=== PATIENT | female | born 1975 | race Caucasian/White ===

== ENCOUNTER 2020-06-11 03:20 | Emergency (ER) | payer SELFPAY ==
--- NOTE | ~2020-06-11 | CT_ITS ---
EXAMINATION: CT thoracic spine wo con DATE: 06/11/2020 04:27 INDICATION: Back pain TECHNIQUE: Computed tomography (CT) of the thoracic spine was performed without intravenous contrast. Automated exposure control and iterative reconstruction technique were employed. The dose-length pro duct was 897.46 mGy-cm. COMPARISON: Thoracic spine MR dated 10/09/2008 FINDINGS: Alignment is normal. Vertebral body heights are normal. No fracture. Mild disc height loss at T2-T3 t hrough T10-T11 with small endplate osteophytes at many of these levels. Multilevel mild bilateral tho racic facet osteoarthritis. There is a small soft tissue density at the T9-T10 left paracentral disc space extending to the neural foramen likely representing a disc extrusion which results in mild cent ral canal and left neural foraminal stenosis at this level. No other central canal or neural foramina l stenosis. Small pneumatocele in the left upper lobe. Mild pleural parenchymal scarring at the poste rior apices of the lungs. IMPRESSION: 1. Mild thoracic spondylosis with likely left paracentral/foraminal zone disc extrusion at T9-T10 res ult in mild central canal and neural foraminal stenosis. Dr. Mcnamara discussed these findings with Colby Seth at 8:15 AM. Reviewed, dictated and finalized at location A. IMPRESSION: 1. Mild thoracic spondylosis with likely left paracentral/foraminal zone disc e xtrusion at T9-T10 result in mild central canal and neural foraminal stenosis. Dr. Mcnamara discussed these findings with Dr. Seth at 8:15 AM.
[2020-06-11 03:39] VITALS: BP 113/72; PULSE 102; RESP 20; TEMP 36.8; O2SAT 98
--- NOTE | 2020-06-11 03:40 | ED.BACK ---
HPI - Back Pain/Injury General Chief Complaint: Back Pain/Injury Stated Complaint: Back Pain Time Seen by Provider: 06/11/20 03:40 Source: patient and RN notes reviewed Mode of arrival: ambulatory Limitations: no limitations History of Present Illness HPI Narrative: Patient states that she was lifting a 10-15 lb load. She picked up with both arms and then lifted it in front of her on top to a counter. This caused sudden acute pain in her midthoracic spine. She felt a tearing sensation. No radiation of the pain she is having a lot of spasms associated with this. No history of any prior back pain. MD elicited complaint: back injury Onset (ago): hour(s) (8) Timing: constant Severity: moderate Pain scale (0-10): 7 Similar Symptoms Previously: No Quality: sharp, stabbing and spasming Location: thoracic spine Radiation: none Exacerbating factors: movement, walking and lifting Relieving factors: none Context: while lifting and turning/twisting Associated symptoms: denies other symptoms Treatments prior to arrival: cold therapy Work related injury: No Related Data Allergies Allergy/AdvReac Type Severity Reaction Status Date / Time erythromycin base Allergy Intermediate Unknown Verified 06/11/20 03:52 Penicillins Allergy Intermediate Unknown Verified 06/11/20 03:52 ciprofloxacin [From Cipro] Allergy Hives Verified 06/11/20 03:52 clindamycin Allergy Unknown Verified 06/11/20 03:52 prednisone Allergy Fever Verified 06/11/20 03:52 vancomycin Allergy Unknown Verified 06/11/20 03:52 Exam Narrative: Exam Narrative: 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 Const: General: healthy appearing, no acute distress and alert Nutritional Appearance: well nourished Orientation/consciousness: patient oriented x3 HENMT: Head: normal to inspection Eyes: Conjunctivae: conjunctivae normal Pupils: Equal, round and reactive pupils present EOM: EOMs intact bilaterally Neck: Neck: normal visual inspection Resp: Effort & Inspection: normal respiratory effort Auscultation: clear to auscultation bilaterally Cardio: Rate: regular rate Rhythm: regular rhythm GI: Auscultation: normal bowel sounds Back/Spine/Pelvis: Cervical Spine: cervical ROM normal Thoracic/Lumbar Spine: straight leg raise negative bilaterally, pain with thoraco-lumbar ROM, No paraspinal muscle tenderness, thoraco-lumbar ROM limited with lateral flexion to the right, with lateral flexion to the left, with rotation to the right and with rotation to the left, thoraco-lumbar spasm bilaterally in the mid thoracic, thoracic spinal tenderness (Moderate to severe) at T5, at T6 and at T7 and No lumbar spinal tenderness Skin: General skin exam: normal color Rashes: no rashes Neuro: General: patient oriented x3, moves all extremities and no focal motor deficits Speech: normal speech Extrem: General: normal to inspection and no clubbing, cyanosis or edema Psych: Appearance: grossly normal and well kempt Mental Status: mental status grossly normal Affect: normal affect Attitude: cooperative Thought content: Yes Normal thought content present Course Vital Signs Vital signs: Vital Signs Temperature 36.8 C 06/11/20 03:39 Pulse Rate 102 H 06/11/20 03:39 Respiratory Rate 20 06/11/20 03:39 Blood Pressure 113/72 06/11/20 03:39 Pulse Oximetry 98 06/11/20 03:39 Temperature 36.7 C 06/11/20 05:22 Pulse Rate 82 06/11/20 05:22 Respiratory Rate 20 06/11/20 05:22 Blood Pressure 111/66 06/11/20 05:22 Pulse Oximetry 98 06/11/20 05:22 MDM - Back Pain/Injury Imaging Data Radiologist's impression: No acute findings per radiologist. Discharge Plan Discharge Clinical Impression: Strain of thoracic spine Patient Disposition: Home, Self-Care Condition: Stable Instructions: Thoracic Back Strain (ED) Additional Instructions: Follow-up with primary care physician. Consider physical therapy. Prescriptions: New nabumetone 750 mg tablet
[2020-06-11 03:41] VITALS: BP 113/72; PULSE 102; RESP 20; TEMP 36.8; O2SAT 98
[2020-06-11] MEDS: ORPHENADRINE CITRATE 30 MG/ML 2 ML VIAL 60 MG IM (04:10)
[2020-06-11] MEDS: KETOROLAC (*BKC) 60 MG/2 ML VIAL IM (04:10)
[2020-06-11 05:22] VITALS: BP 111/66; PULSE 82; RESP 20; TEMP 36.7; O2SAT 98
== END 2020-06-11 05:30 | disposition home or self-care (01) ==
PROVIDERS: Emergency Provider Emergency Medicine
DX: S29.012A Strain of muscle and tendon of back wall of thorax, initial encounter (principal); X50.9XXA Other and unspecified overexertion or strenuous movements or postures, initial encounter
CPT/HCPCS: 72128; 96372; 99283; 99284; J1885; J2360

== ENCOUNTER 2021-05-03 16:50 | Emergency (ER) | payer MEDICAID, SELFPAY ==
[2021-05-03 18:05] VITALS: BP 115/68; PULSE 78; RESP 18; TEMP 36.9; O2SAT 98
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
[2021-05-03] MEDS: cefTRIAXone 1 GM VIAL IM (18:38)
[2021-05-03 19:16] VITALS: BP 126/62; O2SAT 98
== END 2021-05-03 19:18 | disposition home or self-care (01) ==
PROVIDERS: Emergency Provider Emergency Medicine; PCP Nurse Practitioner Family
DX: T30.0 Burn of unspecified body region, unspecified degree (principal); X08.8XXA Exposure to other specified smoke, fire and flames, initial encounter
CPT/HCPCS: 96372; 99283; J0696

== ENCOUNTER 2021-08-15 17:01 | Observation (INO) | payer OTHER, SELFPAY ==
--- NOTE | ~2021-08-15 | XR_ITS ---
XR chest 1V portable DATE: 08/15/2021 17:42 INDICATION: Left chest pain for one hour TECHNIQUE: Portable upright AP views on 08/15/2021 at 1738 hours COMPARISON: None FINDINGS: Bilateral hyperinflation. No pulmonary infiltrate or consolidation, pleural effusion or pul monary vascular congestion or pneumothorax. Normal heart size. No hilar or mediastinal enlargement. IMPRESSION: Bilateral hyperinflation; no active cardiopulmonary disease Reviewed, dictated and finalized at location A.
[2021-08-15 17:05] VITALS: BP 122/75; PULSE 86; RESP 14; TEMP 37.1; O2SAT 99
--- NOTE | 2021-08-15 17:09 | ECG_ITS ---
Measurements Intervals [place] Rate: 87 P: 76 MD: 143 QRS: 72 QRSD: 88 T: 54 QT: 358 QTc: 432 Interpretive Statements SINUS RHYTHM BASELINE ARTIFACT- II, III, AVF NORMAL ECG Electronically Signed On 08-15-2021 17:24:54 CDT by Darren Simmons D.O.
--- NOTE | 2021-08-15 17:16 | ED.GENADULT ---
HPI - General Adult General Chief complaint: Chest Pain Stated complaint: chest pain Source: patient Mode of arrival: ambulatory Limitations: no limitations History of Present Illness HPI narrative: Zenaida is a 46F with a PMH of chronic pain and fatigue, asthma, tobacco abuse, GERD and a family history of early heart disease that presented to the ED with chest pain that started an hour ago. It started as palpitations and turned to pressure then numbness. Next the left side of her face and left arm went numb. She is nauseated, SOB and is lightheaded. It is worse with activity and better with rest. Related Data Home Medications Medication Instructions Recorded Confirmed No Home Medications 08/15/21 08/15/21 Allergies Allergy/AdvReac Type Severity Reaction Status Date / Time erythromycin base Allergy Intermediate Unknown Verified 06/11/20 03:52 Penicillins Allergy Intermediate Unknown Verified 06/11/20 03:52 ciprofloxacin [From Cipro] Allergy Hives Verified 06/11/20 03:52 clindamycin Allergy Unknown Verified 06/11/20 03:52 prednisone Allergy Fever Verified 06/11/20 03:52 shellfish derived Allergy Anaphylaxis Verified 08/15/21 20:32 vancomycin Allergy Unknown Verified 06/11/20 03:52 Review of Systems Constitutional: Constitutional: Reports no additional constitutional complaints Eyes: Eyes: Reports no additional eye complaints ENT: Reports system reviewed and no additional complaints, except as documented Cardiovascular: Cardiovascular: Reports as per HPI Respiratory: Respiratory: Reports as per HPI Gastrointestinal: Gastrointestinal: Reports as per HPI Genitourinary: Genitourinary: Reports no additional female genitourinary complaints Musculoskeletal: Musculoskeletal: Reports no additional musculoskeletal complaints Integumentary/Breasts: Skin/Breast: Reports system reviewed and no additional complaints, except as docu Neurologic: Reports system reviewed and no additional complaints, except as documented Psychiatric: Psychiatric: Reports no additional psychiatric complaints Endocrine: Endocrine: Reports no additional endocrine complaints Hematologic/Lymphatic: Hematologic/Lymphatic: Reports no additional hematologic/lymphatic complaints Allergic/Immunologic: Allergic/Immunologic: Reports no additional allergic/immunologic complaints [facility]LY [facility] Past Medical History Medical History Anxiety Social History Social History Alcohol intake: unknown Substance use: unknown Spiritual care concerns: No Exam Const: General: no acute distress and alert; No confusion Orientation/consciousness: patient oriented x3 Limitations: No altered mental status HENMT: Head: normal to inspection Other: atraumatic Eyes: Conjunctivae: conjunctivae normal Pupils: Equal, round and reactive pupils present Neck: Neck: normal visual inspection Chest: Chest palpation & inspection: normal inspection of the chest Resp: Effort & Inspection: normal respiratory effort, not labored and not tachypneic Auscultation: clear to auscultation bilaterally Cardio: Rate: regular rate Rhythm: regular rhythm GI: Inspection: non-distended GI Palp: Yes Soft to palpation, No Tenderness to palpation present (GI) and No Guarding due to palpation present (GI) : General: Yes no CVA tenderness Back/Spine/Pelvis: Back: no CVA tenderness Skin: General skin exam: normal color Rashes: no rashes Neuro: General: patient oriented x3 and moves all extremities Extrem: General: normal to inspection Psych: Mental Status: mental status grossly normal Course Course Emergency Course: She was given aspirin and nitro. Ordered labs, EKG and CXR. Her pain was helped a little with nitro. EKG showed NSR at a rate of 87, normal rhythm, normal axis, and no ST elevation/depression DATE: 08/15/2021 17:42 INDICATION: Left shanice
[2021-08-15] MEDS: ASPIRIN 81 MG CHEWABLE TABLET 324 MG PO (17:30)
[2021-08-15 17:31] LABS: Basophils Absolute Auto 0.02 K/mm3 (0.00-0.10); Basophils Percent Auto 0.3 % (0.0-1.0); Eosinophils Percent Auto 1.5 % (1.0-6.0); Hematocrit 40.7 % (35.0-49.0); Hemoglobin 14.3 g/dL (12.0-15.0); Immature Granulocyte Absolute 0.02 K/mm3 (0.00-0.00); Immature Granulocyte Percent A 0.3 % (0.0-0.0); Lymphocytes Absolute Auto 2.23 K/mm3 (1.10-4.50); Lymphocytes Percent Auto 34.1 % (18.0-42.0); Mean Corpuscular HGB Conc 35.1 g/dL (32.0-36.0); Mean Corpuscular Hemoglobin 32.9 pg (27.0-31.0); Mean Corpuscular Volume 93.8 fL (78.0-102.0); Mean Platelet Volume 9.9 fl (9.2-11.8); Monocytes Absolute Auto 0.26 K/mm3 (0.10-0.90); Neutrophils Absolute Auto 3.9 K/mm3 (1.7-7.2); Neutrophils Percent Auto 59.8 % (50.0-70.0); Platelet Count Result 312 K/mm3 (150-420); Red Blood Count 4.34 M/mm3 (4.20-5.40); Red Cell Distribution Width 11.5 % (11.6-14.4); White Blood Count 6.5 K/mm3 (4.8-10.8)
[2021-08-15] MEDS: NITROGLYCERIN SL 0.4 MG TABLET SUBLINGUAL (17:31)
--- NOTE | 2021-08-15 17:35 | PC.NURSE ---
Pt states she now has a headache and does not want another sl nitro. edp aware. pt states chest pressure is better.
[2021-08-15 17:43] LABS: Prothrombin Time 10.6 Seconds (9.50-12.10)
[2021-08-15 17:52] LABS: Alanine Aminotransferase 23 U/L (14-59); Alkaline Phosphatase 40 U/L (46-116); Anion Gap 11 mmol/L (8-16); Aspartate Amino Transferase 11 U/L (15-37); Bilirubin,Total 0.4 mg/dL (0.00-1.00); Blood Urea Nitrogen 7 mg/dL (7-18); Calcium 8.8 mg/dL (8.5-10.1); Carbon Dioxide 26 mmol/L (21-32); Chloride 103 mmol/L (98-108); Estimated CRCL calculation 84 ml/min; Estimated Glomerular Filt Rate > 60; Glucose 99 mg/dL (70-99); Lipase 87 U/L (73-393); NT Pro B Type Natriuretic Pept 137 pg/mL (0-125); Osmolality Calculated 288 mOsm/kg (285-295); Potassium 3.9 mmol/L (3.5-5.1); Sodium 140 mmol/L (136-145); Total Protein 6.7 g/dL (6.4-8.2)
[2021-08-15 17:53] LABS: Troponin I < 4.0 ng/L (0.00-60.4)
[2021-08-15 18:09] VITALS: PULSE 58; RESP 20; O2SAT 97
[2021-08-15] MEDS: MAG HYDROX/ALUMINUM HYD/SIMETH 30 ML, PHENobarb/HYOSCY/ATROPINE/SCOP 32.4 MG, LIDOCAINE... PO (18:18)
[2021-08-15 18:25] VITALS: BP 115/60; PULSE 74; RESP 16; O2SAT 98
[2021-08-15 20:00] VITALS: BP 110/70; PULSE 60; PULSE 61; RESP 20; TEMP 36.8; O2SAT 100
[2021-08-15 20:35] VITALS: BMI 28.6
[2021-08-15 22:23] VITALS: BMI 28.6
--- NOTE | 2021-08-15 22:28 | PC.NURSE ---
Zenaida brought to 2nd floor roon 204 via W/C transported via RN from ER Department. Placed on Tele, HR increases with any activity,walking noted at 110. tightness to chest no pain. SB assist one with ambulation and instructed to use call light when need of bathroom. review of questionnaire for admission complete. Void/urine was 1,000cc. Ambulation slow steady gait. Side rails up on upper bed. Call light placed in reach with understanding of use. She recently had several lower teeth pulled requiring her to need soft food.Heart healthy diet. 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 No other personal belongings. Advised on Visitation of anyone not allowed at this time. ADDED ON ALLERGY OF SHELLFISH/ causes anaphylactic symptoms. Will continue to monitor S/Sx ofd chest pressure/pain and note. Zenaida Voiced understanding and good comprehension without question at this time.
[2021-08-15 23:54] LABS: Troponin I < 4.0 ng/L (0.00-60.4)
[2021-08-16] VITALS: BP 99/49; PULSE 58; RESP 20; TEMP 36.7
[2021-08-16 04:00] VITALS: BP 100/50; PULSE 57; RESP 20; TEMP 36.1; O2SAT 98
[2021-08-16 05:41] LABS: Troponin I < 4.0 ng/L (0.00-60.4)
--- NOTE | 2021-08-16 07:21 | PC.NURSE ---
patient complains of feeling chest fluttering throughout night, no ectopy noted, patient sinus erika mid 50's. patient denies pain. am labs resulted.
--- NOTE | 2021-08-16 07:38 | PM.SD2 ---
Same Day Admit/Disch: HPI History of Present Illness Chief complaint: chest pain Narrative: Zenaida Cuevas is a 46 year old female who was admitted under Observation for chest pain. Patient states her pain started yesterday while doing laundry. Prior to that patient was sitting down watching television. Just at the end of doing laundry yesterday patient states she became lightheaded then broke out into cold sweats. She then began to have a pressure sensation in her chest noting the pain was beneath her left breast. A short while later the left side of her face was numb as well as the left shoulder and arm. Patient informs me that earlier in the week on Wednesday she had all of her teeth removed from the lower left jaw. And prior to doing laundry she was alternating heat and ice on the left jaw every 15 minutes. Patient has a history of anxiety and states that she was not and is not anxious related to the chest pain. FOR[facility]LY [facility] Past Medical History Medical History (Updated 08/16/21 @ 10:50 by SERAFIN Aragon) Anxiety Asthma Ovarian torsion Surgical History Surgical History (Updated 08/16/21 @ 10:50 by SERAFIN Aragon) H/O left knee surgery H/O tubal ligation S/P left rotator cuff repair Family History Family History Other Heart disease Social History Social History Smoking status: Current some day smoker Tobacco type: cigarettes Alcohol intake: unknown Substance use: unknown Spiritual care concerns: No Same Day Admit/Disch: Med Pre-admit Medications Home Medications Medication Instructions Recorded Confirmed Type No Home Medications 08/15/21 08/15/21 History Exam Chest: Chest palpation & inspection: normal palpation of entire chest wall Resp: Effort & Inspection: normal respiratory effort Auscultation: clear to auscultation bilaterally Cardio: Jugular venous distension: no JVD Rate: regular rate Heart sounds: S1 normal heart sound present and S2 normal heart sound present GI: GI Palp: Yes Soft to palpation and No Tenderness to palpation present (GI) Auscultation: normal bowel sounds Skin: General skin exam: normal color and dry skin Neuro: General: oriented to person, oriented to place and oriented to time Cranial nerves: Yes CN's II-XII intact bilaterally (grossly intact) Cognition (Neuro): normal cognition Speech: normal speech Extrem: General: full ROM and no pedal edema Psych: Appearance: grossly normal Mental Status: mental status grossly normal Speech and movement: Normal speech and movement present Affect: normal affect Attitude: cooperative Thought process: Normal thought process present DS: Data Data Completed and Pending Labs on day of discharge: Labs from last 24 hours 08/16/21 08/15/21 08/15/21 04:44 23:30 17:25 WBC RBC Hgb Hct MCV MCH MCHC RDW Plt Count MPV Immature Gran % (Auto) Neut % (Auto) Lymph % (Auto) Irion % (Auto) Eos % (Auto) Baso % (Auto) Lymph # (Auto) [place]ion # (Auto) Eos # (Auto) Baso # (Auto) Abs Immat Gran (auto) Absolute Neuts (auto) Absolute Nucleated RBC Nucleated RBC % PT INR Sodium 140 Potassium 3.9 Chloride 103 Carbon Dioxide 26 Anion Gap 11 BUN 7 Creatinine 0.84 Estim Creat Clear Calc 84 Estimated GFR > 60 Glucose 99 Calculated Osmolality 288 Calcium 8.8 Total Bilirubin 0.4 AST 11 L ALT 23 Alkaline Phosphatase 40 L Troponin I < 4.0 < 4.0 < 4.0 NT-Pro-B Natriuret Pep 137 H Total Protein 6.7 Albumin 4.0 Lipase 87 08/15/21 08/15/21 17:25 17:25 WBC 6.5 RBC 4.34 Hgb 14.3 Hct 40.7 MCV 93.8 MCH 32.9 H MCHC 35.1 RDW 11.5 L Plt Count 312 MPV 9.9 Immature Gran % (Auto) 0.3 H Neut % (Auto) 59.8 Lymph % (Auto) 34.1 Irion % (Au
[2021-08-16 08:00] VITALS: BP 104/72; PULSE 64; RESP 18; TEMP 37; O2SAT 97
[2021-08-16 12:00] VITALS: BP 105/70; PULSE 76; RESP 18; TEMP 36.9; O2SAT 97
--- NOTE | 2021-08-18 12:45 | PC.NURSE ---
Pt states she received and understood her discharge instructions. Pt also states everything was great .
== END 2021-08-16 12:20 | disposition home or self-care (01) ==
LOC: CHSED 17:14 → CHS2ND 18:26
PROVIDERS: Admitting Provider Family Medicine; Emergency Provider Family Medicine; PCP Nurse Practitioner Family; Visit Provider Family Medicine
DX: R07.9 Chest pain, unspecified (principal); R53.83 Other fatigue; J45.909 Unspecified asthma, uncomplicated; K21.9 Gastro-esophageal reflux disease without esophagitis; F41.9 Anxiety disorder, unspecified; F17.210 Nicotine dependence, cigarettes, uncomplicated
CPT/HCPCS: 36415; 71045; 80053; 83690; 83880; 84484; 85025; 85610; 93005; 99285; A9270; G0378; G0379

== ENCOUNTER 2021-11-10 11:00 | Outpatient (CLI) | payer OTHER, SELFPAY ==
--- NOTE | ~2021-11-10 | XR_ITS ---
EXAMINATION: XR knee RT min 4V DATE: 11/10/2021 11:34 INDICATION: Acute pain of right knee. TECHNIQUE: 4 views of right knee were obtained. COMPARISON: Right knee radiograph 05/24/2017 FINDINGS: Bone alignment is normal. No fracture. There is mild osteoarthritis of lateral and patellof emoral compartments characterized by tiny marginal osteophytes. No joint space narrowing. No knee agustin nt effusion. IMPRESSION: 1. Mild right knee osteoarthritis. Reviewed, dictated and finalized at location A. ER OFF
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
== END 2021-11-10 11:01 | disposition home or self-care (01) ==
LOC: CHSIMG 11:04
PROVIDERS: PCP Nurse Practitioner Family; Visit Provider Nurse Practitioner Family
DX: M25.512 Pain in left shoulder (principal); M25.561 Pain in right knee
CPT/HCPCS: 73030; 73564

== ENCOUNTER 2021-11-17 11:46 | Outpatient (CLI) | payer OTHER, SELFPAY ==
--- NOTE | 2021-11-17 11:53 | EST_ITS ---
Patient Info Name: Zenaida Cuevas Age: 46 years : 1975 Gender: Female Ht: 67 in Wt: 198 lbs BSA: 2.09 m2 Exam Date: 11/17/2021 1:06 PM Exam Location: [email or web address] [facility] Patient Status: Outpatient Admit Date: 11/17/2021 Staff Ordering Physician: Darren Simmons DO Attending Provider: Darren Simmons DO Exam Type: CA stress tee w NM Summary 1. 1. Negative lexiscan stress test for ischemic ST changes by ECG criteria. 2. 2. Stable hemodynamics throughout the test. 3. 3. Nuclear scan to follow and will be reported separately. Please correlate with it. 4. 4. Patient informed of the above results. Protocol: LEXISCAN Stress ECG Details Stage: REST Duration (min): 1 min : 49 sec HR (bpm): 90 SBP (mmHg): 96 DBP (mmHg): 67 Stage: REST Duration (min): 5 min : 24 sec HR (bpm): 87 SBP (mmHg): 96 DBP (mmHg): 67 Stage: STAGE 1 Duration (min): 0 min : 4 sec HR (bpm): 86 SBP (mmHg): 96 DBP (mmHg): 67 Stage: RECOVERY Duration (min): 0 min : 55 sec HR (bpm): 130 SBP (mmHg): 96 DBP (mmHg): 67 Stage: RECOVERY Duration (min): 1 min : 55 sec HR (bpm): 130 SBP (mmHg): 118 DBP (mmHg): 60 Stage: RECOVERY Duration (min): 2 min : 55 sec HR (bpm): 121 SBP (mmHg): 125 DBP (mmHg): 71 Stage: RECOVERY Duration (min): 3 min : 55 sec HR (bpm): 118 SBP (mmHg): 116 DBP (mmHg): 64 Stage: RECOVERY Duration (min): 4 min : 55 sec HR (bpm): 111 SBP (mmHg): 113 DBP (mmHg): 73 Stage: RECOVERY Duration (min): 5 min : 55 sec HR (bpm): 107 SBP (mmHg): 120 DBP (mmHg): 73 Stage: RECOVERY Duration (min): 6 min : 13 sec HR (bpm): 103 SBP (mmHg): 120 DBP (mmHg): 73 Rest HR: 87 bpm Peak HR: 132 bpm Rest Sys BP: 96 mmHg Peak Sys BP: 125 mmHg Max Pred HR: 174 bpm % Max Pred HR: 76 % Target HR: 148 bpm Max RPP: 16,500 bpm*mmHg Termination Reason: Completed protocol Cardiac Symptoms: Shortness of breath Total Time: 0 min : 4 sec Rest Leiva BP: 67 mmHg Peak Leiva BP: 71 mmHg Total Dose: 0.4 mg Resting ECG Sinus rhythm. Stress ECG No ST changes. Arrhythmias None. Report Signatures
--- NOTE | 2021-11-17 15:12 | WPDCARIOSTRE ---
Nuclear Stress Test INDICATIONS Indications: Chest pain PROCEDURE Procedure Performed: Myocardial Perf Spect-Multi Procedure: Patient underwent a lexiscan stress test and immediately was injected with 32.5 mCi of cardiolyte. Multiple tomographic images were obtained. These are of good quality. There is a large size, severe apical perfusion defect with stress imaging. A separate resting images were obtained after patient was injected with 10.2 mCi of cardiolyte. Multiple tomographic images were obtained. These are of good quality. There is a large size, severe apical perfusion defect with rest imaging. CONCLUSION Conclusion: 1. Myocardial perfusion imaging demonstrating fixed large apical perfusion defects suggestive of attenuation artifact. 2. No evidence of reversible ischemia. 3. Left ventriculogram demonstrates normal measured ejection fraction of 71%. No wall motion abnormalities. 4. TID 1.14 is normal.
== END 2021-11-17 11:47 | disposition home or self-care (01) ==
LOC: CHSCARD 11:47
PROVIDERS: PCP Nurse Practitioner Family; Visit Provider Internal Medicine Cardiovascular Disease
DX: R07.9 Chest pain, unspecified (principal)
CPT/HCPCS: 78452; 93017; A9502; J2785

== ENCOUNTER 2021-11-25 09:00 | Outpatient (RCR) | payer OTHER, SELFPAY ==
--- NOTE | 2021-11-25 10:11 | PTOPEVAL ---
Thank you for referring Zenaida Cuevas to [facility] The patient is scheduled to be seen for therapy? ____x/week for ___ weeks. Please review, sign, date and return this plan of care RENNY. I agree with and certify that the following plan of care is medically necessary. Referring Physician Date Admitting Provider: Attending Provider: KARYN GALICIA Referring Provider: *PT Outpatient Evaluation Start: 11/25/21 08:55 Freq: Status: Active Protocol: Document 11/25/21 08:56 ACR (Rec: 11/25/21 10:11 ACR [id number]) Therapy Assessment Status Assessment Status Assessment Status Evaluation Outpatient Past Medical History Neurological History Hx Neurological Disorders No Significant History Cardiovascular History Hx Angina Yes: started resently. Hx Chest Pain Yes Respiratory History Hx Respiratory Disorders No Significant History Gastrointestinal History Hx Gastrointestinal Disorders No Significant History Genitourinary History Hx Genitourinary Disorders No Significant History Musculoskeletal History Hx Arthritis Yes Hx Joint Replacement Yes Hx Orthopedic Surgery Yes: left shoulder Endocrine History Hx Endocrine Disorders No Significant History HEENT History Hx HEENT Disorders No Significant History Integumentary History Hx Skin Disorders No Significant History Reproductive History Hx Endometriosis Yes Hx Fibroids Yes Evaluation Information Problem Diagnosis L shoulder pain, R knee pain Onset 11/18/21 Subjective Information Patient states that she was Query Text:As Reported By Patient/ going down the stairs and her Family R knee gave out and she started to fall and she used her L arm to catch her on a concrete wall. She did not fall all the way to the floor but her L shoulder and R knee are really bothering her. She states that she cannot take NSAIDs because of allergies. She states that she has had a L shoulder rotator cuff repair and a R knee lateral release. She states that she is having difficulty getting dressing, gripping, opening items, occasionally has tingling down the L arm, and reaching out to the side. She states that
--- NOTE | 2021-12-22 15:07 | PTOPEVAL ---
Thank you for referring Zenaida Cuevas to [facility].? The patient is scheduled to be seen for therapy? ____x/week for ___ weeks. Please review, sign, date and return this plan of care RENNY. I agree with and certify that the following plan of care is medically necessary. Referring Physician Date Admitting Provider: Attending Provider: KARYN GALICIA Referring Provider: *PT Outpatient Evaluation Start: 11/25/21 08:55 Freq: Status: Active Protocol: Document 12/22/21 14:07 ACR (Rec: 12/22/21 15:05 ACR [id number]) Therapy Assessment Status Assessment Status Assessment Status Progress Outpatient Past Medical History Neurological History Hx Neurological Disorders No Significant History Cardiovascular History Hx Angina Yes: started resently. Hx Chest Pain Yes Respiratory History Hx Respiratory Disorders No Significant History Gastrointestinal History Hx Gastrointestinal Disorders No Significant History Genitourinary History Hx Genitourinary Disorders No Significant History Musculoskeletal History Hx Arthritis Yes Hx Joint Replacement Yes Hx Orthopedic Surgery Yes: left shoulder Endocrine History Hx Endocrine Disorders No Significant History HEENT History Hx HEENT Disorders No Significant History Integumentary History Hx Skin Disorders No Significant History Reproductive History Hx Endometriosis Yes Hx Fibroids Yes Evaluation Information Problem Diagnosis L shoulder pain, R knee pain Onset 11/18/21 Subjective Information The patient reports that her Query Text:As Reported By Patient/ shoulder feels better where Family she can move it more, but she can lift to a certain point until she feels tightness in the bicep region. Patient reports that her knee is really bothering her because it constantly feels like it is slipping. She feels therapy is helping her and would like to continue with strengthening of the knee and improving the tightness in the bicep. Pain Assessment Timing of Pain Assessment Timing of Pain Assessment Assessment Pain Scale Pain Scale Used Numeric (1 - 10) Self Report Pain Assessment Right Knee(s) Reported Pain Level 5 Greatest Pain Intensity 8 Left Shoulder(s) Reported Pain Level 5 Greatest Pain Intensity 6 Pain Score Pain S
--- NOTE | 2022-01-12 15:15 | PTOPEVAL ---
Thank you for referring Zenaida Cuevas to [facility].? The patient is scheduled to be seen for therapy? ____x/week for ___ weeks. Please review, sign, date and return this plan of care RENNY. I agree with and certify that the following plan of care is medically necessary. Referring Physician Date Admitting Provider: Attending Provider: KARYN GALICIA Referring Provider: *PT Outpatient Evaluation Start: 11/25/21 08:55 Freq: Status: Active Protocol: Document 01/12/22 14:04 ACR (Rec: 01/12/22 15:14 ACR [id number]) Therapy Assessment Status Assessment Status Assessment Status Progress Outpatient Past Medical History Neurological History Hx Neurological Disorders No Significant History Cardiovascular History Hx Angina Yes: started resently. Hx Chest Pain Yes Respiratory History Hx Respiratory Disorders No Significant History Gastrointestinal History Hx Gastrointestinal Disorders No Significant History Genitourinary History Hx Genitourinary Disorders No Significant History Musculoskeletal History Hx Arthritis Yes Hx Joint Replacement Yes Hx Orthopedic Surgery Yes: left shoulder Endocrine History Hx Endocrine Disorders No Significant History HEENT History Hx HEENT Disorders No Significant History Integumentary History Hx Skin Disorders No Significant History Reproductive History Hx Endometriosis Yes Hx Fibroids Yes Evaluation Information Problem Diagnosis R knee pain, L shoulder pain Onset 11/18/21 Subjective Information Patient reports that since Query Text:As Reported By Patient/ beginning therapy her shoulder Family is doing a lot better, but her knee is still bothering her and feels like it is slipping. She states that she has had a couple close calls of her almost falling because her knee will give out on her. She states that she is starting to get muscle spasms in the quadriceps when doing short arc quads. Pain Assessment Timing of Pain Assessment Timing of Pain Assessment Assessment Pain Scale Pain Scale Used Numeric (1 - 10) Self Report Pain Assessment Right Knee(s) Reported Pain Level 4 Greatest Pain Intensity 7 Left Shoulder(s) Reported Pain Level 0 Pain Score Pain Score 4,0: Self Report Interventions Used Interventions Used By Clinicians Activity or A
--- NOTE | 2022-02-02 10:54 | PTOPEVAL ---
Thank you for referring Zenaida Cuevas to [facility].? The patient is scheduled to be seen for therapy? ____x/week for ___ weeks. Please review, sign, date and return this plan of care RENNY. I agree with and certify that the following plan of care is medically necessary. Referring Physician Date Admitting Provider: Attending Provider: KARYN GALICIA Referring Provider: *PT Outpatient Evaluation Start: 11/25/21 08:55 Freq: Status: Active Protocol: Document 02/02/22 09:59 ACR (Rec: 02/02/22 10:53 ACR [id number]) Therapy Assessment Status Assessment Status Assessment Status Progress Outpatient Past Medical History Neurological History Hx Neurological Disorders No Significant History Cardiovascular History Hx Angina Yes: started resently. Hx Chest Pain Yes Respiratory History Hx Respiratory Disorders No Significant History Gastrointestinal History Hx Gastrointestinal Disorders No Significant History Genitourinary History Hx Genitourinary Disorders No Significant History Musculoskeletal History Hx Arthritis Yes Hx Joint Replacement Yes Hx Orthopedic Surgery Yes: left shoulder Endocrine History Hx Endocrine Disorders No Significant History HEENT History Hx HEENT Disorders No Significant History Integumentary History Hx Skin Disorders No Significant History Reproductive History Hx Endometriosis Yes Hx Fibroids Yes Evaluation Information Problem Diagnosis R knee pain Subjective Information Patient states that she Query Text:As Reported By Patient/ slipped and almost fell and Family now her knee is really slipping and starting to bruise more. Patient states that since beginning therapy she feels the knee is getting stronger, but is unsure why the knee is swelling and bruising. Pain Assessment Timing of Pain Assessment Timing of Pain Assessment Assessment Pain Scale Pain Scale Used Numeric (1 - 10) Self Report Pain Assessment Right Knee(s) Reported Pain Level 6 Greatest Pain Intensity 8 Pain Score Pain Score 6: Self Report Interventions Used Interventions Used By Clinicians Activity or ADL's,Electrical Stimulation,Exercise,Heat Palpation Assessment Palpation Palpation Patient is TTP to the medial and lateral joint line along with some brusing in the
--- NOTE | 2022-02-05 16:04 | PTOPEVAL ---
Thank you for referring Zenaida Cuevas to [facility].? The patient is scheduled to be seen for therapy? ____x/week for ___ weeks. Please review, sign, date and return this plan of care RENNY. I agree with and certify that the following plan of care is medically necessary. Referring Physician Date Admitting Provider: Attending Provider: KARYN GALICIA Referring Provider: *PT Outpatient Evaluation Start: 11/25/21 08:55 Freq: Status: Active Protocol: Document 02/05/22 16:01 ACR (Rec: 02/05/22 16:04 ACR [id number]) Therapy Assessment Status Assessment Status Assessment Status Discharge - Pt Not Present Outpatient Past Medical History Neurological History Hx Neurological Disorders No Significant History Cardiovascular History Hx Angina Yes: started resently. Hx Chest Pain Yes Respiratory History Hx Respiratory Disorders No Significant History Gastrointestinal History Hx Gastrointestinal Disorders No Significant History Genitourinary History Hx Genitourinary Disorders No Significant History Musculoskeletal History Hx Arthritis Yes Hx Joint Replacement Yes Hx Orthopedic Surgery Yes: left shoulder Endocrine History Hx Endocrine Disorders No Significant History HEENT History Hx HEENT Disorders No Significant History Integumentary History Hx Skin Disorders No Significant History Reproductive History Hx Endometriosis Yes Hx Fibroids Yes Pain Assessment Timing of Pain Assessment Timing of Pain Assessment Assessment Self Report Self Report Pain Level 0 Pain Score Pain Score 0: Self Report PT Clinical Summary Clinical Summary Protocol: PTEVCODE PT Clinical Summary Patient is a 46 year old female that participated in 17 visits for R knee pain/L shoulder pain. The patient returned to the doctor and the MD would like her to discontinue therapy at this time. Please refer to most recent progress not for discharge status. PT Services Indicated No Persons Assisting in Goal Achievement patient Patient/Caregiver Informed of Benefits/ Yes Risks of Rehabilitation Patient/Caregiver Participated in Plan Yes of Care Patient/Caregiver Agreed with Problem Yes List/POC/Goals Treatment Frequency and Duration Patient to be discharged Reflexes Reflexes
== END 2022-02-02 10:32 | disposition home or self-care (01) ==
LOC: CHSPT 09:00
PROVIDERS: PCP Nurse Practitioner Family
DX: M25.512 Pain in left shoulder (principal); M25.561 Pain in right knee
CPT/HCPCS: 97014; 97110; 97140; 97161; 97530; G0283

== ENCOUNTER 2021-12-30 10:18 | Outpatient (CLI) | payer OTHER, SELFPAY ==
--- NOTE | ~2021-12-30 | MM_ITS ---
EXAMINATION: MM screening demetrio BI w ata HISTORY: Screening TECHNIQUE: Craniocaudal and mediolateral oblique 3-D tomosynthesis images were obtained and synthetic 2-D images were generated. CAD analysis was submitted and interpreted. COMPARISON: No prior mammogram is available for comparison at this institution. BREAST PARENCHYMAL COMPOSITION: The breasts are heterogenously dense, which may obscure small masses FINDINGS: There are multiple scattered bilateral breast masses some which are partially obscured by f ibroglandular tissue. There are no suspicious calcifications or architectural distortion. IMPRESSION: 1. Scattered bilateral breast masses. 2. Bilateral whole breast ultrasound recommended. BI-RADS Category 0: Incomplete: Needs additional imaging evaluation. Reviewed, dictated and finalized at location A. H PUNCHER
== END 2021-12-30 10:19 | disposition home or self-care (01) ==
PROVIDERS: PCP Nurse Practitioner Family; Visit Provider Nurse Practitioner Family
DX: Z12.31 Encounter for screening mammogram for malignant neoplasm of breast (principal)
CPT/HCPCS: 77063; 77067

== ENCOUNTER 2022-01-07 09:35 | Outpatient (CLI) | payer OTHER, SELFPAY ==
--- NOTE | ~2022-01-07 | US_ITS ---
EXAMINATION: US breast BI complete HISTORY: Bilateral breast masses on baseline screening mammogram TECHNIQUE: Complete bilateral breast ultrasound is performed including all four quadrants and the sub areolar aspect of both breasts FINDINGS: There are multiple similar appearing complex cystic and solid masses throughout both breast s. The largest on the right is a 1.8 cm cyst at the 10:00 location. The largest on the left is a 5 cm cyst at the 1:00 location. There is an 11 mm x 5 mm oval, circumscribed, parallel, hypoechoic mass w ith no posterior features or internal vascularity at the 3:00 location 6 cm from the nipple. No defin ite mammographic correlate is identified. IMPRESSION: Six month follow-up targeted left breast ultrasound with possible mammogram are recommended for a pro bably benign mass at the 3:00 location 6 cm from the nipple. BI-RADS category 3, probably benign findings. Reviewed, dictated and finalized at location A. E TURNER IMPRESSION: Six month follow-up targeted left breast ultrasound with possible mammogram are recommended for a probably benign mass at the 3:00 location 6 cm from the nipp le. BI-RADS category 3, probably benign findings.
== END 2022-01-07 09:36 | disposition home or self-care (01) ==
LOC: CHSIMG 09:36
PROVIDERS: PCP Nurse Practitioner Family; Visit Provider Nurse Practitioner Family
DX: R92.8 Other abnormal and inconclusive findings on diagnostic imaging of breast (principal)
CPT/HCPCS: 76641

== ENCOUNTER 2022-02-03 10:27 | Outpatient (CLI) | payer OTHER, SELFPAY ==
[2022-02-03 11:10] LABS: Magnesium 1.8 mg/dL (1.8-2.4)
[2022-02-03 11:36] LABS: Rheumatoid Factor Screen Negative (Negative)
== END 2022-02-03 10:28 | disposition home or self-care (01) ==
LOC: CHSLAB 10:28
PROVIDERS: PCP Nurse Practitioner Family; Visit Provider Nurse Practitioner Adult Health
DX: G89.4 Chronic pain syndrome (principal)
CPT/HCPCS: 36415; 83735; 86038; 86430

== ENCOUNTER 2022-03-09 13:21 | Outpatient (CLI) | payer OTHER, SELFPAY ==
--- NOTE | ~2022-03-09 | US_ITS ---
EXAMINATION: US thyroid DATE: 03/09/2022 13:40 INDICATION: Enlarged thyroid. TECHNIQUE: Multiple ultrasound images of the thyroid were obtained. COMPARISON: None. FINDINGS: The right thyroid lobe measures 4.9 x 1.7 x 1.4 cm. The left thyroid lobe measures 4.6 x 1.4 x 1.3 c m. In the right thyroid lobe, there is a 9 mm solid, hypoechoic, [id number] nodule with lobulat ed margin and punctate echogenic foci (TI-RADS TR5). In the left thyroid lobe, there is a 4 mm nodule . IMPRESSION: 1. Small thyroid nodules. Thyroid ultrasound is recommended in one year. Reviewed, dictated and finalized at location A.
== END 2022-03-09 13:22 | disposition home or self-care (01) ==
LOC: CHSIMG 13:22
PROVIDERS: PCP Nurse Practitioner Family; Visit Provider Nurse Practitioner
DX: E04.9 Nontoxic goiter, unspecified (principal)
CPT/HCPCS: 76536

== ENCOUNTER 2022-06-10 11:42 | Outpatient (CLI) | payer OTHER, SELFPAY ==
--- NOTE | ~2022-06-10 | XR_ITS ---
XR lumbar spine 2-3V DATE: 06/10/2022 12:11 INDICATION: Back pain, chronic. No known injury. TECHNIQUE: AP, lateral, coned lateral lumbosacral views COMPARISON: None FINDINGS: Normal alignment of the lumbar spine. No fracture or bone destruction. Lumbar and lumbosacr al spaces appear well preserved. The lumbar pedicles are intact. The sacroiliac joints appear normal. IMPRESSION: No significant abnormality Reviewed, dictated and finalized at location A. IMPRESSION: No significant abnormality
--- NOTE | ~2022-06-10 | XR_ITS ---
XR sacroiliac joints min 3V DATE: 06/10/2022 12:11 INDICATION: Sacroiliitis TECHNIQUE: AP and bilateral oblique views COMPARISON: None FINDINGS: Normal alignment at the sacroiliac joints. No fracture or dislocation, erosive change or an kylosis. IMPRESSION: Negative Reviewed, dictated and finalized at Location A. Reviewed, dictated and finalized at location A. IMPRESSION: Negative
== END 2022-06-10 11:43 | disposition home or self-care (01) ==
LOC: CHSIMG 11:44
PROVIDERS: PCP Nurse Practitioner Family; Visit Provider Nurse Practitioner Adult Health
DX: M46.1 Sacroiliitis, not elsewhere classified (principal); M54.9 Dorsalgia, unspecified
CPT/HCPCS: 72100; 72202

== ENCOUNTER 2022-06-15 09:59 | Outpatient (RCR) | payer OTHER, SELFPAY ==
--- NOTE | 2022-06-15 10:50 | PTOPEVAL ---
Thank you for referring Zenaida Cuevas to [facility].? The patient is scheduled to be seen for therapy? ____x/week for ___ weeks. Please review, sign, date and return this plan of care RENNY. I agree with and certify that the following plan of care is medically necessary. Referring Physician Date Admitting Provider: Attending Provider: Nichole Tidwell, JAILER/TRAINING OFFICER Referring Provider: *PT Outpatient Evaluation Start: 06/15/22 10:10 Freq: Status: Active Protocol: Document 06/15/22 10:10 [facility] (Rec: 06/15/22 10:50 [facility] [id number]) Therapy Assessment Status Assessment Status Assessment Status Evaluation Outpatient Past Medical History Neurological History Hx Neurological Disorders No Significant History Cardiovascular History Hx Angina Yes: started resently. Hx Chest Pain Yes Respiratory History Hx Respiratory Disorders No Significant History Gastrointestinal History Hx Gastrointestinal Disorders No Significant History Genitourinary History Hx Genitourinary Disorders No Significant History Musculoskeletal History Hx Arthritis Yes Hx Joint Replacement Yes Hx Orthopedic Surgery Yes: left shoulder Endocrine History Hx Endocrine Disorders No Significant History HEENT History Hx HEENT Disorders No Significant History Integumentary History Hx Skin Disorders No Significant History Reproductive History Hx Endometriosis Yes Hx Fibroids Yes Evaluation Information Problem Diagnosis sacroilitis Onset 05/23/22 Additional Evaluation Detail LEFS = 62% functionally declined Subjective Information patient reports she has been Query Text:As Reported By Patient/ having pain in the lower Family buttock and across the butt and down the legs for a few weeks. she reports she has had a second incident at home when bending over to pull a weed out of the ground. she reports she is on increased meds for pain, but continues to have pain with standing, sitting, and walking. she reports she is most comfortable on all 4's with her butt in the air. she reports she bounces up to an 8 /10 pain with activity. she reports she has had several xrays, but no mri or CT. she
--- NOTE | 2022-08-05 10:59 | PTOPDC ---
Evaluation Information Assessment Status Evaluation Diagnosis sacroilitis Onset 05/23/22 Subjective Information patient reports she is doing better. she reports she has met her goal pain level several times over the past few weeks. she reports she still is flared up at times with bending over to weed her garden, and bending over to get things out of lower cabinets. Reported Pain Level Pain Score 5: Self Report Assessment PT Clinical Summary mrs mathias presents to skilled PT services for her 12th skilled PT visit. as of this date, she has met more than 50% of goals for skilled PT. she reports her pain is at a manageable level for her considering her fibormyalgia. she would do well to DC skilled PT and continue with HEP independent at home. focusing on continued core stability and lumbar/hip strengthening. Plan of Care Treatment Frequency and DC to independent HEP Duration
== END 2022-08-05 13:31 | disposition home or self-care (01) ==
LOC: CHSPT 09:59
PROVIDERS: Visit Provider Nurse Practitioner Adult Health
DX: M46.1 Sacroiliitis, not elsewhere classified (principal)
CPT/HCPCS: 97012; 97014; 97110; 97161; G0283

== ENCOUNTER 2022-07-13 11:00 | Outpatient (CLI) | payer OTHER, SELFPAY ==
--- NOTE | ~2022-07-13 | US_ITS ---
US breast LT limited DATE: 07/13/2022 11:39 INDICATION: Six-month follow-up of 3:00 left breast mass TECHNIQUE: Real-time and color flow imaging targeted to 3:00 6 cm from nipple COMPARISON: 12/30/2021 bilateral screening mammogram To bilateral complete ultrasound FINDINGS: 3:00 6 cm from nipple: Mildly irregular approximately 10.3 x 5.9 x 8.3 mm circumscribed hy poechoic solid mass is noted, with mild posterior shadowing. The mild irregularity and the posterior shadowing are of concern, despite lack of internal vascularity. Ultrasound-guided biopsy is recommend ed. IMPRESSION: BI-RADS Category 4: Suspicious abnormality; biopsy should be considered Dr. Pruitt telephoned the report and ultrasound guided biopsy recommendation on 07/13/2022 at 1211 hours to Arcadio MarshSurveillance Supervisor. Reviewed, dictated and finalized at Location A. Reviewed, dictated and finalized at location A. IMPRESSION: BI-RADS Category 4: Suspicious abnormality; biopsy should be consid ered Dr. Pruitt telephoned the report and ultrasound guided biopsy recommendation on at 1211 hours to Arcadio Marsh.
== END 2022-07-13 11:01 | disposition home or self-care (01) ==
PROVIDERS: PCP Nurse Practitioner Family
DX: N63.25 Unspecified lump in the left breast, overlapping quadrants (principal)
CPT/HCPCS: 76642

== ENCOUNTER 2022-08-11 10:10 | Outpatient (CLI) | payer OTHER, SELFPAY ==
--- NOTE | ~2022-08-11 | US_ITS ---
US breast LT limited DATE: 08/11/2022 10:47 INDICATION: 3:00 left breast mass TECHNIQUE: Real-time and color flow imaging targeted at 3:00 6 cm from nipple COMPARISON: 07/13/2022 Limited left breast ultrasound FINDINGS: The 3:00 left breast mass 6 cm from the nipple measures approximately 6 x 11 x 9 mm, not si gnificant change since 07/13/2022. IMPRESSION: BI-RADS Category 4: Suspicious abnormality; biopsy should be considered Reviewed, dictated and finalized at Location A. Reviewed, dictated and finalized at location A. IMPRESSION: BI-RADS Category 4: Suspicious abnormality; biopsy should be consid ered
== END 2022-08-11 10:11 | disposition home or self-care (01) ==
LOC: CHSIMG 10:11
PROVIDERS: PCP Nurse Practitioner; Visit Provider Nurse Practitioner
DX: N63.25 Unspecified lump in the left breast, overlapping quadrants (principal)
CPT/HCPCS: 76642

== ENCOUNTER 2022-08-20 08:47 | Outpatient (CLI) | payer OTHER, SELFPAY ==
--- NOTE | ~2022-08-20 | MMUS_ITS ---
EXAMINATION: US breast biopsy LT w image, MM post biopsy invasive LT DATE: 08/20/2022 10:05 INDICATION: Indeterminate mass at the 3:00 location of the left breast Ultrasound-guided core biopsy is requested to evaluate for malignancy. TECHNIQUE AND FINDINGS: The risks and potential benefits of the procedure were discussed with the patient including bleeding and infection. A time out was performed. The skin of the left breast was prepared and draped in usual sterile fashion. 1% lidocaine was used for superficial anesthesia. 1% lidocaine with epinephrine was used for deep anesthesia. A vacuum-assisted biopsy needle was advanced through to the outer edge of the region of interest from a lateral approach utilizing sonographic guidance. A total of three tissue core samples were obtaine d through the lesion. A tissue marker clip was then placed at the biopsy site. Hemostasis was achieve d. A sterile bandage was applied. The patient tolerated procedure well and there was no evidence of immediate complication. The patient was given verbal instructions to return to the Emergency Department in the event of severe breast pa in or rapid breast enlargement. A two view left breast mammogram was obtained to document tissue lisa er clip placement. IMPRESSION: 1. Successful ultrasound-guided vacuum-assisted biopsy of left breast mass with tissue marker placeme nt. Reviewed, dictated and finalized at location A. IMPRESSION: 1. Successful ultrasound-guided vacuum-assisted biopsy of left breast mass with tissue marker placement.
== END 2022-08-20 08:48 | disposition home or self-care (01) ==
PROVIDERS: PCP Nurse Practitioner; Visit Provider Nurse Practitioner
DX: N63.25 Unspecified lump in the left breast, overlapping quadrants (principal)
CPT/HCPCS: 19083; 88305; 88342; A4648

== ENCOUNTER 2022-12-28 07:53 | Outpatient (CLI) | payer OTHER, SELFPAY ==
--- NOTE | ~2022-12-28 | US_ITS ---
EXAMINATION: US pelvic complete w TV DATE: 12/28/2022 09:13 INDICATION: Pelvic and perineal pain TECHNIQUE: Multiple transabdominal and transvaginal sonographic images of the pelvis were obtained. COMPARISON: CT dated 07/07/2015 FINDINGS: The uterus measures 12.4 x 6.4 x 8.6 cm. The endometrial complex measures 13 mm in thickness. There are a couple uterine fibroids, one in the fundus measuring 5.0 cm and a second subserosal fibroid gurpreet suring 5.1 cm in maximal diameters. On the transvaginal imaging there are couple additional fibroids measuring 2.5 cm and 2.4 cm in the lower uterine segment and posterior body respectively There are fe w subcentimeter anechoic nabothian cysts at the cervix. The right ovary is not visualized. The left o vary measures 15.5 x 9.2 x 11.7 cm. There is a 11.6 x 10.1 x 9.9 cm left ovarian mass with large very hypoechoic region suggesting complex fluid and peripheral nodular echogenic regions and couple incom plete echogenic septations which which appears thickened but with relatively smooth margins. Vascular flow with arterial waveforms is seen within the left ovary on color Doppler. No evident color vascul ar flow definitively within the complex cystic lesion. There is no free fluid in the pelvis. IMPRESSION: 1. Fibroid uterus. 2. Indeterminate 11.6 cm O-RADS 4 complex cystic mass in the left ovary without definitive internal v ascular flow on color Doppler with differential including hemorrhagic cyst, endometrioma, cystadenoma or cystadenocarcinoma. Consider further evaluation with pre and postcontrast MRI. Reviewed, dictated and finalized at location A. RMODAL OWNER OPERATOR TRUCK DRIVER IMPRESSION: 1. Fibroid uterus. 2. Indeterminate 11.6 cm O-RADS 4 complex cystic mass in the left ovary without definitive internal vascular flow on color Doppler with differential including hemorrhagic cyst, endometrioma, cystadenoma or cystadenocarcinoma. Consider fu rther evaluation with pre and postcontrast MRI.
[2022-12-28 08:07] LABS: Hematocrit 39.6 % (35.0-49.0); Hemoglobin 13.2 g/dL (12.0-15.0); Mean Corpuscular HGB Conc 33.3 g/dL (32.0-36.0); Mean Corpuscular Hemoglobin 31.6 pg (27.0-31.0); Mean Corpuscular Volume 94.7 fL (78.0-102.0); Mean Platelet Volume 10.2 fl (9.2-11.8); Platelet Count Result 281 K/mm3 (150-420); Red Blood Count 4.18 M/mm3 (4.20-5.40); White Blood Count 7.5 K/mm3 (4.8-10.8)
[2022-12-28 08:34] LABS: Alanine Aminotransferase 14 U/L (14-59); Albumin Level 3.7 g/dL (3.4-5.0); Alkaline Phosphatase 55 U/L (46-116); Anion Gap 8 mmol/L (8-16); Aspartate Amino Transferase 16 U/L (15-37); Bilirubin,Total 0.2 mg/dL (0.00-1.00); Blood Urea Nitrogen 6 mg/dL (7-18); Calcium 8.6 mg/dL (8.5-10.1); Carbon Dioxide 31 mmol/L (21-32); Chloride 102 mmol/L (98-108); Cholesterol 219 mg/dL (0-200); Estimated Glomerular Filt Rate > 60; Glucose 97 mg/dL (70-99); HDL Direct 32 mg/dL (40-60); LDL Cholesterol Calculated 149 mg/dL (<130); Osmolality Calculated 289 mOsm/kg (285-295); Potassium 4.3 mmol/L (3.5-5.1); Sodium 141 mmol/L (136-145); Total Protein 6.5 g/dL (6.4-8.2); Triglycerides 189 mg/dL (0-150)
[2022-12-31 11:52] LABS: FSH 21.5 mIU/mL (***)
== END 2022-12-28 07:54 | disposition home or self-care (01) ==
LOC: CHSIMG 07:55
PROVIDERS: Internal Medicine Cardiovascular Disease; PCP Nurse Practitioner; Visit Provider Obstetrics & Gynecology
DX: N92.0 Excessive and frequent menstruation with regular cycle (principal); R10.2 Pelvic and perineal pain; E78.5 Hyperlipidemia, unspecified; D25.9 Leiomyoma of uterus, unspecified; N83.202 Unspecified ovarian cyst, left side
CPT/HCPCS: 36415; 76830; 76856; 80053; 80061; 83001; 85027

== ENCOUNTER 2022-12-29 11:46 | Outpatient (CLI) | payer OTHER, SELFPAY ==
[2023-01-01 04:23] LABS: CA-125 125 U/mL (<35)
[2023-01-02 04:45] LABS: FSH 18.2 mIU/mL (***)
== END 2022-12-29 11:47 | disposition home or self-care (01) ==
LOC: CHSLAB 11:55
PROVIDERS: PCP Obstetrics & Gynecology; Visit Provider Obstetrics & Gynecology
DX: N83.202 Unspecified ovarian cyst, left side (principal); N92.0 Excessive and frequent menstruation with regular cycle
CPT/HCPCS: 36415; 83001; 86304

== ENCOUNTER 2023-04-12 08:53 | Outpatient (CLI) | payer OTHER, SELFPAY ==
--- NOTE | ~2023-04-12 | US_ITS ---
US thyroid INDICATION: Follow-up thyroid nodule TECHNIQUE: Real-time sonographic images of the thyroid gland were obtained. COMPARISON: Ultrasound dated 03/09/2022 FINDINGS: The right thyroid lobe measures 5.1 x 1.5 x 2.2 cm. The left thyroid lobe measures 5 x 1.3 x 1.8 cm. There is normal echotexture and echogenicity throughout the thyroid gland. There is a righ t thyroid nodule which is stable with respect to size measuring 9 x 9 x 6 mm. This nodule is solid, h ypoechoic, wider than tall, smoothly marginated with punctate echogenic foci, TR 5. No discrete left thyroid masses are identified. Normal vascular flow is present. IMPRESSION: 1. Stable small right thyroid nodule measuring 9 mm. Recommend thyroid ultrasound in one year. Reviewed, dictated and finalized at location B. IMPRESSION: 1. Stable small right thyroid nodule measuring 9 mm. Recommend thyroid ultraso und in one year.
--- NOTE | ~2023-04-12 | MMUS_ITS ---
EXAMINATION: MM diagnostic demetrio BI w ata, US breast LT limited HISTORY: Palpable lump in the upper outer quadrant of the left breast TECHNIQUE: Craniocaudal, mediolateral, and mediolateral oblique 3-D tomosynthesis images of the woo ts were performed and synthetic 2-D images were generated. CAD analysis was submitted and interpreted . High resolution limited left breast ultrasound was performed. COMPARISON: 12/30/2021 BREAST PARENCHYMAL COMPOSITION: The breasts are heterogeneously dense, which may obscure small masses . FINDINGS: MAMMOGRAPHIC FINDINGS: Left breast: No mammographic correlate is identified for the reported palpable abnormality in the upp er outer quadrant of the left breast. There is a new 1.7 cm irregular mass with spiculated margins at the 6:00 location 9 cm from the nipple. There is skin thickening of the left breast. Right breast: No suspicious mass, calcification, or architectural distortion are identified to sugges t malignancy. There has been no suspicious interval change. ULTRASOUND: There is a 2.2 x 1.3 cm oval, irregular, parallel, hypoechoic mass with annular margins, posterior ac oustic shadowing, and no internal vascularity at the 6:00 location, 5 cm from the nipple correspondin g to the mammographic finding in question. There is a 9 mm x 6 mm oval, circumscribed, parallel, hypo echoic mass at the 12:00 location near the nipple with posterior acoustic enhancement and no internal vascularity. A 6 mm x 5 mm mass with similar sonographic features is also seen at the 12:00 location near the nipple. These have a similar sonographic appearance to the previously biopsied benign left breast mass. IMPRESSION: 1. Suspicious left breast mass at the 6:00 location, 5 cm from the nipple. Ultrasound-guided biopsy i s recommended. 2. Additional, probably benign smaller masses at the 12:00 location. Further workup can be determined by biopsy results and planning of the 6:00 mass. At a minimum, follow-up diagnostic mammogram and ul trasound in six months are recommended. BI-RADS category 5, highly suggestive of malignancy. Reviewed, dictated and finalized at location A. IMPRESSION: 1. Suspicious left breast mass at the 6:00 location, 5 cm from the nipple. Ultr asound-guided biopsy is recommended. 2. Additional, probably benign smaller masses at the 12:00 location. Further wo rkup can be determined by biopsy results and planning of the 6:00 mass. At a [facility], follow-up diagnostic mammogram and ultrasound in six months are recommen ded. BI-RADS category 5, highly suggestive of malignancy.
== END 2023-04-12 08:54 | disposition home or self-care (01) ==
LOC: CHSIMG 08:58
PROVIDERS: PCP Nurse Practitioner; Visit Provider Nurse Practitioner
DX: E04.2 Nontoxic multinodular goiter (principal); N63.25 Unspecified lump in the left breast, overlapping quadrants; R92.8 Other abnormal and inconclusive findings on diagnostic imaging of breast
CPT/HCPCS: 76536; 76642; 77062; 77066; G0279

== ENCOUNTER 2023-04-12 16:01 | Outpatient (RCR) | payer OTHER, SELFPAY ==
--- NOTE | 2023-04-12 16:35 | PTOPEVAL1 ---
Assessment and note entered by Derick Adams Evaluation Information Assessment Status Evaluation Diagnosis Sacrolitis Onset 10/29/22 Subjective Information Pt. reports that she developed mid to low back pain about 6 months ago. She reports that over the winter she underwent surgery for hysterectomy. She reports that she developed some complications going into the hysterectomy that made her recovery complicated. She was limited in regards to reaching, lifting and bending. She reports that she has been very sedintary over the past 6 months. She reports that she has tightness across the low back. She reports that her pain is constant. She reports that pain is worsened with standing for greater than 5-10 minutes and sitting in one positon for 10-15 minutes. She reports that before her problem she was able to garden and take care of her yard, as well as complete her vacuuming and mopping. She reports that she has been unable to do her regular household duties since developing pain. Her daughter is currently doing her housework. She reports that she has complication with getting off the toilet due to pain. She reports that her goal is to reduce her back pain and be able to stand to complete household activities. Reported Pain Level Pain Score 8: Self Report Assessment PT Clinical Summary Pt. is a 48 year old female who enters the clinic with low back pain. She presents with impaired gait, impaired trunk mobility, impaired proximal l .e. and abdominal strength, pain and impaired postural awareness. Continued skilled PT is indicated in order to improve these areas to allow the pt. to be able to complete all IADL's with improved comfort and efficiency. Plan of Care Interventions Electrical Stimulation,Hot Pack/Cold Pack,Manual Therapy,Neuro Re-education,Therapeutic Activities, Therapeutic Exercise PT Services Indicated Yes Treatment Frequency and 3x/week x 12 visits Duration These treatments will address the objective and functional deficits as defined above. The patient will be advanced safely and appropriately in order for the patient to progress towards his/her prior level of function. Additional exercises will be introduced and as well as a comprehensive home exercise program upon discharge, if needed, ?to ensure carryover of functional gains achieved in the clinic. This treatment plan has been reviewed and agreement upon by the patient.
--- NOTE | 2023-05-26 13:05 | PTOPREEVAL ---
Assessment and note entered by Sumi Hannah DPT Evaluation Information Assessment Status Re-evaluation Diagnosis Sacrolitis Onset 10/29/22 Subjective Information Patient reports she has been able to sit for 15 minutes now and can stand for 20 minutes before needing to rest. She reports pain continues to be high in the R side. She reports she has been diagnosed with breast cancer and has been very busy with appointments. She reports she is unsure of her treatment plan at this time. Reported Pain Level Pain Score 7: Self Report Assessment PT Clinical Summary Patient has been seen for a total of 12 visits of skilled PT. She reports decrease in overall pain and improved tolerance to sitting and standing for increased time up to 15-20 minutes. She does demonstrate improvement in LE strength but continues to be limited by lumbar ROM. She will be put on hold at this time awaiting treatment plan for breast cancer but would benefit from continued skilled PT. Plan of Care Interventions Electrical Stimulation,Hot Pack/Cold Pack,Manual Therapy,Neuro Re-education,Therapeutic Activities, Therapeutic Exercise PT Services Indicated Yes Treatment Frequency and hold PT until patient calls for follow up Duration These treatments will address the objective and functional deficits as defined above. The patient will be advanced safely and appropriately in order for the patient to progress towards his/her prior level of function. Additional exercises will be introduced and as well as a comprehensive home exercise program upon discharge, if needed, ?to ensure carryover of functional gains achieved in the clinic. This treatment plan has been reviewed and agreement upon by the patient.
== END 2023-05-26 20:00 | disposition home or self-care (01) ==
LOC: CHSPT 16:01
PROVIDERS: Visit Provider Nurse Practitioner Adult Health
DX: M46.1 Sacroiliitis, not elsewhere classified (principal)
CPT/HCPCS: 97014; 97110; 97140; 97150; 97161; G0283

== ENCOUNTER 2023-04-22 08:48 | Outpatient (CLI) | payer OTHER, SELFPAY ==
--- NOTE | ~2023-04-22 | MMUS_ITS ---
MM post biopsy diagnostic LT, US breast biopsy LT w image EXAMINATION: US GUIDED NEEDLE BIOPSY WITH VACUUM ASSISTANCE DATE: 04/22/2023 11:40 CDT INDICATION: Left breast mass seen on prior examination. Ultrasound-guided core biopsy is requested t o evaluate for malignancy. TECHNIQUE AND FINDINGS: The risks and potential benefits of the procedure were discussed with the patient, and written inform ed consent was obtained. After sterile preparation of the left breast, 1% lidocaine was utilized for local anesthesia. 1% lidocaine with epinephrine was used for deep anesthesia. A 10G vacuum-assisted biopsy gun needle was advanced through to the outer edge of the region of inter est from a lateral approach utilizing sonographic guidance. A total of 5 tissue core samples were ob tained through the lesion. An Inrad tissue marker clip was then placed at the biopsy site. Hemostasi s was achieved. The patient tolerated procedure well and there was no evidence of immediate complication. The patien t was given verbal instructions partly is from the department. Left breast mammograms to document ti ssue marker clip placement. The tissue samples were submitted to surgical pathology for histologic an alysis. IMPRESSION: 1. Successful ultrasound-guided vacuum-assisted biopsy of left breast mass with tissue marker placem ent. Please refer to pathology report for histologic analysis. Reviewed, dictated and finalized at location L. IMPRESSION: 1. Successful ultrasound-guided vacuum-assisted biopsy of left breast mass wit h tissue marker placement. Please refer to pathology report for histologic anal ysis.
== END 2023-04-22 08:49 | disposition home or self-care (01) ==
LOC: CHSIMG 08:50
PROVIDERS: PCP Nurse Practitioner; Visit Provider Nurse Practitioner
DX: C50.812 Malignant neoplasm of overlapping sites of left female breast (principal); Z17.1 Estrogen receptor negative status [ER-]
CPT/HCPCS: 19083; 77065; 88305; 88342; A4648

== ENCOUNTER 2023-05-11 11:45 | Emergency (ER) | payer OTHER, SELFPAY ==
--- NOTE | ~2023-05-11 | US_ITS ---
US breast LT complete DATE: 05/11/2023 12:42 INDICATION: Pain and redness after 04/22/2023 ultrasound-guided left breast biopsy; evaluate for absce ss TECHNIQUE: Real-time imaging of complete left breast including all 4 quadrants and subareolar area COMPARISON: 04/22/2023 left ultrasound-guided biopsy 04/12/2023 limited left breast ultrasound FINDINGS: The left breast 6:00 mass is again demonstrated, posterior shadowing. No abscess is identified anywhere in the left breast. IMPRESSION: No evidence of left breast abscess BI-RADS Category 6: Known breast cancer Reviewed, dictated and finalized at [facility]. Reviewed, dictated and finalized at location A.
[2023-05-11 11:51] VITALS: BP 142/77; PULSE 96; RESP 18; TEMP 37; O2SAT 96
--- NOTE | 2023-05-11 12:00 | ED.GENADULT ---
HPI - General Adult General Chief complaint: Unspecified Stated complaint: BREAST PAIN Time Seen by Provider: 05/11/23 11:59 Source: patient and RN notes reviewed Mode of arrival: ambulatory Limitations: no limitations History of Present Illness HPI narrative: patient states that a nodules found on her left breast and she had that biopsied 04/22/2023 which showed her to have evidence of breast cancer. Then she began having pain in her left breast she went to see her PCP and has since had 2 rounds of antibiotics and 2 shots of Rocephin in the clinic. She continues to have left breast pain was sent here by her PCP for an ultrasound of her left breast. She says she has some redness along the medial aspect of her areola. No nipple discharge. No fever no chills. She feels like the breast is tender going to crossed laterally and up into her axilla. Patient states that when she initially got the Rocephin injection that has seemed to help also swelling went down and the pain had gotten better however Bactrim orally did not help so she got a 2nd injection after scan having same symptoms again and was on the cefdinir that seemed to have helped but then the pain returned last evening with the same symptoms of an infection. MD complaint: left breast pain Onset (ago): week(s) (2) Location: chest Radiation: non-radiation Severity: moderate Quality: aching and dull Pain Consistency: intermittent Relieving factors: none Exacerbating factors: movement Associated symptoms: denies other symptoms Treatments prior to arrival: none Related Data Home Medications Medication Instructions Recorded Confirmed duloxetine 20 mg capsule,delayed 20 mg PO BID 02/16/22 05/11/23 release cholecalciferol (vitamin D3) 10 10 mcg PO DAILY 08/24/22 05/11/23 mcg (400 unit) capsule gabapentin 300 mg capsule 300 mg PO TID 08/24/22 05/11/23 trazodone 50 mg tablet 50 mg PO QHS 12/09/22 05/11/23 cefdinir 300 mg capsule 300 mg PO BID 05/11/23 05/11/23 methocarbamol 500 mg tablet 500 mg PO TID 05/11/23 05/11/23 Allergies Allergy/AdvReac Type Severity Reaction Status Date / Time erythromycin base Allergy Intermediate Unknown Verified 05/11/23 11:57 Penicillins Allergy Intermediate Unknown Verified 05/11/23 11:57 amitriptyline Allergy Mild Hallucinati Verified 05/11/23 11:57 ng fluoxetine [From Prozac] Allergy Mild Hallucinati Verified 05/11/23 11:57 ng NSAIDS (Non-Steroidal Allergy Mild Dizziness Verified 05/11/23 11:57 Anti-Inflamma pregabalin Allergy Mild Dizziness Verified 05/11/23 11:57 venom-honey bee Allergy Mild Anaphylaxis Verified 05/11/23 11:57 bee venom protein (honey bee) Allergy Unknown Unknown Verified 05/11/23 11:57 ciprofloxacin [From Cipro] Allergy Hives Verified 05/11/23 11:57 clindamycin Allergy Unknown Verified 05/11/23 11:57 prednisone Allergy Fever Verified 05/11/23 11:57 shellfish derived Allergy Anaphylaxis Verified 05/11/23 11:57 vancomycin Allergy Unknown Verified 05/11/23 11:57 Sleep Meds AdvReac Mild Unknown Uncoded 03/01/23 13:23 Review of Systems Review of Systems: All systems reviewed & are unremarkable except as noted in HPI and below PMFSH Past Medical History Medical History Allergies Anxiety Arthritis Asthma Fibromyalgia Ovarian torsion Surgical History Surgical History H/O breast biopsy H/O left knee surgery H/O tubal ligation S/P dilation and curettage S/P left rotator cuff repair Family History Family History Other Alcoholism Asthma Depression Diabetes mellitus Heart disease Hypertension Malignant neoplasm of prostate Ovarian cancer Thyroid disorder Social History Social History Smoking status: Current some day smoker Tobacco type: cigarettes Alcohol intake:
== END 2023-05-11 13:20 | disposition home or self-care (01) ==
PROVIDERS: Emergency Provider Emergency Medicine; PCP Nurse Practitioner
DX: N64.4 Mastodynia (principal); F17.210 Nicotine dependence, cigarettes, uncomplicated
CPT/HCPCS: 76641; 99284

== ENCOUNTER 2023-05-21 16:18 | Emergency (ER) | payer OTHER, SELFPAY ==
[2023-05-21 16:20] VITALS: BP 140/96; PULSE 107; RESP 20; TEMP 37.1; O2SAT 97
--- NOTE | 2023-05-21 16:21 | ED.ALLEREA ---
HPI - Allergic Reaction General Chief complaint: Allergic Reaction Stated complaint: allergic reaction Time Seen by Provider: 05/21/23 16:20 Source: patient and RN notes reviewed Mode of arrival: ambulatory Limitations: no limitations History of Present Illness HPI narrative: Patient had an injection of Rocephin this morning for a ongoing infection she has after breast biopsy. She says that normally it will swell in the area of injection and then go away in a couple hours. Today said that it has been swelling more in her right anterior thigh and it is very itchy she says she just wants to claw her tissue out. She denies any difficulty with breathing. She denies any other nausea vomiting shortness of breath. MD complaint: allergic reaction Onset (ago): hour(s) (6) Exposure: medication Symptoms: rash and itching Severity: moderate Treatment prior to arrival: benadryl Related Data Home Medications Medication Instructions Recorded Confirmed gabapentin 300 mg capsule 300 mg PO TID 08/24/22 05/21/23 trazodone 50 mg tablet 50 mg PO QHS 12/09/22 05/21/23 methocarbamol 500 mg tablet 500 mg PO TID 05/11/23 05/21/23 duloxetine 60 mg capsule,delayed 60 mg PO DAILY 05/21/23 05/21/23 release nicotine 14 mg/24 hr daily 1 patch topical DAILY 05/21/23 05/21/23 transdermal patch omeprazole 20 mg capsule,delayed 20 mg PO DAILY 05/21/23 05/21/23 release Allergies Allergy/AdvReac Type Severity Reaction Status Date / Time erythromycin base Allergy Intermediate Unknown Verified 05/21/23 16:31 Penicillins Allergy Intermediate Unknown Verified 05/21/23 16:31 amitriptyline Allergy Mild Hallucinati Verified 05/21/23 16:31 ng fluoxetine [From Prozac] Allergy Mild Hallucinati Verified 05/21/23 16:31 ng NSAIDS (Non-Steroidal Allergy Mild Dizziness Verified 05/21/23 16:31 Anti-Inflamma pregabalin Allergy Mild Dizziness Verified 05/21/23 16:31 venom-honey bee Allergy Mild Anaphylaxis Verified 05/21/23 16:31 bee venom protein (honey bee) Allergy Unknown Unknown Verified 05/21/23 16:31 ciprofloxacin [From Cipro] Allergy Hives Verified 05/21/23 16:31 clindamycin Allergy Unknown Verified 05/21/23 16:31 prednisone Allergy Fever Verified 05/21/23 16:31 shellfish derived Allergy Anaphylaxis Verified 05/21/23 16:31 vancomycin Allergy Unknown Verified 05/21/23 16:31 Sleep Meds AdvReac Mild Unknown Uncoded 05/21/23 16:31 Review of Systems Review of Systems: All systems reviewed & are unremarkable except as noted in HPI and below Respiratory: Respiratory: Denies dyspnea PMFSH Past Medical History Medical History Allergies Anxiety Arthritis Asthma Fibromyalgia Ovarian torsion Surgical History Surgical History H/O breast biopsy H/O left knee surgery H/O tubal ligation S/P dilation and curettage S/P left rotator cuff repair Family History Family History Other Alcoholism Asthma Depression Diabetes mellitus Heart disease Hypertension Malignant neoplasm of prostate Ovarian cancer Thyroid disorder Social History Social History Smoking status: Current some day smoker Tobacco type: cigarettes Alcohol intake: unknown Substance use: never Lack of Transportation: YES Lack of Food: Sometimes True Current Housing: I Have Housing Concerned About Future Housing: No Difficulty Paying Gas/Electric Bills: YES Difficulty Paying for Meds: YES Currently Unemployed: YES Education: Trade/Vocational Certificate Difficulty w/ Childcare or Family Care: No Spiritual care concerns: No Exam Const: General: healthy appearing, no acute distress and alert Nutritional Appearance: well nourished Orientation/consciousness: patient oriented x3 Limitations: no limitations Other:
--- NOTE | 2023-05-21 16:25 | PC.NURSE ---
assist dr with exam
[2023-05-21 16:49] VITALS: BP 138/88; PULSE 99; RESP 20; TEMP 36.8; O2SAT 98
== END 2023-05-21 16:51 | disposition home or self-care (01) ==
PROVIDERS: Emergency Provider Emergency Medicine
DX: M79.89 Other specified soft tissue disorders (principal); T36.1X5A Adverse effect of cephalosporins and other beta-lactam antibiotics, initial encounter; F17.210 Nicotine dependence, cigarettes, uncomplicated
CPT/HCPCS: 99283

== ENCOUNTER 2023-06-23 09:49 | Outpatient (CLI) | payer OTHER, SELFPAY ==
[2023-06-23 10:21] LABS: Hematocrit 39.1 % (35.0-49.0); Hemoglobin 13.2 g/dL (12.0-15.0); Mean Corpuscular HGB Conc 33.8 g/dL (32.0-36.0); Mean Corpuscular Hemoglobin 30.3 pg (27.0-31.0); Mean Corpuscular Volume 89.7 fL (78.0-102.0); Mean Platelet Volume 11.2 fl (9.2-11.8); Platelet Count Result 241 K/mm3 (150-420); Red Blood Count 4.36 M/mm3 (4.20-5.40); Red Cell Distribution Width 13.4 % (11.6-14.4); White Blood Count 7.6 K/mm3 (4.8-10.8)
[2023-06-23 10:37] LABS: Alanine Aminotransferase 42 U/L (14-59); Alkaline Phosphatase 100 U/L (46-116); Anion Gap 10 mmol/L (8-16); Aspartate Amino Transferase 26 U/L (15-37); Bilirubin,Total 0.4 mg/dL (0.00-1.00); Blood Urea Nitrogen 8 mg/dL (7-18); Calcium 9.3 mg/dL (8.5-10.1); Carbon Dioxide 29 mmol/L (21-32); Chloride 101 mmol/L (98-108); Estimated Glomerular Filt Rate > 60; Glucose 97 mg/dL (70-99); Osmolality Calculated 288 mOsm/kg (285-295); Sodium 140 mmol/L (136-145); Total Protein 7.2 g/dL (6.4-8.2)
[2023-06-23 11:21] LABS: Band Neutrophils Percent 0 % (0-6); Basophils Percent Manual 0 % (0-1); Eosinophils Absolute Manual 0.15 K/mm3 (0.02-0.5); Eosinophils Percent Manual 2 % (1-6); Lymphocytes Absolute Manual 1.36 K/mm3 (1.1-4.5); Lymphocytes Percent Manual 18 % (18-44); Metamyelocytes Percent 1 %; Monocytes Absolute Manual 0.38 K/mm3 (0.1-0.90); Monocytes Percent Manual 5 % (3-9); Myelocytes Percent 0 %; Neutrophils Absolute Manual 5.62 K/mm3 (1.7-7.2); Total Cells Counted 100
[2023-06-23 11:22] LABS: Platelet Estimate Adequate (Adequate)
[2023-06-23 11:24] LABS: Neutrophils Percent Manual 74 % (46-73)
== END 2023-06-23 09:50 | disposition home or self-care (01) ==
LOC: CHSLAB 09:54
DX: C50.112 Malignant neoplasm of central portion of left female breast (principal); Z17.1 Estrogen receptor negative status [ER-]
CPT/HCPCS: 36415; 80053; 85025

== ENCOUNTER 2023-06-23 13:13 | Emergency (ER) | payer OTHER, SELFPAY ==
[2023-06-23 13:15] VITALS: BP 140/91; PULSE 101; RESP 20; TEMP 37.1; O2SAT 97
--- NOTE | 2023-06-23 13:34 | ED.GENADULT ---
HPI - General Adult General Chief complaint: Extremity Problem,Nontraumatic Stated complaint: SORE ON ARM Time Seen by Provider: 06/23/23 13:23 Source: patient Mode of arrival: ambulatory Limitations: no limitations History of Present Illness HPI narrative: 48-year-old female, smoker with a history of anxiety, arthritis, fibromyalgia, dyslipidemia, recently diagnosed left breast cancer(Her-2 positive) who received chemo on 06/18/2023. The patient had axillary lymph node positive. The patient is due to receive 5 more treatments of chemo before proceeding to mastectomy. The patient noted -- a cord-like swelling over the left medial arm. The swelling came on over the past 1 day. the patient had left breast biopsy complicated by cellulitis which was treated with doxycycline and Keflex. She has had soreness over her left lateral breast extending to the left arm. No fever or chills. The patient had a white cell count which was unremarkable this morning. The patient was asked by her oncology nurse to present to the ER for evaluation of cord like swelling. Onset (ago): day(s) ( Noted 1 day ago) Location: left and upper extremity Radiation: non-radiation Related Data Home Medications Medication Instructions Recorded Confirmed gabapentin 300 mg capsule 300 mg PO TID 08/24/22 05/21/23 trazodone 50 mg tablet 50 mg PO QHS 12/09/22 05/21/23 methocarbamol 500 mg tablet 500 mg PO TID 05/11/23 05/21/23 duloxetine 60 mg capsule,delayed 60 mg PO DAILY 05/21/23 05/21/23 release nicotine 14 mg/24 hr daily 1 patch topical DAILY 05/21/23 05/21/23 transdermal patch omeprazole 20 mg capsule,delayed 20 mg PO DAILY 05/21/23 05/21/23 release Allergies Allergy/AdvReac Type Severity Reaction Status Date / Time erythromycin base Allergy Intermediate Unknown Verified 05/21/23 16:31 Penicillins Allergy Intermediate Unknown Verified 05/21/23 16:31 amitriptyline Allergy Mild Hallucinati Verified 05/21/23 16:31 ng fluoxetine [From Prozac] Allergy Mild Hallucinati Verified 05/21/23 16:31 ng NSAIDS (Non-Steroidal Allergy Mild Dizziness Verified 05/21/23 16:31 Anti-Inflamma pregabalin Allergy Mild Dizziness Verified 05/21/23 16:31 venom-honey bee Allergy Mild Anaphylaxis Verified 05/21/23 16:31 bee venom protein (honey bee) Allergy Unknown Unknown Verified 05/21/23 16:31 ciprofloxacin [From Cipro] Allergy Hives Verified 05/21/23 16:31 clindamycin Allergy Unknown Verified 05/21/23 16:31 prednisone Allergy Fever Verified 05/21/23 16:31 shellfish derived Allergy Anaphylaxis Verified 05/21/23 16:31 vancomycin Allergy Unknown Verified 05/21/23 16:31 Sleep Meds AdvReac Mild Unknown Uncoded 05/21/23 16:31 Review of Systems Review of Systems: All systems reviewed & are unremarkable except as noted in HPI and below Constitutional: Constitutional: Reports as per HPI and Reports no additional constitutional complaints Eyes: Eyes: Reports as per HPI and Reports no additional eye complaints ENT: Reports system reviewed and no additional complaints, except as documented and Reports as per HPI Cardiovascular: Cardiovascular: Reports as per HPI and Reports no additional cardiovascular complaints Respiratory: Respiratory: Reports as per HPI and Reports no additional respiratory complaints Gastrointestinal: Gastrointestinal: Reports as per HPI and Reports no additional gastrointestinal complaints Genitourinary: Genitourinary: Reports no additional female genitourinary complaints and Reports as per HPI Musculoskeletal: Musculoskeletal: Reports no additional musculoskeletal complaints and Reports as per HPI Comments: Tender cord leg swelling on the left medial arm Integumentary/Breasts: Skin/Breast: Reports system reviewed and no additional complaints, except as docu and Reports as per HPI Neurologic: Reports system reviewed and no additional complaints, except as documented and Reports as per HPI Psychiatric: Psychiatric: Re
== END 2023-06-23 14:13 | disposition home or self-care (01) ==
PROVIDERS: Emergency Provider Internal Medicine Critical Care Medicine
DX: M79.602 Pain in left arm (principal); C50.912 Malignant neoplasm of unspecified site of left female breast; E78.5 Hyperlipidemia, unspecified; F17.210 Nicotine dependence, cigarettes, uncomplicated; Z17.0 Estrogen receptor positive status [ER+]
CPT/HCPCS: 99281

== ENCOUNTER 2023-12-11 07:37 | Outpatient (CLI) | payer OTHER, SELFPAY | END 2023-12-11 07:38 | disposition home or self-care (01) | PROVIDERS: PCP Nurse Practitioner Family; Visit Provider Nurse Practitioner Family | DX: R20.0 Anesthesia of skin (principal) | CPT/HCPCS: 99199 ==

== ENCOUNTER 2023-12-18 08:31 | Outpatient (CLI) | payer OTHER, SELFPAY ==
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
== END 2023-12-18 08:32 | disposition home or self-care (01) ==
PROVIDERS: PCP Nurse Practitioner Family; Visit Provider Nurse Practitioner Family
DX: R20.0 Anesthesia of skin (principal)
CPT/HCPCS: 70551

== ENCOUNTER 2024-04-03 13:48 | Outpatient (CLI) | payer OTHER, SELFPAY ==
--- NOTE | ~2024-04-03 | US_ITS ---
EXAMINATION: US thyroid DATE: 04/03/2024 14:06 INDICATION: Thyroid nodule. TECHNIQUE: Multiple ultrasound images of the thyroid were obtained. COMPARISON: Ultrasound 04/12/2023 FINDINGS: The right thyroid lobe measures 4.9 x 1.6 x 2.1 cm. The left thyroid lobe measures 4.9 x 1.4 x 1.6 c m. In the right thyroid lobe, there is an 8 mm solid, hypoechoic, wider than tall nodule with lobula crissy margin and punctate echogenic foci (TI-RADS TR5), stable from 04/12/23. In the left thyroid lobe, there is a 6 mm solid, hypoechoic, wider than tall nodule with ill-defined margin without echogenic f oci (TR4). IMPRESSION: 1. Small thyroid nodules. Thyroid ultrasound is recommended in one year. Reviewed, dictated and finalized at location A.
== END 2024-04-03 13:49 | disposition home or self-care (01) ==
LOC: CHSIMG 13:49
PROVIDERS: PCP Nurse Practitioner Family; Visit Provider Nurse Practitioner Family
DX: E04.2 Nontoxic multinodular goiter (principal)
CPT/HCPCS: 76536

== ENCOUNTER 2024-08-07 01:13 | Day surgery (SDC) | payer OTHER, SELFPAY ==
[2024-07-17 14:33] VITALS: BMI 30.4
[2024-08-07 09:53] VITALS: BP 130/60; PULSE 77; RESP 20; TEMP 36.3; O2SAT 99; BMI 29.7
[2024-08-07] MEDS: LACTATED RINGERS 1,000 ML 150 ML IV CONT (09:56)
--- NOTE | 2024-08-07 10:51 | PM.HPGS ---
History of Present Illness History of Present Illness Consent: Risks, benefits, and alternatives have been discussed and questions answered. Patient agrees to proceed with procedure. Chief complaint: Neoplasm screening Narrative: Zenaida Cuevas is a 49 year old female here for first screening colonoscopy Review of Systems Review of Systems: All systems reviewed & are unremarkable except as noted in HPI and below PMFSH Past Medical History Medical History (Updated 08/07/24 @ 10:51 by Israel Lopez MD) Allergies Anxiety Arthritis Asthma Colon cancer screening Fibromyalgia Ovarian torsion Surgical History Surgical History H/O breast biopsy H/O left knee surgery H/O tubal ligation S/P dilation and curettage S/P left rotator cuff repair Family History Family History Other Alcoholism Asthma Depression Diabetes mellitus Heart disease Hypertension Malignant neoplasm of prostate Ovarian cancer Thyroid disorder Social History Social History Smoking packs per day: 1 Smoking cigarettes per day: 20.0 Years smoked: 30 Smoking pack-years: 30.00 Smoking status: Former smoker Tobacco type: cigarettes Alcohol intake: unknown Substance use: never Lack of Transportation: YES Lack of Food: Sometimes True Current Housing: I Have Housing Concerned About Future Housing: No Difficulty Paying Gas/Electric Bills: YES Difficulty Paying for Meds: YES Currently Unemployed: YES Education: Trade/Vocational Certificate Difficulty w/ Childcare or Family Care: No Spiritual care concerns: No Meds Home Medications and Allergies Home Medications Medication Instructions Recorded Confirmed Type gabapentin 300 mg capsule 300 mg PO TID 08/24/22 07/17/24 History trazodone 50 mg tablet 50 mg PO QHS 12/09/22 07/17/24 History nicotine 14 mg/24 hr daily 1 patch topical DAILY 05/21/23 07/17/24 History transdermal patch albuterol sulfate 90 mcg/actuation See Rx Instructions .Route 07/17/24 07/17/24 History aerosol inhaler .COMPLEX PRN asthma diphenoxylate-atropine 2.5 See Rx Instructions .Route 07/17/24 07/17/24 History mg-0.025 mg tablet .COMPLEX PRN Diarrhea famotidine 20 mg tablet (Pepcid) 20 mg PO DAILY reflux 07/17/24 07/17/24 History fludrocortisone 0.1 mg tablet 0.2 mg PO DAILY 07/17/24 07/17/24 History fluticasone propionate 230 2 puff inhalation BID 07/17/24 07/17/24 History mcg-salmeterol 21 mcg/actuation HFA inhaler (Advair HFA) metoprolol tartrate 50 mg tablet 50 mg PO DAILY 07/17/24 07/17/24 History midodrine 5 mg tablet 5 mg PO TID 07/17/24 07/17/24 History milnacipran 50 mg tablet (Savella) 50 mg PO BID 07/17/24 07/17/24 History ondansetron 4 mg disintegrating See Rx Instructions .Route 07/17/24 07/17/24 History tablet .COMPLEX PRN Nausea prochlorperazine maleate 10 mg See Rx Instructions .Route 07/17/24 07/17/24 History tablet .COMPLEX PRN Nausea sumatriptan succinate 25 mg tablet See Rx Instructions .Route 07/17/24 07/17/24 History .COMPLEX PRN Migraine Headache tizanidine 4 mg tablet 4 mg PO TID PRN Muscle Spasm 07/17/24 07/17/24 History topiramate 100 mg tablet 100 mg PO BID 07/17/24 07/17/24 History tramadol 50 mg tablet See Rx Instructions .Route 07/17/24 07/17/24 History .COMPLEX PRN Pain valacyclovir 500 mg tablet 500 mg PO HS 07/17/24 07/17/24 History Allergies Allergy/AdvReac Type Severity Reaction Status Date / Time erythromycin base Allergy Intermediate Unknown Verified 08/07/24 09:50 Penicillins Allergy Intermediate Unknown Verified 08/07/24 09:50 amitriptyline Allergy Mild Hallucinati Verified 08/07/24 09:50 ng fluoxetine [From Prozac] Allergy Mild Hallucinati Verified 08/07/24 09:50 ng NSAIDS (Non-Steroidal Allergy Mild Dizziness Verified
[2024-08-07 11:14] VITALS: BP 77/39; PULSE 77; RESP 11; O2SAT 98
[2024-08-07 11:24] VITALS: BP 82/47; PULSE 66; RESP 17; O2SAT 100
[2024-08-07 11:34] VITALS: BP 86/52; PULSE 66; RESP 12; O2SAT 99
--- NOTE | 2024-08-11 15:29 | WPDANESEPPF ---
Anes - Initial Pre Proc Eval Procedure: Operation Date: 08/07/24 11:00 Proposed Procedures p Screening Colonoscopy - Israel Lopez MD Date/Time: 08/11/24 15:29 Surgeon: Israel Lopez MD Pre Op Diagnosis: Neoplasm screening Patient Data Age: 49 Gender: F Height: 1.73 m Weight: 88.9 kg Last Vital Signs Temp 97.3 F L 08/07/24 09:53 Pulse 66 08/07/24 11:34 Resp 12 08/07/24 11:34 BP 86/52 L 08/07/24 11:34 Pulse Ox 99 08/07/24 11:34 O2 Del Method Room Air 08/07/24 11:34 Allergies Allergy/AdvReac Type Severity Reaction Status Date / Time erythromycin base Allergy Intermediate Unknown Verified 08/07/24 09:50 Penicillins Allergy Intermediate Unknown Verified 08/07/24 09:50 amitriptyline Allergy Mild Hallucinati Verified 08/07/24 09:50 ng fluoxetine [From Prozac] Allergy Mild Hallucinati Verified 08/07/24 09:50 ng NSAIDS (Non-Steroidal Allergy Mild Dizziness Verified 08/07/24 09:50 Anti-Inflamma pregabalin Allergy Mild Dizziness Verified 08/07/24 09:50 venom-honey bee Allergy Mild Anaphylaxis Verified 08/07/24 09:50 bee venom protein (honey bee) Allergy Unknown Unknown Verified 08/07/24 09:50 ciprofloxacin [From Cipro] Allergy Hives Verified 08/07/24 09:50 clindamycin Allergy Unknown Verified 08/07/24 09:50 iodine Allergy Hives Verified 08/07/24 09:50 prednisone Allergy Fever Verified 08/07/24 09:50 shellfish derived Allergy Anaphylaxis Verified 08/07/24 09:50 vancomycin Allergy Unknown Verified 08/07/24 09:50 Sleep Meds AdvReac Mild Unknown Uncoded 08/07/24 09:50 Home Medications Medication Instructions Recorded Confirmed Type gabapentin 300 mg capsule 300 mg PO TID 08/24/22 08/07/24 History trazodone 50 mg tablet 50 mg PO QHS 12/09/22 08/07/24 History nicotine 14 mg/24 hr daily 1 patch topical DAILY 05/21/23 08/07/24 History transdermal patch albuterol sulfate 90 mcg/actuation See Rx Instructions .Route 07/17/24 08/07/24 History aerosol inhaler .COMPLEX PRN asthma diphenoxylate-atropine 2.5 See Rx Instructions .Route 07/17/24 08/07/24 History mg-0.025 mg tablet .COMPLEX PRN Diarrhea famotidine 20 mg tablet (Pepcid) 20 mg PO DAILY reflux 07/17/24 08/07/24 History fludrocortisone 0.1 mg tablet 0.2 mg PO DAILY 07/17/24 08/07/24 History fluticasone propionate 230 2 puff inhalation BID 07/17/24 08/07/24 History mcg-salmeterol 21 mcg/actuation HFA inhaler (Advair HFA) metoprolol tartrate 50 mg tablet 50 mg PO DAILY 07/17/24 08/07/24 History midodrine 5 mg tablet 5 mg PO TID 07/17/24 08/07/24 History milnacipran 50 mg tablet (Savella) 50 mg PO BID 07/17/24 08/07/24 History ondansetron 4 mg disintegrating See Rx Instructions .Route 07/17/24 08/07/24 History tablet .COMPLEX PRN Nausea prochlorperazine maleate 10 mg See Rx Instructions .Route 07/17/24 08/07/24 History tablet .COMPLEX PRN Nausea sumatriptan succinate 25 mg tablet See Rx Instructions .Route 07/17/24 08/07/24 History .COMPLEX PRN Migraine Headache tizanidine 4 mg tablet 4 mg PO TID PRN Muscle Spasm 07/17/24 08/07/24 History topiramate 100 mg tablet 100 mg PO BID 07/17/24 08/07/24 History tramadol 50 mg tablet See Rx Instructions .Route 07/17/24 08/07/24 History .COMPLEX PRN Pain valacyclovir 500 mg tablet 500 mg PO HS 07/17/24 08/07/24 History Patient hx anesthesia problems: none Family hx anesthesia problems: none Results Review: All pre-operative results and documents have been reviewed as part of the pre-operative evaluation. [facility] Past Medical History Medical History (Updated 08/07/24 @ 10:51 by Israel Lopez MD) Allergies Anxiety Arthritis Asthma Colon cancer screening Fibromyalgia Ovarian torsion Surgical History Surgical History H/O breast biopsy H/O left knee surgery H/O tubal ligation S/P dilation and curettage S/P left rotator cuff repair Family History Family
== END 2024-08-07 11:46 | disposition home or self-care (01) ==
PROVIDERS: PCP Nurse Practitioner Family; Visit Provider Internal Medicine Gastroenterology
PROC: 0DJD8ZZ Inspection of Lower Intestinal Tract, Via Natural or Artificial Opening Endoscopic (ICD-10-PCS; CPT 45378; principal; 2024-08-07 11:00)
DX: Z12.11 Encounter for screening for malignant neoplasm of colon (principal); K63.5 Polyp of colon; K64.8 Other hemorrhoids; K57.30 Diverticulosis of large intestine without perforation or abscess without bleeding; F41.9 Anxiety disorder, unspecified; J45.909 Unspecified asthma, uncomplicated; Z79.51 Long term (current) use of inhaled steroids; Z79.891 Long term (current) use of opiate analgesic; Z98.890 Other specified postprocedural states; Z98.51 Tubal ligation status; Z87.891 Personal history of nicotine dependence; Z80.42 Family history of malignant neoplasm of prostate; Z80.41 Family history of malignant neoplasm of ovary
CPT/HCPCS: 45385; 88305; J2704; J7120

== ENCOUNTER 2025-04-01 16:57 | Emergency (ER) | payer OTHER, SELFPAY ==
--- OUTSIDE RECORDS SUMMARY | 2025-04-01 17:00 | XMS_ITS | Encounter Summary ---
Author Organization [facility] Healthcare Address [address] [place] [address] Care Team Providers Care Coal Pipeline Operator Name Role Phone Pasquale Hanna MD Unavailable [phone] Michael Bolivar MD Unavailable [phone] Amol Chapin MD PhD Unavailable Darren Simmons DO Unavailable [phone] Derick Suarez MD Unavailable Miscellaneous, Not In File Primary Care Provider Unavailable Nyla Self NP Primary Care Provider [phone] Reason for Visit * Reason Onset Date Comments Pre-Procedure Instructions 02/14/2025 Encounter Details Date Type Department Care Team (Late st Contact Info) Description 02/14/2025 Telephone [facility] [address] [facility] [address] [place], [place] [id number] Jeri Brenner NP [address] [place] [address] Pre-Procedure Instructions Social History Tobacco Use Types Packs/Day Years Used Date Smoking Tobacco: Some Days Cigarettes 0.1 32.3 Started: 1992 Smokeless Tobacco: Never Comments:Cigarettes 1-3 a da y AUDIT-C Answer Date Recorded Q1: How often do you have a drink containing alcohol? Never 01/16/2025 Q2: How many drinks containi ng alcohol do you have on a typical day when you are drinking? Patient does not drink Q3: How often do you have si x or more drinks on one occasion? Never 01/16/2025 Hunger Vital Sign Answer Date Recorded Within the past 12 months, y ou worried that your food would run out before you got the money to buy more. Sometimes true Within the past 12 months, t he food you bought just didn't last and you didn't have money to get more. Sometimes true Personal Safety Answer Date Recorded Have you ever been in or are you currently in a harmful physical or emotional relationship or is someone making you feel afraid or unsafe? 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 Author CCM Chronic Pain Care Plan Chronic Care Management Worsening( 12:48 PM CDT) No Blanca Johns, RN Note: Problem: Chronic Pain Goals: 1. Minimize further functional decline 2. Maximize quality of life 3. Control pain Strategies: - Activity/exercise program recommendation - Conservative stepwise pain medicine strategy with multi-disciplinary approach - Recommend healthy lifestyle strategies and compensatory methods as needed documented as of this encounter Visit Diagnoses Not on filedocumented in this encounter Care Teams Coal Pipeline Operator Relationship Specialty Start Date End Date Miscellaneous, Not In File PCP - General 02/13/25 03/19/25 Nyla Self NP [address] [facility] [address] [place] [address] PCP - General Family Medicine 03/20/25 Pasquale Hanna MD [address] [address] Referring Physician Obstetrics and Gynecology 01/12/23 Michael Bolivar MD [address] [facility] [address] [facility] [address] [place], [place] [id number] Referring Physician Surgical Oncology 05/28/23 Amol Chapin MD PhD [address] [facility], [facility] [address] [place] [address] Medical Oncologist/Steel Crane Operator Medical Oncology 05/28/23 Darren Simmons DO [address] [facility] [address] [facility] [address] [place] [address] Referring Physician Internal Medicine 06/10/23 Derick Suarez MD [address] [place] [id number] Consulting Physician General Surgery 12/26/23 documented as of this encounter
--- OUTSIDE RECORDS SUMMARY | 2025-04-01 17:00 | XMS_ITS ---
Author Organization Unknown Address [address] [place] [phone] Phone Care Team Providers Care Water Filterer Name Role Phone FRIDA BOSS Nahomi Attending Unavailable ZHANG GREEN APN Primary Unavailable Social History Type Status Start Date End Date Code Code Syst em Smoking History Unknown if ever smoked [id number] Sex Female Hospital Discharge Instructions Should you have any questions prior to discharge, please contact a member of your healthcare team. If you have left the hospital and have any questions, please contact your primary care physician. Reason For Referral No Data Found Plan of Treatment No Data Found Encounters Encounter Diagnosis Start Date Code Code Sys tem Bilateral primary osteoarthritis of knee 09/19/2024 SNOMED-CT Personal Care Team Section Performer Name Performer Role Active Date Inactive Da GERSON Andrade PCP - Primary care physician 2021-11-14 2022-07-30 LAYLA BARROSO PCP - Primary care physician [id number] NORMA HOLCOMB PCP - Primary care physician
--- OUTSIDE RECORDS SUMMARY | 2025-04-01 17:00 | XMS_ITS ---
Author Organization Unknown Address [address] [place] [phone] Phone Care Team Providers Care Skiver Box Toe Name Role Phone FRIDA BOSS Nahomi Attending Unavailable ZHANG GREEN PHYSICIAN PRACTICE ADMINISTRATOR Primary Unavailable Social History Type Status Start Date End Date Code Code Syst em Smoking History Unknown if ever smoked [id number] Sex Female Hospital Discharge Instructions Should you have any questions prior to discharge, please contact a member of your healthcare team. If you have left the hospital and have any questions, please contact your primary care physician. Reason For Referral No Data Found Procedures Procedure Name Date Status Code Code Syste m Arthrocentesis Aspir&/Inj Ma bella Jt/Bursa w/o US 09/26/2024 completed CPT Plan of Treatment No Data Found Encounters Encounter Diagnosis Start Date Code Code Sys tem Bilateral primary osteoarthritis of knee 09/26/2024 SNOMED-CT Personal Care Team Section Performer Name Performer Role Active Date Inactive GERSON Perdomo PCP - Primary care physician 2021-11-14 2022-07-30 LAYLA BARROSO PCP - Primary care physician [id number] NORMA HOLCOMB PCP - Primary care physician
--- OUTSIDE RECORDS SUMMARY | 2025-04-01 17:01 | XMS_ITS ---
Author Organization Unknown Address [address] [place] [phone] Phone Care Team Providers Care Stock Parts Inspector Name Role Phone FRIDA BOSS Nahomi Attending Unavailable ZHANG GREEN JANITOR CUSTODIAN Primary Unavailable Social History Type Status Start Date End Date Code Code Syst em Smoking History Unknown if ever smoked [id number] Sex Female Hospital Discharge Instructions Should you have any questions prior to discharge, please contact a member of your healthcare team. If you have left the hospital and have any questions, please contact your primary care physician. Reason For Referral No Data Found Procedures Procedure Name Date Status Code Code Syste m Arthrocentesis Aspir&/Inj Ma bella Jt/Bursa w/o US 10/03/2024 completed CPT Plan of Treatment No Data Found Encounters Encounter Diagnosis Start Date Code Code Sys tem Bilateral primary osteoarthritis of knee 10/03/2024 SNOMED-CT Personal Care Team Section Performer Name Performer Role Active Date Inactive GERSON Perdomo PCP - Primary care physician 2021-11-14 2022-07-30 LAYLA BARROSO PCP - Primary care physician [id number] NORMA HOLCOMB PCP - Primary care physician
--- OUTSIDE RECORDS SUMMARY | 2025-04-01 17:01 | XMS_ITS ---
Author Organization Unknown Address [address] [place] [phone] Phone Care Team Providers Care Marshmallow Machine Worker Name Role Phone FRIDA Comer Attending Unavailable JOCELYNE FLORES Primary Unavailable Results KNEE 4V LEFT - Completed: 09:17 LOINC: EXAM DESCRIPTION: ? ? KNEE 4V RIGHT; ? ? KNEE 4V LEFT REASON FOR STUDY: generalized knee pain and swelling right is worse NKI no previous sx or fx Duration: years worsening FINDINGS: Four views each knee submitted with comparison 11/18/2021. No acute fractures are identified. Alignment is normal. There is mild medial and patellofemoral bicompartmental bilateral knee osteoarthritis. Small knee effusions are present. IMPRESSION: ? ? Mild medial and patellofemoral bicompartmental bilateral knee osteoarthritis with small effusions. THIS IS AN ELECTRONICALLY VERIFIED FINAL REPORT 09/06/2024 5:02 PM - Electronically signed by Derick Rainey M.D. MF: [email or web address] Report ID: [id number] Reading Location: [id number] KNEE 4V RIGHT - Completed: 1 09:17 LOINC: EXAM DESCRIPTION: ? ? KNEE 4V RIGHT; ? ? KNEE 4V LEFT REASON FOR STUDY: generalized knee pain and swelling right is worse NKI no previous sx or fx Duration: years worsening FINDINGS: Four views each knee submitted with comparison 11/18/2021. No acute fractures are identified. Alignment is normal. There is mild medial and patellofemoral bicompartmental bilateral knee osteoarthritis. Small knee effusions are present. IMPRESSION: ? ? Mild medial and patellofemoral bicompartmental bilateral knee osteoarthritis with small effusions. THIS IS AN ELECTRONICALLY VERIFIED FINAL REPORT 09/06/2024 5:02 PM - Electronically signed by Derick Rainey M.D. MF: [email or web address] Report ID: [id number] Reading Location: [place] [address] Social History Type Status Start Date End Date Code Code Syst em Smoking History Unknown if ever smoked [id number] Sex Female Hospital Discharge Instructions [...] Sys tem Bilateral primary osteoarthritis of knee 09/05/2024 SNOMED-CT Personal Care Team Section Performer Name Performer Role Active Date Inactive Da te GERSON GOVEA PCP - Primary care physician 2021-11-14 2022-07-30 LAYLA BARROSO PCP - Primary care physician [id number] NORMA HOLCOMB PCP - Primary care physician Imaging Narrative Notes
--- OUTSIDE RECORDS SUMMARY | 2025-04-01 17:01 | XMS_ITS | Clinical Summary ---
Author Organization [facility] Address [address] [place] [id number] Care Team Providers Care Electronic Masking System Operator Name Role Phone Nyla Self NP Primary Care Provider [phone] Allergies Active Allergy Reactions Criticality Noted Date Comments Ciprofloxacin Anaphylaxis High 05/03/2021 Clindamycin Unknown 05/03/2021 GI distress Iodine Anaphylaxis High 05/03/2021 Erythromycin Hives 05/03/2021 Penicillins Anaphylaxis High 05/03/2021 Prednisone Other (see comment) 05/03/2021 Swelling in lymphondes Itraconazole Unknown 05/03/2021 Vancomycin Hives 05/03/2021 Medications No known medications Social History Tobacco Use Types Packs/Day Years Used Date Smoking Tobacco: Every Day Cigarettes Smokeless Tobacco: Never Alcohol Use Standard Drinks/Week Comments Not Currently 0 (1 standard drink = 0.6 oz pur e alcohol) Comments Yes Sex and Gender Information Value Date Recorded Sex Assigned at Not on file 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 Gender Identity Not on file Sexual Orientation Not on file Last Filed Vital Signs Vital Sign Reading Time Taken Comments Blood Pressure 104/60 05/03/2021 9:51 PM CDT Pulse 79 05/03/2021 9:51 PM CDT Temperature 36.2 C (97.1 F) 05/03/2021 8:56 PM CDT Respiratory Rate 18 05/03/2021 8:56 PM CDT Oxygen Saturation 99% 05/03/2021 8:56 PM CDT Inhaled Oxygen Concentration - - Weight 90.7 kg (200 lb) 05/03/2021 8:56 PM CDT Height 175.3 cm (5' 9 ) 05/03/2021 8:56 PM CDT Body Mass Index 29.53 05/03/2021 8:56 PM CDT Plan of Treatment Health Maintenance Due Date Last Done Comments Cervical Cancer Screening Pa p Smear (Age 30 to 64) Every 3 Years 1975 Colorectal Cancer Screening Colonoscopy (10 Years) 1975 Annual Physical 1978 Hepatitis C 1993 DTaP, Tdap and Td Vaccines ( 1 - Tdap) 1994 Hepatitis B Vaccines (1 of 3 - 19+ 3-dose series) 1994 Pneumococcal Vaccine: 50+ Ye ars (1 of 2 - PCV) 1994 Cervical Cancer Screening Pa p with HPV Testing (Age 30 to 64) Every 5 Years 2005 Cervical Cancer Screening with HPV 2005 Mammogram Screening 2015 COVID-19 Vaccine (1 - 2023-2 5 season) 2024 Zoster Vaccines (1 of 2) 2025 RSV Immunization or 60+ Years (1 - 1-dose 75+ series) 2050 Meningococcal B Vaccine Aged Out No l onger eligible based on patient's age to complete this topic Meningococcal Vaccine Aged Out No elly mitch eligible based on patient's age to complete this topic RSV Immunizations Under 20 Months Aged Out No longer eligible based on patient's age to complete this topic Insurance MEDICAID Care Teams Electronic Masking System Operator Relationship Specialty Start Date End Date Nyla Self NP [address] [phone] PCP - General Nurse Practitioner Family 05/03/21
--- OUTSIDE RECORDS SUMMARY | 2025-04-01 17:01 | XMS_ITS | Data Portability ---
Author Organization [facility], [address] [facility] ([place]) Address [address] [place] [address] Care Team Providers Care Lube Attendant Name Role Phone GERSON GOVEA Primary Care Provider Assessment Encounter Date Assessment Date Assessment LastModified by Organization Details LastModified Time 09/05/2024 09/05/2024 History: Zenaida kaur neel for follow-up of her bilateral knees. It has been some time since we saw her last. We did perform viscosupplementation injections in the past with success. She has not had any recent issues. She just completed chemotherapy and immunotherapy for breast cancer. She feels like her right knee grinds and slips. The left knee feels like it is more random pain that occurs with walking, including spasming. She is taking tramadol 50 mg twice a day. She has gone through 2 rounds of prednisone. She has not had any recent physical therapy. She does use a walking stick. Physical Examination: She has about 2 to 130 degrees range of motion of the bilateral knees. She walks with an antalgic gait. She has exquisite discomfort medially along the bilateral knees. No varus or valgus laxity bilaterally. X-rays of the bilateral knees were independently reviewed from [facility] and show mild bilateral knee medial compartment osteoarthritis. Assessment: 1. Mild bilateral knee medial compartment osteoarthritis. 2. Recent history of breast cancer status post chemo and immunotherapy. Plan: Clinical and radiographic findings were discussed with the patient. I recommended Euflexxa injections for the bilateral knees as well as a cane. She will follow up with us after approval for these injections. [email or web address] Not available 09/05/2024 14:27:50 Plan of Treatment Reminders Order Date Submit Date Provider Last Modified By Organization Details Last Modified Time Details Appointments None record ed. Lab None record ed. Referral None record ed. Procedures None record ed. Surgeries None record ed. Imaging None record ed. Medication Orders None record ed. Patient TargetsNo targets recorded. Patient InstructionsNo instructions recorded. Reason for Referral None Reported. Results Created Date Observation Date Name Description Value Unit Range Abnormal Flag Note LastModifiedBy Organization Detail LastModifiedTime 12/19/1909/05/2024 XR, knee, 4 or more view No observ ation record ed. [email or web address] [address] [place] [address], [id number], 12/19/2024 12:17:37 12/19/1909/05/2024 XR, knee, 4 or more view No observ ation record ed. [email or web address] [address] [place] [address], [id number], 12/19/2024 12:17:38 Result Notes None recorded. Problems Name Problem SNOMED Code Status Onset Date Resolution Date Notes Provider Name and Address Organization Details Recorded Time Pain of right knee joint 04146905563769 0 Active 2023 Swapnil Jefferson MD [address] [place] [address], [phone], [facility] 4 12:06:30 Pain of left knee joint 41164970948569 7 Active 2023 Swapnil Jefferson MD [address] [place] [address], [phone], [facility] 4 12:06:37 Pain of bilateral knee regions 40724192483901 2 Active 2023 Perlita Donohue [facility] 4 11:27:56 Primary gonarthros is, bilateral 612565000 Active 2023 Swapnil Jefferson MD [address] [place], [address], [facility] 4 10:53:40 Problem Notes None recorded. Procedures Surgical History Date Name Laterality Status Provider Name and Address Organization Details Recorded Time 10/03/20 24 [place] Procedure completed [facility] 10/03/2024 15:24:12 09/26/20 24 [place] Procedure [facility] 09/26/2024 14:49:02 09/19/20 24 [place] Knee injection completed Marlinaung Yeh [facility] 09/19/2024 10:03:38 Imaging Results Imaging Date Name Status LastModified by Organiz ation Details LastModified Time 09/05/2024 XR, knee, 4 or more view completed [email or web address] [address] [place] [address], [id number], 12/19/2024 12:17:37 09/05/2024 XR, knee, 4 or more view completed [email or web address] [address] [place] [address], [id number], 12/19/2024 12:17:38 Procedure Notes None recorded. Medical Equipment None Reported. Allergies Allergen ID Allergen Name Allergen Category Reaction Reaction Severity Criticality Documentation Date Start Date Code Code System Note Provider Name and Address Organization Details Recorded Time [id number] ciproflox acin medicatio n Not available Not available Not available 09/05/2024 2551 [facility] 4 10:48:50 5084068 iodine medicatio n Not available Not available Not available 09/05/2024 5933 [facility] 4 10:49:41 3333140 Non-stero idal anti-infl ammatory agent (product) medicatio n Not available Not available Not available 09/05/2024 93503 005 SN[facility]ED [facility] 4 10:49:55 3418910 erythromy nirmal medicatio n Not available Not available Not available 09/05/2024 4053 [facility] 4 10:50:07 1008335 vancomyci n medicatio n Not available Not available Not available 09/05/2024 68780 [facility] 4 10:50:17 7491123 clindamyc in Not available Not available Not available Not available 09/05/2024 2582 RxNorm Anne [facility] 4 10:50:26 4460336 Product containin g penicilli n (product) medicatio n Not available Not available Not available 09/05/2024 39642 8001 SNOMED Anne [facility] 4 10:50:44 2460079 diclofena c Not available Not available Not available Not available 09/05/2024 3355 RxNorm Anne [facility] 4 10:50:51 8035031 prednison e medicatio n Not available Not available Not available 09/05/2024 8640 RxNorm Anne [facility] 4 10:51:06 9645258 itraconaz ole medicatio n Not available Not available Not available 09/05/2024 98000 RxNorm Anne [facility] 4 10:51:12 0684107 honey bee venom medicatio n Not available Not available Not available 09/05/2024 18754 7 RxNorm Anne [facility] 4 10:51:28 Medications Name Sig Start Date Stop Date Status Note LastModified by Organization Details LastModified Time methocarbamo l 500 mg tablet TAKE 1 TABLET BY MOUTH 3 TIMES EVERY DAY NEEDED FOR MUSCLE SPASMS active Not Available Not Available No t Available gabapentin 600 mg tablet TAKE 1 TABLET BY MOUTH THREE TIMES A DAY active Not Available Not Available Not Available doxycycline hyclate 100 mg capsule active Not Available Not Available N ot Available trazodone 50 mg tablet TAKE 1 TABLET BY MOUTH EVERYDAY AT BEDTIME active Not Available Not Available No t Available tizanidine 4 mg tablet TAKE 1 TABLET BY MOUTH EVERY 8 HOURS NEEDED NO MORE THAN 3 DOSES IN 24 HOURS active Not Available Not Available No t Available metoprolol succinate ER 50 mg tablet,exten ded release 24 hr TAKE 1 TABLET BY MOUTH EVERY DAY active Not Available Not Available No t Available valacyclovir 1 gram tablet TAKE 2 TABLET BY ORAL ROUTE EVERY 12 HOURS FOR 5 DAYS active Not Available Not Available No t Available sumatriptan 25 mg tablet TAKE 1 TAB ORALLY AFTER MIGRAINE ONSET MAY REPEAT AFTER 2HRS IF HEADACHE RETURNS,MAX 200MG IN 24HRS active Not Available Not Available No t Available gabapentin 400 mg capsule TAKE 1 CAPSULE BY MOUTH 1-2 TIMES EVERY DAY active Not Available Not Available No t Available midodrine 5 mg tablet TAKE 1 TABLET BY ORAL ROUTE 3 TIMES DAILY active Not Available Not Available No t Available diphenoxylat e-atropine 2.5 mg-0.025 mg tablet TAKE 1 TABLET BY MOUTH 4 TIMES A DAY NEEDED FOR DIARRHEA. active Not Available Not Available No t Available valacyclovir 500 mg tablet TAKE 1 TABLET BY MOUTH EVERY DAY FOR OROLABIAL HSV active Not Available Not Available No t Available tramadol 50 mg tablet TAKE 1-2 TABLET BY ORAL ROUTE EVERY 12 HOURS NEEDED FOR PAIN active Not Available Not Available No t Available acetaminophe n 500 mg tablet active Not Available Not Available Not Available famotidine 20 mg tablet TAKE 1 TABLET BY MOUTH TWICE A DAY NEEDED active Not Available Not Available No t Available doxycycline monohydrate 100 mg capsule TAKE 1 CAPSULE BY MOUTH TWICE A DAY active Not Available Not Available No t Available dexamethason e 4 mg tablet TAKE 1 TABLET BY ORAL ROUTE EVERY DAY FOR 5 DAYS active Not Available Not Available N ot Available Advair Diskus 250 mcg-50 mcg/dose powder for inhalation INHALE 1 PUFF BY INHALATION ROUTE TWICE A DAY APPROXIMATE LY 12 HOURS APART AT THE SAME TIME EACH DAY active Not Available Not Available No t Available nicotine 21 mg/24 hr daily transdermal patch APPLY 1 PATCH EVERY DAY AND REMOVE AT BEDTIME active Not Available Not Available No t Available docusate sodium 100 mg capsule active Not Available Not Available N ot Available gabapentin 300 mg capsule TAKE 1 CAPSULE BY MOUTH TWICE A DAY active Not Available Not Available No t Available midodrine 2.5 mg tablet TAKE 1 TABLET BY MOUTH THREE TIMES A DAY active Not Available Not Available Not Available metoprolol succinate ER 25 mg tablet,exten ded release 24 hr TAKE 1 TABLET BY MOUTH EVERY DAY active Not Available Not Available No t Available albuterol sulfate HFA 90 mcg/actuatio n aerosol inhaler INHALE 2 PUFFS BY MOUTH EVERY 4 TO 6 HOURS NEEDED active Not Available Not Available No t Available ondansetron 4 mg disintegrati ng tablet PLACE 1 TABLET BY MOUTH ON TOP OF TONGUE THEN SWALLOW EVERY 8 HOURS NEEDED active Not Available Not Available No t Available topiramate 100 mg tablet TAKE 1 TABLET BY MOUTH TWICE A DAY active Not Available Not Available No t Available fludrocortis one 0.1 mg tablet TAKE 2 TABLETS BY MOUTH EVERY DAY active Not Available Not Available No t Available doxycycline hyclate 100 mg tablet TAKE 1 TABLET BY MOUTH TWICE A DAY FOR 10 DAYS active Not Available Not Available No t Available clindamycin 1 % lotion APPLY TOPICALLY 2 TIMES A DAY TO AFFECTED AREAS active Not Available Not Available No t Available metoprolol tartrate 25 mg tablet PLEASE SEE ATTACHED FOR DETAILED DIRECTIONS active Not Available Not Available N ot Available topiramate 50 mg tablet TAKE 1 TABLET BY MOUTH TWICE A DAY active Not Available Not Available No t Available duloxetine 30 mg capsule,srinivasan yed release TAKE 1 CAPSULE BY MOUTH EVERY DAY active Not Available Not Available No t Available duloxetine 60 mg capsule,srinivasan yed release TAKE 1 CAPSULE BY MOUTH EVERY DAY active Not Available Not Available No t Available Advair HFA 230 mcg-21 mcg/actuatio n aerosol inhaler TAKE 2 PUFFS BY MOUTH TWICE A DAY IN THE MORNING AND IN THE EVENING active Not Available Not Available No t Available dexamethason e 1.5 mg (21 tabs) tablets in a dose pack TAKE BY MOUTH DIRECTED PER PACKAGE INSTRUCTION S active Not Available Not Available No t Available Savella 25 mg tablet TAKE 1 TABLET (25MG) TWICE DAILY BY ORAL ROUTE UNTIL FOLLOW UP active Not Available Not Available No t Available Savella 50 mg tablet TAKE 1.5 TABLET BY MOUTH TWICE A DAY - 75MG TWICE DAILY active Not Available Not Available No t Available Vitals Date Recorded Body height Body mass index (BMI) Body weight Heart rate Oxygen saturation Oxygen saturation in Arterial blood by Pulse oximetry Systolic blood pressure Diastolic blood pressure Provider Name and Address Organization Details Last Updated DateTime 4 172.72 cm 30.4 kg/m2 93608.4 7 g 92 /min 97 % 97 % 109 mm[Hg] 69 mm[Hg] Anne [facility] 10:48:25 Date Recorded Body height Provider Name an d Address Organization Details Last Updated DateTime 09/26/2024 172.72 cm Thu Graf [facility] 09/26/2024 14:53:08 Social History None recorded. Functional Status None recorded. Mental Status None recorded. Family History Nothing Reported. Medical History No medical history recorded. Gynecological HistoryNo gynecological history recorded. Obstetrics History GPAL:G 0 P 0 0 0 0 Past Encounters Encounter ID Performer Location Encounter Start Date Encounter Closed Date Diagnosis/Indication Diagnosis SNOMED-CT Code Diagnosis ICD10 Code Diagnosis Note [id number] Swapnil Jefferson MD [facility] [place] [address] 09/05/2024 10:10:45 09/05/2024 10:54:32 Pain of right knee joint 2240381792 61814 M25.561 Additional diagnosis detail: Pain, joint, knee, right Pain of le ft knee joint 8243615045 26640 M25.562 Additional diagnosis detail: Pain, joint, knee, left Primary go narthrosis, bilateral 489219853 M17.0 Additional diagnosis detail: Primary osteoarthr itis of both knees [id number] MD FRANCA [facility] [place] [address] 09/19/2024 09:18:49 09/19/2024 09:32:25 Primary gonarthrosis, bilateral 809915608 M17.0 Additional diagnosis detail: Primary osteoarthr itis of both knees [id number] Swapnil Jefferson MD [facility] [place] [address] 09/26/2024 11:13:53 09/26/2024 11:48:43 Primary gonarthrosis, bilateral 865429823 M17.0 Additional diagnosis detail: Primary osteoarthr itis of both knees [id number] Swapnil Jefferson MD [facility] [place] [address] 10/03/2024 12:03:45 10/03/2024 12:08:02 Primary gonarthrosis, bilateral 737911886 M17.0 Additional diagnosis detail: Primary osteoarthr itis of both knees Health Concerns Section Related Observation LastModified by Organization Detai ls LastModified Time None Recorded Concern Status LastModified by Organization Details LastModified Time None Recorded Advance Directives Directive None Recorded Payers Encounter Date Sequence Insurance Name Policy Number Policy Gastelum Covered Member ID Gastelum Member ID Guarantor Name 09/05/2024 1 [facility] ON OR AFTER 05/29/21 (MEDICAID REPLACEMENT - HMO) Zneaida Cuevas [id number] Zenaida Cuevas 09/19/2024 1 [facility] ON OR AFTER 05/29/21 (MEDICAID REPLACEMENT - HMO) Zenaida Cuevas [id number] Zenaida Cuveas 09/26/2024 1 [facility] ON OR AFTER 05/29/21 (MEDICAID REPLACEMENT - HMO) Zenaida Cuevas [id number] Zenaida Cuevas 10/03/2024 1 [facility] ON OR AFTER 05/29/21 (MEDICAID REPLACEMENT - HMO) Zenaida Cuevas [id number] Zenaida Cuevas OBGyn Episode No OBEpisode recorded.
--- OUTSIDE RECORDS SUMMARY | 2025-04-01 17:01 | XMS_ITS | Referral Summary ---
Author Organization [facility] Address [address] [place] [address] Care Team Providers Care General Labor Name Role Phone Pasquale Hanna MD Unavailable Michael Bolivar MD Unavailable Nadeem Brunner MD PhD Unavailable Darren Simmons DO Unavailable [phone] Derick Suarez MD Unavailable [phone] Nyla Self NP Primary Care Provider [phone] Encounters Date Type Department Care Team Description 03/23/2025 8:00 AM CDT Lab [facility] at [facility] [address] [place] [address] Elevated CA-125; Malignant neoplasm of central portion of left breast in female, estrogen receptor negative (HCC); Arthralgia, unspecified joint 03/23/2025 8:30 AM CDT Office Visit [facility] [address] [facility] [address] [place] [address] Nadeem Brunner MD PhD Malignant neoplasm of central portion of left breast in female, estrogen receptor negative (HCC) (Primary Dx); Arthralgia, unspecified joint 03/05/2025 1:00 PM CDT Telemedicine [facility] [address] [place] [address] Advanced Medicine 14th Floor [address] [phone] Anayeli Claudio, PhD Trauma and stressor-related disorder (Primary Dx); Other chronic pain 02/28/2025 12:10 PM CDT - 02/28/2025 11:59 PM CDT Hospital Encounter [facility] at the [facility] [address] [place] [address] Advanced Medicine [address] [place] [address] Lotus Esposito MD PhD Other polyneuropathy (Primary Dx) Discharge Disposition: Discharge to home or self care 02/21/2025 Orders Only [facility] at the [facility] [address] [place] [address] Advanced Medicine [address] [place] [address] Lotus Esposito MD PhD Neuropathic pain (Primary Dx) 02/21/2025 Orders Only [facility] [address] [place] [address] Advanced Medicine [address] [place] [address] Lotus Esposito MD PhD 02/20/2025 7:41 AM CDT - 02/20/2025 11:59 PM CDT Hospital Encounter [facility] at the [facility] Medicine [address] [place] [address] Advanced Medicine [address] [place] [address] Jeri Brenner NP Other polyneuropathy (Primary Dx) Discharge Disposition: Discharge to home or self care 02/14/2025 Telephone [facility] [address] [place] [address] Advanced Medicine [address] [place] [address] Jeri Brenner NP Pre-Procedure Instructions 01/26/2025 2:30 PM REAL ESTATE INSPECTOR Telemedicine [facility] [address] [place] [address] Advanced Medicine 14th [address] [address] Anayeli Claudio, PhD Trauma and stressor-related disorder (Primary Dx); Other chronic pain 01/16/2025 Orders Only [facility] [address] [place] [address] Advanced Medicine [address] [place] [address] Lesia Coreas MD 01/16/2025 9:56 AM REAL ESTATE INSPECTOR - 01/16/2025 11:59 PM REAL ESTATE INSPECTOR Hospital Encounter [facility] [address] [facility] [address] [place] [address] Lesia Coreas MD Other polyneuropathy (Primary Dx) Discharge Disposition: Discharge to home or self care 01/15/2025 1:52 PM REAL ESTATE INSPECTOR - 01/15/2025 11:59 PM REAL ESTATE INSPECTOR Hospital Encounter [facility] Cardiac Testing [address] [place] [address] Malignant neoplasm of central portion of left breast in female, estrogen receptor negative (HCC); Encounter for monitoring cardiotoxic drug therapy; SOB (shortness of breath) on exertion Discharge Disposition: Discharge to home or self care from Last 3 Months Allergies Active Allergy Reactions Criticality Noted Date Comments Venom-Honey Bee Anaphylaxis High 03/02/2023 Ciprofloxacin Anaphylaxis High 05/03/2021 Clindamycin Unknown 05/03/2021 GI distress severe Able to tolerate IV clindamycin Diclofenac Other (See comments) Medium 11/01/2023 Heart attack symptoms Erythromycin Hives,Swelling Medium 05/03/2021 Haptens - Plastic And Glue Series Rash High 12/24/2023 Surgical glue Iodine Anaphylaxis High 05/03/2021 Itraconazole Other (See comments) Low 05/03/2021 Liver and Kidney problems. Nsaids (Non-Steroidal Anti-Inflammatory Drug) Swelling,Chest tightness Medium 02/22/2023 Penicillin Anaphylaxis High 06/19/2024 Prednisone Other (See comments),Fever Medium 05/03/2021 Swelling in lymphondes Shellfish Containing Products Anaphylaxis High 02/22/2023 Lobster. Other shellfish more mild reaction. Tissue Adhesive Rash Medium 08/28/2024 Surgical glue/dermabond Vancomycin Hives,Itching,Swelli ng Medium 05/03/2021 Medications cholecalciferol (VITAMIN D-3) 2000 unit tabletIndications :Prevention of Vitamin D Deficiency Take 1 tablet (2,000 Units total) by mouth every morning Active valACYclovir (VALTREX) 1 gram tabletIndications :Prophylaxis, Medical Take 1 tablet (1,000 mg total) by mouth as needed (cold sores) As needed 2 twice a day for 5 days 3 Active diphenhydramine HCl (BENADRYL ALLERGY ORAL)Indications: allegy and immunotherapy Take 1 capsule by mouth as needed (allergies) Active famotidine (PEPCID) 20 mg tabletIndications :Heartburn,stomac h trouble from recent antibiotics, and allergies Take 1 tablet (20 mg total) by mouth as needed for heartburn Twice a day Active turmeric root extract 500 mg capsuleIndication s:for supplement Take 1 tablet by mouth every morning Active albuterol HFA (PROVENTIL HFA,VENTOLIN HFA,PROAIR HFA) 90 mcg/actuation inhalerIndication s:Acute Asthma Attack Inhale 2 puffs as needed for wheezing or shortness of breath 3 Active Advair Diskus 250-50 mcg/dose diskus inhalerIndication s:Maintenance Therapy for Asthma Inhale 1 puff 2 (two) times a day 3 Active traZODone (DESYREL) 50 mg tabletIndications :insomnia associated with depression Take 25mg ( 1/2 tab) to 50mg ( 1 tab) po at HS 30 tablet 1 3 Active Additional Information Patient not taking.Informant: Self, Reported on 03/23/2025 SUMAtriptan (IMITREX) 25 mg tablet 4 Active naloxone (NARCAN) 4 mg/actuation spray,non-aerosol Administer 1 spray into affected nostril(s) as needed for opioid reversal or respiratory depression Call 911. Administer a single spray in one nostril. Repeat every 3 minutes as needed if no or minimal response. 1 each 4 Active ondansetron (ZOFRAN) 4 mg tablet Take 1 tablet (4 mg total) by mouth every 8 (eight) hours as needed for nausea or vomiting Active midodrine (PROAMATINE) 5 mg tablet Take 1 tablet (5 mg total) by mouth 3 (three) times a day 10 mornings 7.5 at noon 5 evenings 4 Active valACYclovir (VALTREX) 500 mg tablet Take 1 tablet (500 mg total) by mouth daily Active metoprolol XL (TOPROL-XL) 25 mg extended release tablet Take 1 tablet (25 mg total) by mouth daily 4 Active diphenoxylate-atr opine (LOMOTIL) 2.5-0.025 mg per tabletIndications :diarrhea Take 1 tablet by mouth 4 (four) times a day as needed for diarrhea 30 tablet 2 4 Active Additional Information Patient not taking.Reported on 03/23/2025 gabapentin (NEURONTIN) 300 mg capsule Take 1 capsule (300 mg total) 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 120 capsule 6 4 Active cyanocobalamin (Vitamin B-12) 100 mcg tabletIndications :Prevention of Vitamin B12 Deficiency Take 1 tablet (100 mcg total) by mouth daily Unsure of specific dose Active metoprolol XL (TOPROL-XL) 50 mg extended release tablet 5 Active gabapentin (NEURONTIN) 600 mg tablet Take 1 tablet (600 mg total) by mouth 3 (three) times a day 5 Active topiramate (TOPAMAX) 100 mg tablet Take 1 tablet (100 mg total) by mouth 2 (two) times a day 5 Active traZODone (DESYREL) 100 mg tablet TAKE 1 TABLET DAILY AT BEDTIME TO HELP SLEEP 5 Active naltrexone (LOW DOSE) 4.5 mg capsuleIndication s:Neuropathic pain Take 1 capsule (4.5 mg total) by mouth 2 (two) times a day 60 capsule 5 Active Active Problems Problem Noted Date Diagnosed Date History of mastectomy, bilateral 12/12/2024 Peripheral neuropathy 12/06/2024 Cholecystitis 12/24/2023 Breast cancer in female 11/23/2023 Dehydration 10/26/2023 Encounter for management of implanted device 08/2023 Encounter for person encountering health service s 06/07/2023 Elevated tumor markers 06/07/2023 Malignant neoplasm of left female breast 023 Cancer Staging:Clinical stage from 06/07/2023:Stage IIA(cT1c, cN1, cM0, G3, ER-, SC-, HER2+) - Signed by Nadeem Brunner MD PhD on 06/18/2023 Mass of left breast 05/27/2023 Pelvic mass 02/03/2023 Overview (02/03/2023): Added automatically from request for surgery [id number] Adnexal mass 02/03/2023 Overview (04/07/2023): Presented to IMPROVEMENT ADVISOR to progressive abdominal bloating and worsening pelvic pain/cramping. Was diagnosed with endometriosis at age 15 years on diagnostic laparoscopy. TVUS on 11/2022 showed uterus measuring 12.5 x 6 x 8 cm, 15.5 cm YSABEL with 11.6cm mass with complex fluid and echogenic septations and smooth margins, ORADS 4 Family history: notable for endometriosis on both maternal and paternal grandmothers, sister, 3 aunts. Maternal Grandmother diagnosed with breast cancer at early 30s, maternal aunts also had diagnosed breast/uterine/ovarian cancer. Reports sister had genetic testing and carries tested positive for breast cancer 02/03/23: presenting with progressive abdominal bloating and pelvic pain. Exam notable for enlarged mobile adnexal mass that extends just up to umbilicus. Pap smear collected. 03/02/23: TLH/BSO. Pathology benign (fibroids). 04/07/23: Doing well-postoperatively, cuff healing well. Advised additional 4 weeks of pelvic rest. Discussed Inivtae results (negative for BRCA mutation, VUS in APC). PLAN: - Additional 4 weeks of pelvic rest - Follow up with general gynecology Social History Tobacco Use Types Packs/Day Years Used Date Smoking Tobacco: Some Days Cigarettes 0.3 32.3 Started: 1992 Smokeless Tobacco: Never Tobacco Cessation:Ready to Q uit: No; Counseling Given: Yes Comments:Cigarettes 0-5 a day AUDIT-C Answer Date Recorded Q1: How often do you have a drink containing alcohol? Never 02/28/2025 Q2: How many drinks containi ng alcohol do you have on a typical day when you are drinking? Patient does not drink Q3: How often do you have si x or more drinks on one occasion? Never 02/28/2025 Hunger Vital Sign Answer Date Recorded Within [...] on file Legal Sex Female 7:40 AM REAL ESTATE INSPECTOR Gender Identity Not on file Sexual Orientation Not on file Last Filed Vital Signs Vital Sign Reading Time Taken Comments Blood Pressure 101/67 03/23/2025 8:01 AM CDT Pulse 87 03/23/2025 8:01 AM CDT Temperature 36.7 C (98.1 F) 03/23/2025 8:01 AM CDT Respiratory Rate 18 03/23/2025 8:01 AM CDT Oxygen Saturation 98% 03/23/2025 8:01 AM CDT Inhaled Oxygen Concentration - - Weight 96.6 kg (213 lb) 03/23/2025 8:01 AM CDT Height 170.2 cm (5' 7 ) 03/23/2025 8:01 AM CDT Body Mass Index 33.36 03/23/2025 8:01 AM CDT Plan of Treatment Not on file Goals Goal Patient Goal Type Associated Problems Recent Progress Patient-Stated? Author CCM Chronic Pain Care Plan Chronic Care Management Worsening( 12:48 PM CDT) Blanca Hogan, RN Note: Problem: Chronic Pain Goals: 1. Minimize further functional decline 2. Maximize quality of life 3. Control pain Strategies: - Activity/exercise program recommendation - Conservative stepwise pain medicine strategy with multi-disciplinary approach - Recommend healthy lifestyle strategies and compensatory methods as needed Medical Devices Implanted Type Area Transportation Planner Device Identifier Shelf Expiration Date Model / Serial / Lot Bard Peripheral Vascular Marker Breast Ring Shape Radiopaque Nitinol Ultracor Twirl [id number] - [id number] Implanted:Qty: 1 on 06/07/2023 at [facility] Left: Axilla Bard Peripheral Vascular [id number] / / [id number] Marker Breast Biopsy Magseed L12 Cm Od18 Ga [id number] - [id number] Implanted:Qty: 1 on 11/23/2023 by Sharon Garcia MD at [facility] Left: Breast Coaxis [id number] 06/28/2025 [id number] Explanted Type Area Transportation Planner Device Identifier Shelf Expiration Date Model / Serial / Lot Bard Peripheral Vascular Powerport Clearvue Airguard 8fr 1 Lumen Lightweight Intermediate Latex Free [id number] - [id number] Implanted:Qty: 1 on 06/04/2023 by Michael Bolivar MD at [facility] Explanted:Qty: 1 on 08/25/2024 by Michael Bolivar MD at [facility] Catheter Right: Chest Bard Peripheral Vascular 03/28/2024 [id number] / / [id number] Procedures Procedure Name Priority Date/Time Associated Diagnosis Comments EGFR Routine 03/23/2025 7:56 AM CDT Malignant neoplasm of central portion of left breast in female, estrogen receptor negative (HCC) DIFFERENTIAL AUTO Routine 03/23/2025 7:5 6 AM CDT Malignant neoplasm of central portion of left breast in female, estrogen receptor negative (HCC) COMPREHENSIVE METABOLIC PANEL Routine 03/23/2025 7:56 AM CDT Malignant neoplasm of central portion of left breast in female, estrogen receptor negative (HCC) CBC WITH AUTO DIFFERENTIAL Routine 03/23/2025 7:56 AM CDT Malignant neoplasm of central portion of left breast in female, estrogen receptor negative (HCC) CA 125 Routine 03/23/2025 7:56 AM CDT Elevated CA-125 CRP, HIGH SENSITIVITY Routine 03/23/2025 7:53 AM CDT Malignant neoplasm of central portion of left breast in female, estrogen receptor negative (HCC) Arthralgia, unspecified joint ERYTHROCYTE SEDIMENTATION RATE Routine 03/23/2025 7:53 AM CDT Malignant neoplasm of central portion of left breast in female, estrogen receptor negative (HCC) Arthralgia, unspecified joint TRANSTHORACIC ECHO (TTE) COMPLETE W DOPPLER/CF WO CONTRAST Routine 01/15/2025 2:24 PM REAL ESTATE INSPECTOR Malignant neoplasm of central portion of left breast in female, estrogen receptor negative (HCC) Encounter for monitoring cardiotoxic drug therapy SOB (shortness of breath) on exertion HEPATITIS PANEL, ACUTE STAT 4 3:39 PM REAL ESTATE INSPECTOR PAP AND HIGH RISK HPV, REFLEX TO GENOTYPING STAT 02/03/2023 3:24 PM REAL ESTATE INSPECTOR Adnexal mass from Last 3 Months or Most Recently Relevant to Health Maintenance Results * eGFR (03/23/2025 7:56 AM CDT) eGFR 90 >=60 mL/min/1. 73 m2 Comment: Interpretive Data Reference Interval Normal >/= 90 mL/min/1.73m2 Mildly decreased* 60 - 89 mL/min/1.73m2 Mildly to moderately decreased 45 - 59 mL/min/1.73m2 Moderately to severely decreased 30 - 44 mL/min/1.73m2 Severely decreased 15 - 29 mL/min/1.73m2 Kidney Failure < 15 mL/min/1.73m2 *Relative to young adult level Estimated glomerular filtration rate is determined by the 2020 CKD-EPI equation recommended by the National Kidney Foundation (A Unifying Approach to GFR Estimation: Recommendations of the NKF-ASK Task Force on Reassessing the Inclusion of Race in Diagnosing Kidney Disease, JASN 2020). The CKD-EPI equation should not be used for patients with unstable renal function and has not been validated in children and those over 70. Current interpretive data was last reviewed 2021. Testing performed by: [facility], [address] [place] [address], [place]., [address] Blood 03/23/2025 7:56 AM CDT 03/23/2025 7:57 AM CDT us Nadeem Brunner MD PhD LAB BLOOD ORDERABLES Final Resul t KAYODE [address] [facility] Department [place] [address] * (ABNORMAL) Differential, auto (03/23/2025 7:56 AM CDT) Neutrophil abs 2.77 1.50 - 6.50 K/cumm Comment:Testing performed by : [address] [address] Imm gran abs 0.01 0.00 - 0.10 K/cumm KAYODE Comment:Testing performed by : [address], [place]., [address] Lymphocyte abs 3.51(H) 0.80 - 3.30 K/cumm KAYODE Comment:Testing performed by : [address] [address] Monocyte abs 0.55 0.20 - 0.80 K/cumm KAYODE Comment:Testing performed by : [address] [address] Eosinophil abs 0.16 0.00 - 0.50 K/cumm KAYODE Comment:Testing performed by : [address] [address] Basophil abs 0.02 0.00 - 0.10 K/cumm KAYODE Comment:Testing performed by : [address] [address] Neutrophil pct 39.5 % KAYODE Comment: Interpretive Data Percent cell count reference ranges are not reported, since discordance with absolute values may lead to misinterpretation of CBC data. Current Interpretive Data was last revised on 2018. Testing performed by: [address] [address] Imm gran pct 0.1 % KAYODE Comment: Interpretive Data Percent cell count reference ranges are not reported, since discordance with absolute values may lead to misinterpretation of CBC data. Current Interpretive Data was last revised on 2018. Testing performed by: [address] [address] Lymphocyte pct 50.0 % KAYODE Comment: Interpretive Data Percent cell count reference ranges are not reported, since discordance with absolute values may lead to misinterpretation of CBC data. Current Interpretive Data was last revised on 2018. Testing performed by: [address] [address] Monocyte pct 7.8 % KAYODE Comment: Interpretive Data Percent cell count reference ranges are not reported, since discordance with absolute values may lead to misinterpretation of CBC data. Current Interpretive Data was last revised on 2018. Testing performed by: [address] [address] Eosinophil pct 2.3 % KAYODE Comment: Interpretive Data Percent cell count reference ranges are not reported, since discordance with absolute values may lead to misinterpretation of CBC data. Current Interpretive Data was last revised on 2018. Testing performed by: [address] [address] Basophil pct 0.3 % KAYODE Comment: Interpretive Data Percent cell count reference ranges are not reported, since discordance with absolute values may lead to misinterpretation of CBC data. Current Interpretive Data was last revised on 2018. Testing performed by: [address] [address] Blood 03/23/2025 7:56 AM CDT 03/23/2025 7:57 AM CDT us Nadeem Brunner MD PhD LAB BLOOD ORDERABLES Final Resul t KAYODE [address] [facility] Department [place] [address] * CBC with auto differential (03/23/2025 7:56 AM CDT) WBC 7.02 3.80 - 9.90 K/cumm Comment:Testing performed by : [address] [address] Hgb 13.5 11.9 - 15.5 g/dL KAYODE KATZ Comment:Testing performed by : [address] [address] Hct 38.7 35.6 - 45.5 % KAYODE Comment:Testing performed by : [address] [address] Plt 263 150 - 400 K/cumm KAYODE Comment:Testing performed by : [address] [address] MPV 10.1 9.1 - 12.3 fL KAYODE Comment:Testing performed by : [address] [address] RBC 4.16 3.90 - 5.20 M/cumm KAYODE Comment:Testing performed by : [address] [address] MCV 93.0 81.3 - 96.4 fL KAYODE Comment:Testing performed by : [address] [address] MCH 32.5 27.1 - 33.3 pg KAYODE Comment:Testing performed by : [address] [address] MCHC 34.9 32.3 - 35.7 g/dL KAYODE Comment:Testing performed by : [address], [address] RDW CV 12.5 11.1 - 14.9 % KAYODE Comment:Testing performed by : [address] [address] RDW SD 42.5 35.7 - 48.1 fL KAYODE Comment:Testing performed by : [address] [address] NRBC abs 0.00 0.00 - 0.01 K/cumm KAYODE Comment:Testing performed by : [address] [address] ANC Prelim 2.77 1.50 - 6.50 K/cumm KAYODE Comment: Interpretive Data The rapid ANC is a preliminary automated count and may vary from the final ANC (Neut Abs) reported in the WBC differential that follows. Current interpretive data was last revised 2025. Testing performed by: [address], [address] Blood 03/23/2025 7:56 AM CDT 03/23/2025 7:57 AM CDT us Nadeem Brunner MD PhD LAB BLOOD ORDERABLES Final Resul t Performing Organization Address [facility] de Phone Number KAYODE [address] [address] * CA 125 (03/23/2025 7:56 AM CDT) Pathologist [facility] CA 125 ag 11.4 0.0 - 38.1 units/mL Comment: Interpretive Data The [employer]ia CA 125 assay procedure was used. Results from different manufacturers or methods may not be comparable. Serial testing should be performed using the same method. Testing performed by: [address] [address] Blood 03/23/2025 7:56 AM CDT 03/23/2025 9:38 AM CDT us Nadeem Brunner MD PhD LAB BLOOD ORDERABLES Final Resul t Performing Organization Address [facility] Co de Phone Number [address] [address] * Comprehensive metabolic panel (03/23/2025 7:56 AM CDT) [facility] Sodium 144 135 - 145 mmol/L Comment:Testing performed by : [address] [address] Potassium, pl 4.2 3.3 - 4.9 mmol/L KAYODE Comment:Testing performed by : [address] [address] Chloride 106 97 - 110 mmol/L KAYODE Comment:Testing performed by : [address] [address] CO2 28 22 - 32 mmol/L KAYODE Comment:Testing performed by : [address] [address] Anion gap 10 2 - 15 mmol/L KAYODE Comment:Testing performed by : [address] [place] [address] BUN 8 6 - 25 mg/dL KAYODE Comment:Testing performed by : [address] [address] Creatinine 0.80 0.60 - 1.10 mg/dL KAYODE Comment:Testing performed by : [address] [address] Glucose 82 70 - 199 mg/dL KAYODE Comment: Interpretive Data Fasting glucose >/= 126 mg/dl is diagnostic for diabetes. Fasting is defined as no caloric intake for at least 8 hours. Fasting glucose between 100 mg/dl to 125 mg/dl is diagnostic of prediabetes. In a patient with classic symptoms of hyperglycemia or hyperglycemic crisis, a random glucose >/= 200 mg/dl is diagnostic for diabetes. In the absence of unequivocal hyperglycemia, results should be confirmed by repeat testing. The classification and Diagnosis of Diabetes Diabetes Care 2021; 46: S19-S40. Current interpretive data was last revised 2022. Testing performed by: [address] [address] Calcium 9.3 8.5 - 10.3 mg/dL KAYODE Comment:Testing performed by : [address] [address] Bilirubin, total <0.2 0.1 - 1.2 mg/dL KAYODE Comment:Testing performed by : [address] [address] Protein, pl 6.6 6.5 - 8.5 g/dL KAYODE Comment:Testing performed by : [address] [address] Albumin 4.4 3.5 - 5.0 g/dL KAYODE Comment:Testing performed by : [address] [address] Alk phos 61 40 - 130 Units/L KAYODE Comment:Testing performed by : [address] [address] ALT 12 7 - 45 Units/L KAYODE Comment:Testing performed by : [address] [address] AST 16 10 - 45 Units/L KAYODE Comment:Testing performed by : [address] [address] Blood 03/23/2025 7:56 AM CDT 03/23/2025 7:57 AM CDT Nadeem Brunner MD PhD LAB BLOOD ORDERABLES Final Resul t Performing Organization Address [facility] Co de Phone Number [address] [employer] [place] [address] * Erythrocyte sedimentation rate (03/23/2025 7:53 AM CDT) Erythrocyte sedimentation rate 8 1 - 30 mm/hr Comment:Testing performed by : [address] [address] Blood 03/23/2025 7:53 AM CDT 03/23/2025 11:35 AM CDT Nadeem Brunner MD PhD LAB BLOOD ORDERABLES Final Resul t Performing Organization Address [facility] de Phone Number [address] [address] * CRP (cardiac risk) (03/23/2025 7:53 AM CDT) hsCRP 0.80 mg/L Comment: Interpretive data Adult only - values greater than or equal to 10 mg/L are consistent with infection or inflammation. Individuals with evidence of active infection, systemic inflammatory processes, or trauma should not be tested until these conditions have abated. When using HS CRP to assess cardiovascular risk, two measurements should be taken, two weeks apart (averaging results). The CDC/AHA recommended the following HS CRP cut off points (tertiles) for CVD assessment. Adult low risk <1.0 mg/L Average risk 1.0 - 3.0 mg/L High Risk >3.0 mg/L Current interpretive data was last revised on 2018. Testing performed by: [address] [address] Blood 03/23/2025 7:53 AM CDT 03/23/2025 9:35 AM CDT us Nadeem Brunner MD PhD LAB BLOOD ORDERABLES Final Resul t KAYODE [address] [facility] Department [place] [address] * TRANSTHORACIC ECHO (TTE) COMPLETE W DOPPLER/CF WO CONTRAST (01/15/2025 2:24 PM REAL ESTATE INSPECTOR) Anatomical Region Laterality Modality Ultrasound 01/15/2025 1:54 PM REAL ESTATE INSPECTOR Narrative 01/15/2025 5:35 PM REAL ESTATE INSPECTOR Transthoracic Echocardiographic Report Patient Name: TIMUR CUEVAS C : 1975 (49y 11m) Gender: F Study Date: 01/15/2025 01:54:34 PM Ht(Inch): 67 Wt(Lb): 210 BSA: 2.12 Fire Engine Operator: CEASAR Singh,RVT Order Provider: NADEEM BRUNNER Heart Rate: 76 BMI: 32.89 BP: 98/58 Ref Provider: NADEEM BRUNNER PROCEDURES: Echocardiographic Report: ([id number]) Transthoracic complete echo, 2D, spectral and tissue Doppler, color flow Doppler, M-mode. 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 FINDINGS: Left Ventricle: Normal left ventricular cavity size. Mild concentric left ventricular hypertrophy. Normal left ventricular systolic function. The Ejection Fraction (Suh's) is measured at 56 %. The average global longitudinal strain rate is borderline. Diastolic Function E to A reversal Suggestive of abnormal relaxation during early diastole, E to E' ratio <8 suggesting normal pulmonary wedge pressure and no LV diastolic dysfunction and left ventricular diastolic parameters are consistent with Grade I diastolic dysfunction (normal LA pressure). Regional Wall Motion: There are no regional wall motion abnormalities. Right Ventricle: Right ventricular dilatation. Left Atrium: The left atrium is normal in size. Right Atrium: Mildly dilated right atrium. Atrial Septum: The interatrial septum is normal in appearance. Mitral Valve: Normal mitral valve leaflet structure. No mitral regurgitation seen. Aortic Valve: Trileaflet aortic valve. No aortic regurgitation seen. Tricuspid Valve: The tricuspid valve demonstrates normal leaflet structure. No tricuspid regurgitation seen. The estimated right ventricular systolic pressure is 7 mmHg. Pulmonic Valve: Pulmonic Valve not well visualized due to poor echo windows. Pericardium: No pericardial effusion. Aorta: Normal aortic root. IVC: The estimated RA pressure is 3 mmHg. CONCLUSIONS: 1. Normal left ventricular systolic function 2. Global longitudinal strain is -17.3. Borderline. 3. Dilated right ventricle and dilated right atrium. MEASUREMENTS: 2D/MM Value Range Doppler Value LVIDd 2D 2.62 cm [ 3.50 - 5.70 ] AV Peak Elijah 1.18 m/s LVIDs 2D 1.88 cm [ 3.10 - 4.60 ] AV Peak PG 5.57 mmHg IVSd 2D 0.88 cm [ 0.60 - 1.20 ] LVOT Peak Elijah 1.06 m/s LVPWd 2D 0.85 cm [ 0.60 - 1.10 ] LVOT Peak PG 4.49 mmHg LV Thickness Ratio 1.04 MV E Peak Elijah 0.50 m/s LV Mass 2D 54.70 g MV A Peak Elijah 0.55 m/s LV Mass Index 2D 25.80 g/m2 MV E/A 0.90 ratio RWT 0.65 MV Decel Time 174.00 msec EF Mod BP 56 % [ 54 - 74 ] Med E` Elijah 6.20 cm/sec LA Dimension 2D 2.60 cm [ 1.90 - 4.00 ] Lat E` Elijah 8.27 cm/sec LA Length 4C 3.48 cm Average E/E` 6.91 AoR Diam 2D 2.80 cm [ 2.00 - 3.70 ] TR Peak Elijah 1.02 m/s Ao Root Index 1.32 cm/m2 [ 1.00 - 2.00 ] TR Peak PG 4.2 mmHg RA Pressure 3.00 mmHg RVSP 7.20 mmHg PV Peak Elijah 0.82 m/s PV Peak PG 2.69 mmHg - ATTESTATION: I have reviewed and interpreted the pertinent images and measurements of this study. I attest to the conclusions in the final report that is provided above. DISCLAIMER: The study images and the final report will be retained in the patient chart by the [facility] Laboratory for the legally required time period. This chart constitutes the legal record of any testing performed. Electronically Signed By: Sultan Bismark CHEUNG 01/15/2025 5:34:24 PM REAL ESTATE INSPECTOR Procedure Note Sultan Aj Sofia MD - 01/15/2025 Transthoracic Echocardiographic Report Patient Name: TIMUR CUEVAS C : 1975 (49y 11m) Gender: F Study Date: 01/15/2025 01:54:34 PM Ht(Inch): 67 Wt(Lb): 210 BSA: 2.12 Fire Engine Operator: CEASAR Singh,RVT Order Provider: NADEEM BRUNNER Heart Rate: 76 BMI: 32.89 BP: 98/58 Ref Provider: NADEEM BRUNNER PROCEDURES: Echocardiographic Report: ([id number]) Transthoracic complete echo, 2D,spectral and tissue Doppler, color flow Doppler, M-mode. INDICATIONS: Chemotherapy, C50.112 Malignant neoplasm of central portion of left femalebreast, Z17.1 Estrogen receptor negative status (ER-), Z51.81 Encounter for therapeuticdrug level monitoring, Z79.899 Other correction (current) drug therapy, and R06.02Shortness of breath. FINDINGS: Left Ventricle: Normal left ventricular cavity size. Mild concentric leftventricular hypertrophy. Normal left ventricular systolic function. The EjectionFraction (Suh's) is measured at 56 %. The average global longitudinal strain rate isborderline. Diastolic Function E to A reversal Suggestive of abnormal relaxation during earlydiastole, E to E' ratio <8 suggesting normal pulmonary wedge pressure and no LV diastolicdysfunction and left ventricular diastolic parameters are consistent with Grade Idiastolic dysfunction (normal LA pressure). Regional Wall Motion: There are no regional wall motion abnormalities. Right Ventricle: Right ventricular dilatation. Left Atrium: The left atrium is normal in size. Right Atrium: Mildly dilated right atrium. Atrial Septum: The interatrial septum is normal in appearance. Mitral Valve: Normal mitral valve leaflet structure. No mitralregurgitation seen. Aortic Valve: Trileaflet aortic valve. No aortic regurgitation seen. Tricuspid Valve: The tricuspid valve demonstrates normal leafletstructure. No tricuspid regurgitation seen. The estimated right ventricular systolic pressure is 7mmHg. Pulmonic Valve: Pulmonic Valve not well visualized due to poor echowindows. Pericardium: No pericardial effusion. Aorta: Normal aortic root. IVC: The estimated RA pressure is 3 mmHg. CONCLUSIONS: 1. Normal left ventricular systolic function 2. Global longitudinal strain is -17.3. Borderline. 3. Dilated right ventricle and dilated right atrium. MEASUREMENTS: 2D/MM Value Range DopplerValue LVIDd 2D 2.62 cm [ 3.50 - 5.70 ] AV Peak Vel1.18 m/s LVIDs 2D 1.88 cm [ 3.10 - 4.60 ] AV Peak PG5.57 mmHg IVSd 2D 0.88 cm [ 0.60 - 1.20 ] LVOT Peak Vel1.06 m/s LVPWd 2D 0.85 cm [ 0.60 - 1.10 ] LVOT Peak PG4.49 mmHg LV Thickness Ratio 1.04 MV E Peak Vel0.50 m/s LV Mass 2D 54.70 g MV A Peak Vel0.55 m/s LV Mass Index 2D 25.80 g/m2 MV E/A0.90 ratio RWT 0.65 MV Decel Mdrb960.00 msec EF Mod BP 56 % [ 54 - 74 ] Med E` Vel6.20 cm/sec LA Dimension 2D 2.60 cm [ 1.90 - 4.00 ] Lat E` Vel8.27 cm/sec LA Length 4C 3.48 cm Average E/E`6.91 AoR Diam 2D 2.80 cm [ 2.00 - 3.70 ] TR Peak Vel1.02 m/s Ao Root Index 1.32 cm/m2 [ 1.00 - 2.00 ] TR Peak PG4.2 mmHg RA Pressure 3.00 mmHg RVSP 7.20 mmHg PV Peak Elijah 0.82 m/s PV Peak PG 2.69 mmHg - ATTESTATION: I have reviewed and interpreted the pertinent images and measurements ofthis study. I attest to the conclusions in the final report that is provided above. DISCLAIMER: The study images and the final report will be retained in the patientchart by the [facility] for the legally required time period. This chart constitutesthe legal record of any testing performed. Electronically Signed By: Sultan Bismark CHEUNG 01/15/2025 5:34:24 PM REAL ESTATE INSPECTOR Nadeem Brunner MD PhD CV ECHO PROCEDURES Final Result * Hepatitis panel, acute Blood (12/24/2023 3:39 PM REAL ESTATE INSPECTOR) Hep A IgM Nonreactive Nonreactive [facility] Comment: Interpretive Data: If Hep A IgM Ab is reported as Equivocal, a new sample should be drawn in two weeks for testing. Current interpretive data was last revised on 20. Hep B core IgM Nonreactive Nonreactive [facility] Comment: Interpretive Data If HepB Core IgM Ab is reported as Equivocal, a new sample should be drawn in two weeks for testing. Current interpretive data was last revised on 20. Hep C Ab Nonreactive Nonreactive [facility] Comment: Antibodies to HCV not detected. Does NOT exclude the possibility of recent exposure to HCV. Current interpretive data was last revised on 22 Interpretive Data Nonreactive: Antibodies to HCV not detected. Does NOT exclude the possibility of recent exposure to HCV. Equivocal: Equivocal for HCV antibodies. Supplemental molecular testing will be automatically performed to determine infection status in accordance with current CDC screening recommendations. Reactive: Positive for HCV antibodies. This may represent current or past HCV infection. Supplemental molecular testing will be automatically performed to determine current infection status in accordance with current CDC screening recommendations. Interpretive data was last revised on 2020. HepBsAg Nonreactive Nonreactive [facility] Blood 12/24/2023 3:39 PM REAL ESTATE INSPECTOR 12/24/2023 6:36 PM REAL ESTATE INSPECTOR us Javier Kebede DO LAB MICROBIOLOGY - GENERAL ORDERABLES Final Result [facility] [address] [facility] Department [place] [address] * Pap and High Risk HPV, reflex to Genotyping (02/03/2023 3:24 PM REAL ESTATE INSPECTOR) Thin prep (Pap test) 02/03/2023 3:24 PM REAL ESTATE INSPECTOR 02/03/2023 4:31 PM REAL ESTATE INSPECTOR Narrative PATHOLOGY [facility] - 02/12/2023 7:59 AM CDT EPIC results best viewed via link to PDF [facility] Brandi Ochoa [facility] [place] [address] Note to Patients: This report may contain a detailed description of human tissue sent by a health care provider to the laboratory for pathologic evaluation. The content of this report is essential for diagnosis and may provide important critical findings. This information may be unfamiliar to patients to review without a medical professional present. It is advised that the patient review this report in the presence of a health care provider who can answer questions and explain the details. CYTOPATHOLOGY REPORT FINAL Patient Name: TIMUR CUEVAS Gender: F : 1975 (Age: 47) Address: [address] [place] [address] Hospital #: [id number] Service: Gynecology Location: Patient Type: [facility] SPECIMEN Taken: 02/03/2023 Received: 02/03/2023 Accessioned: 02/03/2023 Reported: 02/12/2023 Physician(s): Khoa Rod M.D. FINAL INTERPRETATION SOURCE OF SPECIMEN Liquid based Thin Prep pap with HPV: STATEMENT OF ADEQUACY - Satisfactory for evaluation - Endocervical cells/transformation zone sample present GENERAL CATEGORIZATION: - Negative for squamous intraepithelial lesion or malignancy Comments HPV Result: NEGATIVE for high risk types of Human Papilloma Virus (HPV) RNA This probe detects the presence of HPV types: 16, 18, 31, 33, 35, 39, 45, 51, 52, 56, 58, 59, 66 and 68. This HPV test was performed at [facility] in [place], [place] utilizing the Gen-Probe Aptima assay. [facility]/02/12/2023 07:59 DESHAWN Martinez(ASCP) Report Electronically Reviewed and Signed Out By DESHAWN Martinez(ASCP) 02/12/2023 07:59:55 Cervicovaginal Cytology (Pap Test) Disclaimer: The Pap test is a screening test used to detect cervical cancer and its precursors; it is not a diagnostic procedure. False negative and false positive results do occur. Pap test results should be interpreted in the context of pertinent clinical information and biopsy results as indicated. CMS Clinical Laboratory Improvement Amendments (CLIA) mandate that cytologic and histologic results be correlated for laboratory chemistry quality control analyst & improvement standards. FOR ALL HIGH-GRADE CASES we request submission of follow-up histological material and/or reports that have not been previously provided so that we may fulfill said required standards. Gross Description A. Liquid based Thin Prep pap with HPV:Cervical/vaginal - Screening ThinPrep Clinical Diagnosis and History Last Menstrual Period: 01-29-2023 Menstrual History: Irregular Cycles The patient is a 47 year old female with screening. The HPV test was performed by [facility], [address] [place] [address]. Report Images and scanned documents, if included only viewable in PDF version The performance characteristics of some immunohistochemical stains, in-situ hybridization and fluorescence in-situ hybridization tests and immunophenotyping by flow cytometry cited in this report (if any) were determined by the Surgical Pathology Department at [facility] as part of an ongoing quality control lead program and in compliance with federally mandated regulations drawn from the Clinical Laboratory Improvement Act of 1988 (CLIA '88). Some of these tests rely on the use of analyte specific reagents and are subject to specific labeling requirements by the US Food and Drug Administration. Such diagnostic tests may only be performed in a facility that is certified by the Department of Health and Human Services as a high complexity laboratory under CLIA '88. The FDA has determined that such clearance or approval is not necessary. This test is used for clinical purposes. It should not be regarded as investigational or for research. Nevertheless, federal rules concerning the medical use of analyte specific reagents require that the following disclaimer be attached to the report: This test was developed and its performance characteristics determined by the Surgical Pathology Department of [facility]. It has not been cleared or approved by the U. S. Food and Drug Administration. Khoa Rod MD LAB CYTOLOGY ORDERABL ES Final Result PATHOLOGY [facility] 3rd Floor [place], [place] [phone] from Last 3 Months or Most Recently Relevant to Health Maintenance Insurance [facility] Advance Directives For more information, please contact: [phone] Documents on File Type Date Recorded Patient Claim Adjuster Expl anation ADVANCE DIRECTIVE 12/25/2023 1:15 PM Power of Cart Pusher-Medical * Full Code (Latest Code Status on File) Date Activated Date Inactivated Comments 12/24/2023 11:03 PM 12/26/2023 5:28 PM * Full Code Date Activated Date Inactivated Comments 11/23/2023 6:38 PM 11/24/2023 2:32 PM Care Teams General Labor Relationship Specialty Start Date End Date Nyla Self NP [address] [facility] [address] [place] [address] PCP - General Family Medicine 03/20/25 Pasquale Hanna MD [address] [address] Referring Physician Obstetrics and Gynecology 01/12/23 Michael Bolivar MD [address] [facility] [address] [facility] [address] [place] [address] Referring Physician Surgical Oncology 05/28/23 [place] PhD [address] [place] [address] MEDICAL ONCOLOGY, [facility] 7A, 7B, 7C [address] Medical Oncologist/Community Nurse Medical Oncology 05/28/23 Darren Simmons DO [address] [facility] [address] [facility] [address] [place] [address] Referring Physician Internal Medicine 06/10/23 Derick Suarez MD [address] [place] [id number] Consulting Physician General Surgery 12/26/23
--- OUTSIDE RECORDS SUMMARY | 2025-04-01 17:01 | XMS_ITS | Clinical Summary ---
Author Organization [facility] Address [address] [place] [address] Care Team Providers Care Wrapper Layer And Examiner Soft Work Name Role Phone Pasquale Hanna MD Unavailable Michael Bolivar MD Unavailable [phone] Nadeem Brunner MD PhD Unavailable Darren Simmons DO Unavailable [phone] Derick Suarez MD Unavailable [phone] Nyla Self NP Primary Care Provider [phone] Allergies Active Allergy Reactions Criticality Noted Date [...] 1 capsule (300 mg total) by mouth goal umpire before breakfast AND 1 capsule (300 mg [...] from 06/07/2023:Stage IIA(cT1c, cN1, cM0, G3, ER-, VT-, HER2+) - Signed by Nadeem Brunner MD PhD on 06/18/2023 Mass of left breast 05/27/2023 Pelvic mass 02/03/2023 Overview (02/03/2023): Added automatically from request for surgery [id number] Adnexal mass 02/03/2023 Overview (04/07/2023): Presented to EMERGENCY MANAGEMENT DIRECTOR to progressive abdominal bloating and worsening pelvic [...] rest - Follow up with general gynecology Encounters Date Type Department Care Team Description 03/23/2025 8:30 AM CDT Office Visit [facility] Oncology [address] [place] [address] [place] [phone] Nadeem Brunner MD PhD Malignant neoplasm of central portion of left breast in female, estrogen receptor negative (HCC) (Primary Dx); Arthralgia, unspecified joint 03/23/2025 8:00 AM CDT Lab [facility] Cancer Center at [address] [address] Elevated CA-125; Malignant neoplasm of central portion of left breast in female, estrogen receptor negative (HCC); Arthralgia, unspecified joint 03/05/2025 1:[address] [facility] Pain Management [address] [place] [address] 14th [place] [address] [place] [address] Anayeli Claudio, Trauma and stressor-related disorder (Primary Dx); Other chronic pain 02/28/2025 12:10 PM CDT - 02/28/2025 11:59 PM CDT Hospital Encounter [facility] Pain Center at the [facility] Advanced Medicine [address] [place] [address] [address] [place] [address] Lotus Esposito MD PhD Other polyneuropathy (Primary Dx) Discharge Disposition: Discharge to home or self care 02/21/[address] [facility] Pain Center at the [facility] Medicine [address] [place] [address] [address] [place] [address] Lotus Esposito MD PhD Neuropathic pain (Primary Dx) 02/21/[address] [facility] Pain Center at the [facility] Advanced Medicine [address] [place] [address] Advanced Medicine [address] [place] [address] Lotus Esposito MD PhD 02/20/2025 7:41 AM CDT - 02/20/2025 11:59 PM CDT Hospital Encounter [facility] Pain Center at the [facility] Medicine [address] [place] [address] Advanced [facility] [address] [place] [address] Jeri Brenner NP Other polyneuropathy (Primary Dx) Discharge Disposition: Discharge to home or self care 02/14/[address] [facility] Pain Center at the [facility] Advanced Medicine [address] [place] [address] [address] [place] [address] Jeri Brenner NP Pre-Procedure Instructions 01/26/2025 2:30 PM FIRE TECHNOLOGY INSTRUCTOR Telemedicine [facility] Pain Management [address] [facility] 14th [place] [address] [place] [address] Anayeli Claudio, PhD Trauma and stressor-related disorder (Primary Dx); Other chronic pain 01/16/2025 9:56 AM FIRE TECHNOLOGY INSTRUCTOR - 01/16/2025 11:59 PM FIRE TECHNOLOGY INSTRUCTOR Hospital Encounter [facility] Pain Center at the [facility] [address] [facility] [address] [place] [address] Lesia Coreas MD Other polyneuropathy (Primary Dx) Discharge Disposition: Discharge to home or self care 01/16/[address] [facility] Pain Center at the [facility] [address] [facility] [address] [place] [address] Lesia Coreas MD 01/15/2025 1:52 PM FIRE TECHNOLOGY INSTRUCTOR - 01/15/2025 11:59 PM FIRE TECHNOLOGY INSTRUCTOR Hospital Encounter [facility] Cardiac Testing [address] [place] [address] Malignant neoplasm of central portion of left breast in female, estrogen receptor negative (HCC); Encounter for monitoring cardiotoxic drug therapy; SOB (shortness of breath) on exertion Discharge Disposition: Discharge to home or self care from Last 3 Months Surgical History Surgery Date Site/Laterality Comments DIAGNOSTIC LAPAROSCOPY at age 15 years for pelvic pain, reports op findings notable for endometriosis TUBAL LIGATION 11/29/1996 - 11/28/1997 KNEE SURGERY 11/29/2007 - 11/28/2008 Right SHOULDER SURGERY 11/29/2006 - 11/28/2007 Left LAPAROSCOPIC HYSTERECTOMY 03/02/2023 MULTIPLE TOOTH EXTRACTIONS 11/29/2021 - 11/28/2022 over many years US GUIDED BIOPSY LYMPH NODE SUPERFICIAL LEFT 06/07/2023 N/A PORTACATH PLACEMENT 05/29/2023 - 06/28/2023 Right MASTECTOMY 10/29/2023 - 11/28/2023 Bilateral MASTECTOMY 12/09/2023 tubal removal from masteectomy surgery CATARACT EXTRACTION Left Medical History Medical History Date Comments Asthma Fibromyalgia Arthritis Endometriosis PONV (postoperative nausea and vomiting) Scopolamine patch successful Awareness under anesthesia emil byrd knee FHx: chemotherapy 10/01/2023 GERD (gastroesophageal reflux disease) Family History Medical History Relation Name Comments Anesthesia problems Maternal Grandmother awareness under anesthesia Breast cancer Maternal Grandmother Breast cancer Mother Endometriosis Mother Endometriosis Other 1 Aunts Breast cancer Other 2 parternal aunt Breast cancer Paternal Grandmother Ovarian cancer Paternal Grandmother Anesthesia problems Sister awarenes s under anesthesia Breast cancer Sister Malig Hyperthermia Neg Hx Pseudochol deficiency Neg Hx Relation Name Status Comments Father Alive Maternal Grandfather Maternal Grandmother Mother Alive Other 1 Aunts Alive Other 2 parternal aunt Paternal Grandmother Sister Social History Tobacco Use Types Packs/Day Years [...] on file Legal Sex Female 7:40 AM FIRE TECHNOLOGY INSTRUCTOR Gender Identity Not on file Sexual Orientation Not on file Obstetrics History Last Filed Vital Signs Vital Sign Reading [...] 03/23/2025 8:01 AM CDT Plan of Treatment Health Maintenance Due Date Last Done Comments Breast Cancer Screening-Mammogram 1975 Colon Cancer Screening-Colonoscopy 1975 Depression Screening 1975 DTaP/Tdap/Td Vaccine (1 - Tdap) 1986 Hepatitis B Screening 1993 Regular Well Visit/Exam 18-64 1993 Pneumococcal vaccine <65 (1 of 2 - PCV) 1994 Zoster Vaccine (1 of 2) 2025 Influenza Vaccine (Season Ended) 2025 Cervical Cancer Screening Discontinued 02/03/2023 Hepatitis C Screening Completed 12/24/2023 Goals Goal Patient Goal Type Associated Problems [...] as needed Medical Devices Implanted Type Area Dock Superintendent Device Identifier Shelf Expiration Date Model / Serial / Lot Bard Peripheral Vascular Marker Breast Ring Shape Radiopaque Nitinol Ultracor Twirl [id number] - [id number] Implanted:Qty: 1 on 06/07/2023 at [facility] Left: Axilla Bard Peripheral Vascular [id number] / / [employer] Marker Breast Biopsy Magseed L12 Cm Od18 Ga [id number] - [id number] Implanted:Qty: 1 on 11/23/2023 by Sharon Garcia MD at [facility] Left: Breast [employer] [id number] 06/28/2025 [id number] Explanted Type Area Dock Superintendent Device Identifier Shelf Expiration Date Model / Serial / Lot Bard Peripheral Vascular Powerport Clearvue Airguard 8fr 1 Lumen Lightweight Intermediate Latex Free [id number] - [id number] Implanted:Qty: 1 on 06/04/2023 by Michael Bolivar MD at [facility] Advanced Medicine Explanted:Qty: 1 on 08/25/2024 by Michael Bolivar MD at [facility] Medicine Catheter Right: Chest Bard Peripheral Vascular 03/28/2024 [id number] / / [id number] Procedures Procedure Name Priority Date/Time Associated Diagnosis [...] DOPPLER/CF WO CONTRAST Routine 01/15/2025 2:24 PM FIRE TECHNOLOGY INSTRUCTOR Malignant neoplasm of central portion of left breast in female, estrogen receptor negative (HCC) Encounter for monitoring cardiotoxic drug therapy SOB (shortness of breath) on exertion HEPATITIS PANEL, ACUTE STAT 3:39 PM FIRE TECHNOLOGY INSTRUCTOR PAP AND HIGH RISK HPV, REFLEX TO GENOTYPING STAT 02/03/2023 3:24 PM FIRE TECHNOLOGY INSTRUCTOR Adnexal mass from Last 3 Months or [...] of Race in Diagnosing Kidney Disease, JASN 202). The CKD-EPI equation should not be used for patients with unstable renal function and has not been validated in children and those over 70. Current interpretive data was last reviewed 2021. Testing performed by: [facility], [address] [place] [address]., [address] Blood 03/23/2025 7:56 AM CDT 03/23/2025 7:57 AM CDT us Nadeem Brunner MD PhD LAB BLOOD ORDERABLES Final Resul t [facility] [address] [facility] [place] [address] * (ABNORMAL) Differential, auto (03/23/2025 7:56 AM CDT) Neutrophil abs 2.77 1.50 - 6.50 K/cumm Comment:Testing performed by : [address] [address] Imm gran abs 0.01 0.00 - 0.10 K/cumm KAYODE Comment:Testing performed by : [address] [address] Lymphocyte abs 3.51(H) 0.80 - 3.30 K/cumm KAYODE Comment:Testing performed by : [address] [address] Monocyte abs 0.55 0.20 - 0.80 K/cumm [facility] Comment:Testing performed by : [address] [address] Eosinophil abs 0.16 0.00 - 0.50 K/cumm KAYODE Comment:Testing performed by : [address] [address] Basophil abs 0.02 0.00 - 0.10 K/cumm [facility] Comment:Testing performed by : [address] [address] Neutrophil pct 39.5 % [facility] Comment: Interpretive Data Percent cell count reference ranges are not reported, since discordance with absolute values may lead to misinterpretation of CBC data. Current Interpretive Data was last revised on 2018. Testing performed by: [address] [address] Imm gran pct 0.1 % [facility] Comment: Interpretive Data Percent cell count reference ranges are not reported, since discordance with absolute values may lead to misinterpretation of CBC data. Current Interpretive Data was last revised on 2018. Testing performed by: [address] [address] Lymphocyte pct 50.0 % [facility] Comment: Interpretive Data Percent cell count reference ranges are not reported, since discordance with absolute values may lead to misinterpretation of CBC data. Current Interpretive Data was last revised on 2018. Testing performed by: [address] [address] Monocyte pct 7.8 % KAYODE Comment: Interpretive Data Percent cell count reference ranges are not reported, since discordance with absolute values may lead to misinterpretation of CBC data. Current Interpretive Data was last revised on 2018. Testing performed by: [address] [address] Eosinophil pct 2.3 % KAYODE Comment: Interpretive Data Percent cell count reference ranges are not reported, since discordance with absolute values may lead to misinterpretation of CBC data. Current Interpretive Data was last revised on 2018. Testing performed by: [address] [address] Basophil pct 0.3 % KAYODE Comment: Interpretive Data Percent cell count reference ranges are not reported, since discordance with absolute values may lead to misinterpretation of CBC data. Current Interpretive Data was last revised on 2018. Testing performed by: [address] [address] Blood 03/23/2025 7:56 AM CDT 03/23/2025 7:57 AM CDT us Nadeem Brunner MD PhD LAB BLOOD ORDERABLES Final Resul t [facility] [address] [facility] Department of Laboratories [place], [place] [id number] * CBC with auto differential (03/23/2025 7:56 AM CDT) WBC 7.02 3.80 - 9.90 K/cumm Comment:Testing performed by : [address] [address] Hgb 13.5 11.9 - 15.5 g/dL KAYODE KATZ Comment:Testing performed by : [address] [address] Hct 38.7 35.6 - 45.5 % KAYODE KATZ Comment:Testing performed by : [address] [address] Plt 263 150 - 400 K/cumm KAYODE KATZ Comment:Testing performed by : [address] [address] MPV 10.1 9.1 - 12.3 fL KAYODE Comment:Testing performed by : [address] [address] RBC 4.16 3.90 - 5.20 M/cumm KAYODE Comment:Testing performed by : [address] [address] MCV 93.0 81.3 - 96.4 fL KAYODE Comment:Testing performed by : [address] [address] MCH 32.5 27.1 - 33.3 pg KAYODE Comment:Testing performed by : [address] [address] MCHC 34.9 32.3 - 35.7 g/dL KAYODE Comment:Testing performed by : [address], [address] RDW CV 12.5 11.1 - 14.9 % KAYODE Comment:Testing performed by : [address], [address] RDW SD 42.5 35.7 - 48.1 fL KAYODE Comment:Testing performed by : [address] [address] NRBC abs 0.00 0.00 - 0.01 K/cumm KAYODE Comment:Testing performed by : [address] [address] ANC Prelim 2.77 1.50 - 6.50 K/cumm KAYODE Comment: Interpretive Data The rapid ANC is a preliminary automated count and may vary from the final ANC (Neut Abs) reported in the WBC differential that follows. Current interpretive data was last revised 2025. Testing performed by: [address] [address] Blood 03/23/2025 7:56 AM CDT 03/23/2025 7:57 AM CDT us Nadeem Brunner MD PhD LAB BLOOD ORDERABLES Final Resul t Performing Organization Address [place]/[facility] de Phone Number KAYODE [address] [address] * CA 125 (03/23/2025 7:56 AM CDT) CA 125 ag 11.4 0.0 - 38.1 units/mL Comment: Interpretive Data The Genia CA 125 assay procedure was used. Results from different manufacturers or methods may not be comparable. Serial testing should be performed using the same method. Testing performed by: [address] [address] Blood 03/23/2025 7:56 AM CDT 03/23/2025 9:38 AM CDT Nadeem Brunner MD PhD LAB BLOOD ORDERABLES Final Resul t Performing Organization Address [place] de Phone Number SALVADOR[address] [place] [address] * Comprehensive metabolic panel (03/23/2025 7:56 AM CDT) Pathologist [facility] Sodium 144 135 - 145 mmol/L Comment:Testing performed by : [address] [address] Potassium, pl 4.2 3.3 - 4.9 mmol/L KAYODE Comment:Testing performed by : [address] [address] Chloride 106 97 - 110 mmol/L KAYODE Comment:Testing performed by : [address] [address] CO2 28 22 - 32 mmol/L KAYODE Comment:Testing performed by : [address] [address] Anion gap 10 2 - 15 mmol/L KAYODE Comment:Testing performed by : [address] [address] BUN 8 6 - 25 mg/dL KAYODE Comment:Testing performed by : [address] [address] Creatinine 0.80 0.60 - 1.10 mg/dL KAYODE Comment:Testing performed by : [address] [address] Glucose 82 70 - 199 mg/dL KAYODE [...] classification and Diagnosis of Diabetes Diabetes Care 202; 46: S19-S40. Current interpretive data was last revised 2022. Testing performed by: [address] [address] Calcium 9.3 8.5 - 10.3 mg/dL KAYODE Comment:Testing performed by : [address] [address] Bilirubin, total <0.2 0.1 - 1.2 mg/dL [facility] Comment:Testing performed by : [address] [address] Protein, pl 6.6 6.5 - 8.5 g/dL [facility] Comment:Testing performed by : [address] [address] Albumin 4.4 3.5 - 5.0 g/dL [facility] Comment:Testing performed by : [address] [address] Alk phos 61 40 - 130 Units/L KAYODE Comment:Testing performed by : [address] [address] ALT 12 7 - 45 Units/L KAYODE Comment:Testing performed by : [address] [address] AST 16 10 - 45 Units/L KAYODE Comment:Testing performed by : [address] [address] Blood 03/23/2025 7:56 AM CDT 03/23/2025 7:57 AM CDT us Nadeem Brunner MD PhD LAB BLOOD ORDERABLES Final Resul t Performing Organization Address [place]/[facility] Co de Phone Number SALVADOR[address] [place] [address] * Erythrocyte sedimentation rate (03/23/2025 7:53 AM CDT) Erythrocyte sedimentation rate 8 1 - 30 mm/hr Comment:Testing performed by : [address] [address] Blood 03/23/2025 7:53 AM CDT 03/23/2025 11:35 AM CDT us Nadeem Brunner MD PhD LAB BLOOD ORDERABLES Final Resul t Performing Organization Address [place]/[facility] Co de Phone Number SALVADOR[address] [place] [address] * CRP (cardiac risk) (03/23/2025 7:53 AM CDT) Pathologist [facility] hsCRP 0.80 mg/L Comment: Interpretive data Adult [...] last revised on 2018. Testing performed by: [address] [address] Blood 03/23/2025 7:53 AM CDT 03/23/2025 9:35 AM CDT us Nadeem Brunner MD PhD LAB BLOOD ORDERABLES Final Resul t K[facility]DE [address] [facility] [place] [address] * TRANSTHORACIC ECHO (TTE) COMPLETE W DOPPLER/CF WO CONTRAST (01/15/2025 2:24 PM FIRE TECHNOLOGY INSTRUCTOR) Anatomical Region Laterality Modality Ultrasound 01/15/2025 1:54 PM FIRE TECHNOLOGY INSTRUCTOR Narrative 01/15/2025 5:35 PM FIRE TECHNOLOGY INSTRUCTOR Transthoracic Echocardiographic Report Patient Name: TIMUR CUEVAS C : 1975 (49y 11m) Gender: F Study Date: 01/15/2025 01:54:34 PM Ht(Inch): 67 Wt(Lb): 210 BSA: 2.12 Chief Internal Auditor: CEASAR Singh,RVT Order Provider: NADEEM BRUNNER Heart Rate: 76 BMI: 32.89 BP: 98/58 Ref Provider: NADEEM BRUNNER PROCEDURES: Echocardiographic Report: ([id number]) Transthoracic complete echo, 2D, spectral and tissue Doppler, color flow Doppler, M-mode. INDICATIONS: Chemotherapy, C50.112 Malignant neoplasm of central portion of left female breast, Z17.1 Estrogen receptor negative status (ER-), Z51.81 Encounter for therapeutic drug level monitoring, Z79.899 Other terminal supervisor (current) drug therapy, and R06.02 Shortness of [...] By: Sultan Bismark CHEUNG 01/15/2025 5:34:24 PM FIRE TECHNOLOGY INSTRUCTOR Procedure Note Sultan Aj Sofia MD - 01/15/2025 Transthoracic Echocardiographic Report Patient Name: TIMUR CUEVAS C : 1975 (49y 11m) Gender: F Study Date: 01/15/2025 01:54:34 PM Ht(Inch): 67 Wt(Lb): 210 BSA: 2.12 Chief Internal Auditor: CEASAR Singh,RVT Order Provider: NADEEM BRUNNER Heart Rate: 76 BMI: 32.89 BP: 98/58 Ref Provider: NADEEM BRUNNER PROCEDURES: Echocardiographic Report: ([id number]) Transthoracic complete echo, 2D,spectral and tissue Doppler, color flow Doppler, M-mode. INDICATIONS: Chemotherapy, C50.112 Malignant neoplasm of central portion of left femalebreast, Z17.1 Estrogen receptor negative status (ER-), Z51.81 Encounter for therapeuticdrug level monitoring, Z79.899 Other terminal supervisor (current) drug therapy, and R06.02Shortness of breath. [...] MV E/A0.90 ratio RWT 0.65 MV Decel Lpxn184.00 msec EF Mod BP 56 % [ [...] By: Sultan Bismark CHEUNG 01/15/2025 5:34:24 PM FIRE TECHNOLOGY INSTRUCTOR Nadeem Brunner MD PhD CV ECHO PROCEDURES Final Result * Hepatitis panel, acute Blood (12/24/2023 3:39 PM FIRE TECHNOLOGY INSTRUCTOR) Hep A IgM Nonreactive Nonreactive KAYODE Comment: [...] on 20. Hep C Ab Nonreactive Nonreactive KAYODE Comment: Antibodies to HCV not detected. Does [...] last revised on 2020. HepBsAg Nonreactive Nonreactive KAYODE Blood 12/24/2023 3:39 PM FIRE TECHNOLOGY INSTRUCTOR 12/24/2023 6:36 PM FIRE TECHNOLOGY INSTRUCTOR Javier Kebede DO LAB MICROBIOLOGY - GENERAL ORDERABLES Final Result [facility] [address] [facility] [place] [address] * Pap and High Risk HPV, reflex to Genotyping (02/03/2023 3:24 PM FIRE TECHNOLOGY INSTRUCTOR) Thin prep (Pap test) 02/03/2023 3:24 PM FIRE TECHNOLOGY INSTRUCTOR 02/03/2023 4:31 PM FIRE TECHNOLOGY INSTRUCTOR Narrative PATHOLOGY [facility] - 02/12/2023 7:59 AM CDT EPIC results best viewed via link to PDF [facility] Brandi Ochoa [facility] [place] [address] Note to Patients: This report may contain [...] Gender: F : 1975 (Age: 47) Address: [address] [place] [address] [facility] #: [id number] Service: Gynecology Location: Patient Type: [facility] SPECIMEN Taken: 02/03/2023 Received: 02/03/2023 Accessioned: 02/03/2023 [...] 68. This HPV test was performed at [facility] in [place], [place] utilizing the Gen-Probe Aptima assay. [facility]/02/12/2023 07:59 DESHAWN Martinez(ASCP) Report Electronically Reviewed [...] clinical information and biopsy results as indicated. [facility] Clinical Laboratory Improvement Amendments (CLIA) mandate that cytologic and histologic results be correlated for laboratory quality control industrial engineer & improvement standards. FOR ALL HIGH-GRADE CASES [...] screening. The HPV test was performed by [facility], [address] [place] [address]. Report Images and scanned documents, if included only viewable in PDF version The performance characteristics of some immunohistochemical stains, in-situ hybridization and fluorescence in-situ hybridization tests and immunophenotyping by flow cytometry cited in this report (if any) were determined by the Surgical Pathology Department at [facility] as part of an ongoing water quality tester program and in compliance with federally mandated [...] determined by the Surgical Pathology Department of [facility]. It has not been cleared or approved by the U. S. Food and Drug Administration. Khoa Rod MD LAB CYTOLOGY ORDERABL ES Final Result PATHOLOGY [facility] [address] [place], [place] [phone] from Last 3 Months or Most Recently Relevant to Health Maintenance Insurance [facility] Advance Directives For more information, please contact: [phone] Documents on File Type Date Recorded Patient Studio Engineer Expl anation ADVANCE DIRECTIVE 12/25/2023 1:15 PM Power of Sizing Sponger-Medical * Full Code (Latest Code Status on File) Date Activated Date Inactivated Comments 12/24/2023 11:03 PM 12/26/2023 5:28 PM * Full Code Date Activated Date Inactivated Comments 11/23/2023 6:38 PM 11/24/2023 2:32 PM Care Teams Wrapper Layer And Examiner Soft Work Relationship Specialty Start Date End Date Nyla Self NP [address] [facility] [address] [place] [address] PCP - General Family Medicine 03/20/25 Pasquale Hanna MD [address] [address] Referring Physician Obstetrics and Gynecology 01/12/23 Michael Bolivar MD [address] [facility] [address] [place] [address] Referring Physician Surgical Oncology 05/28/23 Nadeem Brunner MD PhD [address] [facility] MEDICAL ONCOLOGY, [facility] [address] [place] [address] Medical Oncologist/Leasing Assistant Medical Oncology 05/28/23 Darren Simmons DO [address] [facility] [address] [place] [address] Referring Physician Internal Medicine 06/10/23 Derick Suarez MD [address] [place] [address] Consulting Physician General Surgery 12/26/23
--- OUTSIDE RECORDS SUMMARY | 2025-04-01 17:01 | XMS_ITS ---
Author Organization [facility] Address [address] [place] [address] Care Team Providers Care Grades 1 Thru 5 Teacher Name Role Phone Pasquale Hanna MD Unavailable Michael Bolivar MD Unavailable Amol Chapin MD PhD Unavailable Darren Simmons DO Unavailable Derick Suarez MD Unavailable Nyla Self NP Primary Care Provider [phone] Active Problems Problem Noted Date Diagnosed Date History of mastectomy, bilateral 12/12/2024 Peripheral neuropathy 12/06/2024 Cholecystitis 12/24/2023 Breast cancer in female 11/23/2023 Dehydration 10/26/2023 Encounter for management of implanted device 08/2023 Encounter for person encountering health service s 06/07/2023 Elevated tumor markers 06/07/2023 Malignant neoplasm of left female breast 023 Cancer Staging:Clinical stage from 06/07/2023:Stage IIA(cT1c, cN1, cM0, G3, ER-, AL-, HER2+) - Signed by Amol Chapin MD PhD on 06/18/2023 Mass of left breast 05/27/2023 Pelvic mass 02/03/2023 Overview (02/03/2023): Added automatically from request for surgery [id number] Adnexal mass 02/03/2023 Overview (04/07/2023): 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 Other Current Plans LIDOCAINE INFUSION* Plan Start Date:01/16/2025 Plan Provider:Cornelius Solomon MD Linked Problems Other polyneuropathy Treatment Medications No medications scheduled. Past Treatment and Therapy Plans Line Care Plan Name Start Date Discontinue Date Treatment Medications Discontinue Reason Plan Provider IV Maintenance Therapy Plan 07/09/2023 12/20/2024 No medications scheduled. No Evidence of Disease Amol Chapin MD PhD Oncology Chemotherapy Treatment Plan Name Start Date Discontinue Date Treatment Medications Discontinue Reason Plan Provider Cycles TCHP: (DOCEtaxel / CARBOplatin / Trastuzumab / Pertuzumab) 21 Day Cycles - Breast 3 12/20/2024 CARBOplatin (PARAPLATIN) IVPB in 250 mLDOCEtaxel (TAXOTERE) IVPB in 250 mL (vial 20mg/mL)pertuzuma b (PERJETA)pertuzum ab (PERJETA) IVPBtrastuzumab (HERCEPTIN)trastu zumab (HERCEPTIN) IVPBtrastuzumab-d kst (OGIVRI) IVPB Therapy Complete Amol Chapin MD PhD 17 of 17 cycles started Lifetime Dose Tracking * Chemical Lifetime Dose Automatic Entry Manual Entr y Fluoro Time 0.082 minutes 0.082 minutes 0 minutes Air kerma at the reference point (Ka,r) 0.4 mGy 0 .4 mGy 0 mGy
[2025-04-01 17:05] VITALS: BP 140/83; PULSE 104; RESP 18; TEMP 35.7; O2SAT 97
--- OUTSIDE RECORDS SUMMARY | 2025-04-01 17:07 | XMS_ITS ---
Author Organization Unknown Address [address] [place] [address] [phone] Phone Care Team Providers Care Director Of Business Development Name Role Phone FRIDA BOSS Nahomi Attending Unavailable ZHANG GREEN GOLD LAYER Primary Unavailable Social History Type Status Start Date End Date Code Code Syst em Smoking History Unknown if ever smoked [id number] Sex Female Hospital Discharge Instructions [...]
--- OUTSIDE RECORDS SUMMARY | 2025-04-01 17:07 | XMS_ITS ---
Author Organization Unknown Address [address] [place] [address] [phone] Phone Care Team Providers Care Signs And Displays Sales Representative Name Role Phone FRIDA BOSS Nahomi Attending Unavailable ZHANG GREEN APN Primary Unavailable Social History Type Status Start Date End Date Code Code Syst em Smoking History Unknown if ever smoked [id number] Sex Female Hospital Discharge Instructions [...]
--- OUTSIDE RECORDS SUMMARY | 2025-04-01 17:08 | XMS_ITS ---
Author Organization Unknown Address [address] [place] [address] [phone] Phone Care Team Providers Care Iron Guardrail Installer Name Role Phone FRIDA Comer Attending Unavailable [...] Derick Rainey M.D. MF: YEIMI Report ID: [id number] Reading Location: [id number] 4V RIGHT - Completed: 1 09:17 [...] Derick Rainey M.D. MF: YEIMI Report ID: [id number] Reading Location: [place] [address] Social History Type Status Start Date End Date Code Code Syst em Smoking History Unknown if ever smoked [id number] Sex Female Hospital Discharge Instructions [...]
--- OUTSIDE RECORDS SUMMARY | 2025-04-01 17:08 | XMS_ITS ---
Author Organization Unknown Address [address] [place] [address] [phone] Phone Care Team Providers Care End Polisher Name Role Phone FRIDA BOSS Nahomi Attending Unavailable ZHANG GREEN C D STRIPPER Primary Unavailable Social History Type Status Start Date End Date Code Code Syst em Smoking History Unknown if ever smoked [id number] Sex Female Hospital Discharge Instructions [...]
--- NOTE | 2025-04-01 17:13 | ED_ITS ---
HPI - Wound/Laceration General Chief Complaint: Wound/Laceration Stated Complaint: laceration finger Source: patient Mode of arrival: ambulatory Limitations: no limitations History of Present Illness HPI narrative: Patient is a 50-year-old female with a left pointer finger laceration while doing dishes. There was a knife in the sink and she cut the tip of her distal lateral tip of the finger. She was bleeding so she came to the emergency room for evaluation. Patient does not take tetanus shot due to allergy, patient does not take stitches due to allergy and she does not take adhesive glue due to allergy. Onset (ago): minute(s) ( Thirty) Location: other ( left distal tip lateral aspect pointer finger) Place: home Patient tetanus UTD: No ( patient will not take tetanus vaccine due to allergy) Context: accidental Associated symptoms: pain Treatments prior to arrival: bandage Related Data Home Medications ?Medication ?Instructions ?Recorded ?Confirmed ?Last Taken ?Type albuterol sulfate 90 mcg/actuation See Rx Instructions .Route 07/17/24 03/05/25 08/06/24 History aerosol inhaler .COMPLEX PRN asthma famotidine 20 mg tablet (Pepcid) 20 mg PO DAILY reflux 07/17/24 03/05/25 08/06/24 History fluticasone propionate 230 2 puff inhalation BID 07/17/24 03/05/25 08/06/24 History mcg-salmeterol 21 mcg/actuation HFA inhaler (Advair HFA) sumatriptan succinate 25 mg tablet See Rx Instructions .Route 07/17/24 03/05/25 08/06/24 History .COMPLEX PRN Migraine Headache topiramate 100 mg tablet 100 mg PO BID 07/17/24 03/05/25 08/06/24 History tramadol 50 mg tablet See Rx Instructions .Route 07/17/24 03/05/25 08/06/24 History .COMPLEX PRN Pain valacyclovir 500 mg tablet 500 mg PO HS 07/17/24 03/05/25 08/06/24 History gabapentin 600 mg tablet 600 mg PO 03/05/25 03/05/25 Unknown History metoprolol succinate 50 mg 50 mg PO 03/05/25 03/05/25 Unknown History tablet,extended release 24 hr naltrexone 4.5 mg capsule 4.5 mg PO 03/05/25 03/05/25 Unknown History Allergies Allergy/AdvReac Type Severity Reaction Status Date / Time erythromycin base Allergy Intermediate Unknown Verified 04/01/25 17:11 Penicillins Allergy Intermediate Unknown Verified 04/01/25 17:11 suture Allergy Intermediate Hives Verified 04/01/25 17:11 amitriptyline Allergy Mild Hallucinati Verified 04/01/25 17:11 ng fluoxetine (From Prozac) Allergy Mild Hallucinati Verified 04/01/25 17:11 ng NSAIDS (Non-Steroidal Allergy Mild Dizziness Verified 04/01/25 17:11 Anti-Inflamma pregabalin Allergy Mild Dizziness Verified 04/01/25 17:11 venom-honey bee Allergy Mild Anaphylaxis Verified 04/01/25 17:11 bee venom protein (honey bee) Allergy Unknown Unknown Verified 04/01/25 17:11 ciprofloxacin (From Cipro) Allergy Hives Verified 04/01/25 17:11 clindamycin Allergy Unknown Verified 04/01/25 17:11 iodine Allergy Hives Verified 04/01/25 17:11 prednisone Allergy Fever Verified 04/01/25 17:11 shellfish derived Allergy Anaphylaxis Verified 04/01/25 17:11 vancomycin Allergy Unknown Verified 04/01/25 17:11 alcohol (From Mastisol AdvReac Intermediate Blister Verified 04/01/25 17:11 Liquid Adhesive) gum mastic (From Mastisol AdvReac Intermediate Blister Verified 04/01/25 17:11 Liquid Adhesive) methyl salicylate (From AdvReac Intermediate Blister Verified 04/01/25 17:11 Mastisol Liquid Adhesive) storax (From Mastisol Liquid AdvReac Intermediate Blister Verified 04/01/25 17:11 Adhesive) Sleep Meds AdvReac Mild Unknown Uncoded 04/01/25 17:11 Review of Systems Review of Systems: All systems reviewed & are unremarkable except as noted in HPI and below Constitutional: Constitutional: Reports no additional constitutional complaints Eyes: Eyes: Reports no additional eye complaints ENT: Reports system reviewed and no additional complaints, except as documented Cardiovascular: Cardiovascular: Reports no additional cardiovascular complaints Respiratory: Respiratory: Reports no additional respiratory complaints Gastrointestinal: Gastrointestinal: Reports no additional gastrointestinal complaints Genitourinary: Genitourinary: Reports no additional female genitourinary complaints Musculoskeletal: Musculoskeletal: Reports no additional musculoskeletal complaints Integumentary/Breasts: Skin/Breast: Reports system reviewed and no additional complaints, except as docu Neurologic: Reports system reviewed and no additional complaints, except as documented Psychiatric: Psychiatric: Reports no additional psychiatric complaints Endocrine: Endocrine: Reports no additional endocrine complaints Hematologic/Lymphatic: Hematologic/Lymphatic: Reports no additional hematologic/lymphatic complaints Allergic/Immunologic: Allergic/Immunologic: Reports no additional allergic/immunologic complaints PMFSH Past Medical History Medical History Colon cancer screening Fibromyalgia Arthritis Allergies Asthma Ovarian torsion Anxiety Surgical History Surgical History H/O breast biopsy S/P dilation and curettage H/O tubal ligation H/O left knee surgery S/P left rotator cuff repair Family History Family History Other Alcoholism Asthma Depression Diabetes mellitus Heart disease Hypertension Malignant neoplasm of prostate Ovarian cancer Thyroid disorder Social History Social History Smoking packs per day: 1 Smoking cigarettes per day: 20.0 Years smoked: 30 Smoking pack-years: 30.00 Smoking status: Former smoker Tobacco type: cigarettes Alcohol intake: unknown Substance use: never Do You Feel Safe in your Home?: Yes Lack of Transportation: YES Lack of Food: Sometimes True Current Housing: I Have Housing Concerned About Future Housing: No Difficulty Paying Gas/Electric Bills: YES Difficulty Paying for Meds: YES Currently Unemployed: YES Education: Trade/Vocational Certificate Difficulty w/ Childcare or Family Care: No Spiritual care concerns: No Exam Const: General: healthy appearing Nutritional Appearance: well nourished Orientation/consciousness: patient oriented x3 HENMT: Head: normal to inspection Ears: external ears normal Face/Nose/Sinus: Normal external nose present Eyes: Conjunctivae: conjunctivae normal Pupils: Equal, round and reactive pupils present EOM: EOMs intact bilaterally Neck: Neck: normal visual inspection Chest: Chest palpation & inspection: normal inspection of the chest Resp: Effort & Inspection: normal respiratory effort and not labored Auscultation: clear to auscultation bilaterally and no crackles Cardio: Rate: regular rate Rhythm: regular rhythm Heart sounds: no murmurs GI: Inspection: non-distended GI Palp: Yes Soft to palpation and No Tenderness to palpation present (GI) Auscultation: normal bowel sounds Back/Spine/Pelvis: Back: no CVA tenderness Skin: General skin exam: normal color Rashes: no rashes Wounds: wound noted Other: left pointer finger distal tip lateral aspect has a knife related skin flap down to the subcutaneous tissue and the bleeding has stopped at this time Neuro: General: patient oriented x3 Cranial nerves: Yes Nystagmus not present Speech: normal speech Extrem: General: normal to inspection Psych: Mental Status: mental status grossly normal Affect: normal affect Attitude: cooperative Course Vital Signs Vital signs: Vital Signs Temperature 35.7 C L 04/01/25 17:05 Pulse Rate 104 H 04/01/25 17:05 Respiratory Rate 18 04/01/25 17:05 Blood Pressure 140/83 04/01/25 17:05 Pulse Oximetry 97 04/01/25 17:05 Oxygen Delivery Room Air 04/01/25 17:05 Temperature 35.7 C L 04/01/25 17:05 Pulse Rate 104 H 04/01/25 17:05 Respiratory Rate 18 04/01/25 17:05 Blood Pressure 140/83 04/01/25 17:05 Pulse Oximetry 97 04/01/25 17:05 Oxygen Delivery Room Air 04/01/25 17:05 Procedures Other Procedure Procedure 1: Other Procedure: Left finger pointer distal tip: Area was cleaned with chlorhexidine, Steri-Strips were placed and a bandage; patient tolerated well and no complications MDM - Wound/Laceration MDM Narrative Medical decision making narrative: patient is a 50-year-old female with a left pointer finger laceration using a knife accidentally while doing dishes. Patient has allergy to tetanus vaccine, adhesive glue and sutures. We will use Steri-Strips to close this area at this time. Discharge Plan Discharge Clinical Impression: Finger laceration Qualifiers: Encounter type: initial encounter Finger: index finger Damage to nail status: without damage Foreign body presence: without foreign body Laterality: left Qualified Code(s): S61.211A - Laceration without foreign body of left index finger without damage to nail, initial encounter Patient Disposition: Home Condition: Stable Instructions: Laceration (ED), Skin Adhesive Strips (ED) Patient Language: Russian Prescriptions: No Action naltrexone 4.5 mg capsule 4.5 mg PO metoprolol succinate 50 mg tablet extended release 24 hr 50 mg PO gabapentin 600 mg tablet 600 mg PO midodrine 5 mg tablet 5 mg PO TID Qty: 90 2RF topiramate 100 mg tablet 100 mg PO BID famotidine [Pepcid] 20 mg tablet 20 mg PO DAILY sumatriptan succinate 25 mg tablet See Rx Instructions .ROUTE .COMPLEX PRN (Reason: Migraine Headache) Rx Instructions: 25 mg orally valacyclovir 500 mg tablet 500 mg PO HS tramadol 50 mg tablet See Rx Instructions .ROUTE .COMPLEX PRN (Reason: Pain) Rx Instructions: 50 mg orally albuterol sulfate 90 mcg/actuation HFA aerosol inhaler See Rx Instructions .ROUTE .COMPLEX PRN (Reason: asthma) Rx Instructions: 2 puffs every 4-6 hrs as needed fluticasone propion-salmeterol [Advair HFA] 230-21 mcg/actuation HFA aerosol inhaler 2 puff INHALATION BID Follow-up/Referrals: Natasha,Carito Carvalho, [employer]LE [employer]CHOOL COMBINATION TEACHER [Primary Care Provider] - Time of Disposition: 17:33
== END 2025-04-01 17:39 | disposition home or self-care (01) ==
PROVIDERS: Emergency Provider Emergency Medicine; PCP Nurse Practitioner Family
DX: S61.211A Laceration without foreign body of left index finger without damage to nail, initial encounter (principal); Z87.891 Personal history of nicotine dependence; W26.0XXA Contact with knife, initial encounter
CPT/HCPCS: 99282

== ENCOUNTER 2025-04-12 18:21 | Emergency (ER) | payer OTHER, SELFPAY ==
[2025-04-12 18:23] VITALS: BP 131/77; PULSE 103; RESP 18; TEMP 35.9; O2SAT 96
--- OUTSIDE RECORDS SUMMARY | 2025-04-12 18:23 | XMS_ITS | Encounter Summary ---
Author Organization [facility] Address [address] [place] [address] Care Team Providers Care Senior Medical Technologist Name Role Phone Pasquale Hanna MD Unavailable [phone] Michael Bolivar MD Unavailable [phone] Amol Chapin MD PhD Unavailable Darren Simmons DO Unavailable [phone] Derick Suarez MD Unavailable [phone] Miscellaneous, Not In File Primary Care Provider Unavailable Nyla Self NP Primary Care Provider [phone]- [phone] Reason for Visit * Reason Onset Date Comments Pre-Procedure Instructions 02/14/2025 Encounter Details Date Type Department Care Team (Late st Contact Info) Description 02/14/2025 Telephone [facility] [address] [facility] [address] [place], [place] [id number] Jeri Brenner NP [address] [place] [address] Pre-Procedure Instructions Social History Tobacco Use Types Packs/Day Years Used Date Smoking Tobacco: Some Days Cigarettes 0.1 32.4 Started: 1992 Smokeless Tobacco: Never Comments:Cigarettes 1-3 [...] on file Legal Sex Female 7:40 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 Gender Identity Not on file Sexual Orientation [...] on filedocumented in this encounter Care Teams Senior Medical Technologist Relationship Specialty Start Date End Date Miscellaneous, Not In File PCP - General 02/13/25 03/19/25 Nyla Self NP [address] [facility] [address] [place] [address] PCP - General Family Medicine 03/20/25 Pasquale Hanna MD [address] [address] Referring Physician Obstetrics and Gynecology 01/12/23 Michael Bolivar MD [address] [facility] [address] [facility] [address] [place], [place] [id number] Referring Physician Surgical Oncology 05/28/23 Amol Chapin MD PhD [address] [facility], [facility] [address] [place] [address] Medical Oncologist/[place] Medical Oncology 05/28/23 Darren Simmons DO [address] [facility] [address] [facility] [address] [place] [address] Referring Physician Internal Medicine 06/10/23 Derick Suarez MD [address] [place] [address] [phone] Consulting Physician General Surgery 12/26/23 documented as of this encounter
--- OUTSIDE RECORDS SUMMARY | 2025-04-12 18:23 | XMS_ITS ---
Author Organization Unknown Address [address] [place] [address] [phone] Phone Care Team Providers Care Push Connector Assembler Name Role Phone FRIDA BOSS Nahomi Attending Unavailable ZHANG GREEN APN Primary Unavailable Social History Type Status Start Date End Date Code Code Syst em Smoking History Unknown if ever smoked [id number] Sex Female Hospital Discharge Instructions [...]
--- OUTSIDE RECORDS SUMMARY | 2025-04-12 18:23 | XMS_ITS ---
Author Organization Unknown Address [address] [place] [address] [phone] Phone Care Team Providers Care Corporate Communications Associate Name Role Phone FRIDA BOSS Nahomi Attending Unavailable ZHANG GREEN DIRECTOR OF DIETARY Primary Unavailable Social History Type Status Start Date End Date Code Code Syst em Smoking History Unknown if ever smoked [id number] Sex Female Hospital Discharge Instructions [...]
--- OUTSIDE RECORDS SUMMARY | 2025-04-12 18:23 | XMS_ITS | Referral Summary ---
Author Organization [facility] Address [address] [place] [address] Care Team Providers Care Divorce Lawyer Name Role Phone Pasquale Hanna MD Unavailable Michael Bolivar MD Unavailable [phone] Nadeem Brunner MD PhD Unavailable Darren Simmons DO Unavailable [phone] Derick Suarez MD Unavailable Nyla Self NP Primary Care Provider [phone] Encounters Date Type Department Care Team Description 04/10/[address] [facility] [place] [facility] [address] [place] [id number] Jeri Brenner NP PMC Preprocedure 03/23/2025 8:00 AM CDT Lab [facility] [address] [place] [address] Elevated CA-125; Malignant neoplasm of central portion of left breast in female, estrogen receptor negative (HCC); Arthralgia, unspecified joint 03/23/2025 8:30 AM CDT Office Visit [facility] [address] [place] [address] [place] [phone] Nadeem Brunner MD PhD Malignant neoplasm of central portion of left breast in female, estrogen receptor negative (HCC) (Primary Dx); Arthralgia, unspecified joint 03/05/2025 1:00 PM CDT Telemedicine [facility] 14th [place] [address] [place] [address] Anayeli Cluadio, PhD Trauma and stressor-related disorder (Primary Dx); Other chronic pain 02/28/2025 12:10 PM CDT - 02/28/2025 11:59 PM CDT Hospital Encounter [facility] [place] [facility] [address] [facility] [address] [place] [address] Lotus Esposito MD PhD Other polyneuropathy (Primary Dx) Discharge Disposition: Discharge to home or self care 02/21/2025 Orders Only [facility] [address] [place] [address] Advanced Medicine [address] [place] [address] Lotus Esposito MD PhD Neuropathic pain (Primary Dx) 02/21/2025 Orders Only [facility] [address] [place] [address] Advanced Medicine [address] [place] [address] Lotus Esposito MD PhD 02/20/2025 7:41 AM CDT - 02/20/2025 11:59 PM CDT Hospital Encounter [facility] [address] [place] [address] Advanced Medicine [address] [place] [address] Jeri Brenner NP Other polyneuropathy (Primary Dx) Discharge Disposition: Discharge to home or self care 02/14/[address] [facility] [place] [facility] [address] [place] [address] Jeri Brenner NP Pre-Procedure Instructions 01/26/2025 2:30 PM STITCHER HAND Telemedicine [facility] [address] [place] [address] 14th [place] [address] [place] [address] Anayeli Claudio, PhD Trauma and stressor-related disorder (Primary Dx); Other chronic pain 01/16/2025 Orders Only [facility] [address] [facility] [address] [place] [address] Lesia Coreas MD 01/16/2025 9:56 AM STITCHER HAND - 01/16/2025 11:59 PM STITCHER HAND Hospital Encounter [facility] [address] [facility] [address] [place] [address] Lesia Coreas MD Other polyneuropathy (Primary Dx) Discharge Disposition: Discharge to home or self care 01/15/2025 1:52 PM STITCHER HAND - 01/15/2025 11:59 PM STITCHER HAND Hospital Encounter [facility] [address] [place] [id number] Malignant neoplasm of central portion of left [...] 1 capsule (300 mg total) by mouth job tracer before breakfast AND 1 capsule (300 mg [...] from 06/07/2023:Stage IIA(cT1c, cN1, cM0, G3, ER-, NH-, HER2+) - Signed by Nadeem Brunner MD PhD on 06/18/2023 Mass of left breast 05/27/2023 Pelvic mass 02/03/2023 Overview (02/03/2023): Added automatically from request for surgery [id number] Adnexal mass 02/03/2023 Overview (04/07/2023): Presented to POWER DISTRIBUTOR to progressive abdominal bloating and worsening pelvic [...] Date Smoking Tobacco: Some Days Cigarettes 0.3 32.4 Started: 1992 Smokeless Tobacco: Never Tobacco Cessation:Ready [...] on file Legal Sex Female 7:40 AM STITCHER HAND Gender Identity Not on file Sexual Orientation [...] as needed Medical Devices Implanted Type Area Woodworker Helper Device Identifier Shelf Expiration Date Model / Serial / Lot Bard Peripheral Vascular Marker Breast Ring Shape Radiopaque Nitinol Ultracor Twirl [id number] - [id number] Implanted:Qty: 1 on 06/07/2023 at [facility] Left: Axilla Bard Peripheral Vascular [id number] / / [employer] Marker Breast Biopsy Magseed L12 Cm Od18 Ga [id number] - [id number] Implanted:Qty: 1 on 11/23/2023 by Sharon Garcia MD at [facility] Left: Breast [employer] [id number] 06/28/2025 [id number] / / [id number] Explanted Type Area Woodworker Helper Device Identifier Shelf Expiration Date Model / Serial / Lot Bard Peripheral Vascular Powerport Clearvue Airguard 8fr 1 Lumen Lightweight Intermediate Latex Free [id number] - [id number] Implanted:Qty: 1 on 06/04/2023 by Michael Bolivar MD at [facility] Explanted:Qty: 1 on 08/25/2024 by Michael Bolivar MD at [facility] Catheter Right: Chest Bard Peripheral Vascular 03/28/2024 [id number] / / [id number] Procedures Procedure Name Priority Date/Time Associated Diagnosis [...] DOPPLER/CF WO CONTRAST Routine 01/15/2025 2:24 PM STITCHER HAND Malignant neoplasm of central portion of left breast in female, estrogen receptor negative (HCC) Encounter for monitoring cardiotoxic drug therapy SOB (shortness of breath) on exertion HEPATITIS PANEL, ACUTE STAT 3:39 PM STITCHER HAND PAP AND HIGH RISK HPV, REFLEX TO GENOTYPING STAT 02/03/2023 3:24 PM STITCHER HAND Adnexal mass from Last 3 Months or [...] was last reviewed 2021. Testing performed by: [facility], [address] [place] [address], [place]., [address] Blood 03/23/2025 7:56 AM CDT 03/23/2025 7:57 AM CDT us Nadeem Brunner MD PhD LAB BLOOD ORDERABLES Final Resul t KAYODE [address] [facility] Department [place] [address] * (ABNORMAL) Differential, auto (03/23/2025 7:56 AM CDT) Neutrophil abs 2.77 1.50 - 6.50 K/cumm Comment:Testing performed by : [address] [address] Imm gran abs 0.01 0.00 - 0.10 K/cumm KAYODE Comment:Testing performed by : [address] [address] Lymphocyte abs 3.51(H) 0.80 - 3.30 K/cumm KAYODE Comment:Testing performed by : [address] [address] Monocyte abs 0.55 0.20 - 0.80 K/cumm KAYODE Comment:Testing performed by : [address] [address] Eosinophil abs 0.16 0.00 - 0.50 K/cumm KAYODE Comment:Testing performed by : [address] [address] Basophil abs 0.02 0.00 - 0.10 K/cumm KAYODE Comment:Testing performed by : [address] [address] Neutrophil pct 39.5 % KAYODE Comment: Interpretive Data Percent cell count reference ranges are not reported, since discordance with absolute values may lead to misinterpretation of CBC data. Current Interpretive Data was last revised on 2018. Testing performed by: [address] [address] Imm gran pct 0.1 % KAYODE Comment: Interpretive Data Percent cell count reference ranges are not reported, since discordance with absolute values may lead to misinterpretation of CBC data. Current Interpretive Data was last revised on 2018. Testing performed by: [address] [address] Lymphocyte pct 50.0 % [facility] Comment: Interpretive Data Percent cell count reference ranges are not reported, since discordance with absolute values may lead to misinterpretation of CBC data. Current Interpretive Data was last revised on 2018. Testing performed by: [address] [address] Monocyte pct 7.8 % [facility] Comment: Interpretive Data Percent cell count reference ranges are not reported, since discordance with absolute values may lead to misinterpretation of CBC data. Current Interpretive Data was last revised on 2018. Testing performed by: [address] [address] Eosinophil pct 2.3 % [facility] Comment: Interpretive Data Percent cell count reference ranges are not reported, since discordance with absolute values may lead to misinterpretation of CBC data. Current Interpretive Data was last revised on 2018. Testing performed by: [address] [address] Basophil pct 0.3 % [facility] Comment: Interpretive Data Percent cell count reference ranges are not reported, since discordance with absolute values may lead to misinterpretation of CBC data. Current Interpretive Data was last revised on 2018. Testing performed by: [address] [address] Blood 03/23/2025 7:56 AM CDT 03/23/2025 7:57 AM CDT us Nadeem Brunner MD PhD LAB BLOOD ORDERABLES Final Resul t KAYODE [address] [facility] Department [place] [address] * CBC with auto differential (03/23/2025 7:56 AM CDT) WBC 7.02 3.80 - 9.90 K/cumm Comment:Testing performed by : [address] [address] Hgb 13.5 11.9 - 15.5 g/dL KAYODE Comment:Testing performed by : [address], [address] Hct 38.7 35.6 - 45.5 % KAYODE Comment:Testing performed by : [address], [address] Plt 263 150 - 400 K/cumm KAYODE Comment:Testing performed by : [address], [address] MPV 10.1 9.1 - 12.3 fL KAYODE Comment:Testing performed by : [address], [address] RBC 4.16 3.90 - 5.20 M/cumm KAYODE Comment:Testing performed by : [address], [address] MCV 93.0 81.3 - 96.4 fL KAYODE Comment:Testing performed by : [address], [address] MCH 32.5 27.1 - 33.3 pg KAYODE Comment:Testing performed by : [address], [address] MCHC 34.9 32.3 - 35.7 g/dL KAYODE Comment:Testing performed by : [address], [address] RDW CV 12.5 11.1 - 14.9 % KAYODE Comment:Testing performed by : [address], [address] RDW SD 42.5 35.7 - 48.1 fL KAYODE Comment:Testing performed by : [address], [address] NRBC abs 0.00 0.00 - 0.01 K/cumm KAYODE Comment:Testing performed by : [address] [address] ANC Prelim 2.77 1.50 - 6.50 K/cumm KAYODE Comment: Interpretive Data The rapid ANC is a preliminary automated count and may vary from the final ANC (Neut Abs) reported in the WBC differential that follows. Current interpretive data was last revised 2025. Testing performed by: [address] [address] Blood 03/23/2025 7:56 AM CDT 03/23/2025 7:57 AM CDT Nadeem Brunner MD PhD LAB BLOOD ORDERABLES Final Resul t Performing Organization Address [facility] de Phone Number [address] [place] [address] * CA 125 (03/23/2025 7:56 AM CDT) Pathologist [facility] CA 125 ag 11.4 0.0 - 38.1 units/mL Comment: Interpretive Data The Genia CA 125 assay procedure was used. Results from different manufacturers or methods may not be comparable. Serial testing should be performed using the same method. Testing performed by: [address] [address] Blood 03/23/2025 7:56 AM CDT 03/23/2025 9:38 AM CDT Nadeem Brunner MD PhD LAB BLOOD ORDERABLES Final Resul t Performing Organization Address [facility] de Phone Number [address] [place] [address] * Comprehensive metabolic panel (03/23/2025 7:56 AM CDT) Pathologist [facility] Sodium 144 135 - 145 mmol/L Comment:Testing performed by : [address] [address] Potassium, pl 4.2 3.3 - 4.9 mmol/L KAYODE KATZ Comment:Testing performed by : [address] [address] Chloride 106 97 - 110 mmol/L KAYODE KATZ Comment:Testing performed by : [address] [address] CO2 28 22 - 32 mmol/L KAYODE Comment:Testing performed by : [address] [address] Anion gap 10 2 - 15 mmol/L KAYODE Comment:Testing performed by : [address] [address] BUN 8 6 - 25 mg/dL KAYODE Comment:Testing performed by : [address] [address] Creatinine 0.80 0.60 - 1.10 mg/dL KAYODE Comment:Testing performed by : [address] [address] Glucose 82 70 - 199 mg/dL KAYODE [...] was last revised 2022. Testing performed by: [address] [address] Calcium 9.3 8.5 - 10.3 mg/dL KAYODE Comment:Testing performed by : [address] [address] Bilirubin, total <0.2 0.1 - 1.2 mg/dL KAOYDE Comment:Testing performed by : [address] [address] Protein, pl 6.6 6.5 - 8.5 g/dL KAYODE Comment:Testing performed by : [address] [address] Albumin 4.4 3.5 - 5.0 g/dL KAYODE Comment:Testing performed by : [address] [address] Alk phos 61 40 - 130 Units/L KAYODE Comment:Testing performed by : [address] [address] ALT 12 7 - 45 Units/L KAYODE Comment:Testing performed by : [address] [address] AST 16 10 - 45 Units/L KAYODE Comment:Testing performed by : [address] [address] Blood 03/23/2025 7:56 AM CDT 03/23/2025 7:57 AM CDT us Nadeem Brunner MD PhD LAB BLOOD ORDERABLES Final Resul t Performing Organization Address [facility] de Phone Number [address] [place] [address] * Erythrocyte sedimentation rate (03/23/2025 7:53 AM CDT) Pathologist [facility] Erythrocyte sedimentation rate 8 1 - 30 mm/hr Comment:Testing performed by : [address] [address] Blood 03/23/2025 7:53 AM CDT 03/23/2025 11:35 AM CDT us Nadeem Brunner MD PhD LAB BLOOD ORDERABLES Final Resul t Performing Organization Address [facility] de Phone Number [address] [place] [address] * CRP (cardiac risk) (03/23/2025 7:53 AM [...] last revised on 2018. Testing performed by: [facility], [address] [place] [address], [place]., [address] Blood 03/23/2025 7:53 AM CDT 03/23/2025 9:35 AM CDT us Nadeem Brunner MD PhD LAB BLOOD ORDERABLES Final Resul t KAYODE [address] [facility] Department [place] [address] * TRANSTHORACIC ECHO (TTE) COMPLETE W DOPPLER/CF WO CONTRAST (01/15/2025 2:24 PM STITCHER HAND) Anatomical Region Laterality Modality Ultrasound 01/15/2025 1:54 PM STITCHER HAND Narrative 01/15/2025 5:35 PM STITCHER HAND Transthoracic Echocardiographic Report Patient Name: TIMUR CUEVAS C : 1975 (49y 11m) Gender: F Study Date: 01/15/2025 01:54:34 PM Ht(Inch): 67 Wt(Lb): 210 BSA: 2.12 Asl Interpreter: CEASAR Singh,RVT Order Provider: NADEEM BRUNNER Heart Rate: 76 BMI: 32.89 BP: 98/58 Ref Provider: NADEEM BRUNNER PROCEDURES: Echocardiographic Report: ([id number]) Transthoracic complete echo, 2D, spectral and tissue Doppler, color flow Doppler, M-mode. INDICATIONS: Chemotherapy, C50.112 Malignant neoplasm of central portion of left female breast, Z17.1 Estrogen receptor negative status (ER-), Z51.81 Encounter for therapeutic drug level monitoring, Z79.899 Other skilled nursing (current) drug therapy, and R06.02 Shortness of [...] leaflet structure. No mitral regurgitation seen. Aortic Valv [id number]|2025-04-12 20:02:00|2025-04-12 20:02:00|XMS_ITS|GIA WHITE|External Medical Summaries|[id number]|" Referral Summary Created on: April 12, 2025 Timur Cuevas : 1975 Sex: Female Author Organization [facility] Address [address] [place] [address] Care Team Providers Care Divorce Lawyer Name Role Phone Pasquale Hanna MD Unavailable [phone] Michael Bolivar MD Unavailable [phone] Nadeem Brunner MD PhD Unavailable Darren Simmons DO Unavailable [phone] Derick Suarez MD Unavailable Nyla Self NP Primary Care Provider [phone] Encounters Date Type Department Care Team Description 04/10/[address] [facility] [place] [facility] [address] [place] [address] Jeri Brenner NP PMC Preprocedure 03/23/2025 8:00 AM CDT Lab [facility] at [address] [address] Elevated CA-125; Malignant neoplasm of central portion of left breast in female, estrogen receptor negative (HCC); Arthralgia, unspecified joint 03/23/2025 8:30 AM CDT Office Visit [facility] [address] [place] [address] [address] [place] [phone] Nadeem Brunner MD PhD Malignant neoplasm of central portion of left breast in female, estrogen receptor negative (HCC) (Primary Dx); Arthralgia, unspecified joint 03/05/2025 1:00 PM CDT Telemedicine [facility] [address] [place] [address] Advanced Medicine 14th [place] [address] [place] [address] Anayeli Claudio, PhD Trauma and stressor-related disorder (Primary Dx); Other chronic pain 02/28/2025 12:10 PM CDT - 02/28/2025 11:59 PM CDT Hospital Encounter [facility] [place] [facility] [address] [place] [address] Lotus Esposito MD PhD Other polyneuropathy (Primary Dx) Discharge Disposition: Discharge to home or self care 02/21/2025 Orders Only [facility] [place] [facility] [address] [place] [address] Lotus Esposito MD PhD Neuropathic pain (Primary Dx) 02/21/2025 Orders Only [facility] [place] [facility] [address] [facility] [address] [place] [address] Lotus Esposito MD PhD 02/20/2025 7:41 AM CDT - 02/20/2025 11:59 PM CDT Hospital Encounter [facility] [address] [facility] [address] [place] [address] Jeri Brenner NP Other polyneuropathy (Primary Dx) Discharge Disposition: Discharge to home or self care 02/14/[address] [facility] [place] [facility] [address] [place] [address] Advanced Medicine [address] [place] [address] Jeri Brenner NP Pre-Procedure Instructions 01/26/2025 2:30 PM STITCHER HAND Telemedicine [facility] [address] [place] [address] [facility] 14th [place] [address] [place] [address] Anayeli Claudio, PhD Trauma and stressor-related disorder (Primary Dx); Other chronic pain 01/16/2025 Orders Only [facility] [address] [facility] [address] [place] [address] Lesia Coreas MD 01/16/2025 9:56 AM STITCHER HAND - 01/16/2025 11:59 PM STITCHER HAND Hospital En[facility] [place] [facility] [address] [place] [address] Advanced Medicine [address] [place] [address] Lesia Coreas MD Other polyneuropathy (Primary Dx) Discharge Disposition: Discharge to home or self care 01/15/2025 1:52 PM STITCHER HAND - 01/15/2025 11:59 PM STITCHER HAND Hospital Encounter [facility] [address] [place] [address] Malignant neoplasm of central portion of left [...] 1 capsule (300 mg total) by mouth job tracer before breakfast AND 1 capsule (300 mg [...] from 06/07/2023:Stage IIA(cT1c, cN1, cM0, G3, ER-, NH-, HER2+) - Signed by Nadeem Brunner MD PhD on 06/18/2023 Mass of left breast 05/27/2023 Pelvic mass 02/03/2023 Overview (02/03/2023): Added automatically from request for surgery [id number] Adnexal mass 02/03/2023 Overview (04/07/2023): Presented to POWER DISTRIBUTOR to progressive abdominal bloating and worsening pelvic [...] Date Smoking Tobacco: Some Days Cigarettes 0.3 32.4 Started: 1992 Smokeless Tobacco: Never Tobacco Cessation:Ready [...] on file Legal Sex Female 7:40 AM STITCHER HAND Gender Identity Not on file Sexual Orientation [...] Care Management Worsening( 12:48 PM CDT) Blanca Hogan RN Note: Problem: Chronic Pain Goals: 1. Minimize further functional decline 2. Maximize quality of life 3. Control pain Strategies: - Activity/exercise program recommendation - Conservative stepwise pain medicine strategy with multi-disciplinary approach - Recommend healthy lifestyle strategies and compensatory methods as needed Medical Devices Implanted Type Area Woodworker Helper Device Identifier Shelf Expiration Date Model / Serial / Lot Bard Peripheral Vascular Marker Breast Ring Shape Radiopaque Nitinol Ultracor Twirl [id number] - [id number] Implanted:Qty: 1 on 06/07/2023 at [facility] Left: Axilla Bard Peripheral Vascular [id number] / / [employer] Marker Breast Biopsy Magseed L12 Cm Od18 Ga [id number] - [id number] Implanted:Qty: 1 on 11/23/2023 by Sharon Garcia MD at [facility] Left: Breast [employer] [id number] 06/28/2025 [id number] / / [id number] Explanted Type Area Woodworker Helper Device Identifier Shelf Expiration Date Model / Serial / Lot Bard Peripheral Vascular Powerport Clearvue Airguard 8fr 1 Lumen Lightweight Intermediate Latex Free [id number] - [id number] Implanted:Qty: 1 on 06/04/2023 by Michael Bolivar MD at [facility] Explanted:Qty: 1 on 08/25/2024 by Michael Bolivar MD at [facility] Catheter Right: Chest Bard Peripheral Vascular 03/28/2024 [id number] / / [id number] Procedures Procedure Name Priority Date/Time Associated Diagnosis [...] DOPPLER/CF WO CONTRAST Routine 01/15/2025 2:24 PM STITCHER HAND Malignant neoplasm of central portion of left breast in female, estrogen receptor negative (HCC) Encounter for monitoring cardiotoxic drug therapy SOB (shortness of breath) on exertion HEPATITIS PANEL, ACUTE STAT 3:39 PM STITCHER HAND PAP AND HIGH RISK HPV, REFLEX TO GENOTYPING STAT 02/03/2023 3:24 PM STITCHER HAND Adnexal mass from Last 3 Months or [...] was last reviewed 2021. Testing performed by: [address] [address] Blood 03/23/2025 7:56 AM CDT 03/23/2025 7:57 AM CDT us Nadeem Brunner MD PhD LAB BLOOD ORDERABLES Final Resul t KAYODE [address] [facility] Department [place] [address] * (ABNORMAL) Differential, auto (03/23/2025 7:56 AM CDT) Pathologist [facility] Neutrophil abs 2.77 1.50 - 6.50 K/cumm Comment:Testing performed by : [address] [address] Imm gran abs 0.01 0.00 - 0.10 K/cumm KAYODE Comment:Testing performed by : [address] [address] Lymphocyte abs 3.51(H) 0.80 - 3.30 K/cumm KAYODE Comment:Testing performed by : [address] [address] Monocyte abs 0.55 0.20 - 0.80 K/cumm [facility] Comment:Testing performed by : [address] [address] Eosinophil abs 0.16 0.00 - 0.50 K/cumm [facility] Comment:Testing performed by : [address], [place]., [address] Basophil abs 0.02 0.00 - 0.10 K/cumm [facility] Comment:Testing performed by : [address] [address] Neutrophil pct 39.5 % [facility] Comment: Interpretive Data Percent cell count reference ranges are not reported, since discordance with absolute values may lead to misinterpretation of CBC data. Current Interpretive Data was last revised on 2018. Testing performed by: [address] [address] Imm gran pct 0.1 % [facility] Comment: Interpretive Data Percent cell count reference ranges are not reported, since discordance with absolute values may lead to misinterpretation of CBC data. Current Interpretive Data was last revised on 2018. Testing performed by: [address] [address] Lymphocyte pct 50.0 % [facility] Comment: Interpretive Data Percent cell count reference ranges are not reported, since discordance with absolute values may lead to misinterpretation of CBC data. Current Interpretive Data was last revised on 2018. Testing performed by: [address] [address] Monocyte pct 7.8 % [facility] Comment: Interpretive Data Percent cell count reference ranges are not reported, since discordance with absolute values may lead to misinterpretation of CBC data. Current Interpretive Data was last revised on 2018. Testing performed by: [address] [address] Eosinophil pct 2.3 % [facility] Comment: Interpretive Data Percent cell count reference ranges are not reported, since discordance with absolute values may lead to misinterpretation of CBC data. Current Interpretive Data was last revised on 2018. Testing performed by: [address] [address] Basophil pct 0.3 % [facility] Comment: Interpretive Data Percent cell count reference ranges are not reported, since discordance with absolute values may lead to misinterpretation of CBC data. Current Interpretive Data was last revised on 2018. Testing performed by: [address] [address] Blood 03/23/2025 7:56 AM CDT 03/23/2025 7:57 AM CDT us Nadeem Brunner MD PhD LAB BLOOD ORDERABLES Final Resul t [facility] [address] [facility] Department [place] [address] * CBC with auto differential (03/23/2025 7:56 AM CDT) WBC 7.02 3.80 - 9.90 K/cumm Comment:Testing performed by : [address] [address] Hgb 13.5 11.9 - 15.5 g/dL [facility] Comment:Testing performed by : [address] [address] Hct 38.7 35.6 - 45.5 % [facility] Comment:Testing performed by : [address] [address] Plt 263 150 - 400 K/cumm [facility] Comment:Testing performed by : [address] [address] MPV 10.1 9.1 - 12.3 fL [facility] Comment:Testing performed by : [address] [address] RBC 4.16 3.90 - 5.20 M/cumm [facility] Comment:Testing performed by : [address] [address] MCV 93.0 81.3 - 96.4 fL [facility] Comment:Testing performed by : [address] [address] MCH 32.5 27.1 - 33.3 pg [facility] Comment:Testing performed by : [address] [address] MCHC 34.9 32.3 - 35.7 g/dL [facility] Comment:Testing performed by : [address] [address] RDW CV 12.5 11.1 - 14.9 % [facility] Comment:Testing performed by : [address] [address] RDW SD 42.5 35.7 - 48.1 fL [facility] Comment:Testing performed by : [address], [place]., [address] NRBC abs 0.00 0.00 - 0.01 K/cumm [facility] Comment:Testing performed by : [address], [place]., [address] ANC Prelim 2.77 1.50 - 6.50 K/cumm [facility] Comment: Interpretive Data The rapid ANC is a preliminary automated count and may vary from the final ANC (Neut Abs) reported in the WBC differential that follows. Current interpretive data was last revised 2025. Testing performed by: [address] [address] Blood 03/23/2025 7:56 AM CDT 03/23/2025 7:57 AM CDT us Nadeem Brunner MD PhD LAB BLOOD ORDERABLES Final Resul t [facility] [address] [facility] Department of Laboratories [place], [place] [id number] * CA 125 (03/23/2025 7:56 AM CDT) CA 125 ag 11.4 0.0 - 38.1 units/mL Comment: Interpretive Data The [employer] CA 125 assay procedure was used. Results from different manufacturers or methods may not be comparable. Serial testing should be performed using the same method. Testing performed by: [address] [address] Blood 03/23/2025 7:56 AM CDT 03/23/2025 9:38 AM CDT us Nadeem Brunner MD PhD LAB BLOOD ORDERABLES Final Resul t [facility] [address] [facility] Department [place] [address] * Comprehensive metabolic panel (03/23/2025 7:56 AM CDT) Sodium 144 135 - 145 mmol/L Comment:Testing performed by : [address] [address] Potassium, pl 4.2 3.3 - 4.9 mmol/L [facility] Comment:Testing performed by : [address] [address] Chloride 106 97 - 110 mmol/L [facility] Comment:Testing performed by : [address] [address] CO2 28 22 - 32 mmol/L [facility] Comment:Testing performed by : [address] [address] Anion gap 10 2 - 15 mmol/L [facility] Comment:Testing performed by : [address] [address] BUN 8 6 - 25 mg/dL [facility] Comment:Testing performed by : [address] [address] Creatinine 0.80 0.60 - 1.10 mg/dL [facility] Comment:Testing performed by : [address] [address] Glucose 82 70 - 199 mg/dL [facility] [...] was last revised 2022. Testing performed by: [address] [address] Calcium 9.3 8.5 - 10.3 mg/dL [facility] Comment:Testing performed by : [address] [address] Bilirubin, total <0.2 0.1 - 1.2 mg/dL [facility] Comment:Testing performed by : [address], [place]., [address] Protein, pl 6.6 6.5 - 8.5 g/dL [facility] Comment:Testing performed by : [address] [address] Albumin 4.4 3.5 - 5.0 g/dL [facility] Comment:Testing performed by : [address] [address] Alk phos 61 40 - 130 Units/L [facility] Comment:Testing performed by : [address] [address] ALT 12 7 - 45 Units/L [facility] Comment:Testing performed by : [address] [address] AST 16 10 - 45 Units/L [facility] Comment:Testing performed by : [address] [address] Blood 03/23/2025 7:56 AM CDT 03/23/2025 7:57 AM CDT us Nadeem Brunner MD PhD LAB BLOOD ORDERABLES Final Resul t [facility] Department [place] [address] * Erythrocyte sedimentation rate (03/23/2025 7:53 AM CDT) Erythrocyte sedimentation rate 8 1 - 30 mm/hr Comment:Testing performed by : [address] [address] Blood 03/23/2025 7:53 AM CDT 03/23/2025 11:35 AM CDT us Nadeem Brunner MD PhD LAB BLOOD ORDERABLES Final Resul t Performing Organization Address [facility] de Phone Number [facility] [address] [address] * CRP (cardiac risk) (03/23/2025 7:53 AM [...] last revised on 2018. Testing performed by: [facility], [address] [place] [address]., [address] Blood 03/23/2025 7:53 AM CDT 03/23/2025 9:35 AM CDT us Nadeem Brunner MD PhD LAB BLOOD ORDERABLES Final Resul t Performing Organization Address [facility] de Phone Number [facility] [place] [address] * TRANSTHORACIC ECHO (TTE) COMPLETE W DOPPLER/CF WO CONTRAST (01/15/2025 2:24 PM [facility]) Anatomical Region Laterality Modality Ultrasound 01/15/2025 1:54 PM [facility] Narrative 01/15/2025 5:35 PM [facility] Transthoracic Echocardiographic Report Patient Name: FRANCINELANRE Pierre DING : 1975 (49y 11m) Gender: F Study Date: 01/15/2025 01:54:34 PM Ht(Inch): 67 Wt(Lb): 210 BSA: 2.12 Asl Interpreter: Adan Jaime [facility] Order Provider: NADEEM BRUNNER Heart Rate: 76 BMI: 32.89 BP: 98/58 Ref Provider: NADEEM BRUNNER PROCEDURES: Echocardiographic Report: ([id number]) Transthoracic complete echo, 2D, spectral and tissue Doppler, color flow Doppler, M-mode. 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 No mitral regurgitation seen. Aortic Valv
--- OUTSIDE RECORDS SUMMARY | 2025-04-12 18:23 | XMS_ITS | Clinical Summary ---
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 AND 1 capsule (300 mg [...] from 06/07/2023:Stage IIA(cT1c, cN1, cM0, G3, ER-, NE-, HER2+) - Signed by Amol Chapin MD PhD on 06/18/2023 Mass of left breast 05/27/2023 Pelvic mass 02/03/2023 Overview (02/03/2023): Added automatically from request for surgery [id number] Adnexal mass 02/03/2023 Overview (04/07/2023): Presented to LAWYERS to progressive abdominal bloating and worsening pelvic [...] Type Department Care Team Description 04/10/2025 Telephone [facility] Advanced Medicine [address] [facility] [address] [place] [address] Jeri Brenner NP PMC Preprocedure 03/23/2025 8:30 AM CDT Office Visit [facility] Physicians [facility] On[facility] [address] [place] [id number] Amol Chapin MD PhD Malignant neoplasm of central portion of left breast in female, estrogen receptor negative (HCC) (Primary Dx); Arthralgia, unspecified joint 03/23/2025 8:00 AM CDT Lab [facility] [address] [place] [address] Elevated CA-125; Malignant neoplasm of central portion of left breast in female, estrogen receptor negative (HCC); Arthralgia, unspecified joint 03/05/2025 1:00 PM CDT Telemedicine [facility] Management [address] [place] [address] Advanced Medicine 14th [place] [address] [place] [address] Anayeli Claudio PhD Trauma and stressor-related disorder (Primary Dx); Other chronic pain 02/28/2025 12:10 PM CDT - 02/28/2025 11:59 PM CDT Hospital Encounter [facility] [address] [place] [address] for Advanced Medicine [address] [place] [address] Lotus Esposito MD PhD Other polyneuropathy (Primary Dx) Discharge Disposition: Discharge to home or self care 02/21/2025 Orders Only [facility] [address] [place] [address] for Advanced Medicine [address] [place] [address] Lotus Esposito MD PhD Neuropathic pain (Primary Dx) 02/21/2025 Orders Only [facility] [address] [place] [address] Advanced Medicine [address] [place] [address] Lotus Esposito MD PhD 02/20/2025 7:41 AM CDT - 02/20/2025 11:59 PM CDT Hospital Encounter [facility] [address] [place] [address] Advanced Medicine [address] [place] [address] Jeri Brenner NP Other polyneuropathy (Primary Dx) Discharge Disposition: Discharge to home or self care 02/14/2025 Telephone [facility] Advanced Medicine [address] [facility] Advanced Medicine [address] [place] [address] Jeri Brenner NP Pre-Procedure Instructions 01/26/2025 2:30 PM CRAB BACKER Telemedicine [facility] [address] [facility] 14th [place] [address] [place] [address] Anayeli Claudio, PhD Trauma and stressor-related disorder (Primary Dx); Other chronic pain 01/16/2025 9:56 AM CRAB BACKER - 01/16/2025 11:59 PM CRAB BACKER Hospital Encounter [facility] Center at the [facility]1 [facility] Medicine [address] [place] [address] Lesia Coreas MD Other polyneuropathy (Primary Dx) Discharge Disposition: Discharge to home or self care 01/16/2025 Orders Only [facility] [address] [facility] Medicine [address] [place] [address] Lesia Coreas MD 01/15/2025 1:52 PM CRAB BACKER - 01/15/2025 11:59 PM CRAB BACKER Hospital Encounter [facility] Testing [address] [place] [address] Malignant neoplasm of central portion of [...] vomiting) Scopolamine patch successful Awareness under anesthesia abiel ashraf FHx: chemotherapy 10/01/2023 GERD (gastroesophageal reflux disease) [...] on file Legal Sex Female 7:40 AM CRAB BACKER Gender Identity Not on file Sexual Orientation [...] as needed Medical Devices Implanted Type Area Roll Capper Device Identifier Shelf Expiration Date Model / Serial / Lot Bard Peripheral Vascular Marker Breast Ring Shape Radiopaque Nitinol Ultracor Twirl [id number] - [id number] Implanted:Qty: 1 on 06/07/2023 at [facility] Left: Axilla Bard Peripheral Vascular [id number] / / [employer] Marker Breast Biopsy Magseed L12 Cm Od18 Ga [id number] - [id number] Implanted:Qty: 1 on 11/23/2023 by Sharon Garcia MD at [facility] Left: Breast [employer] [id number] 06/28/2025 [id number] Explanted Type Area Roll Capper Device Identifier Shelf Expiration Date Model / Serial / Lot Bard Peripheral Vascular Powerport Clearvue Airguard 8fr 1 Lumen Lightweight Intermediate Latex Free [id number] - [id number] Implanted:Qty: 1 on 06/04/2023 by Michael Bolivar MD at [facility] Explanted:Qty: 1 on 08/25/2024 by Michael Bolivar MD at [facility] Medicine Catheter Right: Chest Bard Peripheral Vascular 03/28/2024 [id number] / / [id number] Procedures Procedure Name Priority Date/Time Associated Diagnosis [...] DOPPLER/CF WO CONTRAST Routine 01/15/2025 2:24 PM CRAB BACKER Malignant neoplasm of central portion of left breast in female, estrogen receptor negative (HCC) Encounter for monitoring cardiotoxic drug therapy SOB (shortness of breath) on exertion HEPATITIS PANEL, ACUTE STAT 3:39 PM CRAB BACKER PAP AND HIGH RISK HPV, REFLEX TO GENOTYPING STAT 02/03/2023 3:24 PM CRAB BACKER Adnexal mass from Last 3 Months or [...] was last reviewed 2021. Testing performed by: [facility], [address] [place] [address], [place]., [address] Blood 03/23/2025 7:56 AM CDT 03/23/2025 7:57 AM CDT us Amol Chapin MD PhD LAB BLOOD ORDERABLES Final Resul t KAYODE [address] [facility] Department [place] [address] * (ABNORMAL) Differential, auto (03/23/2025 7:56 AM CDT) Neutrophil abs 2.77 1.50 - 6.50 K/cumm Comment:Testing performed by : [address] [address] Imm gran abs 0.01 0.00 - 0.10 K/cumm KAYODE Comment:Testing performed by : [address] [address] Lymphocyte abs 3.51(H) 0.80 - 3.30 K/cumm KAYODE Comment:Testing performed by : [address] [address] Monocyte abs 0.55 0.20 - 0.80 K/cumm KAYODE Comment:Testing performed by : [address] [address] Eosinophil abs 0.16 0.00 - 0.50 K/cumm KAYODE Comment:Testing performed by : [address] [address] Basophil abs 0.02 0.00 - 0.10 K/cumm KAYODE Comment:Testing performed by : [address] [address] Neutrophil pct 39.5 % KAYODE Comment: Interpretive Data Percent cell count reference ranges are not reported, since discordance with absolute values may lead to misinterpretation of CBC data. Current Interpretive Data was last revised on 2018. Testing performed by: [address] [address] Imm gran pct 0.1 % KAYODE Comment: Interpretive Data Percent cell count reference ranges are not reported, since discordance with absolute values may lead to misinterpretation of CBC data. Current Interpretive Data was last revised on 2018. Testing performed by: [address] [address] Lymphocyte pct 50.0 % KAYODE Comment: Interpretive Data Percent cell count reference ranges are not reported, since discordance with absolute values may lead to misinterpretation of CBC data. Current Interpretive Data was last revised on 2018. Testing performed by: [address] [address] Monocyte pct 7.8 % KAYODE Comment: Interpretive Data Percent cell count reference ranges are not reported, since discordance with absolute values may lead to misinterpretation of CBC data. Current Interpretive Data was last revised on 2018. Testing performed by: [address] [address] Eosinophil pct 2.3 % KAYODE Comment: Interpretive Data Percent cell count reference ranges are not reported, since discordance with absolute values may lead to misinterpretation of CBC data. Current Interpretive Data was last revised on 2018. Testing performed by: [address] [address] Basophil pct 0.3 % KAYODE Comment: Interpretive Data Percent cell count reference ranges are not reported, since discordance with absolute values may lead to misinterpretation of CBC data. Current Interpretive Data was last revised on 2018. Testing performed by: [address] [address] Blood 03/23/2025 7:56 AM CDT 03/23/2025 7:57 AM CDT us Amol Chapin MD PhD LAB BLOOD ORDERABLES Final Resul t [facility] [address] [facility] Department [place] [address] * CBC with auto differential (03/23/2025 7:56 AM CDT) WBC 7.02 3.80 - 9.90 K/cumm Comment:Testing performed by : [address] [address] Hgb 13.5 11.9 - 15.5 g/dL KAYODE Comment:Testing performed by : [address] [address] Hct 38.7 35.6 - 45.5 % KAYODE Comment:Testing performed by : [address] [address] Plt 263 150 - 400 K/cumm KAYODE Comment:Testing performed by : [address] [address] MPV 10.1 9.1 - 12.3 fL KAYODE Comment:Testing performed by : [address], [address] RBC 4.16 3.90 - 5.20 M/cumm KAYODE Comment:Testing performed by : [address], [address] MCV 93.0 81.3 - 96.4 fL KAYODE Comment:Testing performed by : [address] [address] MCH 32.5 27.1 - 33.3 pg KAYODE Comment:Testing performed by : [address] [address] MCHC 34.9 32.3 - 35.7 g/dL KAYODE Comment:Testing performed by : [address], [address] RDW CV 12.5 11.1 - 14.9 % KAYODE Comment:Testing performed by : [address] [address] RDW SD 42.5 35.7 - 48.1 fL KAYODE Comment:Testing performed by : [address] [address] NRBC abs 0.00 0.00 - 0.01 K/cumm KAYODE Comment:Testing performed by : [address] [address] ANC Prelim 2.77 1.50 - 6.50 K/cumm KAYODE Comment: Interpretive Data The rapid ANC is a preliminary automated count and may vary from the final ANC (Neut Abs) reported in the WBC differential that follows. Current interpretive data was last revised 2025. Testing performed by: [address] [address] Blood 03/23/2025 7:56 AM CDT 03/23/2025 7:57 AM CDT us Amol Chapin MD PhD LAB BLOOD ORDERABLES Final Resul t Performing Organization Address [facility] de Phone Number SALVADOR[address] [address] * CA 125 (03/23/2025 7:56 AM CDT) CA 125 ag 11.4 0.0 - 38.1 units/mL Comment: Interpretive Data The Genia CA 125 assay procedure was used. Results from different manufacturers or methods may not be comparable. Serial testing should be performed using the same method. Testing performed by: [address] [address] Blood 03/23/2025 7:56 AM CDT 03/23/2025 9:38 AM CDT us Amol Chapin MD PhD LAB BLOOD ORDERABLES Final Resul t Performing Organization Address [facility] de Phone Number [address] [address] * Comprehensive metabolic panel (03/23/2025 7:56 AM CDT) Sodium 144 135 - 145 mmol/L Comment:Testing performed by : [address] [address] Potassium, pl 4.2 3.3 - 4.9 mmol/L KAYODE Comment:Testing performed by : [address] [address] Chloride 106 97 - 110 mmol/L KAYODE Comment:Testing performed by : [address] [address] CO2 28 22 - 32 mmol/L KAYODE Comment:Testing performed by : [address] [address] Anion gap 10 2 - 15 mmol/L KAYODE Comment:Testing performed by : [address] [address] BUN 8 6 - 25 mg/dL KAYODE Comment:Testing performed by : [address] [address] Creatinine 0.80 0.60 - 1.10 mg/dL KAYODE Comment:Testing performed by : [address] [address] Glucose 82 70 - 199 mg/dL KAYODE [...] was last revised 2022. Testing performed by: [address] [address] Calcium 9.3 8.5 - 10.3 mg/dL KAYODE Comment:Testing performed by : [address] [address] Bilirubin, total <0.2 0.1 - 1.2 mg/dL KAYODE Comment:Testing performed by : [address] [address] Protein, pl 6.6 6.5 - 8.5 g/dL KAYODE Comment:Testing performed by : [address] [address] Albumin 4.4 3.5 - 5.0 g/dL KAYODE Comment:Testing performed by : [address] [address] Alk phos 61 40 - 130 Units/L KAYODE Comment:Testing performed by : [address] [address] ALT 12 7 - 45 Units/L KAYODE Comment:Testing performed by : [address] [address] AST 16 10 - 45 Units/L KAYODE Comment:Testing performed by : [facility], [address] [place] [address]., [address] Blood 03/23/2025 7:56 AM CDT 03/23/2025 7:57 AM CDT us Amol Chapin MD PhD LAB BLOOD ORDERABLES Final Resul t Performing Organization Address [facility] de Phone Number SALVADOR[address] [place] [address] * Erythrocyte sedimentation rate (03/23/2025 7:53 AM CDT) Erythrocyte sedimentation rate 8 1 - 30 mm/hr Comment:Testing performed by : [facility], [address] [place] [address]., [address] Blood 03/23/2025 7:53 AM CDT 03/23/2025 11:35 AM CDT us Amol Chapin MD PhD LAB BLOOD ORDERABLES Final Resul t Performing Organization Address [facility] de Phone Number SALVADOR[address] [place] [address] * CRP (ca [id number]|2025-04-12 20:02:00|2025-04-12 20:02:00|XMS_ITS|BKG DAEMON|External Medical Summaries|[id number]|" Clinical Summary Created on: April 12, 2025 Zenaida Cuevas : 1975 Sex: Female Author Organization [facility] Address [address] [place] [address] Care Team Providers Care Leather Stitcher Name Role Phone Pasquale Hanna MD Unavailable Michael Bolivar MD Unavailable [phone] Amol Chapin MD PhD Unavailable Troy Darren Essence DO Unavailable [phone] Derick Suarez MD Unavailable Nyla Self NP Primary Care Provider [phone] Allergies Active Allergy Reactions Criticality Noted Date [...] 1 capsule (300 mg total) by mouth 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 AND 1 capsule (300 mg [...] from 06/07/2023:Stage IIA(cT1c, cN1, cM0, G3, ER-, NE-, HER2+) - Signed by Amol Chapin MD PhD on 06/18/2023 Mass of left breast 05/27/2023 Pelvic mass 02/03/2023 Overview (02/03/2023): Added automatically from request for surgery [id number] Adnexal mass 02/03/2023 Overview (04/07/2023): Presented to LAWYERS to progressive abdominal bloating and worsening pelvic [...] Type Department Care Team Description 04/10/2025 Telephone [facility] [address] [facility] [address] [place] [address] Jeri Brenner NP PMC Preprocedure 03/23/2025 8:30 AM CDT Office Visit [facility] Oncology [address] [place] [address] [address] [place] [address] Amol Chapin MD PhD Malignant neoplasm of central portion of left breast in female, estrogen receptor negative (HCC) (Primary Dx); Arthralgia, unspecified joint 03/23/2025 8:00 AM CDT Lab [facility] at [address] [address] Elevated CA-125; Malignant neoplasm of central portion of left breast in female, estrogen receptor negative (HCC); Arthralgia, unspecified joint 03/05/2025 1:00 PM CDT Telemedicine [facility] [address] [place] [address] Advanced Medicine 14th [place] [address] [place] [address] Anayeli Claudio, PhD Trauma and stressor-related disorder (Primary Dx); Other chronic pain 02/28/2025 12:10 PM CDT - 02/28/2025 11:59 PM CDT Hospital Encounter [facility] [address] [place] [address] [facility] [address] [place] [address] Lotus Esposito MD PhD Other polyneuropathy (Primary Dx) Discharge Disposition: Discharge to home or self care 02/21/2025 Orders Only [facility] at [facility] Advanced Medicine [address] [place] [address] [facility] [address] [place] [address] Lotus Esposito MD PhD Neuropathic pain (Primary Dx) 02/21/2025 Orders Only [facility] [address] [place] [address] [facility] [address] [place] [address] Lotus Esposito MD PhD 02/20/2025 7:41 AM CDT - 02/20/2025 11:59 PM CDT Hospital Encounter [facility] at the [address] [facility] [address] [place] [address] Jeir Brenner NP Other polyneuropathy (Primary Dx) Discharge Disposition: Discharge to home or self care 02/14/2025 Telephone [facility] [address] [place] [address] [facility] [address] [place] [address] Jeri Brenner NP Pre-Procedure Instructions 01/26/2025 2:30 PM CRAB BACKER Telemedicine [facility] [address] [place] [address] [facility] 14th [place] [address] [place] [address] Anayeli Claudio, PhD Trauma and stressor-related disorder (Primary Dx); Other chronic pain 01/16/2025 9:56 AM CRAB BACKER - 01/16/2025 11:59 PM CRAB BACKER Hospital Encounter [facility] at the [facility] [address] [facility] [address] [place] [address] Lesia Coreas MD Other polyneuropathy (Primary Dx) Discharge Disposition: Discharge to home or self care 01/16/2025 Orders Only [facility] [address] [facility] [address] [place] [address] Lesia Coreas MD 01/15/2025 1:52 PM CRAB BACKER - 01/15/2025 11:59 PM CRAB BACKER Hospital Encounter [facility] Testing [address] [place] [address] Malignant neoplasm of central portion of left [...] vomiting) Scopolamine patch successful Awareness under anesthesia abiel ashraf FHx: chemotherapy 10/01/2023 GERD (gastroesophageal reflux disease) Family History Medical History Relation Name Comments Anesthesia problems Maternal Grandmother awareness under anesthesia Breast cancer Maternal Grandmother Breast cancer Mother Endometriosis Mother Endometriosis Other 1 Aunts Breast cancer Other 2 parternal aunt Breast cancer Paternal Grandmother Ovarian cancer Paternal Grandmother Anesthesia problems Sister awarenes s under anesthesia Breast cancer Sister Malelinor Hyperthermia Neg Hx Pseudochol deficiency Neg Hx [...] on file Legal Sex Female 7:40 AM CRAB BACKER Gender Identity Not on file Sexual Orientation [...] Management Worsening( 12:48 PM CDT) Blanca Hogan, VALE Note: Problem: Chronic Pain Goals: 1. Minimize further functional decline 2. Maximize quality of life 3. Control pain Strategies: - Activity/exercise program recommendation - Conservative stepwise pain medicine strategy with multi-disciplinary approach - Recommend healthy lifestyle strategies and compensatory methods as needed Medical Devices Implanted Type Area Roll Capper Device Identifier Shelf Expiration Date Model / Serial / Lot Bard Peripheral Vascular Marker Breast Ring Shape Radiopaque Nitinol Ultracor Twirl [id number] Uctw17 - [id number] Implanted:Qty: 1 on 06/07/2023 at [facility] Left: Axilla Bard Peripheral Vascular [id number] UCTW17 / / [employer] Marker Breast Biopsy Magseed L12 Cm Od18 Ga [id number] Implanted:Qty: 1 on 11/23/2023 by Sharon Garcia MD at [facility] Left: Breast [employer] [id number] 06/28/2025 [id number] / / [id number] Explanted Type Area Roll Capper Device Identifier Shelf Expiration Date Model / Serial / Lot Bard Peripheral Vascular Powerport Clearvue Airguard 8fr 1 Lumen Lightweight Intermediate Latex Free [id number] - [id number] Implanted:Qty: 1 on 06/04/2023 by Michael Bolivar MD at [facility] Explanted:Qty: 1 on 08/25/2024 by Michael Bolivar MD at [facility] Medicine Catheter Right: Chest Bard Peripheral Vascular 03/28/2024 [id number] / / [id number] Procedures Procedure Name Priority Date/Time Associated Diagnosis [...] DOPPLER/CF WO CONTRAST Routine 01/15/2025 2:24 PM CRAB BACKER Malignant neoplasm of central portion of left breast in female, estrogen receptor negative (HCC) Encounter for monitoring cardiotoxic drug therapy SOB (shortness of breath) on exertion HEPATITIS PANEL, ACUTE STAT 4 3:39 PM CRAB BACKER PAP AND HIGH RISK HPV, REFLEX TO GENOTYPING STAT 02/03/2023 3:24 PM CRAB BACKER Adnexal mass from Last 3 Months or [...] was last reviewed 2021. Testing performed by: [facility], [address] [place] [address]., [address] Blood 03/23/2025 7:56 AM CDT 03/23/2025 7:57 AM CDT us Amol Chapin MD PhD LAB BLOOD ORDERABLES Final Resul t [facility]F [address] [facility] Department [place] [address] * (ABNORMAL) Differential, auto (03/23/2025 7:56 AM CDT) Neutrophil abs 2.77 1.50 - 6.50 K/cumm Comment:Testing performed by : [address] [address] Imm gran abs 0.01 0.00 - 0.10 K/cumm KAYODE Comment:Testing performed by : [address], [place]., [address] Lymphocyte abs 3.51(H) 0.80 - 3.30 K/cumm KAYODE Comment:Testing performed by : [address], [place]., [address] Monocyte abs 0.55 0.20 - 0.80 K/cumm KAYODE Comment:Testing performed by : [address], [place]., [address] Eosinophil abs 0.16 0.00 - 0.50 K/cumm [facility] Comment:Testing performed by : [address] [address] Basophil abs 0.02 0.00 - 0.10 K/cumm [facility] Comment:Testing performed by : [address] [address] Neutrophil pct 39.5 % [facility] Comment: Interpretive Data Percent cell count reference ranges are not reported, since discordance with absolute values may lead to misinterpretation of CBC data. Current Interpretive Data was last revised on 2018. Testing performed by: [address] [address] Imm gran pct 0.1 % [facility] Comment: Interpretive Data Percent cell count reference ranges are not reported, since discordance with absolute values may lead to misinterpretation of CBC data. Current Interpretive Data was last revised on 2018. Testing performed by: [address] [address] Lymphocyte pct 50.0 % [facility] Comment: Interpretive Data Percent cell count reference ranges are not reported, since discordance with absolute values may lead to misinterpretation of CBC data. Current Interpretive Data was last revised on 2018. Testing performed by: [address] [address] Monocyte pct 7.8 % [facility] Comment: Interpretive Data Percent cell count reference ranges are not reported, since discordance with absolute values may lead to misinterpretation of CBC data. Current Interpretive Data was last revised on 2018. Testing performed by: [address] [address] Eosinophil pct 2.3 % KAYODE KATZ Comment: Interpretive Data Percent cell count reference ranges are not reported, since discordance with absolute values may lead to misinterpretation of CBC data. Current Interpretive Data was last revised on 2018. Testing performed by: [address] [address] Basophil pct 0.3 % KAYODE KATZ Comment: Interpretive Data Percent cell count reference ranges are not reported, since discordance with absolute values may lead to misinterpretation of CBC data. Current Interpretive Data was last revised on 2018. Testing performed by: [address] [address] Blood 03/23/2025 7:56 AM CDT 03/23/2025 7:57 AM CDT us Amol Chapin MD PhD LAB BLOOD ORDERABLES Final Resul t KAYODE [address] Department [place] [address] * CBC with auto differential (03/23/2025 7:56 AM CDT) WBC 7.02 3.80 - 9.90 K/cumm Comment:Testing performed by : [address] [address] Hgb 13.5 11.9 - 15.5 g/dL KAYODE KATZ Comment:Testing performed by : [address] [address] Hct 38.7 35.6 - 45.5 % KAYODE KATZ Comment:Testing performed by : [address] [address] Plt 263 150 - 400 K/cumm KAYODE KATZ Comment:Testing performed by : [address] [address] MPV 10.1 9.1 - 12.3 fL KAYODE KATZ Comment:Testing performed by : [address] [address] RBC 4.16 3.90 - 5.20 M/cumm KAYODE KATZ Comment:Testing performed by : [address] [address] MCV 93.0 81.3 - 96.4 fL KAYODE KATZ Comment:Testing performed by : [address] [address] MCH 32.5 27.1 - 33.3 pg KAYOED KATZ Comment:Testing performed by : [address] [address] MCHC 34.9 32.3 - 35.7 g/dL KAYODE KATZ Comment:Testing performed by : [address] [address] RDW CV 12.5 11.1 - 14.9 % KAYODE Comment:Testing performed by : [address] [address] RDW SD 42.5 35.7 - 48.1 fL KAYODE Comment:Testing performed by : [address] [address] NRBC abs 0.00 0.00 - 0.01 K/cumm KAYODE Comment:Testing performed by : [address] [address] ANC Prelim 2.77 1.50 - 6.50 K/cumm KAYODE Comment: Interpretive Data The rapid ANC is a preliminary automated count and may vary from the final ANC (Neut Abs) reported in the WBC differential that follows. Current interpretive data was last revised 2025. Testing performed by: [address] [address] Blood 03/23/2025 7:56 AM CDT 03/23/2025 7:57 AM CDT us Amol Chapin MD PhD LAB BLOOD ORDERABLES Final Resul t KAYODE KATZ [address] [facility] Department [place] [address] * CA 125 (03/23/2025 7:56 AM CDT) [facility] CA 125 ag 11.4 0.0 - 38.1 units/mL Comment: Interpretive Data The [employer] CA 125 assay procedure was used. Results from different manufacturers or methods may not be comparable. Serial testing should be performed using the same method. Testing performed by: [address] [address] Blood 03/23/2025 7:56 AM CDT 03/23/2025 9:38 AM CDT us Amol Chapin MD PhD LAB BLOOD ORDERABLES Final Resul t [facility] [address] [facility] Department [place] [address] * Comprehensive metabolic panel (03/23/2025 7:56 AM CDT) [facility] Sodium 144 135 - 145 mmol/L Comment:Testing performed by : [address] [address] Potassium, pl 4.2 3.3 - 4.9 mmol/L KAYODE Comment:Testing performed by : [address] [address] Chloride 106 97 - 110 mmol/L KAYODE Comment:Testing performed by : [address] [address] CO2 28 22 - 32 mmol/L KAYODE Comment:Testing performed by : [address] [address] Anion gap 10 2 - 15 mmol/L KAYODE Comment:Testing performed by : [address] [address] BUN 8 6 - 25 mg/dL KAYODE Comment:Testing performed by : [address] [address] Creatinine 0.80 0.60 - 1.10 mg/dL KAYODE Comment:Testing performed by : [address] [address] Glucose 82 70 - 199 mg/dL KAYODE [...] was last revised 2022. Testing performed by: [address] [address] Calcium 9.3 8.5 - 10.3 mg/dL KAYODE Comment:Testing performed by : [address] [address] Bilirubin, total <0.2 0.1 - 1.2 mg/dL KAYODE Comment:Testing performed by : [address] [address] Protein, pl 6.6 6.5 - 8.5 g/dL KAYODE Comment:Testing performed by : [address] [address] Albumin 4.4 3.5 - 5.0 g/dL KAYODE Comment:Testing performed by : [address] [address] Alk phos 61 40 - 130 Units/L KAYODE Comment:Testing performed by : [address] [address] ALT 12 7 - 45 Units/L KAYODE Comment:Testing performed by : [address] [address] AST 16 10 - 45 Units/L KAYODE Comment:Testing performed by : [address] [address] Blood 03/23/2025 7:56 AM CDT 03/23/2025 7:57 AM CDT us Amol Chapin MD PhD LAB BLOOD ORDERABLES Final Resul t KAYODE [address] [facility] Department [place] [address] * Erythrocyte sedimentation rate (03/23/2025 7:53 AM CDT) Erythrocyte sedimentation rate 8 1 - 30 mm/hr Comment:Testing performed by : [facility], [address] [place] [address]., [address] Blood 03/23/2025 7:53 AM CDT 03/23/2025 11:35 AM CDT us Amol Chapin MD PhD LAB BLOOD ORDERABLES Final Resul t SALVADORRBU [address] [facility] Department [place] [address] * CRP (ca
--- OUTSIDE RECORDS SUMMARY | 2025-04-12 18:23 | XMS_ITS | Clinical Summary ---
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
--- OUTSIDE RECORDS SUMMARY | 2025-04-12 18:23 | XMS_ITS | Data Portability ---
Author Organization [facility], [address] Neurology ([place]) Address [address] [place] [address] Care Team Providers Care Block Paver Name Role Phone GERSON GOVEA Primary Care Provider [phone] Assessment Encounter Date Assessment Date Assessment LastModified [...] the bilateral knees were independently reviewed from [facility] and show mild bilateral knee medial compartment [...] Sc Only - [facility] Radiology [address] [place] [address], [address], 12/19/2024 12:17:37 12/19/1909/05/2024 XR, knee, 4 or more view No observ ation record ed. [email or web address] Sc Only - [facility] Radiology [address] [place] [address], [address], 12/19/2024 12:17:38 Result Notes None recorded. Problems Name Problem SNOMED Code Status Onset Date Resolution Date Notes Provider Name and Address Organization Details Recorded Time Pain of right knee joint 36610332136428 0 Active 2023 Swapnil Jefferson MD [address] [place] [address], [address], [facility] 4 12:06:30 Pain of left knee joint 53991840097951 7 Active 2023 Swapnil Jefferson MD [address] [place] [address], [address], [facility] 4 12:06:37 Pain of bilateral knee regions 49953816596818 2 Active 2023 Perlita Donohue [facility] 4 11:27:56 Primary gonarthros is, bilateral 773939134 Active 2023 Swapnil Jefferson MD [address] [place], [address], [facility] 4 10:53:40 Problem Notes None recorded. Procedures Surgical History Date Name Laterality Status Provider Name and Address Organization Details Recorded Time 10/03/20 24 [place] Procedure completed Gin [facility] 10/03/2024 15:24:12 09/26/20 24 SC Procedure completed Gin Channels [facility] 09/26/2024 14:49:02 09/19/20 24 SC Knee injection completed Marlinaung Yeh [facility] 09/19/2024 10:03:38 Imaging Results Imaging Date Name Status LastModified by Organiz ation Details LastModified Time 09/05/2024 XR, knee, 4 or more view completed [email or web address] [facility] Only - [facility] Rad[facility] [address] [place] [address], [address], 12/19/2024 12:17:37 09/05/2024 XR, knee, 4 or more view completed [email or web address] Sc Only - [facility] Radiology [address] [place] [address], [address], 12/19/2024 12:17:38 Procedure Notes None recorded. Medical Equipment None Reported. Allergies Allergen ID Allergen Name Allergen Category Reaction Reaction Severity Criticality Documentation Date Start Date Code Code System Note Provider Name and Address Organization Details Recorded Time 1070723 ciproflox acin medicatio n Not available Not available Not available 09/05/2024 2551 [facility] 4 10:48:50 4802850 iodine medicatio n Not available Not available Not available 09/05/2024 5933 [facility] 4 10:49:41 7380502 Non-stero idal anti-infl ammatory agent (product) medicatio n Not available Not available Not available 09/05/2024 88493 005 SNOMED [facility] 4 10:49:55 2391619 erythromy nirmal medicatio n Not available Not available Not available 09/05/2024 4053 Rx[facility] 4 10:50:07 7202681 vancomyci n medicatio n Not available Not available Not available 09/05/2024 74473 Rx[facility] 4 10:50:17 1771525 clindamyc in Not available Not available Not available Not available 09/05/2024 2582 RxNorm Anne [facility] 4 10:50:26 7197796 Product containin g penicilli n (product) medicatio n Not available Not available Not available 09/05/2024 72516 8001 SNOMED Anne [facility] 4 10:50:44 2596674 diclofena c Not available Not available Not available Not available 09/05/2024 3355 RxNorm Anne [facility] 4 10:50:51 8410184 prednison e medicatio n Not available Not available Not available 09/05/2024 8640 RxNorm Anne [facility] 4 10:51:06 1415328 itraconaz ole medicatio n Not available Not available Not available 09/05/2024 37907 RxNorm Anne [facility] 4 10:51:12 1380392 honey bee venom medicatio n Not available Not available Not available 09/05/2024 81330 7 RxNorm Anne [facility] 4 10:51:28 Medications Name Sig Start [...] Updated DateTime 4 172.72 cm 30.4 kg/m2 95829.4 7 g 92 /min 97 % 97 % 109 mm[Hg] 69 mm[Hg] [facility] 10:48:25 Date Recorded Body height Provider Name an d Address Organization Details Last Updated DateTime 09/26/2024 172.72 cm Thu Graf [facility] 09/26/2024 14:53:08 Social History None recorded. Functional Status None recorded. Mental Status None recorded. Family History Nothing Reported. Medical History No medical history recorded. Gynecological HistoryNo gynecological history recorded. Obstetrics History GPAL:G 0 P 0 0 0 0 Past Encounters Encounter ID Performer Location Encounter Start Date Encounter Closed Date Diagnosis/Indication Diagnosis SNOMED-CT Code Diagnosis ICD10 Code Diagnosis Note [id number] Swapnil Jefferson MD [facility] [place] [address] 09/05/2024 10:10:45 09/05/2024 10:54:32 Pain of right knee joint 2743155825 07234 M25.561 Additional diagnosis detail: Pain, joint, knee, right Pain of le ft knee joint 8822373071 73433 M25.562 Additional diagnosis detail: Pain, joint, knee, left Primary go narthrosis, bilateral 452162911 M17.0 Additional diagnosis detail: Primary osteoarthr itis of both knees [id number] MD FRANCA Nova [facility] [place] [address] 09/19/2024 09:18:49 09/19/2024 09:32:25 Primary gonarthrosis, bilateral 057799391 M17.0 Additional diagnosis detail: Primary osteoarthr itis of both knees [id number] Swapnil Jefferson MD [facility] [place] [address] 09/26/2024 11:13:53 09/26/2024 11:48:43 Primary gonarthrosis, bilateral 100359726 M17.0 Additional diagnosis detail: Primary osteoarthr itis of both knees [id number] Swapnil Jefferson MD [facility] [place] [address] 10/03/2024 12:03:45 10/03/2024 12:08:02 Primary gonarthrosis, bilateral 773988695 M17.0 Additional diagnosis detail: Primary osteoarthr itis of both knees Health Concerns Section Related Observation LastModified by Organization Detai ls LastModified Time None Recorded Concern Status LastModified by Organization Details LastModified Time None Recorded Advance Directives Directive None Recorded Payers Insurance Date Sequence Insurance Name Policy Number Policy Gastelum Covered Member ID Gastelum Member ID Guarantor Name 10/12/2024 1 [facility] ON OR AFTER 05/29/21 (MEDICAID REPLACEMENT - HMO) Zenaida Cuevas [id number] Zenaida Cuevas OBGyn Episode No OBEpisode recorded.
--- OUTSIDE RECORDS SUMMARY | 2025-04-12 18:23 | XMS_ITS ---
Author Organization [facility] Address [address] [place] [address] Care Team Providers Care Leather Coater Name Role Phone Pasquale Hanna MD Unavailable Michael Bolivar MD Unavailable [phone] Amol Chapin MD PhD Unavailable Darren Simmons DO Unavailable [phone] Derick Suarez MD Unavailable [phone] Nyla Self NP Primary Care Provider [phone] Active Problems Problem Noted Date Diagnosed Date [...] G3, ER-, SC-, HER2+) - Signed by Amol Chapin MD PhD on 06/18/2023 Mass of left breast 05/27/2023 Pelvic mass 02/03/2023 Overview (02/03/2023): Added automatically from request for surgery [id number] Adnexal mass 02/03/2023 Overview (04/07/2023): Presented to DIRECTOR OF MARKET INTELLIGENCE to progressive abdominal bloating and worsening pelvic [...]
--- OUTSIDE RECORDS SUMMARY | 2025-04-12 18:23 | XMS_ITS ---
Author Organization Unknown Address [address] [place] [phone] Phone Care Team Providers Care Intellectual Property Legal Assistant Name Role Phone FRIDA BOSS Nahomi Attending Unavailable ZHANG GREEN AUTOMOBILE BODY REPAIR CHIEF Primary Unavailable Social History Type Status Start Date End Date Code Code Syst em Smoking History Unknown if ever smoked [address] Sex Female Hospital Discharge Instructions [...] PCP - Primary care physician [id number] NORMA HLOCOMB PCP - Primary care physician
--- OUTSIDE RECORDS SUMMARY | 2025-04-12 18:24 | XMS_ITS ---
Author Organization Unknown Address [address] [place] [phone] Phone Care Team Providers Care Classification And Treatment Director Name Role Phone FRIDA Comer Attending Unavailable [...] Derick Rainey M.D. MF: YEIMI Report ID: [id number] Reading Location: [id number] KNEE 4V RIGHT - Completed: 1 09:17 [...] Derick Rainey M.D. MF: YEIMI Report ID: [id number] Reading Location: [place] [address] Social History Type Status Start Date End Date Code Code Syst em Smoking History Unknown if ever smoked [address] Sex Female Hospital Discharge Instructions [...]
[2025-04-12] MEDS: DACRIOSE EYE IRRIGATION 118 ML BOTTLE 10 ML LEFT EYE (19:26)
[2025-04-12] MEDS: FLUORESCEIN SOD 1 MG/STRIP EACH EYE (19:26)
[2025-04-12] MEDS: TETRACAINE HCL 0.5% OPHTH SOLN 4 ML BTL 1 DROP LEFT EYE (19:27)
--- OUTSIDE RECORDS SUMMARY | 2025-04-12 20:02 | XMS_ITS ---
Author Organization Unknown Address [address] [place] [phone] Phone Care Team Providers Care Antenna Rigger Name Role Phone FRIDA BOSS Nahomi Attending Unavailable ZHANG GREEN SAFETY BELT INSTALLER Primary Unavailable Social History Type Status Start Date End Date Code Code Syst em Smoking History Unknown if ever smoked [address] Sex Female Hospital Discharge Instructions [...]
--- OUTSIDE RECORDS SUMMARY | 2025-04-12 20:02 | XMS_ITS ---
Author Organization [facility] Address [address] [place] [address] Care Team Providers Care Pizza Chef Name Role Phone Pasquale Hanna MD Unavailable Michael Bolivar MD Unavailable Amol Chapin MD PhD Unavailable Darren Simmons DO Unavailable [phone] Derick Suarez MD Unavailable Nyla Self NP Primary Care Provider [phone]- [phone] Active Problems Problem Noted Date Diagnosed Date History of mastectomy, bilateral 12/12/2024 Peripheral neuropathy 12/06/2024 Cholecystitis 12/24/2023 Breast cancer in female 11/23/2023 Dehydration 10/26/2023 Encounter for management of implanted device 08/2023 Encounter for person encountering health service s 06/07/2023 Elevated tumor markers 06/07/2023 Malignant neoplasm of left female breast 023 Cancer Staging:Clinical stage from 06/07/2023:Stage IIA(cT1c, cN1, cM0, G3, ER-, DC-, HER2+) - Signed by Amol Chapin MD PhD on 06/18/2023 Mass of left breast 05/27/2023 Pelvic mass 02/03/2023 Overview (02/03/2023): Added automatically from request for surgery [id number] Adnexal mass 02/03/2023 Overview (04/07/2023): 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
--- OUTSIDE RECORDS SUMMARY | 2025-04-12 20:02 | XMS_ITS | Clinical Summary ---
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
--- OUTSIDE RECORDS SUMMARY | 2025-04-12 20:02 | XMS_ITS ---
Author Organization Unknown Address [address] [place] [phone] Phone Care Team Providers Care Mri Supervisor Name Role Phone FRIDA BOSS Nahomi Attending Unavailable ZHANG GREEN APN Primary Unavailable Social History Type Status Start Date End Date Code Code Syst em Smoking History Unknown if ever smoked [address] Sex Female Hospital Discharge Instructions [...]
--- OUTSIDE RECORDS SUMMARY | 2025-04-12 20:02 | XMS_ITS | Encounter Summary ---
Author Organization [facility] Address [address] [place] [address] Care Team Providers Care Floor Specialist Name Role Phone Pasquale Hanna MD Unavailable [phone] Michael Bolivar MD Unavailable [phone] Amol Chapin MD PhD Unavailable Darren Simmons DO Unavailable [phone] Derick Suarez MD Unavailable Miscellaneous, Not In File Primary Care Provider Unavailable Nyla Self NP Primary Care Provider [phone] Reason for Visit * Reason Onset Date Comments Pre-Procedure Instructions 02/14/2025 Encounter Details Date Type Department Care Team (Late st Contact Info) Description 02/14/2025 Telephone [facility] [address] 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 [address] [place] [address] PCP - General Family Medicine 03/20/25 Pasquale Hanna MD [address] [address] Referring Physician Obstetrics and Gynecology 01/12/23 Michael Bolivar MD [address] [facility] [address] [facility] [address] [place], [place] [address] Referring Physician Surgical Oncology 05/28/23 Amol Chapin MD PhD [address] [facility], [facility] [address] [place] [address] Medical Oncologist/Jacquard Twine Polisher Operator Medical Oncology 05/28/23 Darren Simmons DO [address] [facility] [address] [facility] [address] [place] [address] Referring Physician Internal Medicine 06/10/23 Derick Suarez MD [address] [place] [address] Consulting Physician General Surgery 12/26/23 documented as of this encounter
--- OUTSIDE RECORDS SUMMARY | 2025-04-12 20:02 | XMS_ITS ---
Author Organization Unknown Address [address] [place] [phone] Phone Care Team Providers Care Flatwork Assembler Name Role Phone FRIDA BOSS Nahomi Attending Unavailable ZHANG GREEN STRING STUDIES DIRECTOR Primary Unavailable Social History Type Status Start Date End Date Code Code Syst em Smoking History Unknown if ever smoked [address] Sex Female Hospital Discharge Instructions [...]
--- OUTSIDE RECORDS SUMMARY | 2025-04-12 20:03 | XMS_ITS ---
Author Organization Unknown Address [address] [place] [phone] Phone Care Team Providers Care Strategic Client Executive Name Role Phone FRIDA Comer Attending Unavailable [...] Derick Rainey M.D. MF: YEIMI Report ID: [id number] Reading Location: [id number] KNEE 4V RIGHT - Completed: 1 09:17 [...] Derick Rainey M.D. MF: YEIMI Report ID: [id number] Reading Location: [place] [address] Social History Type Status Start Date End Date Code Code Syst em Smoking History Unknown if ever smoked [address] Sex Female Hospital Discharge Instructions [...]
--- NOTE | 2025-04-12 20:18 | ED_ITS ---
HPI - Eye Problem General Chief complaint: Eye Problems Stated complaint: eye irritation Time Seen by Provider: 04/12/25 19:19 Source: patient Mode of arrival: ambulatory Limitations: no limitations History of Present Illness HPI Narrative: this is a 50-year-old female with no significant past medical history presents with some eye pain and irritation with sensation of a foreign body in her left eye. There is minimal conjunctival injection with no fever chills no sinus congestion no headache. MD chief complaint: eye pain and foreign body Onset (ago): hour(s) Onset description: sudden Duration: constant Location: left eye Eye Symptoms: burning Related Data Home Medications Medication Instructions Recorded Confirmed Last Taken Type albuterol sulfate 90 mcg/actuation See Rx Instructions .Route 07/17/24 03/05/25 08/06/24 History aerosol inhaler .COMPLEX PRN asthma famotidine 20 mg tablet (Pepcid) 20 mg PO DAILY reflux 07/17/24 03/05/25 08/06/24 History fluticasone propionate 230 2 puff inhalation BID 07/17/24 03/05/25 08/06/24 History mcg-salmeterol 21 mcg/actuation HFA inhaler (Advair HFA) sumatriptan succinate 25 mg tablet See Rx Instructions .Route 07/17/24 03/05/25 08/06/24 History .COMPLEX PRN Migraine Headache topiramate 100 mg tablet 100 mg PO BID 07/17/24 03/05/25 08/06/24 History tramadol 50 mg tablet See Rx Instructions .Route 07/17/24 03/05/25 08/06/24 History .COMPLEX PRN Pain valacyclovir 500 mg tablet 500 mg PO HS 07/17/24 03/05/25 08/06/24 History gabapentin 600 mg tablet 600 mg PO 03/05/25 03/05/25 Unknown History metoprolol succinate 50 mg 50 mg PO 03/05/25 03/05/25 Unknown History tablet,extended release 24 hr naltrexone 4.5 mg capsule 4.5 mg PO 03/05/25 03/05/25 Unknown History Allergies Allergy/AdvReac Type Severity Reaction Status Date / Time erythromycin base Allergy Intermediate Unknown Verified 04/12/25 19:35 Penicillins Allergy Intermediate Unknown Verified 04/12/25 19:35 suture Allergy Intermediate Hives Verified 04/12/25 19:35 amitriptyline Allergy Mild Hallucinati Verified 04/12/25 19:35 ng fluoxetine (From Prozac) Allergy Mild Hallucinati Verified 04/12/25 19:35 ng NSAIDS (Non-Steroidal Allergy Mild Dizziness Verified 04/12/25 19:35 Anti-Inflamma pregabalin Allergy Mild Dizziness Verified 04/12/25 19:35 venom-honey bee Allergy Mild Anaphylaxis Verified 04/12/25 19:35 bee venom protein (honey bee) Allergy Unknown Unknown Verified 04/12/25 19:35 ciprofloxacin (From Cipro) Allergy Hives Verified 04/12/25 19:35 clindamycin Allergy Unknown Verified 04/12/25 19:35 iodine Allergy Hives Verified 04/12/25 19:35 prednisone Allergy Fever Verified 04/12/25 19:35 shellfish derived Allergy Anaphylaxis Verified 04/12/25 19:35 vancomycin Allergy Unknown Verified 04/12/25 19:35 alcohol (From Mastisol AdvReac Intermediate Blister Verified 04/12/25 19:35 Liquid Adhesive) gum mastic (From Mastisol AdvReac Intermediate Blister Verified 04/12/25 19:35 Liquid Adhesive) methyl salicylate (From AdvReac Intermediate Blister Verified 04/12/25 19:35 Mastisol Liquid Adhesive) storax (From Mastisol Liquid AdvReac Intermediate Blister Verified 04/12/25 19:35 Adhesive) Sleep Meds AdvReac Mild Unknown Uncoded 04/12/25 19:35 Review of Systems Review of Systems: All systems reviewed & are unremarkable except as noted in HPI and below PMFSH Past Medical History Medical History Colon cancer screening Fibromyalgia Arthritis Allergies Asthma Ovarian torsion Anxiety Surgical History Surgical History H/O breast biopsy S/P dilation and curettage H/O tubal ligation H/O left knee surgery S/P left rotator cuff repair Family History Family History Other Alcoholism Asthma Depression Diabetes mellitus Heart disease Hypertension Malignant neoplasm of prostate Ovarian cancer Thyroid disorder Social History Social History Smoking packs per day: 1 Smoking cigarettes per day: 20.0 Years smoked: 30 Smoking pack-years: 30.00 Smoking status: Former smoker Tobacco type: cigarettes Alcohol intake: unknown Substance use: never Do You Feel Safe in your Home?: Yes Lack of Transportation: YES Lack of Food: Sometimes True Current Housing: I Have Housing Concerned About Future Housing: No Difficulty Paying Gas/Electric Bills: YES Difficulty Paying for Meds: YES Currently Unemployed: YES Education: Trade/Vocational Certificate Difficulty w/ Childcare or Family Care: No Spiritual care concerns: No Exam Const: General: healthy appearing and no acute distress Nutritional Appearance: well nourished Orientation/consciousness: patient oriented x3 HENMT: Head: normal to inspection Eyes: Conjunctivae: conjunctival abnormality Pupils: Equal, round and reactive pupils present Neck: Neck: normal visual inspection Chest: Chest palpation & inspection: normal inspection of the chest Resp: Effort & Inspection: normal respiratory effort Auscultation: clear to auscultation bilaterally Cardio: Rate: regular rate Rhythm: regular rhythm Skin: General skin exam: normal color Rashes: no rashes Wounds: no wounds Course Course Emergency Course: I was numb with tetracaine and irrigated and used a cotton swab to sweep the eye and no foreign object was elicited or visualized lower seen stain was applied and with bladder light no corneal abrasions were visualized. Vital Signs Vital signs: Vital Signs Temperature 35.9 C L 04/12/25 18:23 Pulse Rate 103 H 04/12/25 18:23 Respiratory Rate 18 04/12/25 18:23 Blood Pressure 131/77 04/12/25 18:23 Pulse Oximetry 96 04/12/25 18:23 Oxygen Delivery Room Air 04/12/25 18:23 Temperature 35.9 C L 04/12/25 18:23 Pulse Rate 103 H 04/12/25 18:23 Respiratory Rate 18 04/12/25 18:23 Blood Pressure 131/77 04/12/25 18:23 Pulse Oximetry 96 04/12/25 18:23 Oxygen Delivery Room Air 04/12/25 18:23 Critical Care Time Critical Care Time Critical Care Time: No Discharge Plan Discharge Clinical Impression: Foreign body Patient Disposition: Home Condition: Stable Instructions: Antibiotic Form, Eye Foreign Body (ED) Additional Instructions: advised patient to use Tylenol or Motrin as needed can use Claritin [id number] and to follow with primary care physician/ accredited pharmacy technician further evaluation treatment. Patient Language: Citizen Of [place] Prescriptions: No Action naltrexone 4.5 mg capsule 4.5 mg PO metoprolol succinate 50 mg tablet extended release 24 hr 50 mg PO gabapentin 600 mg tablet 600 mg PO midodrine 5 mg tablet 5 mg PO TID Qty: 90 2RF topiramate 100 mg tablet 100 mg PO BID famotidine [Pepcid] 20 mg tablet 20 mg PO DAILY sumatriptan succinate 25 mg tablet See Rx Instructions .ROUTE .COMPLEX PRN (Reason: Migraine Headache) Rx Instructions: 25 mg orally valacyclovir 500 mg tablet 500 mg PO HS tramadol 50 mg tablet See Rx Instructions .ROUTE .COMPLEX PRN (Reason: Pain) Rx Instructions: 50 mg orally albuterol sulfate 90 mcg/actuation HFA aerosol inhaler See Rx Instructions .ROUTE .COMPLEX PRN (Reason: asthma) Rx Instructions: 2 puffs every 4-6 hrs as needed fluticasone propion-salmeterol [Advair HFA] 230-21 mcg/actuation HFA aerosol inhaler 2 puff INHALATION BID Follow-up/Referrals: Natasha,Carito Carvalho, CABLE TOWER OPERATOR [Primary Care Provider] - Time of Disposition: 20:21
[2025-04-12 20:30] VITALS: BP 128/76; PULSE 94; RESP 16; O2SAT 100
== END 2025-04-12 20:30 | disposition home or self-care (01) ==
PROVIDERS: Emergency Provider Emergency Medicine; PCP Nurse Practitioner Family
DX: T15.92XA Foreign body on external eye, part unspecified, left eye, initial encounter (principal); Z87.891 Personal history of nicotine dependence; W44.9XXA Unspecified foreign body entering into or through a natural orifice, initial encounter
CPT/HCPCS: 99283; A9270

== ENCOUNTER 2025-05-15 13:32 | Outpatient (CLI) | payer OTHER, SELFPAY ==
--- NOTE | ~2025-05-15 | US_ITS ---
EXAMINATION: US thyroid DATE: 05/15/2025 13:53 INDICATION: Follow-up TECHNIQUE: Multiple ultrasound images of the thyroid were obtained. COMPARISON: 04/03/2024 FINDINGS: The right thyroid lobe measures 4.7 x 1.5 x 2.2 cm. Within the right lobe of the thyroid gland is a 9.6 x 9.7 x 5.7 mm nodule: Composition - spongiform Echogenicity -hyperechoic and isoechoic (1) Shape - wider than tall Margin - smooth Echogenic foci - none. = TR 1, benign The left thyroid lobe measures 4.7 x 1.4 x 2.0 cm. The isthmus measures 0.3cm in anterior to posterior dimension. There is otherwise normal echotexture and echogenicity throughout the remainder of the thyroid gland. No additional discrete nodules identified. Normal vascular flow is present. IMPRESSION: Stable benign nodule within the right lobe of the thyroid gland detailed above. While follow-up is not recommended, it may be performed (in 2 years). Reviewed, dictated and finalized at location A.
--- OUTSIDE RECORDS SUMMARY | 2025-05-15 14:09 | XMS_ITS ---
Author Organization Unknown Address [address] [place] [phone] Phone Care Team Providers Care Tax Economist Name Role Phone FRIDA BOSS Nahomi Attending Unavailable [employer]IAL SCIENCE INSTRUCTOR Primary Unavailable Social History Type Status Start Date End Date Code Code Syst em Smoking History Unknown if ever smoked [id number] Sex Female Hospital Discharge Instructions [...]
--- OUTSIDE RECORDS SUMMARY | 2025-05-15 14:10 | XMS_ITS | Encounter Summary ---
Author Organization [facility] Healthcare Address [address] [place] [address] Care Team Providers Care Environmental Services Worker Name Role Phone Pasquale Hanna MD Unavailable [phone] Michael Bolivar MD Unavailable [phone] Amol Chapin MD PhD Unavailable Darren Simmons DO Unavailable [phone] Derick Suarez MD Unavailable Miscellaneous, Not In File Primary Care Provider Unavailable Nyla Self NP Primary Care Provider [phone] Reason for Visit * Reason Onset Date Comments Pre-Procedure Instructions 02/14/2025 Encounter Details Date Type Department Care Team (Late st Contact Info) Description 02/14/2025 Telephone [facility] [address] [facility] [address] [place], [place] [id number] Jeri Brenner NP [address] [place] [address] Pre-Procedure Instructions Social History Tobacco Use Types Packs/Day Years Used Date Smoking Tobacco: Some Days Cigarettes 0.1 32.5 Started: 1992 Smokeless Tobacco: Never Comments:Cigarettes 1-3 [...] on file Legal Sex Female 7:40 AM [employer] Gender Identity Not on file Sexual Orientation Not on file documented as of this encounter Plan of Treatment Not on file documented as of this encounter Goals Goal Patient Goal Type Associated Problems Recent Progress Patient-Stated? Author CCM Chronic Pain Care Plan Chronic Care Management No change(04/25 3:00 PM CDT) No Blanca Johns RN Note: Problem: Chronic Pain Goals: 1. Minimize further functional decline 2. Maximize quality of life 3. Control pain Strategies: - Activity/exercise program recommendation - Conservative stepwise pain medicine strategy with multi-disciplinary approach - Recommend healthy lifestyle strategies and compensatory methods as needed documented as of this encounter Visit Diagnoses Not on filedocumented in this encounter Care Teams Environmental Services Worker Relationship Specialty Start Date End Date Miscellaneous, Not In File PCP - General 02/13/25 03/19/25 Nyla Self NP [address] [address] PCP - General Family Medicine 03/20/25 Pasquale Hanna MD [address] [address] Referring Physician Obstetrics and Gynecology 01/12/23 Michael Bolivar MD [address] [facility] [address] [facility] [address] [place] [address] Referring Physician Surgical Oncology 05/28/23 Amol Chapin MD PhD [address] [facility], [facility] [address] [place] [address] Medical Oncologist/Recruiting Internship Medical Oncology 05/28/23 Darren Simmons DO [address] [facility] [address] [place] [address] Referring Physician Internal Medicine 06/10/23 Derick Suarez MD [address] [place] [id number] Consulting Physician General Surgery 12/26/23 documented as of this encounter
--- OUTSIDE RECORDS SUMMARY | 2025-05-15 14:10 | XMS_ITS | Referral Summary ---
Author Organization [facility] Address [address] [place] [address] Care Team Providers Care Drinking Water Technician Name Role Phone Pasquale Hanna MD Unavailable Michael Bolivar MD Unavailable Amol Chapin MD PhD Unavailable Darren Simmons DO Unavailable [phone] Derick Suarez MD Unavailable [phone] Nyla Self NP Primary Care Provider [phone] Encounters Date Type Department Care Team Description 05/08/2025 Telephone [facility] [place] [address] [facility] [address] [place] [address] Lotus Esposito MD PhD medication issue 04/25/2025 2:47 PM CDT - 04/25/2025 11:59 PM CDT Hospital Encounter [facility] [place] [address] [facility] [address] [place] [address] Lotus Esposito MD PhD Neuropathic pain (Primary Dx) Discharge Disposition: Discharge to home or self care 04/13/2025 11:42 AM CDT - 04/13/2025 11:59 PM CDT Hospital Encounter [facility] [address] [facility] [address] [place] [address] Jeri Brenner NP Other polyneuropathy (Primary Dx) Discharge Disposition: Discharge to home or self care 04/10/2025 Telephone [facility] [place] [facility] [address] [facility] [address] [place] [address] Jeri Brenner NP PMC Preprocedure 03/23/2025 8:00 AM CDT Lab [facility] at [facility] [address] [place] [address] Elevated CA-125; Malignant neoplasm of central portion of left breast in female, estrogen receptor negative (HCC); Arthralgia, unspecified joint 03/23/2025 8:30 AM CDT Office Visit [facility] [address] [place] [address] [address] [place] [id number] Amol Chapin MD PhD Malignant neoplasm of central portion of left breast in female, estrogen receptor negative (HCC) (Primary Dx); Arthralgia, unspecified joint 03/05/2025 1:00 PM CDT Telemedicine [facility] [address] [place] [address] 14th [place] [address] Anayeli Claudio, PhD Trauma and stressor-related disorder (Primary Dx); Other chronic pain 02/28/2025 12:10 PM CDT - 02/28/2025 11:59 PM CDT Hospital Encounter [facility] [place] [facility] [address] [place] [address] Lotus Esposito MD PhD Other polyneuropathy (Primary Dx) Discharge Disposition: Discharge to home or self care 02/21/2025 Orders Only [facility] [place] [facility] [address] [place] [address] Lotus Esposito MD PhD Neuropathic pain (Primary Dx) 02/21/2025 Orders Only [facility] at the [facility] [address] [place] [address] Lotus Esposito MD PhD 02/20/2025 7:41 AM CDT - 02/20/2025 11:59 PM CDT Hospital Encounter [facility] [place] [facility] [address] [facility] [address] [place] [address] Jeri Brenner, DIRECTOR [employer] SALES Other polyneuropathy (Primary Dx) Discharge Disposition: Discharge to home or self care 02/14/2025 Telephone [facility] [place] [facility] [address] [place] [address] Jeri Brenner, FINA Pre-Procedure Instructions from Last 3 Months Allergies Active Allergy [...] 05/03/2021 Medications cholecalciferol (VITAMIN D-3) 2000 unit tabletIndication s:Prevention of Vitamin D Deficiency Take 1 tablet (2,000 Units total) by mouth every morning Active valACYclovir (VALTREX) 1 gram tabletIndication s:Prophylaxis, Medical Take 1 tablet (1,000 mg total) by mouth as needed (cold sores) As needed 2 twice a day for 5 days 01/22/20 23 Active diphenhydramine HCl (BENADRYL ALLERGY ORAL)Indications :allegy and immunotherapy Take 1 capsule by mouth as needed (allergies) Active famotidine (PEPCID) 20 mg tabletIndication s:Heartburn,stom ach trouble from recent antibiotics, and allergies Take 1 tablet (20 mg total) by mouth as needed for heartburn Twice a day Active turmeric root extract 500 mg capsuleIndicatio ns:for supplement Take 1 tablet by mouth every morning Active albuterol HFA (PROVENTIL HFA,VENTOLIN HFA,PROAIR HFA) 90 mcg/actuation inhalerIndicatio ns:Acute Asthma Attack Inhale 2 puffs as needed for wheezing or shortness of breath 06/11/20 23 Active Advair Diskus 250-50 mcg/dose diskus inhalerIndicatio ns:Maintenance Therapy for Asthma Inhale 1 puff 2 (two) times a day 07/06/20 23 Active traZODone (DESYREL) 50 mg tabletIndication s:insomnia associated with depression Take 25mg ( 1/2 tab) to 50mg ( 1 tab) po at HS 30 tablet 1 08/20/20 23 Active SUMAtriptan (IMITREX) 25 mg tablet 12/01/19 24 Active naloxone (NARCAN) 4 mg/actuation spray,non-aeroso l Administer 1 spray into affected nostril(s) as needed for opioid reversal or respiratory depression Call 911. Administer a single spray in one nostril. Repeat every 3 minutes as needed if no or minimal response. 1 each 12/02/19 24 Active ondansetron (ZOFRAN) 4 mg tablet Take 1 tablet (4 mg total) by mouth every 8 (eight) hours as needed for nausea or vomiting Active midodrine (PROAMATINE) 5 mg tablet Take 1 tablet (5 mg total) by mouth 3 (three) times a day 10 mornings 7.5 at noon 5 evenings 01/19/20 24 Active valACYclovir (VALTREX) 500 mg tablet Take 1 tablet (500 mg total) by mouth daily Active metoprolol XL (TOPROL-XL) 25 mg extended release tablet Take 1 tablet (25 mg total) by mouth daily 06/08/20 24 Active diphenoxylate-at ropine (LOMOTIL) 2.5-0.025 mg per tabletIndication s:diarrhea Take 1 tablet by mouth 4 (four) times a day as needed for diarrhea 30 tablet 2 08/07/20 24 Active gabapentin (NEURONTIN) 300 mg capsule Take 1 capsule (300 mg total) by mouth historic sites supervisor before breakfast AND 1 capsule (300 mg total) daily with lunch AND 2 capsules (600 mg total) nightly. 120 capsule 6 08/24/20 24 Active cyanocobalamin (Vitamin B-12) 100 mcg tabletIndication s:Prevention of Vitamin B12 Deficiency Take 1 tablet (100 mcg total) by mouth daily Unsure of specific dose Active metoprolol XL (TOPROL-XL) 50 mg extended release tablet 02/14/20 25 Active gabapentin (NEURONTIN) 600 mg tablet Take 1 tablet (600 mg total) by mouth 3 (three) times a day 12/22/19 25 Active topiramate (TOPAMAX) 100 mg tablet Take 1 tablet (100 mg total) by mouth 2 (two) times a day 12/22/19 25 Active traZODone (DESYREL) 100 mg tablet 12/12/19 25 Active Advair HFA 230-21 mcg/actuation inhaler TAKE 2 PUFFS BY MOUTH TWICE A DAY IN THE MORNING AND IN THE EVENING 04/12/20 25 Active naltrexone (LOW DOSE) 2.5 mg capsuleIndicatio ns:Neuropathic pain Take 1 capsule (2.5 mg total) by mouth 2 (two) times a day 60 capsule 04/25/20 25 2024 Active zonisamide (ZONEGRAN) 25 mg capsuleIndicatio ns:Partial Epilepsy Treatment Adjunct Take 1 capsule (25 mg total) by mouth daily 90 capsule 04/25/20 25 2024 Active naltrexone (LOW DOSE) 4.5 mg capsuleIndicatio ns:Neuropathic pain Take 1 capsule (4.5 mg total) by mouth 2 (two) times a day 60 capsule 02/22/20 25 2024 Discontinued Active Problems Problem Noted Date Diagnosed Date History of mastectomy, bilateral 12/12/2024 Peripheral neuropathy 12/06/2024 Cholecystitis 12/24/2023 Breast cancer in female 11/23/2023 Dehydration 10/26/2023 Encounter for management of implanted device 08/2023 Encounter for person encountering health service s 06/07/2023 Elevated tumor markers 06/07/2023 Malignant neoplasm of left female breast 023 Cancer Staging:Clinical stage from 06/07/2023:Stage IIA(cT1c, cN1, cM0, G3, ER-, OK-, HER2+) - Signed by Amol Chapin MD PhD on 06/18/2023 Mass of left breast 05/27/2023 Pelvic mass 02/03/2023 Overview (02/03/2023): Added automatically from request for surgery [id number] Adnexal mass 02/03/2023 Overview (04/07/2023): Presented to DATA WAREHOUSE MANAGER to progressive abdominal bloating and worsening [...] Date Smoking Tobacco: Some Days Cigarettes 0.3 32.5 Started: 1992 Smokeless Tobacco: Never Tobacco Cessation:Ready to Q uit: Not Asked; Counseling Given: Not Answered Comments:Cigarettes 0-5 a day AUDIT-C Answer Date Recorded Q1: How often do you have a drink containing alcohol? Never 04/25/2025 Q2: How many drinks containi ng alcohol do you have on a typical day when you are drinking? Patient does not drink Q3: How often do you have si x or more drinks on one occasion? Never 04/25/2025 Hunger Vital Sign Answer Date Recorded Within [...] on file Legal Sex Female 7:40 AM CELL PLASTERER Gender Identity Not on file Sexual Orientation Not on file Last Filed Vital Signs Vital Sign Reading Time Taken Comments Blood Pressure 134/61 04/25/2025 2:57 PM CDT Pulse 94 04/25/2025 2:57 PM CDT Temperature 36.4 C (97.5 F) 04/25/2025 2:57 PM CDT Respiratory Rate 14 04/25/2025 2:57 PM CDT Oxygen Saturation 98% 04/25/2025 2:57 PM CDT Inhaled Oxygen Concentration - - Weight 95.3 kg (210 lb) 04/25/2025 2:57 PM CDT Height 172.7 cm (5' 8) 04/25/2025 2:57 PM CDT Body Mass Index 31.93 04/25/2025 2:57 PM CDT Plan of Treatment Not on file [...] as needed Medical Devices Implanted Type Area Unit Secretary Device Identifier Shelf Expiration Date Model / Serial / Lot Bard Peripheral Vascular Marker Breast Ring Shape Radiopaque Nitinol Ultracor Twirl [id number] - [id number] Implanted:Qty: 1 on 06/07/2023 at [facility] Left: Axilla Bard Peripheral Vascular [id number] / / [employer] Marker Breast Biopsy Magseed L12 Cm Od18 Ga [id number] - [id number] Implanted:Qty: 1 on 11/23/2023 by Sharon Garcia MD at [facility] Left: Breast [employer] [id number] 06/28/2025 [id number] Explanted Type Area Unit Secretary Device Identifier Shelf Expiration Date Model / Serial / Lot Bard Peripheral Vascular Powerport Clearvue Airguard 8fr 1 Lumen Lightweight Intermediate Latex Free [id number] - [id number] Implanted:Qty: 1 on 06/04/2023 by Michael Bolivar MD at [facility] Explanted:Qty: 1 on 08/25/2024 by Michael Bolivar MD at [facility] Catheter Right: Chest Bard Peripheral Vascular 03/28/2024 [id number] / / [id number] Procedures Procedure Name Priority Date/Time Associated Diagnosis [...] estrogen receptor negative (HCC) Arthralgia, unspecified joint HEPATITIS PANEL, ACUTE STAT 3:39 PM CELL PLASTERER PAP AND HIGH RISK HPV, REFLEX TO GENOTYPING STAT 02/03/2023 3:24 PM CELL PLASTERER Adnexal mass from Last 3 Months or [...] was last reviewed 2021. Testing performed by: [facility], [address] [place] [address], [place]., [address] Blood 03/23/2025 7:56 AM CDT 03/23/2025 7:57 AM CDT us Amol Chapin MD PhD LAB BLOOD ORDERABLES Final Resul t KAYODE [address] [facility] Department of Laboratories [place], [place] [id number] * (ABNORMAL) Differential, auto (03/23/2025 7:56 AM CDT) Neutrophil abs 2.77 1.50 - 6.50 K/cumm Comment:Testing performed by : [address] [address] Imm gran abs 0.01 0.00 - 0.10 K/cumm KAYODE Comment:Testing performed by : [address] [address] Lymphocyte abs 3.51(H) 0.80 - 3.30 K/cumm KAYODE Comment:Testing performed by : [address] [address] Monocyte abs 0.55 0.20 - 0.80 K/cumm KAYODE Comment:Testing performed by : [address] [address] Eosinophil abs 0.16 0.00 - 0.50 K/cumm KAYODE Comment:Testing performed by : [address] [address] Basophil abs 0.02 0.00 - 0.10 K/cumm KAYODE Comment:Testing performed by : [address] [address] Neutrophil pct 39.5 % KAYODE Comment: Interpretive Data Percent cell count reference ranges are not reported, since discordance with absolute values may lead to misinterpretation of CBC data. Current Interpretive Data was last revised on 2018. Testing performed by: [address] [address] Imm gran pct 0.1 % KAYODE Comment: Interpretive Data Percent cell count reference ranges are not reported, since discordance with absolute values may lead to misinterpretation of CBC data. Current Interpretive Data was last revised on 2018. Testing performed by: [address] [address] Lymphocyte pct 50.0 % KAYODE Comment: Interpretive Data Percent cell count reference ranges are not reported, since discordance with absolute values may lead to misinterpretation of CBC data. Current Interpretive Data was last revised on 2018. Testing performed by: [address] [address] Monocyte pct 7.8 % KAYODE Comment: Interpretive Data Percent cell count reference ranges are not reported, since discordance with absolute values may lead to misinterpretation of CBC data. Current Interpretive Data was last revised on 2018. Testing performed by: [address] [address] Eosinophil pct 2.3 % KAYODE Comment: Interpretive Data Percent cell count reference ranges are not reported, since discordance with absolute values may lead to misinterpretation of CBC data. Current Interpretive Data was last revised on 2018. Testing performed by: [address] [address] Basophil pct 0.3 % KAYODE Comment: Interpretive Data Percent cell count reference ranges are not reported, since discordance with absolute values may lead to misinterpretation of CBC data. Current Interpretive Data was last revised on 2018. Testing performed by: [address] [address] Blood 03/23/2025 7:56 AM CDT 03/23/2025 7:57 AM CDT us Amol Chapin MD PhD LAB BLOOD ORDERABLES Final Resul t KAYODE [address] [facility] Department of Laboratories [place], [place] [id number] * CBC with auto differential (03/23/2025 7:56 AM CDT) WBC 7.02 3.80 - 9.90 K/cumm Comment:Testing performed by : [address] [address] Hgb 13.5 11.9 - 15.5 g/dL KAYODE KATZ Comment:Testing performed by : [address] [address] Hct 38.7 35.6 - 45.5 % KAYODE Comment:Testing performed by : [address] [address] Plt 263 150 - 400 K/cumm KAYODE Comment:Testing performed by : [address] [address] MPV 10.1 9.1 - 12.3 fL KAYODE Comment:Testing performed by : [address] [address] RBC 4.16 3.90 - 5.20 M/cumm KAYODE Comment:Testing performed by : [address], [address] MCV 93.0 81.3 - 96.4 fL KAYODE Comment:Testing performed by : [address] [address] MCH 32.5 27.1 - 33.3 pg KAYODE Comment:Testing performed by : [address] [address] MCHC 34.9 32.3 - 35.7 g/dL KAYODE Comment:Testing performed by : [address], [address] RDW CV 12.5 11.1 - 14.9 % KAYODE Comment:Testing performed by : [address] [address] RDW SD 42.5 35.7 - 48.1 fL KAYODE Comment:Testing performed by : [address] [address] NRBC abs 0.00 0.00 - 0.01 K/cumm KAYODE Comment:Testing performed by : [address] [address] ANC Prelim 2.77 1.50 - 6.50 K/cumm KAYODE Comment: Interpretive Data The rapid ANC is a preliminary automated count and may vary from the final ANC (Neut Abs) reported in the WBC differential that follows. Current interpretive data was last revised 2025. Testing performed by: [address] [address] Blood 03/23/2025 7:56 AM CDT 03/23/2025 7:57 AM CDT us Amol Chapin MD PhD LAB BLOOD ORDERABLES Final Resul t Performing Organization Address [facility] de Phone Number KAYODE [address] [address] * [place] 125 (03/23/2025 7:56 AM CDT) Pathologist [facility] CA 125 ag 11.4 0.0 - 38.1 units/mL Comment: Interpretive Data The [employer] CA 125 assay procedure was used. Results from different manufacturers or methods may not be comparable. Serial testing should be performed using the same method. Testing performed by: [address] [address] Blood 03/23/2025 7:56 AM CDT 03/23/2025 9:38 AM CDT us Amol Chapin MD PhD LAB BLOOD ORDERABLES Final Resul t Performing Organization Address [facility] de Phone Number [address] [address] * Comprehensive metabolic panel (03/23/2025 7:56 AM CDT) Pathologist [facility] Sodium 144 135 - 145 mmol/L Comment:Testing performed by : [address] [address] Potassium, pl 4.2 3.3 - 4.9 mmol/L KAYODE Comment:Testing performed by : [address] [address] Chloride 106 97 - 110 mmol/L KAYODE Comment:Testing performed by : [address] [address] CO2 28 22 - 32 mmol/L KAYODE Comment:Testing performed by : [address] [address] Anion gap 10 2 - 15 mmol/L KAYODE Comment:Testing performed by : [address] [address] BUN 8 6 - 25 mg/dL KAYODE Comment:Testing performed by : [address] [address] Creatinine 0.80 0.60 - 1.10 mg/dL KAYDOE Comment:Testing performed by : [address] [address] Glucose 82 70 - 199 mg/dL KAYODE [...] was last revised 2022. Testing performed by: [address] [address] Calcium 9.3 8.5 - 10.3 mg/dL KAYODE Comment:Testing performed by : [address] [address] Bilirubin, total <0.2 0.1 - 1.2 mg/dL KAYODE Comment:Testing performed by : [address] [address] Protein, pl 6.6 6.5 - 8.5 g/dL KAYODE Comment:Testing performed by : [address] [address] Albumin 4.4 3.5 - 5.0 g/dL KAYODE Comment:Testing performed by : [address] [address] Alk phos 61 40 - 130 Units/L KAYODE Comment:Testing performed by : [address] [address] ALT 12 7 - 45 Units/L KAYODE Comment:Testing performed by : [address] [address] AST 16 10 - 45 Units/L KAYODE Comment:Testing performed by : [address] [address] Blood 03/23/2025 7:56 AM CDT 03/23/2025 7:57 AM CDT Amol Chapin MD PhD LAB BLOOD ORDERABLES Final Resul t Performing Organization Address [facility] de Phone Number [address] [place] [address] * Erythrocyte sedimentation rate (03/23/2025 7:53 AM CDT) Pathologist [facility] Erythrocyte sedimentation rate 8 1 - 30 mm/hr Comment:Testing performed by : [address] [address] Blood 03/23/2025 7:53 AM CDT 03/23/2025 11:35 AM CDT Amol Chapin MD PhD LAB BLOOD ORDERABLES Final Resul t Performing Organization Address [facility] de Phone Number [address] [place] [address] * CRP (cardiac risk) (03/23/2025 7:53 AM CDT) Pathologist [facility] hsCRP 0.80 mg/L Comment: Interpretive data Adult [...] revised on 2018. Testing performed by: [address], [place]., [address] Blood 03/23/2025 7:53 AM CDT 03/23/2025 9:35 AM CDT us Amol Chapin MD PhD LAB BLOOD ORDERABLES Final Resul t KAYODE [address] [facility] [place] [address] * Hepatitis panel, acute Blood (12/24/2023 3:39 PM CELL PLASTERER) Hep A IgM Nonreactive Nonreactive [facility] Comment: Interpretive Data: If Hep A IgM Ab is reported as Equivocal, a new sample should be drawn in two weeks for testing. Current interpretive data was last revised on 20. Hep B core IgM Nonreactive Nonreactive [facility] Comment: Interpretive Data If HepB Core IgM Ab is reported as Equivocal, a new sample should be drawn in two weeks for testing. Current interpretive data was last revised on 20. Hep C Ab Nonreactive Nonreactive [facility] Comment: Antibodies to HCV not detected. [...] last revised on 2020. HepBsAg Nonreactive Nonreactive [facility] Blood 12/24/2023 3:39 PM CELL PLASTERER 12/24/2023 6:36 PM CELL PLASTERER us Javier Kebede DO LAB MICROBIOLOGY - GENERAL ORDERABLES Final Result KAYODE [address] [facility] [place] [address] * Pap and High Risk HPV, reflex to Genotyping (02/03/2023 3:24 PM CELL PLASTERER) Thin prep (Pap test) 02/03/2023 3:24 PM CELL PLASTERER 02/03/2023 4:31 PM CELL PLASTERER Narrative PATHOLOGY [facility] - 02/12/2023 7:59 AM CDT EPIC results best viewed via link to PDF [facility] Brandi Ochoa [facility] [place] [address] Note to Patients: This report may contain [...] Gender: F : 1975 (Age: 47) Address: [address] [place] [address] Hospital #: [id number] Service: Gynecology Location: Patient Type: [facility] SPECIMEN Taken: 02/03/2023 Received: 02/03/2023 Accessioned: [...] 68. This HPV test was performed at [facility] in [place], [place] utilizing the Gen-Probe Aptima assay. [facility]/02/12/2023 07:59 DESHAWN Martinez(ASCP) Report Electronically Reviewed [...] information and biopsy results as indicated. [facility] Clinical Laboratory Improvement Amendments (CLIA) mandate that cytologic and histologic results be correlated for laboratory software quality analyst & improvement standards. FOR ALL HIGH-GRADE [...] screening. The HPV test was performed by [facility], [address] [place] [address]. Report Images and scanned documents, if included only viewable in PDF version The performance characteristics of some immunohistochemical stains, in-situ hybridization and fluorescence in-situ hybridization tests and immunophenotyping by flow cytometry cited in this report (if any) were determined by the Surgical Pathology Department at [facility] as part of an ongoing water quality manager program and in compliance with federally mandated [...] the Surgical Pathology Department of [facility]. It has not been cleared or approved by the U. S. Food and Drug Administration. Khoa Rod MD LAB CYTOLOGY ORDERABL ES Final Result PATHOLOGY [facility] 3rd Floor [place], [place] [phone] from Last 3 Months or Most Recently Relevant to Health Maintenance Insurance [facility] Advance Directives For more information, please contact: [phone] Documents on File Type Date Recorded Patient Medical Fee Clerk Expl anation ADVANCE DIRECTIVE 12/25/2023 1:15 PM Power of Sleeve Wheel Maker-Medical * Full Code (Latest Code Status on File) Date Activated Date Inactivated Comments 12/24/2023 11:03 PM 12/26/2023 5:28 PM * Full Code Date Activated Date Inactivated Comments 11/23/2023 6:38 PM 11/24/2023 2:32 PM Care Teams Drinking Water Technician Relationship Specialty Start Date End Date Nyla Self NP [address] [facility] 3 [place] [address] PCP - General Family Medicine 03/20/25 Pasquale Hanna MD [address] [facility] [address] [facility] [address] [place] [address] Referring Physician Obstetrics and Gynecology 01/12/23 Michael Bolivar MD [address] [facility] [address] [facility] [address] [place] [address] Referring Physician Surgical Oncology 05/28/23 [place] PhD [address] [place] [address] MEDICAL ONCOLOGY, [facility] [address], [address] [place] [address] Medical Oncologist/[facility] [employer] Medical Oncology 05/28/23 Darren Simmons DO [address] [facility] 162 [facility] 202 [place] [address] Referring Physician Internal Medicine 06/10/23 Derick Suarez MD [facility] [address] [address] Consulting Physician General Surgery 12/26/23
--- OUTSIDE RECORDS SUMMARY | 2025-05-15 14:10 | XMS_ITS ---
Author Organization [facility] Address [address] [place] [address] Care Team Providers Care Manager Implementation Name Role Phone Pasquale Hanna MD Unavailable Michael Bolivar MD Unavailable [phone] Amol Chapin MD PhD Unavailable Darren Simmons DO Unavailable Derick Suarez MD Unavailable Nyla Self NP Primary Care Provider [phone] Active Problems Problem Noted Date Diagnosed Date History of mastectomy, bilateral 12/12/2024 Peripheral neuropathy 12/06/2024 Cholecystitis 12/24/2023 Breast cancer in female 11/23/2023 Dehydration 10/26/2023 Encounter for management of implanted device 08/2023 Encounter for person encountering health service s 06/07/2023 Elevated tumor markers 06/07/2023 Malignant neoplasm of left female breast 023 Cancer Staging:Clinical stage from 06/07/2023:Stage IIA(cT1c, cN1, cM0, G3, ER-, CO-, HER2+) - Signed by Amol Chapin MD PhD on 06/18/2023 Mass of left breast 05/27/2023 Pelvic mass 02/03/2023 Overview (02/03/2023): Added automatically from request for surgery [id number] Adnexal mass 02/03/2023 Overview (04/07/2023): Presented to BOWLING ALLEY ATTENDANT to progressive abdominal bloating and worsening pelvic [...]
--- OUTSIDE RECORDS SUMMARY | 2025-05-15 14:10 | XMS_ITS ---
Author Organization Unknown Address [address] [place] [phone] Phone Care Team Providers Care Net Programmer Analyst Name Role Phone FRIDA BOSS Nahomi Attending Unavailable ZHANG GREEN FOAM RUBBER MIXER Primary Unavailable Social History Type Status Start Date End Date Code Code Syst em Smoking History Unknown if ever smoked [id number] Sex Female Hospital Discharge Instructions [...]
--- OUTSIDE RECORDS SUMMARY | 2025-05-15 14:10 | XMS_ITS | Clinical Summary ---
Author Organization [facility] Address [address] [place] [address] Care Team Providers Care Adjunct Professor Name Role Phone Nyla Self NP Primary Care Provider [phone] Allergies Active Allergy Reactions Criticality Noted Date [...] on file Legal Sex Female 5:43 PM IMAGE CONSULTANT Gender Identity Not on file Sexual Orientation [...] 8:56 PM CDT Height 175.3 cm (5' 9) 05/03/2021 8:56 PM CDT Body Mass Index [...] complete this topic Insurance MEDICAID Care Teams Adjunct Professor Relationship Specialty Start Date End Date Nyla Self NP [address] [phone] PCP - General Nurse Practitioner Family 05/03/21
--- OUTSIDE RECORDS SUMMARY | 2025-05-15 14:10 | XMS_ITS | Clinical Summary ---
Author Organization [facility] Address [address] [place] [address] Care Team Providers Care Lead Housekeeper Name Role Phone Pasquale Hanna MD Unavailable Michael Bolivar MD Unavailable Amol Chapin MD PhD Unavailable Darren Simmons DO Unavailable [phone] Derick Suarez MD Unavailable Nyla Self NP Primary Care Provider [phone] Allergies Active Allergy Reactions Criticality Noted Date [...] 1 capsule (300 mg total) by mouth restaurant host before breakfast AND 1 capsule (300 mg [...] from 06/07/2023:Stage IIA(cT1c, cN1, cM0, G3, ER-, HI-, HER2+) - Signed by Amol Chapin MD PhD on 06/18/2023 Mass of left breast 05/27/2023 Pelvic mass 02/03/2023 Overview (02/03/2023): Added automatically from request for surgery [id number] Adnexal mass 02/03/2023 Overview (04/07/2023): Presented to DRESS SHOE INSPECTOR to progressive abdominal bloating and worsening pelvic [...] smear collected. 03/02/23: TLH/BSO. Pathology benign (fibroids). 5/10/23: Doing well-postoperatively, cuff healing well. Advised additional 4 weeks of pelvic rest. Discussed Inivtae results (negative for BRCA mutation, VUS in APC). PLAN: - Additional 4 weeks of pelvic rest - Follow up with general gynecology Encounters Date Type Department Care Team Description 05/08/2025 Telephone [facility] Pain Center at the [facility] Advanced Medicine [address] [place] [address] Advanced Medicine [address] [place] [address] Lotus Esposito MD PhD medication issue 04/25/2025 2:47 PM CDT - 04/25/2025 11:59 PM CDT Hospital Encounter [facility] Pain Center at the [address] Advanced [facility] [address] [place] [address] Lotus Esposito MD PhD Neuropathic pain (Primary Dx) Discharge Disposition: Discharge to home or self care 04/13/2025 11:42 AM CDT - 04/13/2025 11:59 PM CDT Hospital Encounter [facility] Pain Center at the [facility] Advanced Medicine [address] [place] [address] Advanced Medicine [address] [place] [address] Jeri Brenner NP Other polyneuropathy (Primary Dx) Discharge Disposition: Discharge to home or self care 04/10/2025 Telephone [facility] at the [facility] Advanced Medicine [address] [place] [address] [address] [place] [address] Jeri Brenner NP PMC Preprocedure 03/23/2025 8:30 AM CDT Office Visit [facility] Physicians [facility] Oncology [address] [place] [address] [place] [phone] Amol Chapin MD PhD Malignant neoplasm of central portion of left breast in female, estrogen receptor negative (HCC) (Primary Dx); Arthralgia, unspecified joint 03/23/2025 8:00 AM CDT Lab [facility] Cancer Center at [address] [address] Elevated CA-125; Malignant neoplasm of central portion of left breast in female, estrogen receptor negative (HCC); Arthralgia, unspecified joint 03/05/2025 1:00 PM CDT Telemedicine [facility] Pain Management [address] [place] [address] 14th [place] [address] [place] [address] Anayeli Claudio, PhD Trauma and stressor-related disorder (Primary Dx); Other chronic pain 02/28/2025 12:10 PM CDT - 02/28/2025 11:59 PM CDT Hospital Encounter [facility] at the [facility] Advanced Medicine [address] [place] [address] Advanced Medicine [address] [place] [address] Lotus Esposito MD PhD Other polyneuropathy (Primary Dx) Discharge Disposition: Discharge to home or self care 02/21/2025 Orders Only [facility] Pain Center at the [address] Medicine [address] [place] [address] Lotus Esposito MD PhD Neuropathic pain (Primary Dx) 02/21/2025 Orders Only [facility] at the [facility] Advanced Medicine [address] [place] [address] Advanced Medicine [address] [place] [address] Lotus Esposito MD PhD 02/20/2025 7:41 AM CDT - 02/20/2025 11:59 PM CDT Hospital Encounter [facility] Pain Center at the [facility] Medicine [address] [place] [address] Advanced Medicine [address] [place] [address] Jeri Brenner NP Other polyneuropathy (Primary Dx) Discharge Disposition: Discharge to home or self care 02/14/2025 Telephone [facility] Center at the [facility] Advanced Medicine [address] [place] [address] Medicine [address] [place] [address] Jeri Brenner NP Pre-Procedure Instructions from Last 3 Months Surgical History Surgery [...] tubal removal from masteectomy surgery CATARACT EXTRACTION 2024 Left CHOLECYSTECTOMY 2023 BREAST SURGERY 2023 HYSTERECTOMY 2022 Medical History Medical History Date Comments Asthma 1975 Fibromyalgia Arthritis 2007 Endometriosis PONV (postoperative nausea and vomiting) Scopolamine patch successful Awareness under anesthesia shoul rochelle, knee FHx: chemotherapy 10/01/2023 GERD (gastroesophageal reflux disease) 04/20 Migraines 2022 Thyroid disease 2020 Cancer (HCC) 04/20 Anxiety 1988 Depression 1988 Cataract 2023 Rheumatic fever 1979 Brain concussion Multiple Menstrual problem 1985 Family History Medical History Relation Name Comments Allergy (severe) Daughter Maria Esther Asthma Daughter Maria Esther Alcohol abuse Father Nilesh Arthritis Father Nilesh Early Maternal Grandfather Babe Heart attack Maternal Grandfather Babe Heart disease Maternal Grandfather Babe Hypertension Maternal Grandfather Babe Obesity Maternal Grandfather Babe Anesthesia problems Maternal Grandmother Deysi awareness under anesthesia Arthritis Maternal Grandmother Deysi Breast cancer Maternal Grandmother Deysi Cancer Maternal Grandmother Deysi Hyperlipidemia Maternal Grandmother Deysi Allergy (severe) Mother Su Arthritis Mother Su Asthma Mother Su Breast cancer Mother Su Depression Mother Su Diabetes Mother Su Endometriosis Mother Su Heart disease Mother Su Hyperlipidemia Mother Su Hypertension Mother Su Kidney disease Mother Su Miscarriages / Stillbirths Mother Su Obesity Mother Su Stroke Mother Su Cancer Other 1 Aunts Endometriosis Other 1 Aunts Breast cancer Other 2 parternal aunt Diabetes Other 3 Maternal grandpa Breast cancer Paternal Grandmother Ovarian cancer Paternal Grandmother Anemia Sister Reji Anesthesia problems Sister Reji awarenes s under anesthesia Arthritis Sister Reji Breast cancer Sister Reji Hyperlipidemia Sister Reji Hypertension Sister Reji Malig Hyperthermia Neg Hx Pseudochol deficiency Neg Hx Relation Name Status Comments Daughter Maria Esther Alive Father Nilesh Alive Maternal Grandfather Babe Maternal Grandmother Deysi Mother Su Other 1 Aunts Alive Other 2 parternal aunt Other 3 Maternal grandpa Paternal Grandmother Sister Reji Social History Tobacco Use Types Packs/Day Years [...] on file Legal Sex Female 7:40 AM SPECIMEN COLLECTOR Gender Identity Not on file Sexual Orientation [...] 04/25/2025 2:57 PM CDT Plan of Treatment Health Maintenance [...] as needed Medical Devices Implanted Type Area Machine Feeder Raw Stock Device Identifier Shelf Expiration Date Model / Serial / Lot Bard Peripheral Vascular Marker Breast Ring Shape Radiopaque Nitinol Ultracor Twirl [id number] - [id number] Implanted:Qty: 1 on 06/07/2023 at [facility] Left: Axilla Bard Peripheral Vascular [id number] / / [employer] Marker Breast Biopsy Magseed L12 Cm Od18 Ga [id number] - [id number] Implanted:Qty: 1 on 11/23/2023 by Sharon Garcia MD at [facility] Left: Breast [employer] [id number] 06/28/2025 [id number] Explanted Type Area Machine Feeder Raw Stock Device Identifier Shelf Expiration Date Model / Serial / Lot Bard Peripheral Vascular Powerport Clearvue Airguard 8fr 1 Lumen Lightweight Intermediate Latex Free [id number] - [id number] Implanted:Qty: 1 on 06/04/2023 by Michael Bolivar MD at [facility] Explanted:Qty: 1 on 08/25/2024 by Michael Bolivar MD at [facility] Catheter Right: Chest Bard Peripheral Vascular 03/28/2024 [id number] / / [id number] Procedures Procedure Name Priority Date/Time Associated Diagnosis [...] Arthralgia, unspecified joint HEPATITIS PANEL, ACUTE STAT 4 3:39 PM SPECIMEN COLLECTOR PAP AND HIGH RISK HPV, REFLEX TO GENOTYPING STAT 02/03/2023 3:24 PM SPECIMEN COLLECTOR Adnexal mass from Last 3 Months or [...] was last reviewed 2021. Testing performed by: [address] [address] Blood 03/23/2025 7:56 AM CDT 03/23/2025 7:57 AM CDT us Amol Chapin MD PhD LAB BLOOD ORDERABLES Final Resul t [facility] [address] [facility] [place] [address] * (ABNORMAL) Differential, auto (03/23/2025 7:56 AM CDT) Neutrophil abs 2.77 1.50 - 6.50 K/cumm Comment:Testing performed by : [address] [address] Imm gran abs 0.01 0.00 - 0.10 K/cumm KAYODE Comment:Testing performed by : [address] [address] Lymphocyte abs 3.51(H) 0.80 - 3.30 K/cumm KAYODE Comment:Testing performed by : [address] [address] Monocyte abs 0.55 0.20 - 0.80 K/cumm KAYODE Comment:Testing performed by : [address] [address] Eosinophil abs 0.16 0.00 - 0.50 K/cumm KAYODE Comment:Testing performed by : [address] [address] Basophil abs 0.02 0.00 - 0.10 K/cumm KAYODE Comment:Testing performed by : [address] [address] Neutrophil pct 39.5 % [facility] Comment: Interpretive Data Percent cell count reference ranges are not reported, since discordance with absolute values may lead to misinterpretation of CBC data. Current Interpretive Data was last revised on 2018. Testing performed by: [address] [address] Imm gran pct 0.1 % [facility] Comment: Interpretive Data Percent cell count reference ranges are not reported, since discordance with absolute values may lead to misinterpretation of CBC data. Current Interpretive Data was last revised on 2018. Testing performed by: [address] [address] Lymphocyte pct 50.0 % [facility] Comment: Interpretive Data Percent cell count reference ranges are not reported, since discordance with absolute values may lead to misinterpretation of CBC data. Current Interpretive Data was last revised on 2018. Testing performed by: [address] [address] Monocyte pct 7.8 % [facility] Comment: Interpretive Data Percent cell count reference ranges are not reported, since discordance with absolute values may lead to misinterpretation of CBC data. Current Interpretive Data was last revised on 2018. Testing performed by: [address] [address] Eosinophil pct 2.3 % [facility] Comment: Interpretive Data Percent cell count reference ranges are not reported, since discordance with absolute values may lead to misinterpretation of CBC data. Current Interpretive Data was last revised on 2018. Testing performed by: [address] [address] Basophil pct 0.3 % [facility] Comment: Interpretive Data Percent cell count reference ranges are not reported, since discordance with absolute values may lead to misinterpretation of CBC data. Current Interpretive Data was last revised on 2018. Testing performed by: [address] [address] Blood 03/23/2025 7:56 AM CDT 03/23/2025 7:57 AM CDT us Amol Chapin MD PhD LAB BLOOD ORDERABLES Final Resul t KAYODE [address] [facility] [place] [address] * CBC with auto differential (03/23/2025 7:56 AM CDT) WBC 7.02 3.80 - 9.90 K/cumm Comment:Testing performed by : [address] [address] Hgb 13.5 11.9 - 15.5 g/dL KAYODE Comment:Testing performed by : [address] [address] Hct 38.7 35.6 - 45.5 % KAYODE Comment:Testing performed by : [address] [address] Plt 263 150 - 400 K/cumm KAYODE Comment:Testing performed by : [address] [address] MPV 10.1 9.1 - 12.3 fL KAYODE Comment:Testing performed by : [address] [address] RBC 4.16 3.90 - 5.20 M/cumm KAYODE Comment:Testing performed by : [address] [address] MCV 93.0 81.3 - 96.4 fL KAYODE Comment:Testing performed by : [address] [address] MCH 32.5 27.1 - 33.3 pg KAYODE KATZ Comment:Testing performed by : [address] [address] MCHC 34.9 32.3 - 35.7 g/dL KAYODE Comment:Testing performed by : [address] [address] RDW CV 12.5 11.1 - 14.9 % KAYODE Comment:Testing performed by : [address] [address] RDW SD 42.5 35.7 - 48.1 fL KAYODE Comment:Testing performed by : [address] [address] NRBC abs 0.00 0.00 - 0.01 K/cumm KAYODE Comment:Testing performed by : [address] [address] ANC Prelim 2.77 1.50 - 6.50 K/cumm KAYODE Comment: Interpretive Data The rapid ANC is a preliminary automated count and may vary from the final ANC (Neut Abs) reported in the WBC differential that follows. Current interpretive data was last revised 2025. Testing performed by: [address] [address] Blood 03/23/2025 7:56 AM CDT 03/23/2025 7:57 AM CDT us Amol Chapin MD PhD LAB BLOOD ORDERABLES Final Resul t Performing Organization Address [facility] de Phone Number [facility] [address] [place] [address] [employer] [place], [place] [id number] * CA 125 (03/23/2025 7:56 AM CDT) CA 125 ag 11.4 0.0 - 38.1 units/mL Comment: Interpretive Data The Genia CA 125 assay procedure was used. Results from different manufacturers or methods may not be comparable. Serial testing should be performed using the same method. Testing performed by: [address] [address] Blood 03/23/2025 7:56 AM CDT 03/23/2025 9:38 AM CDT us Amol Chapin MD PhD LAB BLOOD ORDERABLES Final Resul t Performing Organization Address [facility] de Phone Number [facility] [address] [facility] [place] [address] * Comprehensive metabolic panel (03/23/2025 7:56 AM CDT) Sodium 144 135 - 145 mmol/L Comment:Testing performed by : [address] [address] Potassium, pl 4.2 3.3 - 4.9 mmol/L KAYODE Comment:Testing performed by : [address] [address] Chloride 106 97 - 110 mmol/L KAYODE Comment:Testing performed by : [address], [place]., [address] CO2 28 22 - 32 mmol/L KAYODE Comment:Testing performed by : [address] [address] Anion gap 10 2 - 15 mmol/L KAYODE Comment:Testing performed by : [address] [address] BUN 8 6 - 25 mg/dL KAYODE Comment:Testing performed by : [address] [address] Creatinine 0.80 0.60 - 1.10 mg/dL KAOYDE Comment:Testing performed by : [address] [address] Glucose 82 70 - 199 mg/dL KAYODE [...] was last revised 2022. Testing performed by: [address] [address] Calcium 9.3 8.5 - 10.3 mg/dL KAYODE Comment:Testing performed by : [address] [address] Bilirubin, total <0.2 0.1 - 1.2 mg/dL KAYODE Comment:Testing performed by : [address] [address] Protein, pl 6.6 6.5 - 8.5 g/dL KAYODE Comment:Testing performed by : [address] [address] Albumin 4.4 3.5 - 5.0 g/dL KAYODE Comment:Testing performed by : [address] [address] Alk phos 61 40 - 130 Units/L KAYODE Comment:Testing performed by : [address] [address] ALT 12 7 - 45 Units/L KAYODE Comment:Testing performed by : [address], [address] AST 16 10 - 45 Units/L KAYODE Comment:Testing performed by : [address], [address] Blood 03/23/2025 7:56 AM CDT 03/23/2025 7:57 AM CDT us Amol Chapin MD PhD LAB BLOOD ORDERABLES Final Resul t Performing Organization Address [facility] Co de Phone Number [address] [place] [address] * Erythrocyte sedimentation rate (03/23/2025 7:53 AM CDT) Erythrocyte sedimentation rate 8 1 - 30 mm/hr Comment:Testing performed by : [address] [address] Blood 03/23/2025 7:53 AM CDT 03/23/2025 11:35 AM CDT us Amol Chapin MD PhD LAB BLOOD ORDERABLES Final Resul t [address] [place] [address] * CRP (cardiac risk) (03/23/2025 7:53 AM CDT) Pathologist [facility] hsCRP 0.80 mg/L Comment: Interpretive data Adult [...] last revised on 2018. Testing performed by: [facility], [address] [place] [address]., [address] Blood 03/23/2025 7:53 AM CDT 03/23/2025 9:35 AM CDT us Amol Chapin MD PhD LAB BLOOD ORDERABLES Final Resul t KAYODE [address] [facility] [place] [address] * Hepatitis panel, acute Blood (12/24/2023 3:39 PM SPECIMEN COLLECTOR) [facility] Hep A IgM Nonreactive Nonreactive [facility] Comment: Interpretive Data: If Hep A IgM Ab is reported as Equivocal, a new sample should be drawn in two weeks for testing. Current interpretive data was last revised on 20. Hep B core IgM Nonreactive Nonreactive [facility] Comment: Interpretive Data If HepB Core [...] Nonreactive Nonreactive KAYODE Blood 12/24/2023 3:39 PM SPECIMEN COLLECTOR 12/24/2023 6:36 PM SPECIMEN COLLECTOR us Javier Kebede DO LAB MICROBIOLOGY - GENERAL ORDERABLES Final Result KAYODE [address] [facility] [place] [address] * Pap and High Risk HPV, reflex to Genotyping (02/03/2023 3:24 PM SPECIMEN COLLECTOR) Thin prep (Pap test) 02/03/2023 3:24 PM SPECIMEN COLLECTOR 02/03/2023 4:31 PM SPECIMEN COLLECTOR Narrative PATHOLOGY [facility] - 02/12/2023 7:59 AM CDT EPIC results best viewed via link to PDF [facility]i [facility]cho[facility] [place] [address] Note to Patients: This report may contain [...] Gender: F : 1975 (Age: 47) Address: [address] [place] [address] Hospital #: [id number] Service: Gynecology Location: Patient Type: [facility] SPECIMEN Taken: 02/03/2023 Received: 02/03/2023 Accessioned: [...] 68. This HPV test was performed at in [place], [place] utilizing the Gen-Probe Aptima assay. [facility]/02/12/2023 07:59 DESHAWN Martinez(ASCP) Report Electronically Reviewed [...] clinical information and biopsy results as indicated. [facility] Clinical Laboratory Improvement Amendments (CLIA) mandate that cytologic and histologic results be correlated for laboratory quality control chemist & improvement standards. FOR ALL HIGH-GRADE CASES [...] screening. The HPV test was performed by , [address] [place] [address]. Report Images and scanned documents, if included only viewable in PDF version The performance characteristics of some immunohistochemical stains, in-situ hybridization and fluorescence in-situ hybridization tests and immunophenotyping by flow cytometry cited in this report (if any) were determined by the Surgical Pathology Department at [facility] as part of an ongoing quality control chemist program and in compliance with federally mandated regulations drawn from the Clinical Laboratory Improvement Act of 1988 (CLIA '). Some of these tests rely on the [...] determined by the Surgical Pathology Department of [facility]. It has not been cleared or approved by the U. S. Food and Drug Administration. Khoa Rod MD LAB CYTOLOGY ORDERABL ES Final Result PATHOLOGY [address] [phone] from Last 3 Months or Most Recently Relevant to Health Maintenance Insurance [facility] Advance Directives For more information, please contact: [phone] Documents on File Type Date Recorded Patient Lubrication Equipment Servicer Expl anation ADVANCE DIRECTIVE 12/25/2023 1:15 PM Power of Can [employer] * Full Code (Latest Code Status on File) Date Activated Date Inactivated Comments 12/24/2023 11:03 PM 12/26/2023 5:28 PM * Full Code Date Activated Date Inactivated Comments 11/23/2023 6:38 PM 11/24/2023 2:32 PM Care Teams Lead Housekeeper Relationship Specialty Start Date End Date Nyla Self NP [address] [address] PCP - General Family Medicine 03/20/25 Pasquale Hanna MD [address] [address] Referring Physician Obstetrics and Gynecology 01/12/23 Michael Bolivar MD [address] [place] [address] Referring Physician Surgical Oncology 05/28/23 Amol Chapin MD PhD [address] [facility], [facility] [address] [place] [address] Medical Oncologist/Decal Maker Medical Oncology 05/28/23 Darren Simmons DO [address] [facility] [address] [place] [address] Referring Physician Internal Medicine 06/10/23 Derick Suarez MD [address] [place] [address] Consulting Physician General Surgery 12/26/23
--- OUTSIDE RECORDS SUMMARY | 2025-05-15 14:10 | XMS_ITS | Data Portability ---
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 [...] the bilateral knees were independently reviewed from [facility] and show mild bilateral knee medial [...] injections. anc [email or web address] Not available 09/05/2024 14:27:50 05/08/2025 05/08/2025 History: Patient returns for bilateral knee pain. She had a series of Gelsyn injections in bilateral knees that finished October 03, 2024. She states that they significantly helped her bilateral knee pain. They are starting to wear off this past month. She is wanting another series and insurance needed documentation that she had had good success with the previous injections prior to them authorizing them again. She states that while she was using the injections within a few days of the third shot the grinding locking spasms the kneecap slipping.. 50% of her knee pain got better with the injections. She has fibromyalgia so she is never 100% pain-free. She states her range of motion was better when her injections were working more. She was able to bend both of her knees so her heels touch her bottom. She states since the last month her right knee has stiffened up quite a bit and then grinding and locking feels worse again. She is doing home exercises. She cannot have nonsteroidal anti-inflammatories related to cardiac issues. She takes Tylenol but it does not help. She is on gabapentin daily and pain management has been trying to find something that will work for her. Physical Examination: Head is atraumatic, normocephalic. Extraocular movements are intact. Pleasant mood and affect, answers questions appropriately. Patient is alert and oriented to person, place and time. No use of chest accessory muscles for breathing. Patient walks with an antalgic gait with a cane. She is able to climb on the exam table without assistance. She has no pain with internal/external rotation of bilateral hips. She has 0 to 90 degrees range of motion of the right knee with significant guarding of the right knee. She has 0 to 130 degrees range of motion of the left knee. She has pain with forced flexion bilaterally. Tenderness over the lateral joint line of the right knee and the medial and lateral joint line of the left knee. Negative Iglesia's maneuver. Negative anterior posterior drawer negative Kourtney's maneuver. No laxity with varus or valgus. EHL strength is 5/5 bilaterally. No joint effusions or deformities or abrasions. Assessment: 1. Bilateral knee osteoarthritis. 2. Bilateral knee pain and stiffness significantly relieved with Gelsyn injections. Plan: Clinical and radiographic findings were discussed with the patient. I recommended a repeat series of Gelsyn injections in bilateral knees since she does not well with them. We will see her back for those once they have been preauthorized with her insurance patient is aware of and agrees with the plan, verbalizes understanding. [email or web address] Not available 05/08/2025 10:54:06 Plan of Treatment Reminders Order Date Submit [...] ation record ed. [email or web address] Only - Or Radiology [address] [place] [address], [id number], 12/19/2024 12:17:37 12/19/1909/05/2024 XR, knee, 4 or more view No observ ation record ed. [email or web address] Sc Only - Sc Radiology [address] [place] [address], [id number], 12/19/2024 12:17:38 Result Notes None recorded. Problems Name Problem SNOMED Code Status Onset Date Resolution Date Notes Provider Name and Address Organization Details Recorded Time Pain of right knee joint 72685603229206 0 Active 2023 Swapnil Jefferson MD [address] [place] [address], [phone], [facility] 4 12:06:30 Pain of left knee joint 75489734473609 7 Active 2023 Swapnil Jefferson MD [address] [place], [address], [facility] 4 12:06:37 Pain of bilateral knee regions 00961314977985 2 Active 2023 Perlita Donohue [facility] 4 11:27:56 Primary gonarthros is, bilateral 850799649 Active 2023 Swapnil Jefferson MD [address] [facility] [place], [address], [facility] 4 10:53:40 Problem Notes None recorded. Procedures Surgical History Date Name Laterality Status Provider Name and Address Organization Details Recorded Time 10/03/20 24 SC Procedure completed Gin Channels [facility] 10/03/2024 15:24:12 09/26/20 24 SC Procedure completed Gin Channels [facility] 09/26/2024 14:49:02 09/19/20 24 SC Knee injection completed Marlin Yeh [facility] 09/19/2024 10:03:38 Imaging Results None recorded. Procedure Notes None recorded. Medical Equipment None Reported. Allergies Allergen ID Allergen Name Allergen Category Reaction Reaction Severity Criticality Documentation Date Start Date Code Code System Note Provider Name and Address Organization Details Recorded Time 6857879 ciproflox acin medicatio n Not available Not available Not available 09/05/2024 2551 RxNorm Anne Zonia [facility] 4 10:48:50 6169116 iodine medicatio n Not available Not available Not available 09/05/2024 5933 RxNorm Anne Zonia [facility] 4 10:49:41 4446987 Non-stero idal anti-infl ammatory agent (product) medicatio n Not available Not available Not available 09/05/2024 55829 005 [facility] 4 10:49:55 9428522 erythromy nirmal medicatio n Not available Not available Not available 09/05/2024 4053 RxNorm Anne [place] [facility] 4 10:50:07 5659992 vancomyci n medicatio n Not available Not available Not available 09/05/2024 91778 RxNorm Anne [place] [facility] 4 10:50:17 5767307 clindamyc in Not available Not available Not available Not available 09/05/2024 2582 RxNorm Anne Brar [facility] 4 10:50:26 3901473 Product containin g penicilli n (product) medicatio n Not available Not available Not available 09/05/2024 37076 8001 SNOMED Anne [facility] 4 10:50:44 7303175 diclofena c Not available Not available Not available Not available 09/05/2024 3355 [facility] 4 10:50:51 6997121 prednison e medicatio n Not available Not available Not available 09/05/2024 8640 [facility] 4 10:51:06 5768267 itraconaz ole medicatio n Not available Not available Not available 09/05/2024 62194 [facility] 4 10:51:12 9223045 honey bee venom medicatio n Not available Not available Not available 09/05/2024 30716 7 [facility] 4 10:51:28 Medications Name Sig Start Date Stop Date Status Note LastModified by Organization Details LastModified Time methocarbam ol 500 mg tablet TAKE 1 TABLET BY MOUTH 3 TIMES EVERY DAY NEEDED FOR MUSCLE SPASMS active Not Available Not Available No t Available gabapentin 600 mg tablet TAKE 1 TABLET BY MOUTH THREE TIMES A DAY active Not Available Not Available No t Available doxycycline hyclate 100 mg capsule active [...] t Available metoprolol succinate ER 50 mg tablet,exte nded release 24 hr TAKE 1 TABLET BY MOUTH EVERY DAY active Not Available Not Available No t Available valacyclovi r 1 gram tablet TAKE 2 TABLET BY ORAL ROUTE EVERY 12 HOURS FOR 5 DAYS active Not Available Not Available No t Available sumatriptan 25 mg tablet TAKE 1 TAB ORALLY AFTER MIGRAINE ONSET MAY REPEAT AFTER 2HRS IF HEADACHE RETURNS,M AX 200MG IN 24HRS active Not Available Not Available No t Available gabapentin 400 mg capsule TAKE 1 CAPSULE BY MOUTH 1-2 TIMES EVERY DAY active Not Available Not Available No t Available midodrine 5 mg tablet TAKE 1 TABLET BY MOUTH THREE TIMES A DAY active Not Available Not Available No t Available diphenoxyla te-atropine 2.5 mg-0.025 mg tablet TAKE 1 TABLET BY MOUTH 4 TIMES A DAY NEEDED FOR DIARRHEA. active Not Available Not Available No t Available valacyclovi r 500 mg tablet TAKE 1 TABLET BY MOUTH DAILY FOR OROLABIAL HSV active Not Available Not Available No t Available tramadol 50 mg tablet TAKE 1-2 TABLET BY ORAL ROUTE EVERY 12 HOURS NEEDED FOR PAIN active Not Available Not Available No t Available acetaminoph en 500 mg tablet active Not Available Not Available Not Available famotidine 20 mg tablet TAKE 1 TABLET BY MOUTH TWICE A DAY NEEDED active Not Available Not Available No t Available prednisolon e acetate 1 % eye drops,suspe nsion INSTILL ONE DROP INTO LEFT EYE THREE TIMES A DAY AFTER SURGERY active Not Available Not Available No t Available trazodone 100 mg tablet TAKE 1 TABLET DAILY AT BEDTIME TO HELP SLEEP active Not Available Not Available No t Available doxycycline monohydrate 100 mg capsule TAKE 1 CAPSULE BY MOUTH TWICE A DAY active Not Available Not Available No t Available dexamethaso ne 4 mg tablet TAKE 1 TABLET BY ORAL ROUTE EVERY DAY FOR 5 DAYS active Not Available Not Available No t Available polymyxin B sulfate 10,000 unit-trimet hoprim 1 mg/mL eye drops INSTILL ONE DROP INTO LEFT EYE THREE TIMES A DAY TWO DAYS PRIOR TO SURGERY, THEN DIRECTED 05/05 completed Not Available Not Available Not Available Advair Diskus 250 mcg-50 mcg/dose powder for inhalation INHALE 1 PUFF BY INHALATIO N ROUTE TWICE A DAY APPROXIMA TELY 12 HOURS APART AT THE SAME TIME EACH DAY active Not Available Not Available No t Available nicotine 21 mg/24 hr daily transdermal patch APPLY 1 PATCH EVERY DAY AND REMOVE AT BEDTIME active Not Available Not Available No t Available docusate sodium 100 mg capsule active Not Available Not Available N ot Available gabapentin 300 mg capsule TAKE 1 CAP BY MOUTH POWER TECHNICIAN BEFORE BREAKFAST AND 1 CAP DAILY WITH LUNCH AND 2 CAPS NIGHTLY. active Not Available Not Available No t Available midodrine 2.5 mg tablet TAKE 1 TABLET BY MOUTH THREE TIMES A DAY active Not Available Not Available No t Available metoprolol succinate ER 25 mg tablet,exte nded release 24 hr TAKE 1 TABLET BY MOUTH EVERY DAY active Not Available Not Available No t Available albuterol sulfate HFA 90 mcg/actuati on aerosol inhaler INHALE 2 PUFFS BY MOUTH EVERY 4 TO 6 HOURS NEEDED active Not Available Not Available No t Available ondansetron 4 mg disintegrat ing tablet PLACE 1 TABLET BY MOUTH ON TOP OF TONGUE THEN SWALLOW EVERY 8 HOURS NEEDED active Not Available Not Available No t Available topiramate 100 mg tablet TAKE 1 TABLET BY MOUTH TWICE A DAY active Not Available Not Available No t Available fludrocorti sone 0.1 mg tablet TAKE 2 TABLETS BY MOUTH EVERY DAY active Not Available Not Available No t Available doxycycline hyclate 100 mg tablet TAKE 1 TABLET BY MOUTH TWICE A DAY FOR 10 DAYS active Not Available Not Available No t Available clindamycin 1 % lotion APPLY TOPICALLY 2 TIMES A DAY TO AFFECTED AREAS active Not Available Not Available No t Available cyclobenzap rine 5 mg tablet TAKE 1 TABLET BY EVERY 12 HOURS NEEDED active Not Available Not Available No t Available metoprolol tartrate 25 mg tablet PLEASE SEE ATTACHED FOR DETAILED DIRECTION S active Not Available Not Available No t Available topiramate 50 mg tablet TAKE 1 TABLET BY MOUTH TWICE A DAY active Not Available Not Available No t Available duloxetine 30 mg capsule,del ayed release TAKE 1 CAPSULE BY MOUTH EVERY DAY active Not Available Not Available No t Available duloxetine 60 mg capsule,del ayed release TAKE 1 CAPSULE BY MOUTH EVERY DAY active Not Available Not Available No t Available Advair HFA 230 mcg-21 mcg/actuati on aerosol inhaler TAKE 2 PUFFS BY MOUTH TWICE A DAY IN THE MORNING AND IN THE EVENING active Not Available Not Available No t Available dexamethaso ne 1.5 mg (21 tabs) tablets in a dose pack TAKE BY MOUTH DIRECTED PER PACKAGE INSTRUCTI ONS active Not Available Not Available No t [...] and Address Organization Details Last Updated DateTime 5 172.72 cm 31.8 kg/m2 65496.8 1 g 88 /min 99 % 99 % 127 mm[Hg] 71 mm[Hg] [facility] 5 10:22:57 Date Recorded Body height Body mass index (BMI) Body weight Heart rate Oxygen saturation Oxygen saturation in Arterial blood by Pulse oximetry Systolic blood pressure Diastolic blood pressure Provider Name and Address Organization Details Last Updated DateTime 4 172.72 cm 30.4 kg/m2 30360.4 7 g 92 /min 97 % 97 % 109 mm[Hg] 69 mm[Hg] [facility] 4 10:48:25 Date Recorded Body height Provider Name [...] SNOMED-CT Code Diagnosis ICD10 Code Diagnosis Note [id number] MD [facility] ([place] [place] [address] 09/05/2024 10:10:45 09/05/2024 10:54:32 Pain of right knee joint 1877516445 06222 M25.561 Additional diagnosis detail: Pain, joint, knee, right Pain of le ft knee joint 6181041122 52912 M25.562 Additional diagnosis detail: Pain, joint, knee, left Primary go narthrosis, bilateral 231386757 M17.0 Additional diagnosis detail: Primary osteoarthr itis of both knees [id number] MD [facility] ([place] [place] [address] 09/19/2024 09:18:49 09/19/2024 09:32:25 Primary gonarthrosis, bilateral 507868354 M17.0 Additional diagnosis detail: Primary osteoarthr itis of both knees [id number] Swapnil Jefferson MD [facility] [place] [facility] [address] [place] [address] 09/26/2024 11:13:53 09/26/2024 11:48:43 Primary gonarthrosis, bilateral 356676532 M17.0 Additional diagnosis detail: Primary osteoarthr itis of both knees [id number] Swapnil Jefferson MD [facility] [place] [facility] [address] [facility] [place] [address] 10/03/2024 12:03:45 10/03/2024 12:08:02 Primary gonarthrosis, bilateral 680399611 M17.0 Additional diagnosis detail: Primary osteoarthr itis of both knees [id number] Krystyna Payan, OFFICE SECRETARY, SPONSORSHIP COORDINATOR [facility] [place] [facility] [address] [facility] [place] [address] 05/08/2025 10:17:47 05/08/2025 10:54:41 Follow-up orthopedic assessment 595977264 Z47.89 Health Concerns Section Related Observation LastModified by Organization Detai ls LastModified Time None Recorded Concern Status LastModified by Organization Details LastModified Time None Recorded Advance Directives Directive None Recorded Payers Insurance Date Sequence Insurance Name Policy Number Policy Gastelum Covered Member ID Gastelum Member ID Guarantor Name 05/03/2025 1 [facility] - DOS ON OR AFTER 21 (MEDICAID REPLACEMENT - HMO) Zenaida Cuevas [id number] Zenaida Cuevas OBGyn Episode No OBEpisode recorded.
--- OUTSIDE RECORDS SUMMARY | 2025-05-15 14:10 | XMS_ITS ---
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
--- OUTSIDE RECORDS SUMMARY | 2025-05-15 14:10 | XMS_ITS ---
Author Organization Unknown Address [address] [place] [phone] Phone Care Team Providers Care Fashion Design Professor Name Role Phone FRIDA Comer Attending Unavailable [...] Derick Rainey M.D. MF: [email or web address] Report ID: [id number] Reading Location: [id number] KNEE 4V RIGHT - Completed: 1 09:17 [...] Derick Rainey M.D. MF: [email or web address] Report ID: [id number] Reading Location: [place] [address] Social History Type Status Start Date End Date Code Code Syst em Smoking History Unknown if ever smoked [id number] Sex Female Hospital Discharge Instructions [...]
== END 2025-05-15 13:33 | disposition home or self-care (01) ==
PROVIDERS: PCP Nurse Practitioner Family; Visit Provider Nurse Practitioner Family
DX: E04.2 Nontoxic multinodular goiter (principal)
CPT/HCPCS: 76536

== ENCOUNTER 2025-06-05 11:35 | Emergency (ER) | payer OTHER, SELFPAY ==
--- NOTE | ~2025-06-05 | CT_ITS ---
Non-contrast CT scan of the Abdomen and Pelvis Clinical indication: Suprapubic pain, dysuria Technique: 2.5 mm axial scans were obtained through the abdomen and pelvis without intravenous or or al contrast. Dose reduction technique was used on this scan by utilizing automated exposure control a nd iterative reconstruction technique. The dose-length product (DLP) was 537.49 mGy-cm. Findings: Images through the lung bases reveal no abnormalities. There is no evidence of renal or ureteral calculi. The kidneys and the ureters are nondilated. The liver, spleen, pancreas, and adrenals appear normal. Status post cholecystectomy. There is no aor tic aneurysm. There is no evidence of bowel obstruction. Images through the pelvis were performed. There is no evidence of ascites or lymphadenopathy. Urinary bladder unremarkable. No pelvic mass seen. Impression: No significant abnormality seen. Reviewed, dictated and finalized at [facility]. Impression: No significant abnormality seen.
[2025-06-05 11:35] VITALS: BP 107/63; PULSE 83; RESP 18; TEMP 36.6; O2SAT 98
--- NOTE | 2025-06-05 11:50 | ED.GENADULT ---
HPI - General Adult General Chief complaint: Urogenital-Female Stated complaint: uti symptoms Source: patient Mode of arrival: ambulatory Limitations: no limitations History of Present Illness HPI narrative: 50-year-old white female with history of chronic pain syndrome fibromyalgia complains of suprapubic pain low back pain bilaterally nausea pressure sensation with voiding dizziness. complains of dysuria since last night. Denies any fever cough sore throat runny nose chest discomfort rash or itching bleeding or bruising or any other complaints. Related Data Home Medications ?Medication ?Instructions ?Recorded ?Confirmed ?Last Taken ?Type albuterol sulfate 90 mcg/actuation See Rx Instructions .Route 07/17/24 03/05/25 08/06/24 History aerosol inhaler .COMPLEX PRN asthma famotidine 20 mg tablet (Pepcid) 20 mg PO DAILY reflux 07/17/24 03/05/25 08/06/24 History fluticasone propionate 230 2 puff inhalation BID 07/17/24 03/05/25 08/06/24 History mcg-salmeterol 21 mcg/actuation HFA inhaler (Advair HFA) sumatriptan succinate 25 mg tablet See Rx Instructions .Route 07/17/24 03/05/25 08/06/24 History .COMPLEX PRN Migraine Headache topiramate 100 mg tablet 100 mg PO BID 07/17/24 03/05/25 08/06/24 History tramadol 50 mg tablet See Rx Instructions .Route 07/17/24 03/05/25 08/06/24 History .COMPLEX PRN Pain valacyclovir 500 mg tablet 500 mg PO HS 07/17/24 03/05/25 08/06/24 History gabapentin 600 mg tablet 600 mg PO 03/05/25 03/05/25 Unknown History metoprolol succinate 50 mg 50 mg PO 03/05/25 03/05/25 Unknown History tablet,extended release 24 hr naltrexone 4.5 mg capsule 4.5 mg PO 03/05/25 03/05/25 Unknown History Allergies Allergy/AdvReac Type Severity Reaction Status Date / Time erythromycin base Allergy Intermediate Unknown Verified 06/05/25 12:08 Penicillins Allergy Intermediate Unknown Verified 06/05/25 12:08 suture Allergy Intermediate Hives Verified 06/05/25 12:08 amitriptyline Allergy Mild Hallucinati Verified 06/05/25 12:08 ng fluoxetine (From Prozac) Allergy Mild Hallucinati Verified 06/05/25 12:08 ng NSAIDS (Non-Steroidal Allergy Mild Dizziness Verified 06/05/25 12:08 Anti-Inflamma pregabalin Allergy Mild Dizziness Verified 06/05/25 12:08 venom-honey bee Allergy Mild Anaphylaxis Verified 06/05/25 12:08 bee venom protein (honey bee) Allergy Unknown Unknown Verified 06/05/25 12:08 ciprofloxacin (From Cipro) Allergy Hives Verified 06/05/25 12:08 clindamycin Allergy Unknown Verified 06/05/25 12:08 iodine Allergy Hives Verified 06/05/25 12:08 prednisone Allergy Fever Verified 06/05/25 12:08 shellfish derived Allergy Anaphylaxis Verified 06/05/25 12:08 vancomycin Allergy Unknown Verified 06/05/25 12:08 alcohol (From Mastisol AdvReac Intermediate Blister Verified 06/05/25 12:08 Liquid Adhesive) gum mastic (From Mastisol AdvReac Intermediate Blister Verified 06/05/25 12:08 Liquid Adhesive) methyl salicylate (From AdvReac Intermediate Blister Verified 06/05/25 12:08 Mastisol Liquid Adhesive) storax (From Mastisol Liquid AdvReac Intermediate Blister Verified 06/05/25 12:08 Adhesive) Review of Systems Review of Systems: All systems reviewed & are unremarkable except as noted in HPI and below PMFSH Past Medical History Medical History Colon cancer screening Fibromyalgia Arthritis Allergies Asthma Ovarian torsion Anxiety Surgical History Surgical History H/O breast biopsy S/P dilation and curettage H/O tubal ligation H/O left knee surgery S/P left rotator cuff repair Family History Family History Other Alcoholism Asthma Depression Diabetes mellitus Heart disease Hypertension Malignant neoplasm of prostate Ovarian cancer Thyroid disorder Social History Social History Smoking packs per day: 1 Smoking cigarettes per day: 20.0 Years smoked: 30 Smoking pack-years: 30.00 Smoking status: Former smoker Tobacco type: cigarettes Alcohol intake: unknown Substance use: never Do You Feel Safe in your Home?: Yes Lack of Transportation: YES Lack of Food: Sometimes True Current Housing: I Have Housing Concerned About Future Housing: No Difficulty Paying Gas/Electric Bills: YES Difficulty Paying for Meds: YES Currently Unemployed: YES Education: Trade/Vocational Certificate Difficulty w/ Childcare or Family Care: No Spiritual care concerns: No Exam Narrative: White female patient with no apparent distress.? Head normocephalic, atraumatic.? Eyes conjunctiva pink sclera nonicteric.? Extraocular movements are intact.? Ears externally normal.? TMs are normal. ?Oropharynx is clear with moist mucous membranes without exudates.? Neck is supple nontender no lymphadenopathy.? Back is nontender.? Lungs are clear.? Heart is regular rate and rhythm without murmurs gallops or rubs.? Chest wall nontender. Abdomen is soft and nontender no hepatosplenomegaly or masses no CVA tenderness no abdominal bruits.? Extremities no cyanosis clubbing or edema.? Skin is warm and dry without rashes or lesions.? Neurological patient is alert and oriented x4.? Motor and sensory grossly intact.? Gait is normal. Course Vital Signs Vital signs: Vital Signs Temperature 36.6 C 06/05/25 11:35 Pulse Rate 83 06/05/25 11:35 Respiratory Rate 18 06/05/25 11:35 Blood Pressure 107/63 06/05/25 11:35 Pulse Oximetry 98 06/05/25 11:35 Oxygen Delivery Room Air 06/05/25 11:35 Temperature 36.6 C 06/05/25 11:35 Pulse Rate 65 06/05/25 13:40 Respiratory Rate 16 06/05/25 13:40 Blood Pressure 110/74 06/05/25 13:40 Pulse Oximetry 98 06/05/25 13:40 Oxygen Delivery Room Air 06/05/25 13:40 Medical Decision Making [facility] Narrative Medical decision making narrative: Patient was placed in Room #2 History and physical was performed. urine showed trace of blood otherwise was unremarkable WBCs 3.2 H&H was normal glucose was 53 Osmo 279 calcium 8.3 the rest of her chemistries were normal lipase was normal. Patient was given food for low blood sugar CTA abdomen and pelvis without contrast: no active disease per radiologist Independent Historian: significant other External Source Review: Differential Dx includes but not limited to: UTI renal calculi diverticulitis Medications were Reviewed: Independently Interpreted by me: CT noncontrast shows diverticular disease left colon as independently interpreted by me. Meds, treatment, ED course: Social Situation Impacting Patients Care: pain syndrome fibromyalgia Shared decision Making: evaluation was discussed all questions were asked and answered patient agreed with the plan. She take Bactrim DS twice a day for 7 day for possible early UTI Discussed with Dr. MARKS DIAGNOSIS: abdominal pain acute urinary tract infection DISPOSITION: discharge home CONDITION AT DISCHARGE: stable Vital Signs Vital Signs: Vital Signs Temperature 36.6 C 06/05/25 11:35 Pulse Rate 83 06/05/25 11:35 Respiratory Rate 18 06/05/25 11:35 Blood Pressure 107/63 06/05/25 11:35 Pulse Oximetry 98 06/05/25 11:35 Oxygen Delivery Room Air 06/05/25 11:35 Temperature 36.6 C 06/05/25 11:35 Pulse Rate 65 06/05/25 13:40 Respiratory Rate 16 06/05/25 13:40 Blood Pressure 110/74 06/05/25 13:40 Pulse Oximetry 98 06/05/25 13:40 Oxygen Delivery Room Air 06/05/25 13:40 Lab Data 06/05/25 12:42 06/05/25 12:42 Labs: Lab Results 06/05/25 06/05/25 06/05/25 Range/Units 11:55 12:42 13:34 WBC 3.2 L (4.8-10.8) K/mm3 RBC 4.14 L (4.20-5.40) M/mm3 Hgb 13.3 (12.0-15.0) g/dL Hct 39.3 (35.0-49.0) % MCV 94.9 (78.0-102.0) fL MCH 32.1 H (27.0-31.0) pg MCHC 33.8 (32-36) g/dL RDW 12.1 (11.6-14.4) % Plt Count 177 (150-420) K/mm3 MPV 10.2 (9.2-11.8) fl Sodium 137 (137-145) mmol/L Potassium 3.5 (3.4-5.0) mmol/L Chloride 102 (98-107) mmol/L Carbon Dioxide 30 (22-30) mmol/L Anion Gap 5 (4-12) mmol/L BUN 8 (7-17) mg/dL Creatinine 0.83 (0.7-1.0) mg/dL Estim Creat Clear Calc 86 ml/min Estimated GFR > 60 (59 - ) Glucose 53 L* (65-110) mg/dL POC Capillary Glucose 97 (65-105) mg/dl Calculated Osmolality 279 L (285-295) mOsm/kg Lactic Acid 1.7 (0.4-2.0) mmol/L Calcium 8.3 L (8.4-10.2) mg/dL Total Bilirubin 0.3 (0.2-1.3) mg/dL AST 26 (14-36) U/L ALT 18 (6-35) U/L Alkaline Phosphatase 52 (38-126) U/L Total Protein 6.6 (6.3-8.2) g/dL Albumin 4.1 (3.5-5.1) g/dL Lipase 91 (23-300) U/L Urine Color Yellow (Yellow) Urine Appearance Clear (Clear) Urine pH 6.0 (5.0-8.0) Ur Specific Holly 1.010 (1.010-1.020) Urine Protein Negative (Negative) Urine Glucose (UA) Negative (Negative) Urine Ketones Negative (Negative) Ur Blood (Man) Trace-intact H (Negative) Urine Nitrate Negative (Negative) Urine Bilirubin Negative (Negative) Urine Urobilinogen 0.2 (0.2-1.0) mg/dL Leukocyte Esterase Rfl Negative (Negative) TRISTIN/UL Discharge Plan Discharge Clinical Impression: Acute UTI Abdominal pain Qualifiers: Abdominal location: left lower quadrant Qualified Code(s): R10.32 - Left lower quadrant pain Patient Disposition: Home Condition: Stable Instructions: Antibiotic Form, Urinary Tract Infection in Women (DC), Abdominal Pain (ED) Additional Instructions: Bactrim DS twice a day for 7 days. Follow-up with your primary care provider. Return if you get worse or develops any new symptoms. Continue medication as prescribed Patient Language: Polish Prescriptions: No Action naltrexone 4.5 mg capsule 4.5 mg PO metoprolol succinate 50 mg tablet extended release 24 hr 50 mg PO gabapentin 600 mg tablet 600 mg PO topiramate 100 mg tablet 100 mg PO BID famotidine [Pepcid] 20 mg tablet 20 mg PO DAILY sumatriptan succinate 25 mg tablet See Rx Instructions .ROUTE .COMPLEX PRN (Reason: Migraine Headache) Rx Instructions: 25 mg orally valacyclovir 500 mg tablet 500 mg PO HS tramadol 50 mg tablet See Rx Instructions .ROUTE .COMPLEX PRN (Reason: Pain) Rx Instructions: 50 mg orally albuterol sulfate 90 mcg/actuation HFA aerosol inhaler See Rx Instructions .ROUTE .COMPLEX PRN (Reason: asthma) Rx Instructions: 2 puffs every 4-6 hrs as needed fluticasone propion-salmeterol [Advair HFA] 230-21 mcg/actuation HFA aerosol inhaler 2 puff INHALATION BID midodrine 5 mg tablet See Rx Instructions .ROUTE .COMPLEX Qty: 90 2RF Dose Instruction: TAKE 1 TABLET BY MOUTH THREE TIMES A DAY Rx Instructions: TAKE 1 TABLET BY MOUTH THREE TIMES A DAY Follow-up/Referrals: Natasha,Carito Carvalho, TIMBER INSPECTOR [Primary Care Provider] - Time of Disposition: 14:14
--- OUTSIDE RECORDS SUMMARY | 2025-06-05 11:51 | XMS_ITS | Encounter Summary ---
Author Organization [facility] Healthcare Address [address] [place] [address] Care Team Providers Care Sap Bw Consultant Name Role Phone Pasquale Hanna MD Unavailable [phone] Michael Bolivar MD Unavailable [phone] mAol Chapin MD PhD Unavailable Darren Simmons DO Unavailable [phone] Derick Suarez MD Unavailable [phone] Nyla Self NP Primary Care Provider [phone] Reason for Visit * Reason Onset Date Comments spyvetet w/nurse 05/25/2025 Encounter Details Date Type Department Care Team (Late st Contact Info) Description 05/25/2025 Telephone [facility] [address] [facility] [address] [place] [address] Lotus Esposito MD PhD [address] [place], [place] [id number] spk w/nurse Social History Tobacco Use Types Packs/Day Years Used Date Smoking Tobacco: Some Days Cigarettes 0.3 32.5 Started: 1992 Smokeless Tobacco: Never Comments:Cigarettes 0-5 a da y AUDIT-C Answer Date Recorded [...] on file 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 The LDN does not help very much at all but does keep her pain from increasing but does not decrease it. She asked her PCP for pain meds and they aid we would have to write them. I told her we do not do that but I would sent this message to you to advise. The pain is in her legs and upper back and it feels like muscle pain, tightness and spasms. I asked her about a muscle relaxer and she said you took her off them because they were not work. She has tried, ice, heat, elevations and everything else she said. documented in this encounter Plan of Treatment Not on [...] on filedocumented in this encounter Care Teams Sap Bw Consultant Relationship Specialty Start Date End Date Nyla Self NP [address] [facility] [address] [place] [address] PCP - General Family Medicine 03/20/25 Pasquale Hanna MD [address] [facility] [address] [facility] [address] [place] [address] Referring Physician Obstetrics and Gynecology 01/12/23 Michael Bolivar MD [address] [facility] [address] [facility] [address] [place] [address] Referring Physician Surgical Oncology 05/28/23 [place] Chap[place] PhD [address] [place] [address] MEDICAL ONCOLOGY, [facility] [address] [place] [address] Medical Oncologist/Bindery Helper Medical Oncology 05/28/23 Darren Simmons DO [address] [facility] [address] [facility] [address] [place] [address] Referring Physician Internal Medicine 06/10/23 Derick Suarez MD [employer] [address] Consulting Physician General Surgery 12/26/23 documented as of this encounter
--- OUTSIDE RECORDS SUMMARY | 2025-06-05 11:51 | XMS_ITS ---
Author Organization Unknown Address [address] [place] [phone] Phone Care Team Providers Care Adventure Challenge Instructor Name Role Phone FRIDA Comer Attending Unavailable [...] Derick Rainey M.D. MF: [email or web address] Report ID: [id number] Reading Location: [id number] 4V RIGHT - Completed: 1 09:17 [...] Derick Rainey M.D. MF: [email or web address] Report ID: [id number] Reading Location: [place] [address] Social History Type Status Start Date End Date Code Code Syst em Smoking History Unknown if ever smoked [id number] Sex Female Hospital Discharge Instructions [...]
--- OUTSIDE RECORDS SUMMARY | 2025-06-05 11:51 | XMS_ITS ---
Author Organization Unknown Address [address] [place] [phone] Phone Care Team Providers Care Soccer Referee Name Role Phone FRIDA BOSS Nahomi Attending Unavailable ZHANG GREEN APN Primary Unavailable Social History Type Status Start Date End Date Code Code Syst em Smoking History Unknown if ever smoked [id number] Sex Female Hospital Discharge Instructions Should you have any questions prior to discharge, please contact a member of your healthcare team. If you have left the hospital and have any questions, please contact your primary care physician. Reason For Referral No Data Found Plan of Treatment No Data Found Personal Care Team Section Performer Name Performer Role Active Date Inactive Da te GERSON GOVEA PCP - Primary care physician 2021-11-14 2022-07-30 LAYLA BARROSO PCP - Primary care physician [id number] NORMA HOLCOMB PCP - Primary care physician
--- OUTSIDE RECORDS SUMMARY | 2025-06-05 11:51 | XMS_ITS | Clinical Summary ---
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
--- OUTSIDE RECORDS SUMMARY | 2025-06-05 11:51 | XMS_ITS ---
Author Organization [facility] Address [address] [place] [address] Care Team Providers Care Form Tamping Machine Operator Name Role Phone Pasquale Hanna MD Unavailable [phone] Michael Bolivar MD Unavailable Amol Chapin MD PhD Unavailable Darren Simmons DO Unavailable Derick Suarez MD Unavailable [phone] Nyla Self NP Primary Care Provider [phone] Active Problems Problem Noted Date Diagnosed Date History of mastectomy, bilateral 12/12/2024 Peripheral neuropathy 12/06/2024 Cholecystitis 12/24/2023 Breast cancer in female 11/23/2023 Dehydration 10/26/2023 Encounter for management of implanted device 08/2023 Encounter for person encountering health service s 06/07/2023 Elevated tumor markers 06/07/2023 Malignant neoplasm of left female breast 023 Cancer Staging:Clinical stage from 06/07/2023:Stage IIA(cT1c, cN1, cM0, G3, ER-, GA-, HER2+) - Signed by Amol Chapin MD PhD on 06/18/2023 Mass of left breast 05/27/2023 Pelvic mass 02/03/2023 Overview (02/03/2023): Added automatically from request for surgery [id number] Adnexal mass 02/03/2023 Overview (04/07/2023): Presented to RESEARCH SUBJECT to progressive abdominal bloating and worsening pelvic [...] medications scheduled. No Evidence of Disease Amol hCapin MD PhD Oncology Chemotherapy Treatment Plan Name [...]
--- OUTSIDE RECORDS SUMMARY | 2025-06-05 11:51 | XMS_ITS | Encounter Summary ---
Author Organization [facility] Healthcare Address [address] [place] [address] Care Team Providers Care Cafe Assistant Name Role Phone Pasquale Hanna MD Unavailable [phone] Michael Bolivar MD Unavailable [phone] Amol Chapin MD PhD Unavailable Darren Simmons DO Unavailable [phone] Derick Suarez MD Unavailable Miscellaneous, Not In File Primary Care Provider Unavailable Nyla Self NP Primary Care Provider [phone] Reason for Visit * Reason Onset Date Comments Pre-Procedure Instructions 02/14/2025 Encounter Details Date Type Department Care Team (Late st Contact Info) Description 02/14/2025 Telephone [facility] [place] [facility] [address] [facility] [address] [place], [place] [phone] Jeri Brenner NP [address] [place] [address] Pre-Procedure Instructions Social History Tobacco Use Types [...] on file 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 Gender Identity Not on file Sexual Orientation [...] on filedocumented in this encounter Care Teams Cafe Assistant Relationship Specialty Start Date End Date Miscellaneous, Not In File PCP - General 02/13/25 03/19/25 Nyla Self NP [address] [address] PCP - General Family Medicine 03/20/25 Pasquale Hanna MD [address] [address] Referring Physician Obstetrics and Gynecology 01/12/23 Michael Bolivar MD [address] [facility] [address] [facility] [address] [place] [address] Referring Physician Surgical Oncology 05/28/23 Amol Chapin MD PhD [address] [facility] MEDICAL ONCOLOGY, [facility] [address] [place] [address] Medical Oncologist/X Ray Service Technician Medical Oncology 05/28/23 Darren Simmons DO [address] [facility] [address] [place] [address] Referring Physician Internal Medicine 06/10/23 Derick Suarez MD [address] [place] [address] Consulting Physician General Surgery 12/26/23 documented as of this encounter
--- OUTSIDE RECORDS SUMMARY | 2025-06-05 11:51 | XMS_ITS ---
Author Organization Unknown Address [address] [place] [phone] Phone Care Team Providers Care Molecular Biology Director Name Role Phone FRIDA BOSS Nahomi Attending Unavailable ZHANG GREEN APN Primary Unavailable Social History Type Status Start Date End Date Code Code Syst em Smoking History Unknown if ever smoked [id number] Sex Female Hospital Discharge Instructions [...]
--- OUTSIDE RECORDS SUMMARY | 2025-06-05 11:51 | XMS_ITS ---
Author Organization Unknown Address [address] [place] [phone] Phone Care Team Providers Care Route Supervisor Name Role Phone FRIDA BOSS Nahomi Attending Unavailable ZHANG GREEN MOTO MIX OPERATOR Primary Unavailable Social History Type Status Start Date End Date Code Code Syst em Smoking History Unknown if ever smoked [id number] Sex Female Hospital Discharge Instructions [...]
--- OUTSIDE RECORDS SUMMARY | 2025-06-05 11:51 | XMS_ITS ---
Author Organization Unknown Address [address] [place] [phone] Phone Care Team Providers Care Filter Press Tender Head Name Role Phone FRIDA BOSS Nahomi Attending Unavailable ZHANG GREEN CRYSTALIZER Primary Unavailable Social History Type Status Start Date End Date Code Code Syst em Smoking History Unknown if ever smoked [id number] Sex Female Hospital Discharge Instructions [...]
--- OUTSIDE RECORDS SUMMARY | 2025-06-05 11:51 | XMS_ITS | Clinical Summary ---
Author Organization [facility] Address [address] [place] [address] Care Team Providers Care Payment Specialist Name Role Phone Pasquale Hanna MD Unavailable [phone] Michael Bolivar MD Unavailable [phone] Amol Chapin MD PhD Unavailable Darren Simmons DO Unavailable Derick Suarez MD Unavailable Nyla Self NP Primary Care Provider [phone] Allergies Active Allergy Reactions Criticality Noted Date [...] diarrhea 30 tablet 2 08/07/20 24 Active cyanocobalamin (Vitamin B-12) 100 mcg [...] times a day 60 capsule 04/25/20 25 Active zonisamide (ZONEGRAN) 25 mg capsuleIndicatio ns:Partial Epilepsy Treatment Adjunct Take 1 capsule (25 mg total) by mouth daily 90 capsule 04/25/20 25 2024 Active gabapentin (NEURONTIN) 300 mg capsule Take 1 capsule (300 mg total) by mouth special education superintendent before breakfast AND 1 capsule (300 mg total) daily with lunch AND 2 capsules (600 mg total) nightly. 120 capsule 6 05/25/20 25 2025 Active gabapentin (NEURONTIN) 300 mg capsule Take 1 capsule (300 mg total) by mouth special education superintendent before breakfast AND 1 capsule (300 mg total) daily with lunch AND 2 capsules (600 mg total) nightly. 120 capsule 6 08/24/20 24 2024 Discontinued Active Problems Problem Noted Date Diagnosed Date History of mastectomy, bilateral 12/12/2024 Peripheral neuropathy 12/06/2024 Cholecystitis 12/24/2023 Breast cancer in female 11/23/2023 Dehydration 10/26/2023 Encounter for management of implanted device 08/2023 Encounter for person encountering health service s 06/07/2023 Elevated tumor markers 06/07/2023 Malignant neoplasm of left female breast 023 Cancer Staging:Clinical stage from 06/07/2023:Stage IIA(cT1c, cN1, cM0, G3, ER-, CA-, HER2+) - Signed by Amol Chapin MD PhD on 06/18/2023 Mass of left breast 05/27/2023 Pelvic mass 02/03/2023 Overview (02/03/2023): Added automatically from request for surgery [id number] Adnexal mass 02/03/2023 Overview (04/07/2023): Presented to [facility] to progressive abdominal bloating and worsening pelvic [...] Encounters Date Type Department Care Team Description 05/25/2025 Telephone [facility] at the [facility] Advanced [facility] [address] [place] [address] Advanced Medicine [address] [place] [address] Lotus Esposito MD PhD spk w/nurse 05/08/2025 Telephone [facility] at the [address] [facility] [address] [place] [address] Lotus Esposito MD PhD medication issue 04/25/2025 2:47 PM CDT - 04/25/2025 11:59 PM CDT Hospital Encounter [facility] at the [address] [facility] Medicine [address] [place] [address] Lotus Esposito MD PhD Neuropathic pain (Primary Dx) Discharge Disposition: Discharge to home or self care 04/13/2025 11:42 AM CDT - 04/13/2025 11:59 PM CDT Hospital Encounter [facility] at the [facility] [address] [place] [address] Advanced Medicine [address] [place] [id number] Jeri Brenner NP Other polyneuropathy (Primary Dx) Discharge Disposition: Discharge to home or self care 04/10/2025 Telephone [facility] at the [facility] [address] [place] [address] Advanced Medicine [address] [place] [address] Jeri Brenner NP PMC Preprocedure 03/23/2025 8:30 AM CDT Office Visit [facility] Oncology [address] [place] [address] [place] [phone] Amol Chapin MD PhD Malignant neoplasm of central portion of left breast in female, estrogen receptor negative (HCC) (Primary Dx); Arthralgia, unspecified joint 03/23/2025 8:00 AM CDT Lab [facility] at [address] [address] Elevated CA-125; Malignant neoplasm of central portion of left breast in female, estrogen receptor negative (HCC); Arthralgia, unspecified joint from Last 3 Months Surgical History Surgery [...] Scopolamine patch successful Awareness under anesthesia emil rochelle, knee FHx: chemotherapy 10/01/2023 GERD (gastroesophageal reflux disease) 04/20 Migraines 2022 Thyroid disease 2020 Cancer (HCC) 04/20 Anxiety 1989 Depression 1988 Cataract 2023 Rheumatic fever 1980 Brain concussion Multiple Menstrual problem 1985 Family [...] Anemia Sister Reji Anesthesia problems Sister Reji napier s under anesthesia Arthritis Sister Reji Breast cancer Sister Reji Hyperlipidemia Sister Reji Hypertension Sister Reji Nash Hyperthermia Neg Hx Pseudochol deficiency Neg Hx [...] on file 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 Author CCM Chronic Pain Care Plan Chronic Care Management No change(04/25 3:00 PM CDT) No Blanca Johns, RN Note: Problem: Chronic Pain Goals: 1. Minimize further functional decline 2. Maximize quality of life 3. Control pain Strategies: - Activity/exercise program recommendation - Conservative stepwise pain medicine strategy with multi-disciplinary approach - Recommend healthy lifestyle strategies and compensatory methods as needed Medical Devices Implanted Type Area Imaging Account Manager Device Identifier Shelf Expiration Date Model / Serial / Lot Bard Peripheral Vascular Marker Breast Ring Shape Radiopaque Nitinol Ultracor Twirl [id number] - [id number] Implanted:Qty: 1 on 06/07/2023 at [facility] Left: Axilla Bard Peripheral Vascular [id number] [facility]17 / / [employer] Marker Breast Biopsy Magseed L12 Cm Od18 Ga [id number] - [id number] Implanted:Qty: 1 on 11/23/2023 by Sharon Garcia MD at [facility] Left: Breast [employer] [id number] 06/28/2025 [id number] Explanted Type Area Imaging Account Manager Device Identifier Shelf Expiration Date Model / Serial / Lot Bard Peripheral Vascular Powerport Clearvue Airguard 8fr 1 Lumen Lightweight Intermediate Latex Free [id number] - [id number] Implanted:Qty: 1 on 06/04/2023 by Michael Bolivar MD at [facility] Explanted:Qty: 1 on 08/25/2024 by Michael Bolivar MD at [facility] Catheter Right: Chest Bard Peripheral Vascular 03/28/2024 [id number] / / [id number] Procedures Procedure Name Priority Date/Time Associated Diagnosis [...] joint HEPATITIS PANEL, ACUTE STAT 3:39 PM FLOOR FINISHER PAP AND HIGH RISK HPV, REFLEX TO GENOTYPING STAT 02/03/2023 3:24 PM FLOOR FINISHER Adnexal mass from Last 3 Months or [...] was last reviewed 2021. Testing performed by: [address] [address] Blood 03/23/2025 7:56 AM CDT 03/23/2025 7:57 AM CDT us Amol Chapin MD PhD LAB BLOOD ORDERABLES Final Resul t KAYODE KATZ [address] [facility] [place] [address] * (ABNORMAL) Differential, auto (03/23/2025 7:56 AM CDT) Neutrophil abs 2.77 1.50 - 6.50 K/cumm Comment:Testing performed by : [address] [address] Imm gran abs 0.01 0.00 - 0.10 K/cumm KAYODE KATZ Comment:Testing performed by : [address], [place]., [address] Lymphocyte abs 3.51(H) 0.80 - 3.30 K/cumm KAYODE Comment:Testing performed by : [address], [place]., [address] Monocyte abs 0.55 0.20 - 0.80 K/cumm KAYODE Comment:Testing performed by : [address], [place]., [address] Eosinophil abs 0.16 0.00 - 0.50 K/cumm KAYODE Comment:Testing performed by : [address], [place]., [address] Basophil abs 0.02 0.00 - 0.10 K/cumm KAYODE Comment:Testing performed by : [address] [address] Neutrophil pct 39.5 % [facility] Comment: Interpretive Data Percent cell count reference ranges are not reported, since discordance with absolute values may lead to misinterpretation of CBC data. Current Interpretive Data was last revised on 2018. Testing performed by: [address] [address] Imm gran pct 0.1 % [facility] Comment: Interpretive Data Percent cell count reference ranges are not reported, since discordance with absolute values may lead to misinterpretation of CBC data. Current Interpretive Data was last revised on 2018. Testing performed by: [address] [address] Lymphocyte pct 50.0 % [facility] Comment: Interpretive Data Percent cell count reference ranges are not reported, since discordance with absolute values may lead to misinterpretation of CBC data. Current Interpretive Data was last revised on 2018. Testing performed by: [address] [address] Monocyte pct 7.8 % [facility] Comment: Interpretive Data Percent cell count reference ranges are not reported, since discordance with absolute values may lead to misinterpretation of CBC data. Current Interpretive Data was last revised on 2018. Testing performed by: [address] [address] Eosinophil pct 2.3 % KAYODE KATZ Comment: Interpretive Data Percent cell count reference ranges are not reported, since discordance with absolute values may lead to misinterpretation of CBC data. Current Interpretive Data was last revised on 2018. Testing performed by: [address] [address] Basophil pct 0.3 % KAYODE KATZ Comment: Interpretive Data Percent cell count reference ranges are not reported, since discordance with absolute values may lead to misinterpretation of CBC data. Current Interpretive Data was last revised on 2018. Testing performed by: [address] [address] Blood 03/23/2025 7:56 AM CDT 03/23/2025 7:57 AM CDT us Amol Chapin MD PhD LAB BLOOD ORDERABLES Final Resul t [facility] Department [place] [address] * CBC with auto differential (03/23/2025 7:56 AM CDT) WBC 7.02 3.80 - 9.90 K/cumm Comment:Testing performed by : [address] [address] Hgb 13.5 11.9 - 15.5 g/dL KAYODE KATZ Comment:Testing performed by : [address] [address] Hct 38.7 35.6 - 45.5 % KAYODE KATZ Comment:Testing performed by : [address] [address] Plt 263 150 - 400 K/cumm KAYODE KATZ Comment:Testing performed by : [address] [address] MPV 10.1 9.1 - 12.3 fL KAYODE KATZ Comment:Testing performed by : [address] [address] RBC 4.16 3.90 - 5.20 M/cumm KAYODE KATZ Comment:Testing performed by : [address] [address] MCV 93.0 81.3 - 96.4 fL KAYODE Comment:Testing performed by : [address] [address] MCH 32.5 27.1 - 33.3 pg KAYODE KATZ Comment:Testing performed by : [address] [address] MCHC 34.9 32.3 - 35.7 g/dL KAYODE Comment:Testing performed by : [address] [address] RDW CV 12.5 11.1 - 14.9 % KAYODE Comment:Testing performed by : [address] [address] RDW SD 42.5 35.7 - 48.1 fL KAYODE Comment:Testing performed by : [address] [address] NRBC abs 0.00 0.00 - 0.01 K/cumm KAYODE Comment:Testing performed by : [address] [address] ANC Prelim 2.77 1.50 - 6.50 K/cumm KAYODE Comment: Interpretive Data The rapid ANC is a preliminary automated count and may vary from the final ANC (Neut Abs) reported in the WBC differential that follows. Current interpretive data was last revised 2025. Testing performed by: [address] [address] Blood 03/23/2025 7:56 AM CDT 03/23/2025 7:57 AM CDT us Amol Chapin MD PhD LAB BLOOD ORDERABLES Final Resul t SAL[facility]OR[facility]MANI [address] [facility] Department [place] [address] * CA 125 (03/23/2025 7:56 AM CDT) CA 125 ag 11.4 0.0 - 38.1 units/mL Comment: Interpretive Data The Genia CA 125 assay procedure was used. Results from different manufacturers or methods may not be comparable. Serial testing should be performed using the same method. Testing performed by: [address] [address] Blood 03/23/2025 7:56 AM CDT 03/23/2025 9:38 AM CDT us Amol Chapin MD PhD LAB BLOOD ORDERABLES Final Resul t [facility] [address] [facility] Department of Laboratories [place], [place] [id number] * Comprehensive metabolic panel (03/23/2025 7:56 AM CDT) Pathologist [facility] Sodium 144 135 - 145 mmol/L Comment:Testing performed by : [address] [address] Potassium, pl 4.2 3.3 - 4.9 mmol/L KAYODE Comment:Testing performed by : [address] [address] Chloride 106 97 - 110 mmol/L KAYODE Comment:Testing performed by : [address] [address] CO2 28 22 - 32 mmol/L KAYODE Comment:Testing performed by : [address] [address] Anion gap 10 2 - 15 mmol/L KAYODE Comment:Testing performed by : [address] [address] BUN 8 6 - 25 mg/dL KAYODE Comment:Testing performed by : [address] [address] Creatinine 0.80 0.60 - 1.10 mg/dL KAYODE Comment:Testing performed by : [address] [address] Glucose 82 70 - 199 mg/dL KAYODE [...] was last revised 2022. Testing performed by: [address] [address] Calcium 9.3 8.5 - 10.3 mg/dL KAYODE Comment:Testing performed by : [address] [address] Bilirubin, total <0.2 0.1 - 1.2 mg/dL KAYODE Comment:Testing performed by : [address] [address] Protein, pl 6.6 6.5 - 8.5 g/dL KAYODE Comment:Testing performed by : [address] [address] Albumin 4.4 3.5 - 5.0 g/dL KAYODE Comment:Testing performed by : [address] [address] Alk phos 61 40 - 130 Units/L KAYODE Comment:Testing performed by : [address] [address] ALT 12 7 - 45 Units/L KAYODE Comment:Testing performed by : [address] [address] AST 16 10 - 45 Units/L KAYODE Comment:Testing performed by : [address] [address] Blood 03/23/2025 7:56 AM CDT 03/23/2025 7:57 AM CDT us Amol Chapin MD PhD LAB BLOOD ORDERABLES Final Resul t KAYODE [address] [facility] Department [place] [address] * Erythrocyte sedimentation rate (03/23/2025 7:53 AM CDT) [facility] Erythrocyte sedimentation rate 8 1 - 30 mm/hr Comment:Testing performed by : [address] [address] Blood 03/23/2025 7:53 AM CDT 03/23/2025 11:35 AM CDT us Amol Chapin MD PhD LAB BLOOD ORDERABLES Final Resul t Performing Organization Address [facility] Co de Phone Number [place] [address] [facility] [place] [place] [address] * CRP (cardiac risk) (03/23/2025 7:53 AM CDT) [facility] hsCRP 0.80 mg/L Comment: Interpretive data Adult [...] last revised on 2018. Testing performed by: [address] [address] Blood 03/23/2025 7:53 AM CDT 03/23/2025 9:35 AM CDT us Amol Chapin MD PhD LAB BLOOD ORDERABLES Final Resul t Performing Organization Address City/[facility] Co de Phone Number SALVADOR[address] [place] [address] * Hepatitis panel, acute Blood (12/24/2023 3:39 PM FLOOR FINISHER) [facility] Hep A IgM Nonreactive Nonreactive [facility] Comment: Interpretive Data: If Hep A IgM Ab is reported as Equivocal, a new sample should be drawn in two weeks for testing. Current interpretive data was last revised on 20. Hep B core IgM Nonreactive Nonreactive [facility] Comment: Interpretive Data If HepB Core IgM Ab is reported as Equivocal, a new sample should be drawn in two weeks for testing. Current interpretive data was last revised on 20. Hep C Ab Nonreactive Nonreactive [facility] Comment: Antibodies to HCV not detected. [...] revised on 2020. HepBsAg Nonreactive Nonreactive [facility] Blood 12/24/2023 3:39 PM FLOOR FINISHER 12/24/2023 6:36 PM FLOOR FINISHER Javier Kebede DO LAB MICROBIOLOGY - GENERAL ORDERABLES Final Result [facility] [address] [facility] Department [place] [address] * Pap and High Risk HPV, reflex to Genotyping (02/03/2023 3:24 PM FLOOR FINISHER) Thin prep (Pap test) 02/03/2023 3:24 PM FLOOR FINISHER 02/03/2023 4:31 PM FLOOR FINISHER Narrative PATHOLOGY [facility] - 02/12/2023 7:59 AM CDT EPIC results best viewed via link to PDF [facility] [place] [address] Note to Patients: This report may contain [...] REPORT FINAL Patient Name: TIMUR CUEVAS Gender: Edwige : 1975 (Age: 47) Address: [address] [place] [address] Hospital #: [id number] Service: Gynecology Location: Patient Type: [facility] SPECIMEN Taken: 02/03/2023 Received: 02/03/2023 Accessioned: 02/03/2023 [...] 68. This HPV test was performed at [facility] in [place], [place] utilizing the Gen-Probe Aptima assay. [facility]/02/12/2023 07:59 DESHAWN Martinez(ASCP) Report Electronically Reviewed and [...] clinical information and biopsy results as indicated. [facility] Clinical Laboratory Improvement Amendments (CLIA) mandate that [...] screening. The HPV test was performed by [facility], [address] [place] [address]. Report Images and scanned documents, if included only viewable in PDF version The performance characteristics of some immunohistochemical stains, in-situ hybridization and fluorescence in-situ hybridization tests and immunophenotyping by flow cytometry cited in this report (if any) were determined by the Surgical Pathology Department at [facility] as part of an ongoing vice president quality improvement program and in compliance with federally mandated [...] determined by the Surgical Pathology Department of [facility]. It has not been cleared or approved by the U. S. Food and Drug Administration. 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-Medical * Full Code (Latest Code Status on File) Date Activated Date Inactivated Comments 12/24/2023 11:03 PM 12/26/2023 5:28 PM * Full Code Date Activated Date Inactivated Comments 11/23/2023 6:38 PM 11/24/2023 2:32 PM Care Teams Payment Specialist Relationship Specialty Start Date End Date Nyla Self NP [address] [facility] [address] [place] [address] PCP - General Family Medicine 03/20/25 Pasquale Hanna MD [address] [facility] [address] [facility] [[email or web address] [address] [place] [address] Referring Physician Obstetrics and Gynecology 01/12/23 Michael Bolivar MD [address] [facility] [address] [facility] [[email or web address]] [address] [place] [address] Referring Physician Surgical Oncology 05/28/23 Amol Chapin MD PhD [address] [facility] MEDICAL ONCOLOGY, [facility] [[email or web address]] [address] [place] [address] Medical Oncologist/Furs Salesperson Medical Oncology 05/28/23 Darren Simmons DO [address] [facility] [address] [facility] [[email or web address]] [address] [place] [address] Referring Physician Internal Medicine 06/10/23 Derick Suarez MD [address] [place] [address] Consulting Physician General Surgery 12/26/23
--- OUTSIDE RECORDS SUMMARY | 2025-06-05 11:51 | XMS_ITS | Referral Summary ---
Author Organization [facility] Address [address] [place] [address] Care Team Providers Care Preschool Assistant Name Role Phone Pasquale Hanna MD Unavailable [phone] Michael Bolivar MD Unavailable [phone] Amol Chapin MD PhD Unavailable Darren Simmons DO Unavailable [phone] Derick Suarez MD Unavailable [phone] Nyla Self NP Primary Care Provider [phone] Encounters Date Type Department Care Team Description 05/25/2025 Telephone [facility] [address] [facility] [address] [place] [address] Lotus Esposito MD PhD spk w/nurse 05/08/2025 Telephone [facility] [address] [facility] [address] [place] [address] Lotus Esposito MD PhD medication issue 04/25/2025 2:47 PM CDT - 04/25/2025 11:59 PM CDT Hospital Encounter [facility] [facility] [address] [place] [address] Lotus Esposito MD PhD Neuropathic pain (Primary Dx) Discharge Disposition: Discharge to home or self care 04/13/2025 11:42 AM CDT - 04/13/2025 11:59 PM CDT Hospital Encounter [facility] [address] [facility] [address] [place] [address] Jeri Brenner NP Other polyneuropathy (Primary Dx) Discharge Disposition: Discharge to home or self care 04/10/2025 Telephone [facility] [address] [facility] [address] [place] [address] Jeri Brenner NP PMC Preprocedure 03/23/2025 8:00 AM CDT Lab [facility] at [address] [address] Elevated CA-125; Malignant neoplasm of central portion of left breast in female, estrogen receptor negative (HCC); Arthralgia, unspecified joint 03/23/2025 8:30 AM CDT Office Visit [facility] Physicians 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 Pap smear collected. 4/4/23: TLH/BSO. Pathology benign (fibroids). 04/07/23: Doing well-postoperatively, [...] on file Legal Sex Female 7:40 AM TENTER FEEDER Gender Identity Not on file Sexual Orientation [...] as needed Medical Devices Implanted Type Area Mortgage Loan Specialist Device Identifier Shelf Expiration Date Model / Serial / Lot Bard Peripheral Vascular Marker Breast Ring Shape Radiopaque Nitinol Ultracor Twirl [id number] - [id number] Implanted:Qty: 1 on 06/07/2023 at [facility] Left: Axilla Bard Peripheral Vascular [id number] / / [employer] Marker Breast Biopsy Magseed L12 Cm Od18 Ga [id number] - [id number] Implanted:Qty: 1 on 11/23/2023 by Sharon Garcia MD at [facility] Left: Breast [employer] [id number] 06/28/2025 [id number] / / [id number] Explanted Type Area Mortgage Loan Specialist Device Identifier Shelf Expiration Date Model / Serial / Lot Bard Peripheral Vascular Powerport Clearvue Airguard 8fr 1 Lumen Lightweight Intermediate Latex Free [id number] - [id number] Implanted:Qty: 1 on 06/04/2023 by Michael Bolivar MD at [facility] Explanted:Qty: 1 on 08/25/2024 by Michael Bolivar MD at [facility] Catheter Right: Chest Bard Peripheral Vascular 03/28/2024 [id number] / / [id number] Procedures Procedure Name Priority Date/Time Associated Diagnosis [...] joint HEPATITIS PANEL, ACUTE STAT 3:39 PM TENTER FEEDER PAP AND HIGH RISK HPV, REFLEX TO GENOTYPING STAT 02/03/2023 3:24 PM TENTER FEEDER Adnexal mass from Last 3 Months or [...] was last reviewed 2021. Testing performed by: [address] [address] Blood 03/23/2025 7:56 AM CDT 03/23/2025 7:57 AM CDT us Amol Chapin MD PhD LAB BLOOD ORDERABLES Final Resul t KAYODE [address] [facility] Department [place] [address] * (ABNORMAL) Differential, auto (03/23/2025 7:56 AM CDT) Neutrophil abs 2.77 1.50 - 6.50 K/cumm Comment:Testing performed by : [address] [address] Imm gran abs 0.01 0.00 - 0.10 K/cumm KAYODE Comment:Testing performed by : [address] [address] Lymphocyte abs 3.51(H) 0.80 - 3.30 K/cumm KAYODE Comment:Testing performed by : [address] [address] Monocyte abs 0.55 0.20 - 0.80 K/cumm KAYODE Comment:Testing performed by : [address] [address] Eosinophil abs 0.16 0.00 - 0.50 K/cumm KAYODE Comment:Testing performed by : [address] [address] Basophil abs 0.02 0.00 - 0.10 K/cumm KAYODE Comment:Testing performed by : [address] [place] [address] Neutrophil pct 39.5 % [facility] Comment: Interpretive Data Percent cell count reference ranges are not reported, since discordance with absolute values may lead to misinterpretation of CBC data. Current Interpretive Data was last revised on 2018. Testing performed by: [address] [address] Imm gran pct 0.1 % [facility] Comment: Interpretive Data Percent cell count reference ranges are not reported, since discordance with absolute values may lead to misinterpretation of CBC data. Current Interpretive Data was last revised on 2018. Testing performed by: [address] [address] Lymphocyte pct 50.0 % [facility] Comment: Interpretive Data Percent cell count reference ranges are not reported, since discordance with absolute values may lead to misinterpretation of CBC data. Current Interpretive Data was last revised on 2018. Testing performed by: [address] [address] Monocyte pct 7.8 % [facility] Comment: Interpretive Data Percent cell count reference ranges are not reported, since discordance with absolute values may lead to misinterpretation of CBC data. Current Interpretive Data was last revised on 2018. Testing performed by: [address] [address] Eosinophil pct 2.3 % [facility] Comment: Interpretive Data Percent cell count reference ranges are not reported, since discordance with absolute values may lead to misinterpretation of CBC data. Current Interpretive Data was last revised on 2018. Testing performed by: [address] [address] Basophil pct 0.3 % [facility] Comment: Interpretive Data Percent cell count reference ranges are not reported, since discordance with absolute values may lead to misinterpretation of CBC data. Current Interpretive Data was last revised on 2018. Testing performed by: [address] [address] Blood 03/23/2025 7:56 AM CDT 03/23/2025 7:57 AM CDT us Amol Chapin MD PhD LAB BLOOD ORDERABLES Final Resul t [facility]ANNER[facility] [address] [facility] Department [place] [address] * CBC with auto differential (03/23/2025 7:56 AM CDT) WBC 7.02 3.80 - 9.90 K/cumm Comment:Testing performed by : [address] [address] Hgb 13.5 11.9 - 15.5 g/dL KAYODE Comment:Testing performed by : [address] [address] Hct 38.7 35.6 - 45.5 % KAYODE Comment:Testing performed by : [address] [address] Plt 263 150 - 400 K/cumm KAYODE Comment:Testing performed by : [address] [address] MPV 10.1 9.1 - 12.3 fL KAYODE Comment:Testing performed by : [address] [address] RBC 4.16 3.90 - 5.20 M/cumm KAYODE Comment:Testing performed by : [address] [address] MCV 93.0 81.3 - 96.4 fL KAYODE Comment:Testing performed by : [address] [address] MCH 32.5 27.1 - 33.3 pg KAYODE Comment:Testing performed by : [address] [address] MCHC 34.9 32.3 - 35.7 g/dL KAYODE Comment:Testing performed by : [address] [address] RDW CV 12.5 11.1 - 14.9 % KAYODE Comment:Testing performed by : [address], [address] RDW SD 42.5 35.7 - 48.1 fL KAYODE Comment:Testing performed by : [address] [address] NRBC abs 0.00 0.00 - 0.01 K/cumm KAYODE Comment:Testing performed by : [address] [address] ANC Prelim 2.77 1.50 - 6.50 K/cumm KAYODE Comment: Interpretive Data The rapid ANC is a preliminary automated count and may vary from the final ANC (Neut Abs) reported in the WBC differential that follows. Current interpretive data was last revised 2025. Testing performed by: [address] [address] Blood 03/23/2025 7:56 AM CDT 03/23/2025 7:57 AM CDT us Amol Chapin MD PhD LAB BLOOD ORDERABLES Final Resul t Performing Organization Address [facility] Co de Phone Number [address] [place] [address] * CA 125 (03/23/2025 7:56 AM CDT) [facility] CA 125 ag 11.4 0.0 - 38.1 units/mL Comment: Interpretive Data The Genia CA 125 assay procedure was used. Results from different manufacturers or methods may not be comparable. Serial testing should be performed using the same method. Testing performed by: [address] [address] Blood 03/23/2025 7:56 AM CDT 03/23/2025 9:38 AM CDT us Amol Chapin MD PhD LAB BLOOD ORDERABLES Final Resul t Performing Organization Address City/[facility] Co de Phone Number [address] [place] [address] * Comprehensive metabolic panel (03/23/2025 7:56 AM CDT) Sodium 144 135 - 145 mmol/L Comment:Testing performed by : [address], [place]., [address] Potassium, pl 4.2 3.3 - 4.9 mmol/L KAYODE Comment:Testing performed by : [address], [place]., [address] Chloride 106 97 - 110 mmol/L KAYODE Comment:Testing performed by : [address], [place]., [address] CO2 28 22 - 32 mmol/L KAYODE Comment:Testing performed by : [address], [place]., [address] Anion gap 10 2 - 15 mmol/L KAYODE Comment:Testing performed by : [address], [place]., [address] BUN 8 6 - 25 mg/dL KAYODE Comment:Testing performed by : [address], [place]., [address] Creatinine 0.80 0.60 - 1.10 mg/dL KAYODE Comment:Testing performed by : [address], [place]., [address] Glucose 82 70 - 199 mg/dL [facility] Comment: Interpretive Data Fasting glucose >/= 126 [...] was last revised 2022. Testing performed by: [address] [address] Calcium 9.3 8.5 - 10.3 mg/dL KAYODE Comment:Testing performed by : [address], [place]., [address] Bilirubin, total <0.2 0.1 - 1.2 mg/dL KAYODE Comment:Testing performed by : [address] [address] Protein, pl 6.6 6.5 - 8.5 g/dL KAYODE Comment:Testing performed by : [address] [address] Albumin 4.4 3.5 - 5.0 g/dL KAYODE KATZ Comment:Testing performed by : [address] [address] Alk phos 61 40 - 130 Units/L KAYODE Comment:Testing performed by : [address] [address] ALT 12 7 - 45 Units/L KAYODE Comment:Testing performed by : [address] [address] AST 16 10 - 45 Units/L KAYODE Comment:Testing performed by : [address] [address] Blood 03/23/2025 7:56 AM CDT 03/23/2025 7:57 AM CDT us Amol Chapin MD PhD LAB BLOOD ORDERABLES Final Resul t Performing Organization Address City/[facility] Co de Phone Number [address] [place] [address] * Erythrocyte sedimentation rate (03/23/2025 7:53 AM CDT) Pathologist [facility] Erythrocyte sedimentation rate 8 1 - 30 mm/hr Comment:Testing performed by : [address] [address] Blood 03/23/2025 7:53 AM CDT 03/23/2025 11:35 AM CDT us Amol Chapin MD PhD LAB BLOOD ORDERABLES Final Resul t [address] [address] * CRP (cardiac risk) (03/23/2025 7:53 AM [...] last revised on 2018. Testing performed by: [facility], [address] [place] [address], [place]., [address] Blood 03/23/2025 7:53 AM CDT 03/23/2025 9:35 AM CDT us Amol Chapin MD PhD LAB BLOOD ORDERABLES Final Resul t [facility] [address] [facility] Department of Laboratories [place], [place] [id number] * Hepatitis panel, acute Blood (12/24/2023 3:39 PM TENTER FEEDER) [facility] Hep A IgM Nonreactive Nonreactive [facility] Comment: Interpretive Data: If Hep A IgM Ab is reported as Equivocal, a new sample should be drawn in two weeks for testing. Current interpretive data was last revised on 20. Hep B core IgM Nonreactive Nonreactive [facility] Comment: Interpretive Data If HepB Core IgM Ab is reported as Equivocal, a new sample should be drawn in two weeks for testing. Current interpretive data was last revised on 20. Hep C Ab Nonreactive Nonreactive [facility] Comment: Antibodies to HCV not detected. [...] Nonreactive Nonreactive KAYODE Blood 12/24/2023 3:39 PM TENTER FEEDER 12/24/2023 6:36 PM TENTER FEEDER Javier Kebede DO LAB MICROBIOLOGY - GENERAL ORDERABLES Final Result KAYODE [address] [facility] Department [place] [address] * Pap and High Risk HPV, reflex to Genotyping (02/03/2023 3:24 PM TENTER FEEDER) Thin prep (Pap test) 02/03/2023 3:24 PM TENTER FEEDER 02/03/2023 4:31 PM TENTER FEEDER Narrative PATHOLOGY [facility] - 02/12/2023 7:59 AM CDT EPIC results best viewed via link to PDF [facility] Brandi Ochoa Laboratory of Surgical Pathology [place], [place] [id number] Note to Patients: This report may contain [...] Gender: Edwige : 1975 (Age: 47) Address: [address] [place] [address] Hospital #: [id number] Service: Gynecology Location: Patient Type: [facility] SPECIMEN Taken: 02/03/2023 Received: 02/03/2023 Accessioned: 02/03/2023 [...] 68. This HPV test was performed at [facility] in [place], [place] utilizing the Gen-Probe Aptima assay. [facility]/02/12/2023 07:59 DESHAWN Martinez(ASCP) Report [...] clinical information and biopsy results as indicated. [facility] Clinical Laboratory Improvement Amendments (CLIA) mandate that cytologic and histologic results be correlated for laboratory water quality analyst & improvement standards. FOR ALL [...] screening. The HPV test was performed by [facility], [address] [place] [address]. Report Images and scanned documents, if included only viewable in PDF version The performance characteristics of some immunohistochemical stains, in-situ hybridization and fluorescence in-situ hybridization tests and immunophenotyping by flow cytometry cited in this report (if any) were determined by the Surgical Pathology Department at [facility] as part of an ongoing quality assurance technician program and in compliance with federally mandated [...] determined by the Surgical Pathology Department of [facility]. It has not been cleared or approved by the U. S. Food and Drug Administration. Khoa Rod MD LAB CYTOLOGY ORDERABL ES Final Result PATHOLOGY [facility] [address] [place], [place] [phone] from Last 3 Months or Most Recently Relevant to Health Maintenance Insurance [facility] Advance Directives For more information, please contact: [phone] Documents on File Type Date Recorded Patient Measurement Specialist Expl anation ADVANCE DIRECTIVE 12/25/2023 1:15 PM Power of Security Consultant-Medical * Full Code (Latest Code Status on File) Date Activated Date Inactivated Comments 12/24/2023 11:03 PM 12/26/2023 5:28 PM * Full Code Date Activated Date Inactivated Comments 11/23/2023 6:38 PM 11/24/2023 2:32 PM Care Teams Preschool Assistant Relationship Specialty Start Date End Date Nyla Self NP [address] [address] PCP - General Family Medicine 03/20/25 Pasquale Hanna MD [address] [facility] [address] [place] [address] Referring Physician Obstetrics and Gynecology 01/12/23 Michael Bolivar MD [address] [address] Referring Physician Surgical Oncology 05/28/23 Amol Chapin MD PhD [address] [facility], [address] [place] [address] Medical Oncologist/Security Services Manager Medical Oncology 05/28/23 Darren Simmons DO [address] [facility] [address] [facility] [address] [place], [place] [phone] Referring Physician Internal Medicine 06/10/23 Derick Suarez MD [address] [place] [address] Consulting Physician General Surgery 12/26/23
--- OUTSIDE RECORDS SUMMARY | 2025-06-05 11:52 | XMS_ITS | Data Portability ---
Author Organization [facility], [address] [facility] [place] ([place]) Address [address] [place] [address] Care Team Providers Care Magisterial District Judge Name Role Phone GERSON GOVEA Primary Care Provider Assessment Encounter Date Assessment Date Assessment LastModified by Organization Details LastModified Time 05/08/2025 05/08/2025 History: Patient returns for bilateral [...] doing home exercises. She cannot have nonsteroidal anti-inflammator ies related to cardiac issues. She takes Tylenol [...] without assistance. She has no pain with internal/externa l rotation of bilateral hips. She has 0 [...] Organization Details Last Modified Time Details Appointments PSA Establish ed 10.EST 2024 10:30A M Dr. Swapnil Jefferson Not available Not available Not available PSA Establish ed 10.EST 2024 10:30A M Dr. Swapnil Jefferson Not available Not available Not available PSA Establish ed 10.EST 2024 10:30A M Dr. Swapnil Jefferson Not available Not available Not available Lab None recorded. Referral None recorded. Procedures None recorded. Surgeries None recorded. Imaging None recorded. Medication Orders None recorded. Patient TargetsNo targets recorded. Patient InstructionsNo instructions recorded. Reason for Referral None Reported. Results Created Date Observation Date Name Description Value Unit Range Abnormal Flag Note LastModifiedBy Organization Detail LastModifiedTime 12/19/1909/05/2024 XR, knee, 4 or more view No observ ation record ed. [email or web address] Or Only - Or Radiology [address] [facility], [place], [address], 12/19/2024 12:17:37 12/19/19 25 09/05/2024 XR, knee, 4 or more view No observ ation record ed. [email or web address] Sc Only - Sc Radiology [address] [place] [address], [address], 12/19/2024 12:17:38 Result Notes None recorded. Problems Name Problem SNOMED Code Status Onset Date Resolution Date Notes Provider Name and Address Organization Details Recorded Time Pain of right knee joint 39358405555802 0 Active 2023 Swapnil Jefferson MD [address] [facility], [place], [address], [facility] 4 12:06:30 Pain of left knee joint 40344163249932 7 Active 2023 Swapnil Jefferson MD [address] [place] [address], [address], [facility] 4 12:06:37 Pain of bilateral knee regions 02493193931088 2 Active 2023 Perlita Donohue null, [facility] 4 11:27:56 Primary gonarthros is, bilateral 819664734 Active 2023 Swapnil Jefferson MD [address] [place] [address], [address], [facility] 4 10:53:40 Problem Notes None recorded. Procedures Surgical History Date Name Laterality Status Provider Name and Address Organization Details Recorded Time 2024 SC Viscosupplementation I completed Swapnil Jefferson MD [address] [place] [address], [address], [facility] 5 21:37:33 2023 SC Procedure completed Gin Channels [facility] 4 15:24:12 2023 SC Procedure completed Gin Channels [facility] 4 14:49:02 2023 SC Knee injection completed [facility]lin Yeh [facility] 4 10:03:38 Imaging Results None recorded. Procedure Notes None recorded. Medical Equipment None Reported. Allergies Allergen ID Allergen Name Allergen Category Reaction Reaction Severity Criticality Documentation Date Start Date Code Code System Note Provider Name and Address Organization Details Recorded Time 3486490 ciproflox acin medicatio n Not available Not available Not available 09/05/2024 2551 RxNorm Anne Zonia [facility] 4 10:48:50 3200066 iodine medicatio n Not available Not available Not available 09/05/2024 5933 [facility] 4 10:49:41 0867127 Non-stero idal anti-infl ammatory agent (product) medicatio n Not available Not available Not available 09/05/2024 33022 005 SNOMED Anne [facility] 4 10:49:55 1859246 erythromy nirmal medicatio n Not available Not available Not available 09/05/2024 4053 [facility] 4 10:50:07 8429900 vancomyci n medicatio n Not available Not available Not available 09/05/2024 50043 [facility] 4 10:50:17 3580563 clindamyc in Not available Not available Not available Not available 09/05/2024 2582 [facility] 4 10:50:26 9569453 Product containin g penicilli n (product) medicatio n Not available Not available Not available 09/05/2024 98097 8001 [facility]ED [facility] 4 10:50:44 3363542 diclofena c Not available Not available Not available Not available 09/05/2024 3355 [facility] 4 10:50:51 1881403 prednison e medicatio n Not available Not available Not available 09/05/2024 8640 RxNorm Anne Brar [facility] 4 10:51:06 9758210 itraconyessy crawley medicatio n Not available Not available Not available 09/05/2024 36708 RxNorm Anne Brar [facility] 4 10:51:12 9432022 honey bee venom medicatio n Not available Not available Not available 09/05/2024 52361 7 RxNorm Anne Brar [facility] 4 10:51:28 Medications Name Sig Start [...] N ot Available gabapentin 300 mg capsule PLEASE SEE ATTACHED FOR DETAILED DIRECTION S [...] in Arterial blood by Pulse oximetry Systolic And Diastolic Provider Name and Address Organization Details Last Updated DateTime 172.72 cm 31.8 kg/m2 91570.8 1 g 88 /min 99 % 99 % 127/71 mm[Hg] Anne Zonia [facility] 10:22:57 Date Recorded Body height Provider Name an d Address Organization Details Last Updated DateTime 09/26/2024 172.72 cm Tuh Graf [facility] 09/26/2024 14:53:08 Social History None recorded. Functional Status None recorded. Mental Status None recorded. Family History Nothing Reported. Medical History No medical history recorded. Gynecological HistoryNo gynecological history recorded. Obstetrics History GPAL:G 0 P 0 0 0 0 Past Encounters Encounter ID Performer Location Encounter Start Date Encounter Closed Date Diagnosis/Indication Diagnosis SNOMED-CT Code Diagnosis ICD10 Code Diagnosis Note [id number] Swapnil Jefferson MD [facility] [place] [address] 09/05/2024 10:10:45 09/05/2024 10:54:32 Pain of right knee joint 7085623875 17552 M25.561 Additional diagnosis detail: Pain, joint, knee, right Pain of le ft knee joint 1821195081 00729 M25.562 Additional diagnosis detail: Pain, joint, knee, left Primary go narthrosis, bilateral 777442614 M17.0 Additional diagnosis detail: Primary osteoarthr itis of both knees [id number] Swapnil Jefferson MD [facility] [place] [address] 09/19/2024 09:18:49 09/19/2024 09:32:25 Primary gonarthrosis, bilateral 414595413 M17.0 Additional diagnosis detail: Primary osteoarthr itis of both knees [id number] Swapnil Jefferson MD [facility] [place] [address] 09/26/2024 11:13:53 09/26/2024 11:48:43 Primary gonarthrosis, bilateral 696472719 M17.0 Additional diagnosis detail: Primary osteoarthr itis of both knees [id number] Swapnil Jefferson MD [facility] [place] [address] 10/03/2024 12:03:45 10/03/2024 12:08:02 Primary gonarthrosis, bilateral 992558977 M17.0 Additional diagnosis detail: Primary osteoarthr itis of both knees [id number] Krystyna Payan, SUPERVISOR OF RESEARCH, INFRASTRUCTURE ANALYST [facility] [place] [address] 05/08/2025 10:17:47 05/08/2025 10:54:41 Follow-up orthopedic assessment 333886082 Z47.89 [id number] MD FRANCA [facility] [place] [address] [facility] [place] [address] 06/05/2025 11:42:02 06/05/2025 11:54:14 Primary gonarthrosis, bilateral 833797738 M17.0 Additional diagnosis detail: Primary osteoarthr itis of both knees Health Concerns Section Related Observation LastModified by Organization Detai ls LastModified Time None Recorded Concern Status LastModified by Organization Details LastModified Time None Recorded Advance Directives Directive None Recorded Payers Insurance Date Sequence Insurance Name Policy Number Policy Gastelum Covered Member ID Gastelum Member ID Guarantor Name 06/01/2025 1 [facility] ON OR AFTER 05/29/21 (MEDICAID REPLACEMENT - HMO) Zenaida Cuevas [id number] Zenaida Cuevas OBGyn Episode No OBEpisode recorded.
--- OUTSIDE RECORDS SUMMARY | 2025-06-05 11:52 | XMS_ITS | Continuity of Care Document ---
Author Organization [facility], [facility] [place] Address [address] [place] [address] Care Team Providers Care Validation Consultant Name Role Phone GOVEAGERSON HARPER Primary Care Provider [phone] Assessment No assessment recorded. Plan of Treatment Reminders Order Date Submit [...] instructions recorded. Reason for Referral None Reported. Problems Name Problem SNOMED Code Status Onset Date Resolution Date Notes Provider Name and Address Organization Details Recorded Time Pain of right knee joint 21930694902366 0 Active 2023 Swapnil Jefferson MD [address] [place] [address], [address], [facility] 4 12:06:30 Pain of left knee joint 03808388789828 7 Active 2023 Swapnil Jefferson MD [address] [place], [address], [facility] 4 12:06:37 Pain of bilateral knee regions 17249849204209 2 Active 2023 Perlita Donohue [facility] 4 11:27:56 Primary gonarthros is, bilateral 909662510 Active 2023 Swapnil Jefferson MD [address] [place] [address], [address], [facility] 4 10:53:40 Problem Notes None recorded. Procedures Surgical History Date Name Laterality Status Provider Name and Address Organization Details Recorded Time 2024 SC Viscosupplementation I completed Swapnil Jefferson MD [address] [place], [address], [facility] 5 21:37:33 2023 SC Procedure completed Gin Channels [facility] 4 15:24:12 2023 SC Procedure completed Gin Channels [facility] 4 14:49:02 2023 SC Knee injection completed Marlin Yeh [facility] 4 10:03:38 Imaging Results None recorded. Procedure Notes None recorded. Medical Equipment None Reported. Allergies Allergen ID Allergen Name Allergen Category Reaction Reaction Severity Criticality Documentation Date Start Date Code Code System Note Provider Name and Address Organization Details Recorded Time 3049266 ciproflox acin medicatio n Not available Not available Not available 09/05/2024 2551 [facility] 10:48:50 9493637 iodine medicatio n Not available Not available Not available 09/05/2024 5933 [facility] 4 10:49:41 1012250 Non-stero idal anti-infl ammatory agent (product) medicatio n Not available Not available Not available 09/05/2024 78481 005 SN[facility]ED [facility] 4 10:49:55 0570199 erythromy nirmal medicatio n Not available Not available Not available 09/05/2024 4053 RxNorm Annekarl Brar [facility] 4 10:50:07 3979646 vancomyci n medicatio n Not available Not available Not available 09/05/2024 41784 [facility] 4 10:50:17 7733817 clindamyc in Not available Not available Not available Not available 09/05/2024 2582 RxNorm Anne [facility] 4 10:50:26 4512590 Product containin g penicilli n (product) medicatio n Not available Not available Not available 09/05/2024 06063 8001 SNOMED Anne [facility] 4 10:50:44 2024140 diclofena c Not available Not available Not available Not available 09/05/2024 3355 RxNorm Anne [facility] 4 10:50:51 4600091 prednison e medicatio n Not available Not available Not available 09/05/2024 8640 RxNorm Anne [facility] 4 10:51:06 1912177 itraconaz ole medicatio n Not available Not available Not available 09/05/2024 42700 RxNorm Anne [facility] 4 10:51:12 7770991 honey bee venom medicatio n Not available Not available Not available 09/05/2024 03182 7 RxNorm Anne [facility] 4 10:51:28 Medications Name Sig Start Date [...] Available Not Available No t Available Vitals None Recorded Social History None recorded. Functional Status None recorded. Mental Status None recorded. Family History Nothing Reported. Medical History No medical history recorded. Gynecological HistoryNo gynecological history recorded. Obstetrics History GPAL:G 0 P 0 0 0 0 Past Encounters Encounter ID Performer Location Encounter Start Date Encounter Closed Date Diagnosis/Indication Diagnosis SNOMED-CT Code Diagnosis ICD10 Code Diagnosis Note [id number] Krystyna Payan APRN, POWER DISTRIBUTION ENGINEER [facility] [address] [place] [address] 05/08/2025 10:17:47 05/08/2025 10:54:41 Follow-up orthopedic assessment 289573529 Z47.89 [id number] Swapnil Jefferson MD [facility] ([place]) [address] [place] [address] 06/05/2025 11:42:02 06/05/2025 11:54:14 Primary gonarthrosis, bilateral 512175681 M17.0 Additional diagnosis detail: Primary osteoarthr itis of both knees Health Concerns Section Related Observation LastModified by Organization Detai ls LastModified Time None Recorded Concern Status LastModified by Organization Details LastModified Time None Recorded Payers Encounter Date Sequence Insurance Name Policy Number Policy Gastelum Covered Member ID Gastelum Member ID Guarantor Name 06/05/2025 1 [facility] - DOS ON OR AFTER 21 (MEDICAID REPLACEMENT - HMO) Zenaida Cuevas [id number] Zenaida Cuevas OBGyn Episode No OBEpisode recorded.
[2025-06-05 12:10] LABS: Add Urine Microscopic? NO; Appearance Urine Clear (Clear); Glucose Urine UA Negative (Negative); Leukocyte Esterase Ur Negative LEU/UL (Negative); Nitrate Urine Negative (Negative); Specific Grav Ur 1.010 (1.010-1.020)
--- OUTSIDE RECORDS SUMMARY | 2025-06-05 12:15 | XMS_ITS ---
Author Organization Unknown Address [address] [place] [phone] Phone Care Team Providers Care Time Study Technician Name Role Phone FRIDA BOSS Nahomi Attending Unavailable ZHANG GREEN MECHANIC GENERAL OPERATIONAL TEST Primary Unavailable Social History Type Status Start Date End Date Code Code Syst em Smoking History Unknown if ever smoked [address] Sex Female Hospital Discharge Instructions [...]
--- OUTSIDE RECORDS SUMMARY | 2025-06-05 12:16 | XMS_ITS | Encounter Summary ---
Author Organization [facility] Address [address] [place] [address] Care Team Providers Care Cafeteria Manager Name Role Phone Pasquale Hanna MD Unavailable [phone] Michael Bolivar MD Unavailable [phone] Amol Chapin MD PhD Unavailable Darren Simmons DO Unavailable [phone] Derick Suarez MD Unavailable Miscellaneous, Not In File Primary Care Provider Unavailable Nyla Self NP Primary Care Provider [phone] Reason for Visit * Reason Onset Date Comments Pre-Procedure Instructions 02/14/2025 Encounter Details Date Type Department Care Team (Late st Contact Info) Description 02/14/2025 Telephone [facility] [address] [facility] [address] [place], [place] [id number] eJri Brenner NP [address] [place] [address] Pre-Procedure Instructions Social History Tobacco Use Types [...] on file Legal 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 Gender Identity Not on file Sexual Orientation [...] on filedocumented in this encounter Care Teams Cafeteria Manager Relationship Specialty Start Date End Date Miscellaneous, Not In File PCP - General 02/13/25 03/19/25 Nyla Self NP [address] [address] PCP - General Family Medicine 03/20/25 Pasquale Hanna MD [address] [address] Referring Physician Obstetrics and Gynecology 01/12/23 Michael Bolivar MD [address] [facility] [address] [facility] [address] [place] [address] Referring Physician Surgical Oncology 05/28/23 Amol Chapin MD PhD [address] [facility], [facility] [address] [place] [address] Medical Oncologist/Staffing Assistant Medical Oncology 05/28/23 Darren Simmons DO [address] [facility] [address] [place] [address] Referring Physician Internal Medicine 06/10/23 Derick Suarez MD [address] [place] [address] Consulting Physician General Surgery 12/26/23 documented as of this encounter
--- OUTSIDE RECORDS SUMMARY | 2025-06-05 12:16 | XMS_ITS ---
Author Organization [facility] Address [address] [place] [address] Care Team Providers Care Upper Trimmer Name Role Phone Pasquale Hanna MD Unavailable Michael Bolivar MD Unavailable Amol Chapin MD PhD Unavailable Darren Simmons DO Unavailable Derick Suarez MD Unavailable Nyla Self NP Primary Care Provider [phone] Active Problems Problem Noted Date Diagnosed Date [...] (02/03/2023): Added automatically from request for surgery [id number] Adnexal mass 02/03/2023 Overview (04/07/2023): Presented to STRATEGIC DEBRIEFING SPECIALIST to progressive abdominal bloating and worsening pelvic [...]
--- OUTSIDE RECORDS SUMMARY | 2025-06-05 12:16 | XMS_ITS ---
Author Organization Unknown Address [address] [place] [phone] Phone Care Team Providers Care Marketing Project Lead Name Role Phone FRIDA BOSS Nahomi Attending Unavailable ZHANG GREEN APN Primary Unavailable Social History Type Status Start Date End Date Code Code Syst em Smoking History Unknown if ever smoked [address] Sex Female Hospital Discharge Instructions [...]
--- OUTSIDE RECORDS SUMMARY | 2025-06-05 12:16 | XMS_ITS | Referral Summary ---
Author Organization [facility] Address [address] [place] [address] Care Team Providers Care Geek Squad Agent Name Role Phone Pasquale Hanna MD Unavailable [phone] Michael Bolivar MD Unavailable [phone] Amol Chapin MD PhD Unavailable Darren Simmons DO Unavailable [phone] Derick Suarez MD Unavailable Nyla Self NP Primary Care Provider [phone] Encounters Date Type Department Care Team Description 05/25/2025 Telephone [facility] [address] [facility] [address] [place] [address] Lotus Esposito MD PhD spk w/nurse 05/08/2025 Telephone [facility] [address] [facility] [address] [place] [address] Lotus Esposito MD PhD medication issue 04/25/2025 2:47 PM CDT - 04/25/2025 11:59 PM CDT Hospital Encounter [facility] [facility] [address] [place] [address] Lotus Esposito MD PhD Neuropathic pain (Primary Dx) Discharge Disposition: Discharge to home or self care 04/13/2025 11:42 AM CDT - 04/13/2025 11:59 PM CDT Hospital Encounter [facility] [address] [facility] [address] [place] [address] Jeri Brenner NP Other polyneuropathy (Primary Dx) Discharge Disposition: Discharge to home or self care 04/10/2025 Telephone [facility] [address] [facility] [address] [place] [address] Jeri Brenner NP PMC Preprocedure 03/23/2025 8:00 AM CDT Lab [facility] at [address] [address] Elevated CA-125; Malignant neoplasm of central portion of left breast in female, estrogen receptor negative (HCC); Arthralgia, unspecified joint 03/23/2025 8:30 AM CDT Office Visit [facility] Physicians [facility] On[facility] [facility] [address] [place] [phone] Amol Chapin MD PhD Malignant neoplasm of [...] 1 capsule (300 mg total) by mouth bank sales and service manager before breakfast AND 1 capsule (300 mg total) daily with lunch AND 2 capsules (600 mg total) nightly. 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 Gender Identity Not on file Sexual Orientation [...] as needed Medical Devices Implanted Type Area Robotics Technologist Device Identifier Shelf Expiration Date Model / Serial / Lot Bard Peripheral Vascular Marker Breast Ring Shape Radiopaque Nitinol Ultracor Twirl [id number] - [id number] Implanted:Qty: 1 on 06/07/2023 at [facility] Left: Axilla Bard Peripheral Vascular [id number] / / [employer] Marker Breast Biopsy Magseed L12 Cm Od18 Ga [id number] - [id number] Implanted:Qty: 1 on 11/23/2023 by Sharon Garcia MD at [facility] Left: Breast [employer] [id number] 06/28/2025 [id number] / / [id number] Explanted Type Area Robotics Technologist Device Identifier Shelf Expiration Date Model / Serial / Lot Bard Peripheral Vascular Powerport Clearvue Airguard 8fr 1 Lumen Lightweight Intermediate Latex Free [id number] - [id number] Implanted:Qty: 1 on 06/04/2023 by Michael Bolivar MD at [facility] Explanted:Qty: 1 on 08/25/2024 by Michael Bolivar MD at [facility] Catheter Right: Chest Bard Peripheral Vascular 03/28/2024 [id number] / / [id number] Procedures Procedure Name Priority Date/Time Associated Diagnosis [...] joint HEPATITIS PANEL, ACUTE STAT 3:39 PM ELECTRICIAN TELEPHONE PAP AND HIGH RISK HPV, REFLEX TO GENOTYPING STAT 02/03/2023 3:24 PM ELECTRICIAN TELEPHONE Adnexal mass from Last 3 Months or [...] was last reviewed 2021. Testing performed by: [address] [address] Blood 03/23/2025 7:56 AM CDT 03/23/2025 7:57 AM CDT us Amol Chapin MD PhD LAB BLOOD ORDERABLES Final Resul t KAYODE [address] [facility] Department [place] [address] * (ABNORMAL) Differential, auto (03/23/2025 7:56 AM CDT) Neutrophil abs 2.77 1.50 - 6.50 K/cumm Comment:Testing performed by : [address] [address] Imm gran abs 0.01 0.00 - 0.10 K/cumm KAYODE Comment:Testing performed by : [address] [address] Lymphocyte abs 3.51(H) 0.80 - 3.30 K/cumm KAYODE Comment:Testing performed by : [address] [address] Monocyte abs 0.55 0.20 - 0.80 K/cumm KAYODE Comment:Testing performed by : [address] [address] Eosinophil abs 0.16 0.00 - 0.50 K/cumm KAYODE Comment:Testing performed by : [address] [address] Basophil abs 0.02 0.00 - 0.10 K/cumm KAYODE Comment:Testing performed by : [address] [place] [address] Neutrophil pct 39.5 % [facility] Comment: Interpretive Data Percent cell count reference ranges are not reported, since discordance with absolute values may lead to misinterpretation of CBC data. Current Interpretive Data was last revised on 2018. Testing performed by: [address] [address] Imm gran pct 0.1 % [facility] Comment: Interpretive Data Percent cell count reference ranges are not reported, since discordance with absolute values may lead to misinterpretation of CBC data. Current Interpretive Data was last revised on 2018. Testing performed by: [address] [address] Lymphocyte pct 50.0 % [facility] Comment: Interpretive Data Percent cell count reference ranges are not reported, since discordance with absolute values may lead to misinterpretation of CBC data. Current Interpretive Data was last revised on 2018. Testing performed by: [address] [address] Monocyte pct 7.8 % [facility] Comment: Interpretive Data Percent cell count reference ranges are not reported, since discordance with absolute values may lead to misinterpretation of CBC data. Current Interpretive Data was last revised on 2018. Testing performed by: [address] [address] Eosinophil pct 2.3 % [facility] Comment: Interpretive Data Percent cell count reference ranges are not reported, since discordance with absolute values may lead to misinterpretation of CBC data. Current Interpretive Data was last revised on 2018. Testing performed by: [address] [address] Basophil pct 0.3 % [facility] Comment: Interpretive Data Percent cell count reference ranges are not reported, since discordance with absolute values may lead to misinterpretation of CBC data. Current Interpretive Data was last revised on 2018. Testing performed by: [address] [address] Blood 03/23/2025 7:56 AM CDT 03/23/2025 7:57 AM CDT us Amol Chapin MD PhD LAB BLOOD ORDERABLES Final Resul t [facility] [address] [facility] Department [place] [address] * CBC with auto differential (03/23/2025 7:56 AM CDT) WBC 7.02 3.80 - 9.90 K/cumm Comment:Testing performed by : [address] [address] Hgb 13.5 11.9 - 15.5 g/dL KAYODE Comment:Testing performed by : [address] [address] Hct 38.7 35.6 - 45.5 % KAYODE Comment:Testing performed by : [address] [address] Plt 263 150 - 400 K/cumm KAYODE Comment:Testing performed by : [address] [address] MPV 10.1 9.1 - 12.3 fL KAYODE Comment:Testing performed by : [address] [address] RBC 4.16 3.90 - 5.20 M/cumm KAYODE Comment:Testing performed by : [address] [address] MCV 93.0 81.3 - 96.4 fL KAYODE Comment:Testing performed by : [address] [address] MCH 32.5 27.1 - 33.3 pg KAYODE Comment:Testing performed by : [address] [address] MCHC 34.9 32.3 - 35.7 g/dL KAYODE Comment:Testing performed by : [address] [address] RDW CV 12.5 11.1 - 14.9 % KAYODE Comment:Testing performed by : [address], [address] RDW SD 42.5 35.7 - 48.1 fL KAYODE Comment:Testing performed by : [address] [address] NRBC abs 0.00 0.00 - 0.01 K/cumm KAYODE Comment:Testing performed by : [address] [address] ANC Prelim 2.77 1.50 - 6.50 K/cumm KAYODE Comment: Interpretive Data The rapid ANC is a preliminary automated count and may vary from the final ANC (Neut Abs) reported in the WBC differential that follows. Current interpretive data was last revised 2025. Testing performed by: [address] [address] Blood 03/23/2025 7:56 AM CDT 03/23/2025 7:57 AM CDT us Amol Chapin MD PhD LAB BLOOD ORDERABLES Final Resul t Performing Organization Address [facility] Co de Phone Number [address] [place] [employer] [place] [address] * CA 125 (03/23/2025 7:56 AM CDT) [facility] CA 125 ag 11.4 0.0 - 38.1 units/mL Comment: Interpretive Data The [employer]ia CA 125 assay procedure was used. Results from different manufacturers or methods may not be comparable. Serial testing should be performed using the same method. Testing performed by: [address] [address] Blood 03/23/2025 7:56 AM CDT 03/23/2025 9:38 AM CDT us Amol Chapin MD PhD LAB BLOOD ORDERABLES Final Resul t Performing Organization Address City/[facility] Co de Phone Number [address] [place] [employer] [place] [address] * Comprehensive metabolic panel (03/23/2025 7:56 AM CDT) Sodium 144 135 - 145 mmol/L Comment:Testing performed by : [address], [place]., [address] Potassium, pl 4.2 3.3 - 4.9 mmol/L KAYODE Comment:Testing performed by : [address], [place]., [address] Chloride 106 97 - 110 mmol/L KAYODE Comment:Testing performed by : [address], [place]., [address] CO2 28 22 - 32 mmol/L KAYODE Comment:Testing performed by : [address], [place]., [address] Anion gap 10 2 - 15 mmol/L KAYODE Comment:Testing performed by : [address], [place]., [address] BUN 8 6 - 25 mg/dL KAYODE Comment:Testing performed by : [address], [place]., [address] Creatinine 0.80 0.60 - 1.10 mg/dL KAYODE Comment:Testing performed by : [address], [place]., [address] Glucose 82 70 - 199 mg/dL [facility] Comment: Interpretive Data Fasting glucose >/= [...] was last revised 2022. Testing performed by: [address] [address] Calcium 9.3 8.5 - 10.3 mg/dL KAYODE Comment:Testing performed by : [address], [place]., [address] Bilirubin, total <0.2 0.1 - 1.2 mg/dL KAYODE Comment:Testing performed by : [address] [address] Protein, pl 6.6 6.5 - 8.5 g/dL KAYODE Comment:Testing performed by : [address] [address] Albumin 4.4 3.5 - 5.0 g/dL KAYODE KATZ Comment:Testing performed by : [address] [address] Alk phos 61 40 - 130 Units/L KAYODE Comment:Testing performed by : [address] [address] ALT 12 7 - 45 Units/L KAYODE Comment:Testing performed by : [address] [address] AST 16 10 - 45 Units/L KAYODE Comment:Testing performed by : [address] [address] Blood 03/23/2025 7:56 AM CDT 03/23/2025 7:57 AM CDT us Amol Chapin MD PhD LAB BLOOD ORDERABLES Final Resul t Performing Organization Address City/[facility] Co de Phone Number [address] [place] [employer] [place] [address] * Erythrocyte sedimentation rate (03/23/2025 7:53 AM CDT) Pathologist [facility] Erythrocyte sedimentation rate 8 1 - 30 mm/hr Comment:Testing performed by : [address] [address] Blood 03/23/2025 7:53 AM CDT 03/23/2025 11:35 AM CDT us Amol Chapin MD PhD LAB BLOOD ORDERABLES Final Resul t [address] [address] * CRP (cardiac risk) (03/23/2025 7:53 AM [...] on 2018. Testing performed by: [facility], [address] [place] [address], [place]., [address] Blood 03/23/2025 7:53 AM CDT 03/23/2025 9:35 AM CDT us Amol Chapin MD PhD LAB BLOOD ORDERABLES Final Resul t [facility] [address] [facility] Department of Laboratories [place], [place] [id number] * Hepatitis panel, acute Blood (12/24/2023 3:39 PM ELECTRICIAN TELEPHONE) [facility] Hep A IgM Nonreactive Nonreactive [facility] Comment: Interpretive Data: If Hep A IgM Ab is reported as Equivocal, a new sample should be drawn in two weeks for testing. Current interpretive data was last revised on 20. Hep B core IgM Nonreactive Nonreactive [facility] Comment: Interpretive Data If HepB Core IgM Ab is reported as Equivocal, a new sample should be drawn in two weeks for testing. Current interpretive data was last revised on 20. Hep C Ab Nonreactive Nonreactive [facility] Comment: Antibodies to HCV not detected. [...] Nonreactive Nonreactive KAYODE Blood 12/24/2023 3:39 PM ELECTRICIAN TELEPHONE 12/24/2023 6:36 PM ELECTRICIAN TELEPHONE Javier Kebede DO LAB MICROBIOLOGY - GENERAL ORDERABLES Final Result KAYODE [address] [facility] Department [place] [address] * Pap and High Risk HPV, reflex to Genotyping (02/03/2023 3:24 PM ELECTRICIAN TELEPHONE) Thin prep (Pap test) 02/03/2023 3:24 PM ELECTRICIAN TELEPHONE 02/03/2023 4:31 PM ELECTRICIAN TELEPHONE Narrative PATHOLOGY [facility] - 02/12/2023 7:59 AM CDT EPIC results best viewed via link to PDF [facility] Surgical Pathology [place], [place] [id number] Note to Patients: This report may contain [...] Gender: Edwige : 1975 (Age: 47) Address: [address] [place] [address] Hospital #: [id number] Service: Gynecology Location: Patient Type: [facility] SPECIMEN Taken: 02/03/2023 Received: 02/03/2023 Accessioned: [...] 68. This HPV test was performed at [facility] in [place], [place] utilizing the Gen-Probe Aptima assay. [facility] [place]/02/12/2023 07:59 DESHAWN Martinez(ASCP) Report Electronically Reviewed and [...] clinical information and biopsy results as indicated. [facility] Clinical Laboratory Improvement Amendments (CLIA) mandate that cytologic and histologic results be correlated for laboratory quality technician & improvement standards. FOR ALL HIGH-GRADE CASES [...] screening. The HPV test was performed by [facility], [address] [place] [address]. Report Images and scanned documents, if included only viewable in PDF version The performance characteristics of some immunohistochemical stains, in-situ hybridization and fluorescence in-situ hybridization tests and immunophenotyping by flow cytometry cited in this report (if any) were determined by the Surgical Pathology Department at [facility] as part of an ongoing quality tester program and in compliance with [...] determined by the Surgical Pathology Department of [facility]. It has not been cleared or approved by the U. S. Food and Drug Administration. Khoa Rod MD LAB CYTOLOGY ORDERABL ES Final Result PATHOLOGY [facility] [address] [place], [place] [phone] from Last 3 Months or Most Recently Relevant to Health Maintenance Insurance [facility] Advance Directives For more information, please contact: [phone] Documents on File Type Date Recorded Patient Nail Expert Expl anation ADVANCE DIRECTIVE 12/25/2023 1:15 PM Power of [employer] * Full Code (Latest Code Status on File) Date Activated Date Inactivated Comments 12/24/2023 11:03 PM 12/26/2023 5:28 PM * Full Code Date Activated Date Inactivated Comments 11/23/2023 6:38 PM 11/24/2023 2:32 PM Care Teams Geek Squad Agent Relationship Specialty Start Date End Date Nyla Self NP [address] [address] PCP - General Family Medicine 03/20/25 Pasquale Hanna MD [address] [facility] [address] [place] [address] Referring Physician Obstetrics and Gynecology 01/12/23 Michael Bolivar MD [address] [address] Referring Physician Surgical Oncology 05/28/23 Amol Chapin MD PhD [address] [facility], [address] [place] [address] Medical Oncologist/Certification Engineer Medical Oncology 05/28/23 Darren Simmons DO [address] [facility] [address] [facility] [address] [place], [place] [id number] Referring Physician Internal Medicine 06/10/23 Derick Suarez MD [address] [place] [address] Consulting Physician General Surgery 12/26/23
--- OUTSIDE RECORDS SUMMARY | 2025-06-05 12:16 | XMS_ITS | Clinical Summary ---
Author Organization [facility] Address [address] [place] [address] Care Team Providers Care Hot Metal Mixer Operator Name Role Phone Pasquale Hanna MD Unavailable Michael Bolivar MD Unavailable Amol Chapin MD PhD Unavailable Darren Simmons DO Unavailable Derick Suarez MD Unavailable Nyla Self NP Primary Care Provider [phone]- [phone] Allergies Active Allergy Reactions Criticality Noted Date [...] 1 capsule (300 mg total) by mouth medical leader before breakfast AND 1 capsule (300 mg total) daily with lunch AND 2 capsules (600 mg total) nightly. 120 capsule 6 05/25/20 25 2025 Active gabapentin (NEURONTIN) 300 mg capsule Take 1 capsule (300 mg total) by mouth medical leader before breakfast AND 1 capsule (300 mg [...] from 06/07/2023:Stage IIA(cT1c, cN1, cM0, G3, ER-, VA-, HER2+) - Signed by Amol Chapin MD PhD on 06/18/2023 Mass of left breast 05/27/2023 Pelvic mass 02/03/2023 Overview (02/03/2023): Added automatically from request for surgery [id number] Adnexal mass 02/03/2023 Overview (04/07/2023): Presented to LOCKER ROOM SUPERVISOR to progressive abdominal bloating and worsening pelvic [...] Department Care Team Description 05/25/2025 Telephone [facility] at the [facility] Advanced Medicine [address] [place] [address] Advanced Medicine [address] [place] [address] Lotus Esposito MD PhD spk w/nurse 05/08/2025 Telephone [facility] at the [address] Advanced Medicine [address] [place] [address] Lotus Esposito MD PhD medication issue 04/25/2025 2:47 PM CDT - 04/25/2025 11:59 PM CDT Hospital Encounter [facility] at the [address] Advanced Medicine [address] [place] [address] Lotus Esposito MD PhD Neuropathic pain (Primary Dx) Discharge Disposition: Discharge to home or self care 04/13/2025 11:42 AM CDT - 04/13/2025 11:59 PM CDT Hospital Encounter [facility] Advanced Medicine [address] [place] [address] Advanced Medicine [address] [place] [address] Jeri Brenner NP Other polyneuropathy (Primary Dx) Discharge Disposition: Discharge to home or self care 04/10/2025 Telephone [facility] Advanced Medicine [address] [place] [address] Advanced Medicine [address] [place] [address] Jeri Brenner NP PMC Preprocedure 03/23/2025 8:30 AM CDT Office Visit [facility] [address] [place] [address] [place] [phone] Amol Chapin MD PhD Malignant neoplasm of central portion of left breast in female, estrogen receptor negative (HCC) (Primary Dx); Arthralgia, unspecified joint 03/23/2025 8:00 AM CDT Lab [facility] at [address] [address] Elevated CA-125; Malignant neoplasm of central portion [...] on file Legal Sex Female 7:40 AM FLYING SQUAD SALESPERSON Gender Identity Not on file Sexual Orientation [...] as needed Medical Devices Implanted Type Area Sales Service Executive Device Identifier Shelf Expiration Date Model / Serial / Lot Bard Peripheral Vascular Marker Breast Ring Shape Radiopaque Nitinol Ultracor Twirl [id number] - [id number] Implanted:Qty: 1 on 06/07/2023 at [facility] Left: Axilla Bard Peripheral Vascular [id number] [facility] / / [employer] [place] Private Marker Breast Biopsy Magseed L12 Cm Od18 Ga [id number] - [id number] Implanted:Qty: 1 on 11/23/2023 by Sharon Garcia MD at [facility] Left: Breast [employer] [id number] 06/28/2025 [id number] Explanted Type Area Sales Service Executive Device Identifier Shelf Expiration Date Model / Serial / Lot Bard Peripheral Vascular Powerport Clearvue Airguard 8fr 1 Lumen Lightweight Intermediate Latex Free [id number] - [id number] Implanted:Qty: 1 on 06/04/2023 by Michael Bolivar MD at [facility] Advanced Medicine Explanted:Qty: 1 on 08/25/2024 by Michael Bolivar MD at [facility] Advanced Medicine Catheter Right: Chest Bard Peripheral Vascular 03/28/2024 [id number] / / [id number] Procedures Procedure Name Priority Date/Time Associated Diagnosis [...] joint HEPATITIS PANEL, ACUTE STAT 3:39 PM FLYING SQUAD SALESPERSON PAP AND HIGH RISK HPV, REFLEX TO GENOTYPING STAT 02/03/2023 3:24 PM FLYING SQUAD SALESPERSON Adnexal mass from Last 3 Months or [...] was last reviewed 2021. Testing performed by: [address] [address] Blood 03/23/2025 7:56 AM CDT 03/23/2025 7:57 AM CDT us Amol Chapin MD PhD LAB BLOOD ORDERABLES Final Resul t KAYODE KATZ [address] [facility] [place] [address] * (ABNORMAL) Differential, auto (03/23/2025 7:56 AM CDT) Neutrophil abs 2.77 1.50 - 6.50 K/cumm Comment:Testing performed by : [address] [address] Imm gran abs 0.01 0.00 - 0.10 K/cumm KAYODE KATZ Comment:Testing performed by : [address], [place]., [address] Lymphocyte abs 3.51(H) 0.80 - 3.30 K/cumm KAYODE Comment:Testing performed by : [address], [place]., [address] Monocyte abs 0.55 0.20 - 0.80 K/cumm KAYODE Comment:Testing performed by : [address], [place]., [address] Eosinophil abs 0.16 0.00 - 0.50 K/cumm KAYODE Comment:Testing performed by : [address], [place]., [address] Basophil abs 0.02 0.00 - 0.10 K/cumm KAYODE Comment:Testing performed by : [address] [address] Neutrophil pct 39.5 % BANNEROSMANI Comment: Interpretive Data Percent cell count reference ranges are not reported, since discordance with absolute values may lead to misinterpretation of CBC data. Current Interpretive Data was last revised on 2018. Testing performed by: [address] [address] Imm gran pct 0.1 % [facility] Comment: Interpretive Data Percent cell count reference ranges are not reported, since discordance with absolute values may lead to misinterpretation of CBC data. Current Interpretive Data was last revised on 2018. Testing performed by: [address] [address] Lymphocyte pct 50.0 % CEROSMANI Comment: Interpretive Data Percent cell count reference ranges are not reported, since discordance with absolute values may lead to misinterpretation of CBC data. Current Interpretive Data was last revised on 2018. Testing performed by: [address] [address] Monocyte pct 7.8 % [facility] Comment: Interpretive Data Percent cell count reference ranges are not reported, since discordance with absolute values may lead to misinterpretation of CBC data. Current Interpretive Data was last revised on 2018. Testing performed by: [address] [address] Eosinophil pct 2.3 % KAYODE KATZ Comment: Interpretive Data Percent cell count reference ranges are not reported, since discordance with absolute values may lead to misinterpretation of CBC data. Current Interpretive Data was last revised on 2018. Testing performed by: [address] [address] Basophil pct 0.3 % KAYODE KATZ Comment: Interpretive Data Percent cell count reference ranges are not reported, since discordance with absolute values may lead to misinterpretation of CBC data. Current Interpretive Data was last revised on 2018. Testing performed by: [address] [address] Blood 03/23/2025 7:56 AM CDT 03/23/2025 7:57 AM CDT us Amol Chapin MD PhD LAB BLOOD ORDERABLES Final Resul t KAYODE [facility] Department [place] [address] * CBC with auto differential (03/23/2025 7:56 AM CDT) WBC 7.02 3.80 - 9.90 K/cumm Comment:Testing performed by : [address] [address] Hgb 13.5 11.9 - 15.5 g/dL KAYODE KATZ Comment:Testing performed by : [address] [address] Hct 38.7 35.6 - 45.5 % KAYODE KATZ Comment:Testing performed by : [address] [address] Plt 263 150 - 400 K/cumm KAYODE KATZ Comment:Testing performed by : [address] [address] MPV 10.1 9.1 - 12.3 fL KAYODE KATZ Comment:Testing performed by : [address] [address] RBC 4.16 3.90 - 5.20 M/cumm KAYODE KATZ Comment:Testing performed by : [address] [address] MCV 93.0 81.3 - 96.4 fL KAYODE Comment:Testing performed by : [address] [address] MCH 32.5 27.1 - 33.3 pg KAYODE KATZ Comment:Testing performed by : [address] [address] MCHC 34.9 32.3 - 35.7 g/dL KAYODE Comment:Testing performed by : [address] [address] RDW CV 12.5 11.1 - 14.9 % KAYODE Comment:Testing performed by : [address] [address] RDW SD 42.5 35.7 - 48.1 fL KAYODE Comment:Testing performed by : [address] [address] NRBC abs 0.00 0.00 - 0.01 K/cumm KAYODE Comment:Testing performed by : [address] [address] ANC Prelim 2.77 1.50 - 6.50 K/cumm KAYODE Comment: Interpretive Data The rapid ANC is a preliminary automated count and may vary from the final ANC (Neut Abs) reported in the WBC differential that follows. Current interpretive data was last revised 2025. Testing performed by: [address] [address] Blood 03/23/2025 7:56 AM CDT 03/23/2025 7:57 AM CDT us Amol Chapin MD PhD LAB BLOOD ORDERABLES Final Resul t SALVADOROSMANI [address] [facility] Department [place] [address] * CA 125 (03/23/2025 7:56 AM CDT) CA 125 ag 11.4 0.0 - 38.1 units/mL Comment: Interpretive Data The Genia CA 125 assay procedure was used. Results from different manufacturers or methods may not be comparable. Serial testing should be performed using the same method. Testing performed by: [address] [address] Blood 03/23/2025 7:56 AM CDT 03/23/2025 9:38 AM CDT us Amol Chapin MD PhD LAB BLOOD ORDERABLES Final Resul t [facility] [address] [facility] Department of Laboratories [place], [place] [id number] * Comprehensive metabolic panel (03/23/2025 7:56 AM CDT) Pathologist [facility] Sodium 144 135 - 145 mmol/L Comment:Testing performed by : [address] [address] Potassium, pl 4.2 3.3 - 4.9 mmol/L KAYODE Comment:Testing performed by : [address] [address] Chloride 106 97 - 110 mmol/L KAYODE Comment:Testing performed by : [address] [address] CO2 28 22 - 32 mmol/L KAYODE Comment:Testing performed by : [address] [address] Anion gap 10 2 - 15 mmol/L KAYODE Comment:Testing performed by : [address] [address] BUN 8 6 - 25 mg/dL KAYODE Comment:Testing performed by : [address] [address] Creatinine 0.80 0.60 - 1.10 mg/dL KAYODE Comment:Testing performed by : [address] [address] Glucose 82 70 - 199 mg/dL KAYODE [...] was last revised 2022. Testing performed by: [address] [address] Calcium 9.3 8.5 - 10.3 mg/dL KAYODE Comment:Testing performed by : [address] [address] Bilirubin, total <0.2 0.1 - 1.2 mg/dL KAYODE Comment:Testing performed by : [address] [address] Protein, pl 6.6 6.5 - 8.5 g/dL KAYODE Comment:Testing performed by : [address] [address] Albumin 4.4 3.5 - 5.0 g/dL KAYODE Comment:Testing performed by : [address] [address] Alk phos 61 40 - 130 Units/L KAYODE Comment:Testing performed by : [address] [address] ALT 12 7 - 45 Units/L KAYODE Comment:Testing performed by : [address] [address] AST 16 10 - 45 Units/L KAYODE Comment:Testing performed by : [address] [address] Blood 03/23/2025 7:56 AM CDT 03/23/2025 7:57 AM CDT us Amol Chapin MD PhD LAB BLOOD ORDERABLES Final Resul t KAYODE [address] [facility] Department [place] [address] * Erythrocyte sedimentation rate (03/23/2025 7:53 AM CDT) [facility] Erythrocyte sedimentation rate 8 1 - 30 mm/hr Comment:Testing performed by : [address] [address] Blood 03/23/2025 7:53 AM CDT 03/23/2025 11:35 AM CDT us Amol Chapin MD PhD LAB BLOOD ORDERABLES Final Resul t Performing Organization Address [facility] Co de Phone Number [place] [phone] [facility] [place] [address] * CRP (cardiac risk) (03/23/2025 7:53 AM CDT) [facility] hsCRP 0.80 mg/L Comment: Interpretive data Adult [...] last revised on 2018. Testing performed by: [address] [address] Blood 03/23/2025 7:53 AM CDT 03/23/2025 9:35 AM CDT us Amol Chapin MD PhD LAB BLOOD ORDERABLES Final Resul t Performing Organization Address City/[facility] Co de Phone Number SALVAD[address] [place] [address] * Hepatitis panel, acute Blood (12/24/2023 3:39 PM FLYING SQUAD SALESPERSON) [facility] Hep A IgM Nonreactive Nonreactive [facility] Comment: Interpretive Data: If Hep A IgM Ab is reported as Equivocal, a new sample should be drawn in two weeks for testing. Current interpretive data was last revised on 20. Hep B core IgM Nonreactive Nonreactive [facility] Comment: Interpretive Data If HepB Core IgM Ab is reported as Equivocal, a new sample should be drawn in two weeks for testing. Current interpretive data was last revised on 20. Hep C Ab Nonreactive Nonreactive [facility] Comment: Antibodies to HCV not detected. Does [...] last revised on 2020. HepBsAg Nonreactive Nonreactive [facility] Blood 12/24/2023 3:39 PM FLYING SQUAD SALESPERSON 12/24/2023 6:36 PM FLYING SQUAD SALESPERSON Javier Kebede DO LAB MICROBIOLOGY - GENERAL ORDERABLES Final Result B[facility]NER[facility]MANI [address] [facility] [place] [address] * Pap and High Risk HPV, reflex to Genotyping (02/03/2023 3:24 PM FLYING SQUAD SALESPERSON) Thin prep (Pap test) 02/03/2023 3:24 PM FLYING SQUAD SALESPERSON 02/03/2023 4:31 PM FLYING SQUAD SALESPERSON Narrative PATHOLOGY [facility] - 02/12/2023 7:59 AM CDT EPIC results best viewed via link to PDF [facility] Brandi Ochoa [facility] [place] [address] Note to Patients: This report may contain [...] Gender: Edwige : 1975 (Age: 47) Address: [address] [place] [address] Hospital #: [id number] Service: Gynecology Location: Patient Type: [facility] SPECIMEN Taken: 02/03/2023 Received: 02/03/2023 Accessioned: [...] 68. This HPV test was performed at [facility] in [place], [place] utilizing the Gen-Probe Aptima assay. [facility]/02/12/2023 07:59 DESHAWN Martinez(ASCP) Report Electronically Reviewed and [...] clinical information and biopsy results as indicated. [facility] Clinical Laboratory Improvement Amendments (CLIA) mandate that cytologic and histologic results be correlated for laboratory quality assistant & improvement standards. FOR ALL HIGH-GRADE CASES [...] screening. The HPV test was performed by [facility], [address] [place] [address]. Report Images and scanned documents, if included only viewable in PDF version The performance characteristics of some immunohistochemical stains, in-situ hybridization and fluorescence in-situ hybridization tests and immunophenotyping by flow cytometry cited in this report (if any) were determined by the Surgical Pathology Department at [facility] as part of an ongoing quality consultant program and in compliance with federally mandated [...] determined by the Surgical Pathology Department of [facility]. It has not been cleared or approved by the U. S. Food and Drug Administration. Khoa Rod MD LAB CYTOLOGY ORDERABL ES Final Result PATHOLOGY [facility] 3rd Floor [place], [place] [phone] from Last 3 Months or Most Recently Relevant to Health Maintenance Insurance [facility] Advance Directives For more information, please contact: [phone] Documents on File Type Date Recorded Patient Jacquard Loom Heddles Tier Expl anation ADVANCE DIRECTIVE 12/25/2023 1:15 PM Power of Acid Maker-Medical * Full Code (Latest Code Status on File) Date Activated Date Inactivated Comments 12/24/2023 11:03 PM 12/26/2023 5:28 PM * Full Code Date Activated Date Inactivated Comments 11/23/2023 6:38 PM 11/24/2023 2:32 PM Care Teams Hot Metal Mixer Operator Relationship Specialty Start Date End Date Nyla Self NP [address] [facility] 3 [place] [address] PCP - General Family Medicine 03/20/25 Pasquale Hanna MD [address] [facility] [address] [facility] [address] [place] [address] Referring Physician Obstetrics and Gynecology 01/12/23 Michael Bolivar MD [address] [facility] [address] [facility] [address] [place] [address] Referring Physician Surgical Oncology 05/28/23 Amol Chapin MD PhD [address] [facility] MEDICAL ONCOLOGY, [facility] [address], [address], [address] [place] [address] Medical Oncologist/Decorating Supervisor Medical Oncology 05/28/23 Darren Simmons DO [address] [facility] [address] [facility] [address] [place] [address] Referring Physician Internal Medicine 06/10/23 Derick Suarez MD [address] [place] [address] Consulting Physician General Surgery 12/26/23
--- OUTSIDE RECORDS SUMMARY | 2025-06-05 12:16 | XMS_ITS | Encounter Summary ---
Author Organization [facility] Healthcare Address [address] [place] [address] Care Team Providers Care Chief Catalyst Operator Name Role Phone Pasquale Hanna MD Unavailable [phone] Michael Bolivar MD Unavailable [phone] Amol Chapin MD PhD Unavailable Darren Simmons DO Unavailable [phone] Derick Suarez MD Unavailable [phone] Nyla Self NP Primary Care Provider [phone]- [phone] Reason for Visit * Reason Onset Date Comments spyvette w/nurse 05/25/2025 Encounter Details Date Type Department Care Team (Late st Contact Info) Description 05/25/2025 Telephone [facility] [facility] [address] [facility] Advanced Medicine [address] [place] [address] Lotus Esposito MD PhD [address] [place], [place] [phone] spk w/nurse Social History Tobacco Use Types [...] on file Legal Sex Female 7:40 AM CLINICAL UNIT COORDINATOR Gender Identity Not on file Sexual [...] on filedocumented in this encounter Care Teams Chief Catalyst Operator Relationship Specialty Start Date End Date Nyla Self NP [address] [facility] 3 [place] [address] PCP - General Family Medicine 03/20/25 [address]quale [address] [facility] [address] [facility] [address] [place] [address] Referring Physician Obstetrics and Gynecology 01/12/23 Michael Bolivar MD [address] [facility] [address] [facility] [address] [place] [address] Referring Physician Surgical Oncology 05/28/23 [place] PhD [address] [place] [address] MEDICAL ONCOLOGY, [facility] [address], [address], [address] [place] [address] Medical Oncologist/Instructional Technology Coordinator Medical Oncology 05/28/23 Darren Simmons DO [address] [facility] 162 [facility] [address] [place] [address] Referring Physician Internal Medicine 06/10/23 Derick Suarez MD [facility] [address] Consulting Physician General Surgery 12/26/23 documented as of this encounter
--- OUTSIDE RECORDS SUMMARY | 2025-06-05 12:16 | XMS_ITS ---
Author Organization Unknown Address [address] [place] [phone] Phone Care Team Providers Care Single Fold Machine Operator Name Role Phone FRIDA BOSS Nahomi Attending Unavailable ZHANG GREEN GARNETT MACHINE OPERATOR Primary Unavailable Social History Type Status Start Date End Date Code Code Syst em Smoking History Unknown if ever smoked [id number] Sex Female Hospital Discharge Instructions [...]
--- OUTSIDE RECORDS SUMMARY | 2025-06-05 12:16 | XMS_ITS | Clinical Summary ---
Author Organization [facility] Address [address] [place] [address] Care Team Providers Care Project Management Professional Name Role Phone Nyla Self NP Primary Care Provider [phone] Allergies Active Allergy Reactions Criticality Noted Date [...] on file Legal Sex Female 5:43 PM FIELD RESEARCH ASSOCIATE Gender Identity Not on file Sexual Orientation [...] complete this topic Insurance MEDICAID Care Teams Project Management Professional Relationship Specialty Start Date End Date Nyla Self NP [address] [phone] PCP - General Nurse Practitioner Family 05/03/21
--- OUTSIDE RECORDS SUMMARY | 2025-06-05 12:17 | XMS_ITS ---
Author Organization Unknown Address [address] [place] [phone] Phone Care Team Providers Care Director Global Intelligence Name Role Phone FRIDA Comer Attending Unavailable [...] Derick Rainey M.D. MF: [email or web address] Report ID: [id number] Reading Location: [id number] KNEE 4V RIGHT - Completed: 1 09:17 [...] Derick Rainey M.D. MF: [email or web address] Report ID: [id number] Reading Location: [place] [address] Social History Type Status Start Date End Date Code Code Syst em Smoking History Unknown if ever smoked [id number] Sex Female Hospital Discharge Instructions [...]
--- OUTSIDE RECORDS SUMMARY | 2025-06-05 12:17 | XMS_ITS ---
Author Organization Unknown Address [address] [place] [phone] Phone Care Team Providers Care Machine Tool Builder Name Role Phone FRIDA BOSS Nahomi Attending Unavailable ZHANG GREEN APN Primary Unavailable Social History Type Status Start Date End Date Code Code Syst em Smoking History Unknown if ever smoked [id number] Sex Female Hospital Discharge Instructions [...]
[2025-06-05 12:48] LABS: Hematocrit 39.3 % (35.0-49.0); Hemoglobin 13.3 g/dL (12.0-15.0); Mean Corpuscular HGB Conc 33.8 g/dL (32-36); Mean Corpuscular Hemoglobin 32.1 pg (27.0-31.0); Mean Corpuscular Volume 94.9 fL (78.0-102.0); Platelet Count Result 177 K/mm3 (150-420); Red Blood Count 4.14 M/mm3 (4.20-5.40); White Blood Count 3.2 K/mm3 (4.8-10.8)
[2025-06-05 13:03] LABS: Alanine Aminotransferase 18 U/L (6-35); Albumin Level 4.1 g/dL (3.5-5.1); Alkaline Phosphatase 52 U/L (38-126); Anion Gap 5 mmol/L (4-12); Aspartate Amino Transferase 26 U/L (14-36); Bilirubin,Total 0.3 mg/dL (0.2-1.3); Blood Urea Nitrogen 8 mg/dL (7-17); Calcium 8.3 mg/dL (8.4-10.2); Carbon Dioxide 30 mmol/L (22-30); Chloride 102 mmol/L (98-107); Estimated CRCL calculation 86 ml/min; Estimated Glomerular Filt Rate > 60; Lipase 91 U/L (23-300); Osmolality Calculated 279 mOsm/kg (285-295); Potassium 3.5 mmol/L (3.4-5.0); Sodium 137 mmol/L (137-145); Total Protein 6.6 g/dL (6.3-8.2)
[2025-06-05 13:08] LABS: Glucose 53 mg/dL (65-110)
[2025-06-05 13:40] VITALS: BP 110/74; PULSE 65; RESP 16; O2SAT 98
== END 2025-06-05 14:30 | disposition home or self-care (01) ==
PROVIDERS: Emergency Provider Emergency Medicine; PCP Nurse Practitioner Family
DX: N39.0 Urinary tract infection, site not specified (principal); R10.32 Left lower quadrant pain; Z87.891 Personal history of nicotine dependence
CPT/HCPCS: 36415; 74176; 80053; 81003; 82948; 83605; 83690; 85027; 99284